=== PATIENT | female | born 2000 | race Caucasian/White ===

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

== ENCOUNTER 2018-04-01 02:09 | Emergency (ER) | payer MEDICAID, SELFPAY ==
[2018-04-01 02:10] VITALS: BP 149/79; PULSE 87; RESP 16; TEMP 36.8; O2SAT 96; BMI 82.9
--- NOTE | 2018-04-01 02:36 | ED.VISSUMM ---
- ER Visit Summary Date of Service: 04/01/18 Chief Complaint: Depressed History of Present Illness: The patient is a 17 F history of depression and anxiety. Reportedly per the police she takes and the friend denied that she was depressed and suicidal and that she was not long for this world. She was brought in for an ED mental health evaluation. Patient herself states she is not suicidal. She did send that text but she was just depressed at the time. She was treated for depression in the past but is since off medication. She states she had a miscarriage 2 weeks ago which were unsure of the accuracy of that statement. Physical Examination: Young female no acute distress. Vital signs are stable. She is afebrile. She does not look septic or toxic. No signs of toxidrome nor a smell of alcohol. HEENT exam unremarkable. Atraumatic. Neck nontender. No signs of trauma. Lungs clear to auscultation bilaterally. Heart regular rhythm rate about 85 no murmur. Chest nontender. Abdomen soft nontender. Extremities moves all 4. She has very superficial self-inflicted cutting wounds on her left proximal forearm. They are not bleeding nor do they need repaired. Both hands are neurovascular intact. Back unremarkable. Neurologically she is awake alert with no focal motor deficits. Normal motor strength sensation all 4 extremities. Test Results: CBC normal except for white count 1.7. BMP unremarkable. Potassium 3.4. Serum test negative. Tox screen negative. Alcohol negative. Emergency Department Course and Treatment: ED mental health evaluation. Prior to disposition crisis evaluation. Treatment Plan: Repeat exam patient is doing well at 03 47. Awaiting crisis evaluation. Disposition: [] Impression: Acute on chronic depression Suicidal ideation Self-inflicted left forearm lacerations that are superficial. (History of cutting) This note was generated with [employer] dictation software. It may contain incorrect words, spelling, and punctuation that were not noted in review of the chart prior to signing ED Disposition - Plan for ED Patient: Referrals: Arabella Mak MD [Primary Care Provider] -
--- NOTE | 2018-04-01 02:41 | ED.DCSUM_ITS ---
- ER Visit Summary Date of Service: 04/01/18 Chief Complaint: Depressed History of Present Illness: The patient is a 17 F history of depression and anxiety. Reportedly per the police she takes and the friend denied that she was depressed and suicidal and that she was not long for this world. She was broug ht in for an ED mental health evaluation. Patient herself states she is not suicidal. She did send that text but she was just depressed at the time. She was treated for depression in the past but is since off medication. She states she had a miscarriage 2 weeks ago which were unsure of the accuracy of that statement. Physical Examination: Young female no acute distress. Vital signs are stable. She is afebrile. She does not look septic or toxic. No signs of toxidrome nor a smell of alcohol. HEENT exam unremarkable. Atraumatic. Neck nontender. No signs of trauma. Lungs clear to auscultation bilaterally. Heart regular rhythm rate about 85 no murmur. Chest nontender. Abdomen soft nontender. Extremities moves all 4. She has very superficial self-inflicted cutting wounds on her left proximal forearm. They are not bleeding nor do they need repaired. Both hands are neurovascular intact. Back unremarkable. Neurologically she is awake alert with no focal motor deficits. Normal motor strength sensation all 4 extremities. Test Results: CBC normal except for white count 1.7. BMP unremarkable. Potassium 3.4. Serum test negative. Tox screen negative. Alcohol negative. Emergency Department Course and Treatment: ED mental health evaluation. Prior to disposition crisis evaluation. Treatment Plan: Repeat exam patient is doing well at 03 47. Awaiting crisis evaluation. Disposition: [] Impression: Acute on chronic depression Suicidal ideation Self-inflicted left forearm lacerations that are superficial. (History of cutting) This note was generated with [employer] dictation software. It may contain incorrect words, spelling, and punctuation that were not noted in review of the chart prior to signing ED Disposition - Plan for ED Patient: Referrals: Arabella Mak MD [Primary Care Provider] -
[2018-04-01 02:52] LABS: Absolute Lymphocyte Count 3.17 X10^3/ul (0.83-4.51); Absolute Neutrophil Count 7.3 X10^3/uL (2.0-7.7); Basophil# 0.03 X10^3/uL; Basophil% 0.3 % (0-1); Eosinophil# 0.57 X10^3/uL; Eosinophils% 4.9 % (0-5); Hematocrit 43.8 % (37-47); Hemoglobin 14.8 g/dl (12.0-15.0); Lymphocyte # 3.17 X10^3/ul (4.0); Lymphocyte % 27.1 % (19-41); Mean Corp Hgb Conc 33.8 g/gl (32-36); Mean Corpuscular Hgb 28.8 pg (27.0-32.0); Mean Corpuscular Volume 85.4 fL (81-99); Mean Platelet Vol. 9.9 fl (6.2-12.0); Monocyte# 0.64 X10^3/uL; Monocyte% 5.5 % (0-10); Neutrophil # 7.28 X10^3/uL (2.7-7.7); Platelet Count 336 K/mm3 (150-450); RBC Distribution Width CV 12.5 % (11.6-14.6); RBC Distribution Width SD 38.6 fl (35.1-43.9); Red Blood Count 5.13 M/mm3 (4.2-5.4); White Blood Count 11.7 K/mm3 (4.4-11.0)
[2018-04-01 03:01] LABS: POSITIVE COUNT NO; POSITIVE DIFFERENTIAL NO; POSITIVE MORPHOLOGY NO
[2018-04-01 03:05] LABS: Amphetamine Urine VISTA NEGATIVE (<1000 ng/mL); Barbiturate Urine VISTA NEGATIVE (< 200 ng/mL); Benzodiazepine Urine VISTA NEGATIVE (< 200 ng/mL); Cocaine Urine VISTA NEGATIVE (< 300 ng/mL); Ecstacy Urine VISTA NEGATIVE (< 500 ng/mL); Methadone Urine VISTA NEGATIVE (< 300 ng/mL); PCP Urine VISTA NEGATIVE (< 25 ng/mL); THC Urine VISTA NEGATIVE (< 50 ng/mL); Vista UDS pH Range 6
[2018-04-01 03:08] LABS: Alcohol, Blood (Medical)-Serum < 3.0 mg/dL
[2018-04-01 03:15] LABS: Anion Gap 9 (5-15); BUN 10 mg/dL (7-18); BUN/Creat Ratio 14.6 RATIO (10-20); Calcium,Total 8.8 mg/dL (8.5-10.1); Chloride 107 mmol/L (98-107); Creatinine, Serum 0.69 mg/dL (0.55-1.02); EST Glomerular Filtration Rate 117 mL/min (>60); Est Glom Filt Rate - Afr Amer 141 mL/min (>60); Glucose 87 mg/dL (74-106); Potassium 3.4 mmol/L (3.5-5.1); Sodium Level 139 mmol/L (136-145)
[2018-04-01 03:17] LABS: Pregnancy, Serum, hCG Quali. NEGATIVE Negative (0-9 Nonpreg)
--- NOTE | 2018-04-01 03:27 | NURSING ---
CALLED CRISIS AT 0327
--- NOTE | 2018-04-01 05:32 | ED.DEP ---
ED Disposition - Plan for ED Patient: Disposition: Home or Assisted Living Instructions: ED Depression Referrals: Arabella Mak MD [Primary Care Provider] - As Needed Counseling,Center [GROUP OF PHYSICIANS] - As soon as possible Additional Instructions: Call follow-up with counseling center as you and them discussed. Return to the ER if feeling worse or suicidal.
[2018-04-01 08:14] VITALS: RESP 16
== END 2018-04-01 08:15 | disposition home or self-care (01) ==
PROVIDERS: Emergency Provider Emergency Medicine; Family Provider Pediatrics; PCP Pediatrics
DX: R45.851 Suicidal ideations (principal); F32.9 Major depressive disorder, single episode, unspecified; S51.812A Laceration without foreign body of left forearm, initial encounter; X78.9XXA Intentional self-harm by unspecified sharp object, initial encounter; Y93.89 Activity, other specified; Y92.009 Unspecified place in unspecified non-institutional (private) residence as the place of occurrence of the external cause; Y99.8 Other external cause status
CPT/HCPCS: 80048; 80307; 80320; 84703; 85025; 99283; G0480

== ENCOUNTER 2018-05-13 22:02 | Emergency (ER) | payer MEDICAID, SELFPAY ==
[2018-05-13 22:03] VITALS: BP 143/102; PULSE 86; RESP 18; TEMP 36.2; O2SAT 100; BMI 35.5
--- NOTE | 2018-05-13 22:57 | ED.VISSUMM ---
- ER Visit Summary Date of Service: 05/13/18 Chief Complaint: Vomiting blood History of Present Illness: The patient is a 17 F who presents complaining of 2 episodes of vomiting blood. Patient states she had no abdominal pain or nausea but suddenly vomited up red and chunky vomit. This happened twice. She is complaining of mild chest pain. She is denying any abdominal pain or nausea at this time. She states this happened once when she was in the past. She states she has not eaten in 48 hours. She was sitting in [place] at the time trying to get a ride to [facility] but no one would give her a ride. She denies any fever, shortness of breath, cough, congestion, abdominal pain, nausea, diarrhea, constipation, urinary symptoms or any other complaints at this time. Patient is not on any blood thinners and has no history of bleeding disorders. Physical Examination: Vital signs: afebrile, hemodynamically stable, no hypoxia on room air General: well nourished, well developed, in no distress, unkempt appearing Skin: warm, dry, no rash, no pallor HEENT: normocephalic and atraumatic; PERRL, EOMI, moist mucous membranes oropharynx is clear without lesions and no posterior oropharyngeal blood noted Cardiovascular: regular rate and rhythm without murmurs, no peripheral edema, 2+ pulses all distal extremities, no subcutaneous emphysema, no [place] crunch Respiratory: No increased work of breathing, lungs are clear to auscultation bilaterally, no rales, rhonchi or wheezing, no stridor Abdominal: Abdomen is soft, nontender to deep palpation, including in the epigastrium, with normoactive bowel sounds, no guarding or rebound, no masses MSK: Moves all extremities, no deformities, normal strength Neuro: Awake and alert, oriented ?4. No facial droop, sensation and motor function intact and symmetric Test Results: Clinical Impression(s) from Imaging Studies Acute Abdomen Series 05/14/18 00:00 IMPRESSION: Negative chest and abdominal series. at 0041 Reported and signed by: Matias Moreno MD Electronically Signed: Matias Moreno, at 0:40 EDT Tel , Service support , Medications Given Discontinued Medications Al Hydroxide/Mg Hydroxide (Mylanta Ii) 30 ml PO X1 ONE Stop: 05/13/18 22:57 Last Admin: 05/13/18 23:09 Dose: 30 ml Lidocaine HCl (Xylocaine Viscous) 15 ml PO X1 ONE Stop: 05/13/18 22:57 Last Admin: 05/13/18 23:09 Dose: 15 ml Multi-Ingredient GI Drug () 1 each PO X1 ONE Stop: 05/13/18 22:57 Last Admin: 05/14/18 00:09 Dose: Not Given Emergency Department Course and Treatment: Patient presents complaining of 2 episodes of vomiting red and junky vomitus. She denies eating anything in 2 days. She denies consuming any red liquids or any other red substances. At this time she appears very comfortable, has had no abdominal pain or even nausea, and her physical exam is benign. Patient states she is hungry and accepted a snack. She was given a GI cocktail. Patient was not given antiemetics because she was not complaining of any nausea. Chest and abdominal x-rays were obtained to evaluate for any mediastinal or subdiaphragmatic air. She had no evidence of free air or other acute pathology. On reevaluation she was sleeping. Patient states she is no longer having the chest pain. Patient's description of 2 episodes of spontaneously vomiting blood without any prodromal symptoms and with an unremarkable examination and no further symptoms in the emergency department gives me low suspicion for any life-threatening active upper GI bleed. She was discharged home and is to follow-up with her primary care doctor. Treatment Plan: [] Disposition: [] Impression: Acute gastritis This note was generated with [employer] dictation software. It may contain incorrect words, spelling, and punctuation that were not noted in review of the chart prior to signing ED Disposition - Plan for ED Patient: Disposition: Home or Assisted Living Instructions: ED Gastritis Referrals: Arabella Mak MD [Primary Care Provider] - 3-5 Days Additional Instructions: Return to the emergency department if you have any further episodes of vomiting blood. Please follow-up with your primary care doctor as soon as possible for another evaluation due to your concerns today. If you have any worsening of your condition or any new concerning symptoms, please return immediately to the emergency department for another evaluation.
--- NOTE | 2018-05-13 23:00 | ED.DCSUM_ITS ---
- ER Visit Summary Date of Service: 05/13/18 Chief Complaint: Vomiting blood History of Present Illness: The patient is a 17 F who presents complaining of 2 episodes of vomiting blood. Patient states she had no abdominal pain or nausea but suddenly vomited up red and chunky vomit. This happened twice. She is complaining of mild chest pain. She is denying any abdominal pain or nausea at this time. She states this happened once when she was in the past. She states she has not eaten in 48 hours. She was sitting in [place] at the time trying to get a ride to [facility] but no one would give her a ride. She denies any fever, shortness of breath, cough, congestion, abdominal pain, naus ea, diarrhea, constipation, urinary symptoms or any other complaints at this time. Patient is not on any blood thinners and has no history of bleeding disorders. Physical Examination: Vital signs: afebrile, hemodynamically stable, no hypoxia on room air General: well nourished, well developed, in no distress, unkempt appearing Skin: warm, dry, no rash, no pallor HEENT: normocephalic and atraumatic; PERRL, EOMI, moist mucous membranes oropharynx is clear without lesions and no posterior oropharyngeal blood noted Cardiovascular: regular rate and rhythm without murmurs, no peripheral edema, 2+ pulses all distal extremities, no subcutaneous emphysema, no [place] crunch Respiratory: No increased work of breathing, lungs are clear to auscultation bilaterally, no rales, rhonchi or wheezing, no stridor Abdominal: Abdomen is soft, nontender to deep palpation, including in the epigastrium, with normoactive bowel sounds, no guarding or rebound, no masses MSK: Moves all extremities, no deformities, normal strength Neuro: Awake and alert, oriented ?4. No facial droop, sensation and motor function intact and symmetric Test Results: Clinical Impression(s) from Imaging Studies Acute Abdomen Series 05/14/18 00:00 IMPRESSION: Negative chest and abdominal series. at 0041 Reported and signed by: Matias Moreno MD Electronically Signed: Matias Moreno, at 0:40 EDT Tel , Service support , Medications Given Discontinued Medications Al Hydroxide/Mg Hydroxide (Mylanta Ii) 30 ml PO X1 ONE Stop: 05/13/18 22:57 Last Admin: 05/13/18 23:09 Dose: 30 ml Lidocaine HCl (Xylocaine Viscous) 15 ml PO X1 ONE Stop: 05/13/18 22:57 Last Admin: 05/13/18 23:09 Dose: 15 ml Multi-Ingredient GI Drug () 1 each PO X1 ONE Stop: 05/13/18 22:57 Last Admin: 05/14/18 00:09 Dose: Not Given Emergency Department Course and Treatment: Patient presents complaining of 2 episodes of vomiting red and junky vomitus. She denies eating anything in 2 days. She denies consuming any red liquids or any other red substances. At this time she appears very comfortable, has had no abdominal pain or even nausea, and her physical exam is benign. Patient states she is hungry and accepted a snack. She was given a GI cocktail. Patient was not given antiemetics because she was not complaining of any nausea. Chest and abdominal x-rays were obtained to evaluate for any mediastinal or subdiaphragmatic air. She had no evidence of free air or other acute pathology. On reevaluation she was sleeping. Patient states she is no longer having the chest pain. Patient's description of 2 episodes of spontaneously vomiting blood without any prodromal symptoms and with an unremarkable examination and no further symptoms in the emergency department gives me low suspicion for any life-threatening active upper GI bleed. She was discharged home and is to follow-up with her primary care doctor. Treatment Plan: [] Disposition: [] Impression: Acute gastritis This note was generated with [employer] dictation software. It may contain incorrect words, spelling, and punctuation that were not noted in review of the chart prior to signing ED Disposition - Plan for ED Patient: Disposition: Home or Assisted Living Instructions: ED Gastritis Referrals: Arabella Mak MD [Primary Care Provider] - 3-5 Days Additional Instructions: Return to the emergency department if you have any further episodes of vomiting blood. Please follow-up with your primary care doctor as soon as possible for another evaluation due to your concerns today. If you have any worsening of your condition or any new concerning symptoms, please return immediately to the emergency department for another evaluation.
[2018-05-13] MEDS: Mag Hydrox/Al Hydrox/Simeth 30 ML UDC PO (23:09)
--- NOTE | 2018-05-14 | RAD_ITS ---
HISTORY: Vomiting. EXAM: Abdomen acute series with chest. COMPARISON: None FINDINGS: --Chest: LINES/DEVICES: None. LUNGS: Radiographically clear. No consolidation, edema or effusion. No pneumothorax. MEDIASTINUM AND CARDIOVASCULAR STRUCTURES: Cardiac silhouette not enlarged. Central airways and mediastinal contour are unremarkable. BONES AND SOFT TISSUES: No acute findings. --Abdomen: BOWEL GAS PATTERN: Non-obstructive. No bowel or stomach distention. FREE AIR: None apparent. ORGANOMEGALY: Not seen. CALCIFICATIONS: No pathologic calcifications observed. BONES AND SOFT TISSUES: Mild right scoliosis centered at T12. No acute findings. RAD/Acute Abdomen Inc Chest IMPRESSION: Negative chest and abdominal series. at 0041 Reported and signed by: Matias Moreno MD Electronically Signed: Matias Moreno, at 0:40 EDT Tel , Service support ,
[2018-05-14 00:03] VITALS: RESP 14
[2018-05-14 01:19] VITALS: BP 115/73; PULSE 79; RESP 12; O2SAT 99
== END 2018-05-14 01:20 | disposition home or self-care (01) ==
PROVIDERS: Emergency Provider Emergency Medicine; Family Provider Pediatrics; PCP Pediatrics
DX: K29.00 Acute gastritis without bleeding (principal)
CPT/HCPCS: 74022; 99283

== ENCOUNTER → 2019-10-20 13:48 | Outpatient (CLI) | payer MEDICAID, SELFPAY ==
[2019-10-20 14:38] LABS: Hemoglobin 12.7 g/dL (12.0-15.0); Mean Corp Hgb Conc 33.4 g/dL (32-36); Mean Corpuscular Hgb 28.6 pg (27.0-32.0); Mean Corpuscular Volume 85.6 fL (81-99); Mean Platelet Vol. 9.3 fl (6.2-12.0); Platelet Count 328 K/mm3 (150-450); RBC Distribution Width CV 13.1 % (11.6-14.6); RBC Distribution Width SD 40.2 fl (35.1-43.9); Red Blood Count 4.44 M/mm3 (4.2-5.4); White Blood Count 6.5 K/mm3 (4.4-11.0)
[2019-10-20 15:37] LABS: Estradiol 56.5 pg/mL; Luteinizing Hormone 9.5 mIU/mL; Prolactin 9.4 ng/mL; T4 Free Direct 1.11 ng/dL (0.76-1.46); Thyroid Stim Hormone (TSH) 0.81 uIU/mL (0.358-3.74)
[2019-10-27 00:21] LABS: Anti-Mullerian Hormone,Serum 6.41 ng/mL (.)
== END ==
PROVIDERS: PCP Pediatrics; Visit Provider Obstetrics & Gynecology
DX: N92.6 Irregular menstruation, unspecified (principal)
CPT/HCPCS: 36415; 82670; 83001; 83002; 83516; 84146; 84403; 84439; 84443; 85027

== ENCOUNTER → 2019-11-17 14:19 | Outpatient (CLI) | payer MEDICAID, SELFPAY ==
[2019-11-17 18:33] LABS: Cholesterol 195 mg/dL (200); Hemoglobin A1c 5.4 % (3.8-5.6); High Density Lipoprotein 33 mg/dL; Triglycerides 192 mg/dL; Very Low Density Lipoprotein 38 mg/dL (5-40)
== END ==
PROVIDERS: PCP Pediatrics; Visit Provider Obstetrics & Gynecology
DX: E28.2 Polycystic ovarian syndrome (principal)
CPT/HCPCS: 36415; 80061; 83036; 84403

== ENCOUNTER 2020-03-22 15:10 | Emergency (ER) | payer MEDICAID, SELFPAY ==
[2020-03-22 15:11] VITALS: BP 150/89; PULSE 88; RESP 16; TEMP 36.4; O2SAT 98; BMI 39.6
--- NOTE | 2020-03-22 16:01 | ED.VIS.GEN ---
History of Present Illness Chief Complaint: Nausea/Vomiting Informant: Patient Onset: Today, Yesterday Context: Sudden Onset Timing: Intermittent Quality: Vomited x2 Location: Blood in emesis Current Severity: Mild Maximum Severity: Mild Worsened by: Unknown Relieved by: Nothing Associated Symptoms: No associated symptoms Narrative: Is a 19-year-old female who presents with nausea vomiting x2. States there was blood in her emesis. She states the first time she vomited blood was noted. She denies history peptic ulcers, gastritis, esophagitis or reflux. Patient denies black or maroon-colored stool. She denies orthostatic symptoms. She denies abdominal pain. She has no other complaints Prior similar symptoms: No Recent Illness/Hospitalization: No - Past Medical History (1) No significant past medical history Status: Acute Past Medical History - Allergies and Home Meds Allergies/Adverse Reactions: Allergies latex Adverse Reaction (Verified 03/22/20 15:11) Rash Primary Care Physician: Arabella Mak MD [Primary Care Provider] - Prior records reviewed: Yes - Control pills for irregular menses Surgical History: no surgical history Lives: Alone Smoking Status: Former smoker Alcohol: None Drugs: None Review of Systems General: Denies: Chills, Fever, Sweats Eyes: Denies: Visual changes - bilaterally ENT: Denies: Bilateral ear pain, Rhinorrhea, Sore throat Cardiovascular: Denies: Chest pain, Palpitations Respiratory: Denies: Dyspnea, Cough, Dyspnea on exertion Gastrointestinal: Reports: Nausea, Vomiting, - - Hematemesis. Denies: Melena, Hematochezia Genitourinary: Denies: Dysuria, Hematuria, Frequency Musculoskeletal: Denies: Myalgias, Arthralgias, Neck pain, Back pain, Swelling, Extremity Pain Skin: Denies: Rash, Wounds Neurological: Denies: Headache, Weakness, Numbness Endocrine: Denies: Polyuria, Polydipsia Hematologic: Denies: Easy bruising, Easy bleeding Physical Exam Vital Signs/Narrative: Vital Signs Temp Pulse Resp BP Pulse Ox 03/22/20 15:11 97.6 F L 88 16 150/89 H 98 Inital Vital Signs reviewed: Yes General: Well nourished, Well developed, No Acute Distress Head: Normocephalic, Atraumatic Eyes: Perrl, EOMI ENT: Moist mucous membranes, No rhinorrhea Neck: Supple, Nontender Cardiovascular: Regular rate, Regular rhythm, No murmurs, Normal S1, Normal S2 Respiratory: No distress, CTA bilaterally, Chest nontender Abdomen: Soft, Nontender, Nondistended, Normal bowel sounds Back: Nontender, Normal Inspection Extremities: Nontender, No edema. Negative for: Tenderness, Edema Skin: Normal color, No rash, No Trauma. Negative for: Cyanosis, Diaphoresis, Jaundice Neurological: Alert, Oriented x3, Cranial nerves II-XII grossly intact, Normal Strength, Normal Sensation Psychological: Normal affect, Normal Mood Diagnostic/Tx/Re-eval Chest X-Ray - ED: 1 View, Read by ED Physician, - - NG noted and in proper position 03/22/20 16:07 Abdomen Single View (Portable) [RAD] Stat - Medical Decision Making He was ordered to determine if patient truly had a GI bleed or not. Based on description suspect this may not be blood. Since she is hemodynamically stable with no orthostatic symptoms and denies black stool even though she vomited yesterday blood work was not initially ordered. Nurse informed me that the gastric fluid slightly pink. This may be due to trauma. There is no coffee grounds noted. There is no obvious active bleeding. Suspect patient has Luli-Woodard tear. Will discharge to home. ED Disposition - Plan for ED Patient: Disposition: Home or Assisted Living Diagnosis: Luli-Woodard tear Instructions: Luli-Woodard Tear Prescriptions: Famotidine [Pepcid] 20 mg PO BID #28 tab Prescription Printed Referrals: Arabella Mak MD [Primary Care Provider] - As Needed
--- NOTE | 2020-03-22 16:07 | RAD_ITS ---
STUDY: X-RAY - ABDOMEN/PELVIS REASON FOR EXAM: Female, 19 years old. vomiting blood since last night. NG placement TECHNIQUE: Single AP view of the abdomen / pelvis. COMPARISON: 05/14/2018 FINDINGS: Nasogastric tube with the tip in the left upper quadrant likely in the body the stomach. There is an unremarkable bowel gas pattern. There is no demonstrated free abdominal air. The visualized liver, spleen and kidneys are grossly normal in size and morphology. Normal soft tissue structures. Normal visualized osseous structures. RAD/Abdomen Single View (Portable) IMPRESSION: 1. Nasogastric tube with the tip in the left upper quadrant likely in the body the stomach. 2. No bowel obstruction or pneumoperitoneum. Electronically Signed: Lei José MD at 16:22 EST Tel , Service support ,
--- NOTE | 2020-03-22 16:31 | ED.VISSUMM ---
- ER Visit Summary Date of Service: 03/22/20 Chief Complaint: [] History of Present Illness: The patient is a 19 F [] Physical Examination: [] Test Results: [] Emergency Department Course and Treatment: [] Treatment Plan: [] Disposition: [] Impression: [] This note was generated with [employer] dictation software. It may contain incorrect words, spelling, and punctuation that were not noted in review of the chart prior to signing ED Disposition - Plan for ED Patient: Disposition: Home or Assisted Living Diagnosis: Luli-Woodard tear Instructions: Luli-Woodard Tear Prescriptions: Famotidine [Pepcid] 20 mg PO BID #28 tab Prescription Printed Ondansetron [Zofran Odt] 4 mg PO Q8H PRN PRN #10 tab PRN Reason: Nausea Prescription Printed Referrals: Arabella Mak MD [Primary Care Provider] - As Needed
[2020-03-22 16:42] VITALS: BP 134/77; PULSE 62; RESP 15; O2SAT 97
== END 2020-03-22 16:44 | disposition home or self-care (01) ==
PROVIDERS: Emergency Provider Emergency Medicine; PCP Pediatrics
DX: K22.6 Gastro-esophageal laceration-hemorrhage syndrome (principal); Z87.891 Personal history of nicotine dependence
CPT/HCPCS: 74018; 99282

== ENCOUNTER 2020-05-18 10:52 | Emergency (ER) | payer MEDICAID, SELFPAY ==
[2020-05-18 10:52] VITALS: BP 153/91; PULSE 86; RESP 16; TEMP 36.7; O2SAT 98; BMI 39.9
--- NOTE | 2020-05-18 11:12 | ED.DCSUM_ITS ---
- ER Visit Summary Date of Service: 05/18/20 Chief Complaint: [] History of Present Illness: The patient is a 19 F [rash presents to the emergency department complaint of a rash to the left breast that she noticed this morning. The area slightly tender to palpation. She denies any new soaps or detergents or other allergens. She is never had this type of discomfort before. Patient denies fever or recent illness.] Physical Examination: [HEENT-PERRLA, EOMI. Cranial nerves II through XII grossly intact. TMs clear. Mucous membranes moist. No adenopathy. Cardiovascular-regular rate and rhythm without murmur or ectopy Lungs-clear to auscultation, chest wall stable without crepitus or subcu emphysema. Left breast-patient does have some faint erythema underneath the left breast in the fold of the skin. No vesicles noted. No abscess noted. Abdomen-normoactive bowel sounds, soft, nontender, no rebound or rigidity, no peritoneal signs. Extremities-intact ?4, normal range of motion, normal pulses, atraumatic] Test Results: [None indicated] Emergency Department Course and Treatment: [] Treatment Plan: [Etiology of her rash is unclear although I suspect candidal as the most likely etiology. We also discussed possibility this could be early shingles although there are no vesicular lesions noted at this time. We will treat her with nystatin cream initially and referred to primary care physician for follow-up in 3 to 5 days.] Disposition: [Discharged home in stable condition] Impression: [Dermatitis left breast-suspect Anjali] This note was generated with [employer] dictation software. It may contain incorrect words, spelling, and punctuation that were not noted in review of the chart prior to signing ED Disposition - Plan for ED Patient: Referrals: Arabella Mak MD [Primary Care Provider] -
--- NOTE | 2020-05-18 11:14 | ED.DEP ---
ED Disposition - Plan for ED Patient: Instructions: ED Anjali Skin Infection (Adult) Prescriptions: Nystatin/Triamcin [Nystatin-Triamcinolone Ointm] 30 gm TP BID #1 oint...g. Prescription Printed Referrals: Arabella Mak MD [Primary Care Provider] - Xin Crowley MD [STAFF PHYSICIAN] - 3-5 Days
[2020-05-18 11:25] VITALS: PULSE 15
== END 2020-05-18 11:25 | disposition home or self-care (01) ==
LOC: ED 11:20
PROVIDERS: Emergency Provider Emergency Medicine
DX: L30.9 Dermatitis, unspecified (principal)
CPT/HCPCS: 99282

== ENCOUNTER 2020-06-20 17:21 | Emergency (ER) | payer MEDICAID, SELFPAY ==
[2020-06-20 17:22] VITALS: BP 158/100; PULSE 94; RESP 18; TEMP 35.9; O2SAT 100; BMI 43.2
--- NOTE | 2020-06-20 17:32 | ED.VIS.GEN ---
History of Present Illness Chief Complaint: Female C/O Detail of Chief Complaint: Concern for Informant: Patient Onset: Weeks Narrative: Patient presents concerned that she may be . She reports having history of irregular periods since she was on Depo as a teenager. She recently was on oral contraceptive pills but they ran out in January. She states her last menstrual cycle was January. She has noted fatigue with some nausea and occasional vomiting over the past 2 weeks. She is concerned she may be . She states she spoke to a friend who told her she had to have a blood test for test, not a pee-stick so she came to the emergency room. She has having slight brown discharge. No dysuria. Past Medical History - Allergies and Home Meds Allergies/Adverse Reactions: Allergies latex Adverse Reaction (Verified 06/20/20 17:24) Rash Primary Care Physician: Care Physician,No Primary [Primary Care Provider] - Surgical History: no surgical history Smoking Status: Never smoker Review of Systems General: Denies: Chills, Fever Eyes: Denies: Visual changes - bilaterally ENT: Denies: Bilateral ear pain Cardiovascular: Denies: Chest pain Respiratory: Denies: Dyspnea, Cough Gastrointestinal: Reports: Nausea, Vomiting. Denies: Abdominal pain Genitourinary: Denies: Dysuria Musculoskeletal: Denies: Swelling, Extremity Pain Skin: Denies: Rash Hematologic: Denies: Easy bruising, Easy bleeding Allergy: Denies: Uticaria Physical Exam Vital Signs/Narrative: Vital Signs Temp Pulse Resp BP Pulse Ox 06/20/20 17:22 96.6 F L 94 18 158/100 H 100 Inital Vital Signs reviewed: Yes General: Well nourished, Well developed Head: Normocephalic Neck: Supple Cardiovascular: Regular rate, Regular rhythm Respiratory: No distress, CTA bilaterally Abdomen: Soft, Nontender, Normal bowel sounds Extremities: Nontender Skin: Normal color Neurological: Alert, Oriented x3 Psychological: Normal affect Diagnostic/Tx/Re-eval Laboratory Results 06/20/20 17:48 Urine Color Yellow Urine Clarity Sl. Cloudy Urine pH 7.0 Ur Specific [place] 1.010 Urine Protein Negative Urine Glucose (UA) Normal Urine Ketones Negative Urine Occult Blood 10 H Urine Nitrite Negative Urine Bilirubin Negative Urine Urobilinogen Normal Ur Leukocyte Esterase 100 H Urine RBC 0-5 SEEN Urine WBC 5-10 SEEN Ur Squamous Epith Cells 0-5 SEEN Urine Bacteria RARE Urine Mucus 0 SEEN Urine Test Negative - Medical Decision Making Pelvic examination revealed mild mucus discharge, appears physiologic. No blood noted. No lesions. Urinalysis shows signs of mild infection. She will be treated with 3 days of Bactrim. test is negative. At this time I do not think a blood test for is indicated. I did advise her of this. 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 ED Disposition - Plan for ED Patient: Disposition: Home or Assisted Living Diagnosis: UTI (urinary tract infection) Instructions: ED Bladder Infection, Female (Adult) Prescriptions: Smz/Tmp Ds [Bactrim Ds] 1 tablet PO BID #6 tab Transmission Status: Pending to [id number] Referrals: Arik Mak MD [STAFF PHYSICIAN] - 1 Week if not improving
[2020-06-20 17:52] LABS: Mucous, Urine 0 SEEN /hpf (<or=2+)
[2020-06-20 17:53] LABS: Color, Urine Yellow (Yellow); Glucose, Dipstick Normal (Normal); Ketone-Dipstick Negative (Negative); Leukocyte Esterase-Dipstick 100 /ul (Negative); Nitrite-Dipstick Negative (Negative); Occult Blood-Urine 10 /ul (Negative); Protein-Dipstick Negative (Negative); Urine Bilirubin Dipstick Negative (Negative); Urine Clarity Sl. Cloudy (Clear); Urine Urobilinogen Normal (Normal)
[2020-06-20 17:59] LABS: Internal QC Validated? YES +Cl - CLEAR BKGD; Pregnancy, Urine Negative Negative
[2020-06-20 18:06] LABS: Bacteria RARE /hpf (None Seen); Red Blood Cells-Urine 0-5 SEEN /hpf (0-5); Squamous Epithelial Cells - UA 0-5 SEEN /hpf (5-10); White Blood Cells 5-10 SEEN /hpf (0-5)
[2020-06-20] MEDS: Smz/Tmp Ds Tablet 1 TABLET PO (18:30)
== END 2020-06-20 18:32 | disposition home or self-care (01) ==
PROVIDERS: Emergency Provider Emergency Medicine
DX: N39.0 Urinary tract infection, site not specified (principal)
CPT/HCPCS: 81001; 81025; 99283

== ENCOUNTER 2020-06-23 17:39 | Emergency (ER) | payer MEDICAID, SELFPAY ==
[2020-06-23 17:40] VITALS: BP 152/93; PULSE 65; RESP 15; TEMP 36.1; O2SAT 98; BMI 43.0
[2020-06-23 17:41] VITALS: BP 152/93; PULSE 65; RESP 15; TEMP 36.1; O2SAT 98
--- NOTE | 2020-06-23 18:13 | ED.VIS.GI ---
HPI HPI - GI History of Present Illness Chief Complaint: Nausea/Vomiting Informant: patient Narrative Narrative: Patient presents with abdominal pain, nausea and vomiting. She has had this for about 10 days. She states that she feels nauseous every day and vomited today which was concerning to her. She has pain in the lower part of her abdomen which is concentrated in the right lower quadrant. She denies any urinary symptoms but does have a history of chronic UTIs. She states that she does not believe that she is at this time. She has no history of abdominal surgeries. She has not taken anything for the pain or nausea at home. She denies any fevers. She has not eaten well because of this pain. [facility] Medical History Chronic UTI Home Medications promethazine 25 mg PO Q6H PRN PRN #10 tablet 06/23/20 [Rx Last Taken Unknown] Allergy/AdvReac Type Severity Reaction Status Date / Time latex AdvReac Rash Verified 06/23/20 17:42 Surgical History (Updated 06/23/20 @ 18:[address] Luis Hoffman MD) History of tonsillectomy Social History Smoking Status: Never smoker ROS ROS ED Constitutional Constitutional ED: Denies chills or fever(s) Eyes Eyes: Denies blurry vision or change in vision ENT ENT ED: Denies ear pain, rhinorrhea or sore throat Cardiovascular Cardiovascular: Denies chest pain or palpitations Respiratory/Chest Respiratory/Chest: Denies cough, dyspnea or sputum Gastrointestinal Gastrointestinal: Reports abdominal pain and nausea Genitourinary Genitourinary ED: Denies dysuria, hematuria or urinary frequency Musculoskeletal Musculoskeletal: Denies back pain or neck pain Integumentary Denies change in pigmentation or rash Neurologic Neurologic: Denies headache(s), numbness or weakness Psychiatric Psychiatric: Denies anxiety or depression Endocrine Endocrinology: Denies polydipsia or polyuria EXAM Physical Exam Const Vital Signs: 06/23/20 17:40 06/23/20 17:41 Temperature 97 F L 97 F L Temperature Source Temporal Temporal Pulse Rate 65 65 Respiratory Rate 15 15 Blood Pressure 152/93 H 152/93 H Blood Pressure Mean 112 112 Pulse Ox 98 98 Oxygen Delivery Method Room Air Room Air Positive well nourished and well developed General Appearance ED: well developed and NAD HEENT Reports moist mucous membranes normocephalic and atraumatic; Negative for tenderness Eyes PERRL and EOMs intact bilaterally Neck supple and no JVD Chest Wall Chest: Negative for tenderness Resp normal respiratory effort and clear to auscultation bilaterally Effort and Inspection: Negative for respiratory distress Cardio regular rate and regular rhythm; Negative for no murmurs GI soft to palpation and non-distended Palpation: soft and tender RLQ Back/Spine no CVA tenderness and no thoracic nor lumbar tenderness Cervical Spine: Negative for cervical spine tenderness Extremity normal to inspection General Extremety ED: Negative for tenderness Neuro oriented x3, CN's II-XII intact bilaterally and no sensory deficits noted Sensorium / Orientation: awake and alert Motor Exam: strength 5/5 throughout Psych mental status grossly normal Skin no rashes or lesions noted MDM MDM MDM Narrative Medical decision making narrative: Patient is given morphine and Zofran. Laboratory studies show white blood cell count 14.2. Urinalysis is negative for infection. Liver enzymes and lipase are normal. CAT scan reveals no acute findings. Patient felt lightheaded so I gave her some IV fluids. At this point he feels she can be discharged home. I will give her Phenergan for her nausea. She will need to follow-up with her PCP. Lab Data Labs: Laboratory Results - last 24 hr 06/23/20 06/23/20 06/23/20 18:10 18:10 18:20 WBC 14.2 H RBC 4.85 Hgb 13.1 Hct 40.5 MCV 83.5 MCH 27.0 MCHC 32.3 RDW Std Deviation 43.8 RDW Coeff of Pamela 14.5 Plt Count 392 MPV 9.6 Immature Gran % (Auto) 0.500 Neut % (Auto) 85.2 H Lymph % (Auto) 9.7 L [place] % (Auto) 4.4 Eos % (Auto) 0.0 Baso % (Auto) 0.2 Absolute Neuts (auto) 12.1 H Absolute Lymphs (auto) 1.38 Nucleated RBC % 0 Sodium Potassium Chloride Carbon Dioxide Anion Gap BUN Creatinine Estim Creat Clear Calc Est GFR (MDRD) Af Amer Est GFR (MDRD) Non-Af BUN/Creatinine Ratio Glucose Calcium Total Bilirubin Direct Bilirubin AST ALT Alkaline Phosphatase Total Protein Albumin Globulin Lipase Urine Color Yellow Urine Clarity Clear Urine pH 6.0 Ur Specific [place] 1.015 Urine Protein 15 H Urine Glucose (UA) Normal Urine Ketones Negative Urine Occult Blood 10 H Urine Nitrite Negative Urine Bilirubin Negative Urine Urobilinogen Normal Ur Leukocyte Esterase 100 H Urine RBC 0 SEEN Urine WBC 0-5 SEEN Ur Squamous Epith Cells 0-5 SEEN Urine Bacteria 1+ Urine Mucus 0 SEEN Urine Test Negative 06/23/20 18:20 WBC RBC Hgb Hct MCV MCH MCHC RDW Std Deviation RDW Coeff of Pamela Plt Count MPV Immature Gran % (Auto) Neut % (Auto) Lymph % (Auto) [place] % (Auto) Eos % (Auto) Baso % (Auto) Absolute Neuts (auto) Absolute Lymphs (auto) Nucleated RBC % Sodium 137 Potassium 3.8 Chloride 104 Carbon Dioxide 29.0 Anion Gap 4 L BUN 11 Creatinine 0.86 Estim Creat Clear Calc 152.64 Est GFR (MDRD) Af Amer 107 Est GFR (MDRD) Non-Af 88 BUN/Creatinine Ratio 12.8 Glucose 87 Calcium 8.8 Total Bilirubin 0.60 Direct Bilirubin 0.15 AST 28 ALT 45 Alkaline Phosphatase 81 Total Protein 8.3 H Albumin 3.9 Globulin 4.4 H Lipase 59 L Urine Color Urine Clarity Urine pH Ur Specific [place] Urine Protein Urine Glucose (UA) Urine Ketones Urine Occult Blood Urine Nitrite Urine Bilirubin Urine Urobilinogen Ur Leukocyte Esterase Urine RBC Urine WBC Ur Squamous Epith Cells Urine Bacteria Urine Mucus Urine Test Radiography Diagnostic Testing: Radiology Impression Abdomen/Pelvis CT 06/23/20 19:00 IMPRESSION: Hepatomegaly. No biliary dilatation. No mass or obstruction. Normal appendix. Electronically Signed: Mynor Kunz MD at 19:31 EDT , Service support , Discharge Plan Triage Chief Complaint: Nausea/Vomiting ED Provider: Luis Hoffman Dx/Rx/DC Orders Clinical Impression: Nausea Instructions: ED Vomiting (Adult) Prescriptions: New promethazine [promethazine] 25 MG tablet 25 mg PO Q6H PRN PRN (Reason: Nausea) Qty: 10 RF: 0 Primary Care Provider: Care Physician,No Primary Referrals: Care Physician,No Primary [Primary Care Provider] - Disposition Disposition: Home, self care
[2020-06-23] MEDS: Morphine 4 MG/ML Syringe IV (18:25)
[2020-06-23] MEDS: Ondansetron 4 MG/2 ML Vial IV (18:25)
[2020-06-23 18:31] LABS: Mucous, Urine 0 SEEN /hpf (<or=2+); Red Blood Cells-Urine 0 SEEN /hpf (0-5)
[2020-06-23 18:35] LABS: Color, Urine Yellow (Yellow); Glucose, Dipstick Normal (Normal); Ketone-Dipstick Negative (Negative); Leukocyte Esterase-Dipstick 100 /ul (Negative); Nitrite-Dipstick Negative (Negative); Occult Blood-Urine 10 /ul (Negative); Protein-Dipstick 15 mg/dl (Negative); Specific Gravity, Urine 1.015 (1.002-1.030); Urine Bilirubin Dipstick Negative (Negative); Urine Clarity Clear (Clear); Urine Urobilinogen Normal (Normal)
[2020-06-23 18:38] LABS: Internal QC Validated? YES +Cl - CLEAR BKGD; Pregnancy, Urine Negative Negative
[2020-06-23 18:41] LABS: Bacteria 1+ /hpf (None Seen); Squamous Epithelial Cells - UA 0-5 SEEN /hpf (5-10); White Blood Cells 0-5 SEEN /hpf (0-5)
[2020-06-23 18:42] LABS: Absolute Lymphocyte Count 1.38 X10^3/uL (0.83-4.51); Absolute Neutrophil Count 12.1 X10^3/uL (2.0-7.7); Basophil# 0.03 X10^3/uL; Basophil% 0.2 % (0-1); Hematocrit 40.5 % (37-47); Hemoglobin 13.1 g/dL (12.0-15.0); Lymphocyte # 1.38 X10^3/ul (0.83-4.51); Lymphocyte % 9.7 % (19-41); Mean Corp Hgb Conc 32.3 g/dL (32-36); Mean Corpuscular Volume 83.5 fL (81-99); Mean Platelet Vol. 9.6 fl (6.2-12.0); Monocyte# 0.62 X10^3/uL; Monocyte% 4.4 % (0-10); NRBC Flagged by Analyzer 0 % (0-5); Neutrophil # 12.12 X10^3/uL (2.7-7.7); Neutrophil % 85.2 % (47-70); Platelet Count 392 K/mm3 (150-450); RBC Distribution Width CV 14.5 % (11.6-14.6); RBC Distribution Width SD 43.8 fl (35.1-43.9); Red Blood Count 4.85 M/mm3 (4.2-5.4); White Blood Count 14.2 K/mm3 (4.4-11.0)
[2020-06-23 18:53] LABS: AST(SGOT) 28 U/L (15-37); Alanine Aminotransfer ALT/SGPT 45 U/L (13-56); Albumin, Serum 3.9 g/dL (3.2-5.0); Alkaline Phosphatase 81 U/L (45-117); Anion Gap 4 (5-15); BUN 11 mg/dL (7-18); BUN/Creat Ratio 12.8 RATIO (10-20); Bilirubin, Direct 0.15 mg/dL (0.00-0.30); Calcium,Total 8.8 mg/dL (8.5-10.1); Chloride 104 mmol/L (98-107); Creatinine, Serum 0.86 mg/dL (0.55-1.02); EST Glomerular Filtration Rate 88 mL/min (>60); Est Glom Filt Rate - Afr Amer 107 mL/min (>60); Estimated Creatinine Clearance 152.64 ml/min; Globulin 4.4 g/dL (2.2-4.2); Glucose 87 mg/dL (74-106); Lipase 59 U/L (73-393); Potassium 3.8 mmol/L (3.5-5.1); Protein, Total 8.3 g/dL (6.4-8.2); Sodium Level 137 mmol/L (136-145)
--- NOTE | 2020-06-23 19:00 | CT_ITS ---
STUDY: CT ABDOMEN AND PELVIS WITH CONTRAST REASON FOR EXAM: Female, 19 years old. RLQ abd pain RADIATION DOSAGE (If Supplied By Facility): CTDIvol = ( 13.90 ) mGy, DLP = ( 1055.30 ) mGycm TECHNIQUE: Transaxial images were obtained from the dome of the diaphragm to the symphysis pubis without oral contrast. IV 100mL Isovue-370 was administered. Sagittal and coronal images were reconstructed. Individualized dose optimization techniques were used for this CT. COMPARISON: X-ray March 22, 2020. FINDINGS: The visualized lung bases are unremarkable. The visualized portions of the heart are within normal limits. There is hepatomegaly with diffuse hepatic enlargement. Normal gallbladder and extrahepatic biliary system. Normal spleen. Normal pancreas. Normal bilateral adrenal glands. Normal right kidney. Normal left kidney. Normal visualized stomach. Normal small intestine. Normal colon. The appendix is visualized and appears normal. Normal abdominal aorta. Normal inferior vena cava. Normal retroperitoneum. Normal urinary bladder. Normal visualized uterus. There are adnexal follicles. There is no free fluid in the abdomen or pelvis. Normal abdominal wall. Normal osseous structures. CT/Abdomen/Pelvis W IV Cont ONLY IMPRESSION: Hepatomegaly. No biliary dilatation. No mass or obstruction. Normal appendix. Electronically Signed: Mynor Kunz MD at 19:31 EDT , Service support ,
[2020-06-23 21:11] VITALS: BP 125/74; PULSE 86; PULSE 96; RESP 16; RESP 17; O2SAT 100
== END 2020-06-23 21:23 | disposition home or self-care (01) ==
PROVIDERS: Emergency Provider Emergency Medicine
DX: R11.2 Nausea with vomiting, unspecified (principal)
CPT/HCPCS: 74177; 80048; 80076; 81001; 81025; 83690; 85025; 96374; 96375; 99283; J7030; Q9967; A4216; J2405

== ENCOUNTER 2021-04-29 10:31 | Outpatient (CLI) | payer MEDICAID, SELFPAY ==
[2021-04-29 11:20] LABS: Mucous, Urine 0 SEEN /hpf (<or=2+)
[2021-04-29 11:32] LABS: Color, Urine Yellow (Yellow); Glucose, Dipstick Normal (Normal); Ketone-Dipstick Negative (Negative); Leukocyte Esterase-Dipstick 500 /ul (Negative); Nitrite-Dipstick Negative (Negative); Occult Blood-Urine 10 /ul (Negative); Protein-Dipstick Negative (Negative); Urine Bilirubin Dipstick Negative (Negative); Urine Clarity Clear (Clear); Urine Urobilinogen Normal (Normal)
[2021-04-29 11:40] LABS: Bacteria 1+ /hpf (None Seen); Red Blood Cells-Urine 0-5 SEEN /hpf (0-5); Squamous Epithelial Cells - UA 0-5 SEEN /hpf (5-10); White Blood Cells 25-50 SEEN /hpf (0-5)
== END 2021-04-29 23:59 | disposition home or self-care (01) ==
PROVIDERS: Visit Provider Physician Assistant
DX: R10.9 Unspecified abdominal pain (principal)
CPT/HCPCS: 81001; 87077; 87086; 87088

== ENCOUNTER 2021-05-03 13:07 | Outpatient (CLI) | payer MEDICAID, SELFPAY ==
[2021-05-03 13:14] LABS: Bacteria 0 SEEN /hpf (None Seen); Mucous, Urine 0 SEEN /hpf (<or=2+); Red Blood Cells-Urine 0 SEEN /hpf (0-5)
[2021-05-03 15:41] LABS: Color, Urine Yellow (Yellow); Glucose, Dipstick Normal (Normal); Ketone-Dipstick Negative (Negative); Leukocyte Esterase-Dipstick 500 /ul (Negative); Nitrite-Dipstick Negative (Negative); Occult Blood-Urine 10 /ul (Negative); Protein-Dipstick Negative (Negative); Urine Bilirubin Dipstick Negative (Negative); Urine Clarity Clear (Clear); Urine Urobilinogen Normal (Normal)
[2021-05-03 15:43] LABS: Internal QC Validated? YES +Cl - CLEAR BKGD; Pregnancy, Serum, hCG Quali. NEGATIVE Negative
[2021-05-03 15:58] LABS: ALB/GLOB Ratio 0.8 RATIO (0.9-2.4); AST(SGOT) 15 U/L (15-37); Alanine Aminotransfer ALT/SGPT 25 U/L (13-56); Albumin, Serum 3.7 g/dL (3.2-5.0); Alkaline Phosphatase 104 U/L (45-117); Anion Gap 7 (5-15); BUN 14 mg/dL (7-18); BUN/Creat Ratio 20.4 RATIO (10-20); Chloride 102 mmol/L (98-107); Creatinine, Serum 0.69 mg/dL (0.55-1.02); EST Glomerular Filtration Rate 113 mL/min (>60); Est Glom Filt Rate - Afr Amer 137 mL/min (>60); Globulin 4.9 g/dL (2.2-4.2); Glucose 88 mg/dL (74-106); Protein, Total 8.6 g/dL (6.4-8.2); Sodium Level 136 mmol/L (136-145)
[2021-05-03 16:07] LABS: Squamous Epithelial Cells - UA 0-5 SEEN /hpf (5-10); White Blood Cells 5-10 SEEN /hpf (0-5)
[2021-05-04 08:24] LABS: HIV - WCH Non-Reactive (Nonreactive); Hepatitis C Antibody Non-Reactive (Nonreactive)
== END 2021-05-03 23:59 | disposition home or self-care (01) ==
PROVIDERS: PCP Family Medicine; Referring Provider Family Medicine; Visit Provider Family Medicine
DX: R10.84 Generalized abdominal pain (principal); E03.9 Hypothyroidism, unspecified; Z72.51 High risk heterosexual behavior; Z11.59 Encounter for screening for other viral diseases
CPT/HCPCS: 36415; 80053; 81001; 84439; 84443; 84703; 86703; 86803

== ENCOUNTER 2021-05-24 14:33 | Outpatient (CLI) | payer MEDICAID, SELFPAY ==
[2021-05-24 16:22] LABS: hCG Titer Quant., Serum < 1 mIU/mL (1-3)
== END 2021-05-24 23:59 | disposition home or self-care (01) ==
LOC: WOBLAB 14:35
PROVIDERS: PCP Family Medicine; Visit Provider Obstetrics & Gynecology
DX: N93.9 Abnormal uterine and vaginal bleeding, unspecified (principal)
CPT/HCPCS: 36415; 84702; 86900; 86901

== ENCOUNTER 2021-06-07 13:54 | Outpatient (CLI) | payer MEDICAID, SELFPAY ==
[2021-06-07 15:04] LABS: Hematocrit 40.6 % (37-47); Hemoglobin 13.1 g/dL (12.0-15.0); Mean Corp Hgb Conc 32.3 g/dL (32-36); Mean Corpuscular Hgb 27.4 pg (27.0-32.0); Mean Corpuscular Volume 84.9 fL (81-99); Mean Platelet Vol. 10.1 fl (6.2-12.0); Platelet Count 388 K/mm3 (150-450); RBC Distribution Width CV 13.6 % (11.6-14.6); RBC Distribution Width SD 42.7 fl (35.1-43.9); Red Blood Count 4.78 M/mm3 (4.2-5.4); White Blood Count 11.3 K/mm3 (4.4-11.0)
[2021-06-07 15:20] LABS: Estradiol 48.9 pg/mL; Follicle Stimulating Hormone 5.3 mIU/mL; Luteinizing Hormone 9.8 mIU/mL; T4 Free Direct 1.02 ng/dL (0.76-1.46); Thyroid Stim Hormone (TSH) 1.41 uIU/mL (0.358-3.74)
[2021-06-11 08:46] LABS: Testosterone Free 6.4 pg/mL (0.0-4.2)
== END 2021-06-07 23:59 | disposition home or self-care (01) ==
LOC: WOBLAB 13:55
PROVIDERS: PCP Family Medicine; Visit Provider Obstetrics & Gynecology
DX: N93.9 Abnormal uterine and vaginal bleeding, unspecified (principal)
CPT/HCPCS: 36415; 82670; 83001; 83002; 84402; 84439; 84443; 85027

== ENCOUNTER → 2022-08-25 | Outpatient (CLI) | payer MEDICAID, SELFPAY ==
[2022-08-25 09:59] LABS: Hematocrit 39.8 % (37-47); Hemoglobin 13.2 g/dL (12.0-15.0); Mean Corp Hgb Conc 33.2 g/dL (32-36); Mean Corpuscular Hgb 27.7 pg (27.0-32.0); Mean Corpuscular Volume 83.6 fL (81-99); Mean Platelet Vol. 9.5 fl (6.2-12.0); Platelet Count 378 K/mm3 (150-450); RBC Distribution Width CV 13.6 % (11.6-14.6); RBC Distribution Width SD 41.2 fl (35.1-43.9); Red Blood Count 4.76 M/mm3 (4.2-5.4); White Blood Count 10.3 K/mm3 (4.4-11.0)
[2022-08-25 10:26] LABS: hCG Titer Quant., Serum < 1 mIU/mL (1-3)
[2022-08-25 11:02] LABS: HIV - WCH Non-Reactive (Nonreactive); Hepatitis B Surface Antibody Non-Reactive; Syphilis Antibodies Non-reactive
[2022-08-25 11:06] LABS: Estradiol 63.7 pg/mL; Follicle Stimulating Hormone 5.5 mIU/mL; Luteinizing Hormone 6.3 mIU/mL; Prolactin 12.2 ng/mL; T4 Free Direct 0.93 ng/dL (0.76-1.46); Thyroid Stim Hormone (TSH) 2.76 uIU/mL (0.358-3.74)
[2022-08-25 12:47] LABS: Hemoglobin A1c 5.6 % (3.8-5.6)
[2022-08-30 14:08] LABS: HEPATITIS B SURFACE AG Negative (Negative); Hep C Antibodies Non Reactive (Non Reactive); Hepatitis A AB, Total Positive (Negative); Hepatitis A IgM Antibody Negative (Negative); Hepatitis B Core AB IgM Negative (Negative); Testosterone, % Free 3.06 % (0.50-2.80); Testosterone, Free 1.41 ng/dL (0.10-0.85); Testosterone, Total 46 ng/dL (13-71)
== END | disposition home or self-care (01) ==
PROVIDERS: PCP Family Medicine; Visit Provider Obstetrics & Gynecology
DX: N93.9 Abnormal uterine and vaginal bleeding, unspecified (principal)
CPT/HCPCS: 36415; 80074; 82670; 83001; 83002; 83036; 84146; 84402; 84403; 84439; 84443; 84702; 85027; 86703; 86706; 86708; 86780

== ENCOUNTER 2023-04-24 18:13 | Emergency (ER) | payer MEDICAID, SELFPAY ==
[2023-04-24 18:14] VITALS: BP 167/97; PULSE 102; RESP 16; TEMP 36.3; O2SAT 97; BMI 46.1
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
[2023-04-24 19:45] LABS: Mucous, Urine 0 SEEN /hpf (<or=2+)
[2023-04-24 19:51] LABS: Color, Urine Yellow (Yellow); Glucose, Dipstick Normal (Normal); Ketone-Dipstick Negative (Negative); Leukocyte Esterase-Dipstick 500 /ul (Negative); Nitrite-Dipstick Negative (Negative); Occult Blood-Urine 25 /ul (Negative); Protein-Dipstick 15 mg/dl (Negative); Urine Bilirubin Dipstick Negative (Negative); Urine Clarity Sl. Cloudy (Clear); Urine Urobilinogen 1 mg/dl (Normal)
[2023-04-24 20:00] LABS: Bacteria 1+ /hpf (None Seen); White Blood Cells 5-10 SEEN /hpf (0-5)
[2023-04-24 20:01] LABS: Red Blood Cells-Urine 0-5 SEEN /hpf (0-5); Squamous Epithelial Cells - UA 5-10 SEEN /hpf (5-10)
[2023-04-24 20:05] LABS: Internal QC Validated? YES +Cl - CLEAR BKGD; Pregnancy, Urine Negative Negative
--- NOTE | 2023-04-24 20:24 | CM.ED ---
Social Work SW introduced self and role to patient. Pt requested information on housing/financial assistance for deposit. Pt reports she must move by Sunday and has new house but not the deposit. Pt reports needing deposit funds by Sunday and [facility] who is reporting funds will not be approved by Sunday. Pt given local resources for shelters and financial assistance. Pt reports being unable to go to any shelters due to pending charges. SW encouraged patient to call people to people tomorrow regarding their financial assistance. PD returned to continue working with patient. Shannan Grullon COMPOSITE BOND WORKER, RIDING SILKS CUSTODIAN
== END 2023-04-24 22:26 | disposition home or self-care (01) ==
PROVIDERS: Emergency Provider Emergency Medicine; PCP Family Medicine; Visit Provider Emergency Medicine
DX: N89.8 Other specified noninflammatory disorders of vagina (principal); E03.9 Hypothyroidism, unspecified; Z79.899 Other long term (current) drug therapy
CPT/HCPCS: 81001; 81025; 87491; 87591; 99282

== ENCOUNTER → 2023-07-05 | Outpatient (CLI) | payer MEDICAID, SELFPAY ==
[2023-07-10 04:18] LABS: Chlamydia By Nucleic Acid AMP Positive (Negative); Gonococcus By Nucleic Acid AMP Negative (Negative)
[2023-07-11 16:39] LABS: HPV Reflexed? NOT INDICATED
== END | disposition home or self-care (01) ==
LOC: LABSPEC 16:56
PROVIDERS: PCP Family Medicine; Referring Provider Nurse Practitioner Family; Visit Provider Nurse Practitioner Family
DX: Z12.4 Encounter for screening for malignant neoplasm of cervix (principal); Z11.3 Encounter for screening for infections with a predominantly sexual mode of transmission; R10.2 Pelvic and perineal pain
CPT/HCPCS: 87070; 87086; 87205; 87491; 87591; 88175; G0145

== ENCOUNTER → 2023-08-15 | Outpatient (CLI) | payer MEDICAID, SELFPAY ==
[2023-08-16 20:09] LABS: Chlamydia By Nucleic Acid AMP Negative (Negative); Gonococcus By Nucleic Acid AMP Negative (Negative)
== END | disposition home or self-care (01) ==
LOC: LABSPEC 12:08
PROVIDERS: PCP Family Medicine; Referring Provider Advanced Practice Midwife; Visit Provider Advanced Practice Midwife
DX: A74.9 Chlamydial infection, unspecified (principal)
CPT/HCPCS: 87491; 87591

== ENCOUNTER 2024-02-02 15:58 | Emergency (ER) | payer MEDICAID, SELFPAY ==
[2024-02-02 15:59] VITALS: BP 144/100; PULSE 79; RESP 18; TEMP 36; O2SAT 99; BMI 43.0
--- NOTE | 2024-02-02 16:13 | EDS_ITS ---
HPI History of Present Illness Chief Complaint: Cough [facility] Medical History (Updated 02/02/24 @ 20:[address] Shorty Zhu, DO) Hypothyroid Chronic UTI Home Medications ?Medication ?Instructions ?Recorded ?Last Taken ?Type levothyroxine 25 mcg tablet 25 mcg PO DAILY 04/24/23 Unknown History amoxicillin 875 mg-potassium 1 tab PO BID #14 tabs 02/02/24 Unknown Rx clavulanate 125 mg tablet Allergy/AdvReac Type Severity Reaction Status Date / Time latex AdvReac Rash Verified 02/02/24 15:58 Family History (Updated 07/05/23 @ 14:31 by Danita Jones) Grandmother Colon cancer Grandmother Brain cancer Grandfather Diabetes Father Hypertension Surgical History History of tonsillectomy Social History (Updated 07/05/23 @ 14:33 by Danita Jones) Smoking Status: Never smoker Electronic Cigarette Use: with nicotine alcohol intake: current details: occasionally substance use type: does not use caffeine: Yes what type of physical activity do you participate in: walking frequency: daily do you feel safe at home: Yes additional social history: Boyfriend-Jose C EXAM Physical Exam Const Vital Signs: 02/02/24 15:59 02/02/24 16:50 Temperature 96.8 F L Temperature Source Temporal Pulse Rate 79 Respiratory Rate 18 Respiratory Effort Normal Blood Pressure 144/100 H Blood Pressure Mean 114 Pulse Ox 99 Oxygen Delivery Method Room Air MDM MDM MDM Narrative Medical decision making narrative: HISTORY OF PRESENT ILLNESS: 23-year-old female presents with cough. Patient states she has had shortness of breath, chest pain for 3 days. She notes coworkers had COVID. She states 3 she came in today was because she had severe pain behind her head that radiates down to her kidney. States pain started gradually. Without associated syncope or seizure. Denies history of ICH or family history of connective tissue disease. Denies associated loss of vision, slurred speech, facial drooping, loss of movement, loss sensation. Denies falls or other head trauma. She states she has had a mild cough. She notes associated shortness of breath. She notes chest pain for 3 days as well. She states she sweats her chest pain now. Sharp it is midsternal pressure is not pleuritic. The patient denies recent surgery in the last 4 weeks or immobilization in the last 3 days, denies previous diagnosis of DVT or PE, hemoptysis, unilateral leg swelling or malignancy with treatment the last 6 months or palliative. No estrogen use noted. Patient denies sudden onset or thunderclap headache, denies maximal intensity within 1 minute, vomiting, neck pain, stiffness, changes in vision, fever, history malignancy, syncope, or seizures associated with headache. Patient denies sudden onset of pain, no tearing sensation, no migratory symptoms, no new numbness, weakness or loss of sensation. Patient denies family history or personal history of Connective tissue disorders (Marfan's Syndrome, Dakota Danlos etc). REVIEW OF SYSTEMS: Pertinent positives: Headache, chest pain, shortness of breath, cough Pertinent negatives: Focal weakness, numbness, low sensation, neck stiffness, fever PHYSICAL EXAM: Nursing triage notes reviewed, Vital signs reviewed Constitutional: please see mdm HENT: MMM Eyes: Pupils equal round and reactive to light, Extraocular muscles intact Neck: No stridor, no JVD, full neck ROM Lungs: Clear to auscultation, No wheezing or rales. No increased work of breathing, no conversational dyspnea, no accessory muscle use, no nasal flaring. No respiratory distress noted Heart: Regular rate and rhythm, No murmurs, No rubs and No gallops, 2+ distal pulses (radial, femoral, posterior tibial) in all extremities Abdomen: Soft, there is no tenderness, rigidity, rebound or guarding, no obvious peritoneal signs, no palpable pulsatile abdominal masses, no auscultated abdominal bruit : No CVAT Extremities: No edema Neuro: Alert and oriented x3, neuro exam at baseline, cranial nerves II through XII are intact. No pain with extraocular muscle movement. There is negative test of skew. 5 of 5 strength in upper and lower extremities in flexion extension. Intact sensation to light touch in upper and lower extremity dermatomes. No truncal or extremity ataxia. No dysdiadochokinesia. Normal gait. 2+ reflexes in upper and lower extremities. No meningeal signs. Negative Babinski. NIH of 0. Skin: No rash or lesions noted MEDICAL DECISION MAKING: Chief Complaint: Chest pain, shortness of breath and cough External records reviewed: Reviewed prior allergies, problem list, vital signs and medications Factors affecting care: Hypothyroidism Social determinants of health: Patient denies illicit drug use History obtained from others: none Consults: none [facility] Narrative: Patient was initially hemodynamically stable, afebrile and nontoxic-appearing. Exam without focal neurologic deficits. No meningeal signs. Lungs were clear. No full cardiopulmonary abnormalities I considered the following differential diagnosis: ICH, meningitis, subarachnoid hemorrhage, viral illness, pneumonia, ACS, arrhythmia, anemia, , pyelonephritis, UTI, AAA, dissection I considered dissection the patient had no pulse deficits, no focal neurologic deficits. No historical factors such as connective tissue disease to suggest this diagnosis. In addition to this her x-ray showed no evidence of widened mediastinum. ALL IMAGES (IF OBTAINED) HAVE BEEN PERSONALLY REVIEWED AND INTERPRETED BY MYSELF. EKG with normal sinus rhythm rate of 77, normal axis, no intervals QTc 432, no STEMI, no WW Brugada or ARVD. CBC without leukocytosis, severe anemia, no thrombocytopenia. CMP without evidence of acute kidney injury, significant electrolyte abnormality, anion gap to suggest end organ hypo-perfusion, no evidence of metabolic acidosis with a normal bicarbonate, no evidence of hepatobiliary obstructive pathology. High-sensitivity troponin is negative, no evidence of myocardial ischemia x 2 Urine is negative Urinalysis no evidence of UTI I have personally reviewed the patient's chest x-ray. Chest x-ray is unrem arkable for pulmonary edema, pneumothorax, pneumonia or focal cardiopulmonary abnormality. There is slight mediastinal widening on x-ray which concerning for dissection. COVID RSV flu negative CT of the head shows no evidence of bleed, infarct. Shows evidence of significant sinusitis D-dimer elevated concerning for VTE or dissection I added a CT scan of the chest abdomen pelvis. After discussion with the patient she stated she like to go home before receiving the CT scan of the chest abdomen pelvis because she has not eaten all day. I offered the patient food. She reiterated she like to go home. The patient is alert and oriented x 3 and had capacity to make her medical decisions. She signed out AMA. AMA note: I have recommended additional testing but the patient refuses. The risks (including but not limited to suffering and ) as well as the benefits were explained to the patient. Questions were sought and answered, the patient voiced understanding and accepts these risks. I have encouraged the patient to return to have their evaluation completed as we are glad to do so. Patient had capacity to make his or her own medical decisions. Patient was alert and orient x3 and of sound mind at time of discussion. She is not intoxicated and of sound mind. I have also instructed the patient on the importance of follow-up and to return for any worsening or worrisome concerns. The patient appears competent to make medical decisions at this time. The patient and/or family, caregivers express understanding. The patient and/or family, caregivers agrees with the plan. Shared decision making: I will have a discussion with the patient and or visitors regarding risk/benefits of further testing or admission. They will be made aware of of the risk/benefits inherent in this decision they will be given the opportunity to voice understanding. Total critical care time today provided was at least 0 minutes. This excludes separately billable procedures. Critical care time (if documented) is secondary to the patient having high probability of clinically significant/life threatening deterioration in the patient's condition which required my urgent intervention. Impression: 1. Acute headache 2. Acute sinusitis 3. Cough 4. Elevated D-dimer Dispo: Discharge home This note was generated with [employer] dictation software. It may contain incorrect words, spelling, and punctuation that were not noted in review of the chart prior to signing. Lab Data Labs: Laboratory Results - last 24 hr 02/02/24 02/02/24 16:41 18:55 WBC 9.9 RBC 4.72 Hgb 12.7 Hct 38.8 MCV 82.2 MCH 26.9 L MCHC 32.7 RDW Std Deviation 41.4 RDW Coeff of Pamela 13.8 Plt Count 356 MPV 9.3 Immature Gran % (Auto) 0.400 Neut % (Auto) 60.4 Lymph % (Auto) 26.7 [place] % (Auto) 8.8 Eos % (Auto) 3.5 Baso % (Auto) 0.2 Absolute Neuts (auto) 6.0 Absolute Lymphs (auto) 2.65 Nucleated RBC % 0 D-Dimer Quant (PE/DVT) 0.56 H* Sodium 138 Potassium 3.7 Chloride 105 Carbon Dioxide 29.0 Anion Gap 4 L BUN 11 Creatinine 0.76 Estim Creat Clear Calc 115.54 Est GFR (MDRD) Af Amer 119 Est GFR (MDRD) Non-Af 98 BUN/Creatinine Ratio 14.5 Glucose 106 Calcium 9.1 Total Bilirubin 0.30 AST 18 ALT 30 Alkaline Phosphatase 85 Troponin I High Sens < 3 L < 3 L Total Protein 7.7 Albumin 3.5 Globulin 4.2 Albumin/Globulin Ratio 0.8 L Serum , Qual NEGATIVE Urine Color Yellow Urine Clarity Sl. Cloudy Urine pH 6.0 Ur Specific [place] 1.015 Urine Protein 30 H Urine Glucose (UA) Normal Urine Ketones Negative Urine Occult Blood 25 H Urine Nitrite Negative Urine Bilirubin Negative Urine Urobilinogen Normal Ur Leukocyte Esterase 100 H Urine RBC 0-5 SEEN Urine WBC 10-25 SEEN Ur Squamous Epith Cells 5-10 SEEN Urine Bacteria 1+ Urine Mucus 0 SEEN Urine Test Negative Radiography Diagnostic Testing: Clinical Impression(s) from Imaging Studies Brain CT 02/02/24 16:27 IMPRESSION: 1. Normal CT examination of the brain. 2. No intracranial mass, hemorrhage or acute territorial infarct. 3. Significant sinus disease with opacification of multiple ethmoid air cells greater on the RIGHT than LEFT, mucosal thickening in the RIGHT maxillary antrum, and soft tissue opacification of the RIGHT nasal passages which appears to be secondary to extensive right-sided turbinate hypertrophy Electronically Signed: Lei Garcia MD at 18:11 EST , Chest X-Ray 02/02/24 17:11 IMPRESSION: 1. Shallow inspiration, crowding of bronchovascular markings, and a central vascular congestion. 2. No dwight congestive failure, infiltrate or effusion. Electronically Signed: Lei Garcia MD at 17:57 EST , Discharge Plan Triage Chief Complaint: Cough ED Provider: Shorty Zhu Dx/Rx/DC Orders Clinical Impression: Sinusitis, Chest pain Prescriptions: New amoxicillin-pot clavulanate 875-125 mg tablet 1 tab PO BID Qty: 14 0RF No Action levothyroxine 25 mcg tablet 25 mcg PO DAILY Primary Care Provider: gR Winchester Referrals: Rg Winchester MD [Primary Care Provider] - Activity Restrictions/Additional Instructions: Thank you for trusting us with your care today! Please take antibiotics as prescribed Please take Tylenol (2 pills, 650 mg), ibuprofen (2 pills, 400 mg) every 6 hours as needed for pain and fever control. Please return to the emergency department if your symptoms change or worsen. Please follow with your primary care physician for further outpatient evaluation and management. Print Language: Polish Disposition Disposition: Against Medical Advice Discharge Date/Time: 02/02/24 20:09
--- NOTE | 2024-02-02 16:27 | CT_ITS ---
INDICATION: headache EXAMINATION: CT BRAIN - CT Head or Brain W/O Contrast Injection TECHNIQUE: Multiple axial images were obtained of the head without intravenous contrast. A radiation dose optimization technique was used for this scan. IV Contrast dosage and agent: None. RADIATION DOSAGE (If Supplied By Facility): CTDIvol = ( 44.99 ) mGy, DLP = ( 728.62 ) mGycm COMPARISON: No relevant prior examinations for comparison FINDINGS: HEMISPHERES: 1. The cerebral parenchyma, ventricular system, subarachnoid spaces have normal configuration and density. There is a normal gyral pattern. There is normal haddad/white differentiation. No midline shift.. 2. The hemispheric white matter has normal appearance. 3. No intraparenchymal mass, hemorrhage, or acute territorial infarct. CEREBELLUM - BRAINSTEM: The cerebellum, brainstem, basilar and suprasellar cisterns have normal appearance. No Chiari malformation. PITUITARY: Infundibulum and pituitary have normal configuration. Midline structures appear normal. CSF SPACES: Appropriate for age. No hydrocephalus. Basal cisterns are patent. VESSELS: 1. No significant vascular calcifications in the cavernous carotid vessels. 2. No hyperdense vascular signs noted.. ORBITS AND PARANASAL SINUSES: 1. Normal appearance of the bony orbits. Normal appearance of the globes and retrobulbar soft tissues.. 2. Significant ethmoid sinus disease with multiple opacified ethmoid sinuses, moderate mucosal thickening in the RIGHT maxillary antrum. There is soft tissue opacification of the RIGHT nasal passages with significant hypertrophy of the turbinates. BONY ELEMENTS: Bony elements of the cranial vault, facial skeleton and skull base have normal appearance. SCALP AND SOFT TISSUES: Normal appearance of the soft tissues of the scalp and the visualized face OTHER: None ASPECTS Score for Acute Strokes: 10 CT/Brain/Head without Contrast IMPRESSION: 1. Normal CT examination of the brain. 2. No intracranial mass, hemorrhage or acute territorial infarct. 3. Significant sinus disease with opacification of multiple ethmoid air cells greater on the RIGHT than LEFT, mucosal thickening in the RIGHT maxillary antrum, and soft tissue opacification of the RIGHT nasal passages which appears to be secondary to extensive right-sided turbinate hypertrophy Electronically Signed: Lei Garcia MD at 18:11 EST ,
--- NOTE | 2024-02-02 16:28 | EKG12_ITS ---
Test Reason : GENERAL Blood Pressure : */* mmHG Vent. Rate : 77 BPM Atrial Rate : 77 BPM P-R Int : 154 ms QRS Dur : 86 ms QT Int : 382 ms P-R-T Axes : 42 12 1 degrees QTcB Int : 432 ms Normal sinus rhythm Normal ECG Confirmed by Juan Manuel Palma ([id number]), field map editor FLORIN HOLLEY ([id number]) on 02/04/2024 6:58:15 AM Referred By: Confirmed By: Juan Manuel Palma
[2024-02-02 16:48] LABS: Mucous, Urine 0 SEEN /hpf (<or=2+)
[2024-02-02 16:52] LABS: Absolute Lymphocyte Count 2.65 X10^3/uL (0.83-4.51); Basophil# 0.02 X10^3/uL; Basophil% 0.2 % (0-1); Eosinophil# 0.35 X10^3/uL; Eosinophils% 3.5 % (0-5); Hematocrit 38.8 % (37-47); Hemoglobin 12.7 g/dL (12.0-15.0); Lymphocyte # 2.65 X10^3/ul (0.83-4.51); Lymphocyte % 26.7 % (19-41); Mean Corp Hgb Conc 32.7 g/dL (32-36); Mean Corpuscular Hgb 26.9 pg (27.0-32.0); Mean Corpuscular Volume 82.2 fL (81-99); Mean Platelet Vol. 9.3 fl (6.2-12.0); Monocyte# 0.87 X10^3/uL; Monocyte% 8.8 % (0-10); NRBC Flagged by Analyzer 0 % (0-5); Neutrophil % 60.4 % (47-70); Platelet Count 356 K/mm3 (150-450); RBC Distribution Width CV 13.8 % (11.6-14.6); RBC Distribution Width SD 41.4 fl (35.1-43.9); Red Blood Count 4.72 M/mm3 (4.2-5.4); White Blood Count 9.9 K/mm3 (4.4-11.0)
[2024-02-02 16:53] LABS: Color, Urine Yellow (Yellow); Glucose, Dipstick Normal (Normal); Ketone-Dipstick Negative (Negative); Leukocyte Esterase-Dipstick 100 /ul (Negative); Nitrite-Dipstick Negative (Negative); Occult Blood-Urine 25 /ul (Negative); Protein-Dipstick 30 mg/dl (Negative); Specific Gravity, Urine 1.015 (1.002-1.030); Urine Bilirubin Dipstick Negative (Negative); Urine Clarity Sl. Cloudy (Clear); Urine Urobilinogen Normal (Normal)
[2024-02-02 16:56] LABS: POSITIVE COUNT NO; POSITIVE DIFFERENTIAL NO; POSITIVE MORPHOLOGY NO
[2024-02-02] MEDS: Metoclopramide 10 MG/2 ML Vial 5 MG IV (16:59)
[2024-02-02 17:06] LABS: Internal QC Validated? YES +Cl - CLEAR BKGD; Pregnancy, Serum, hCG Quali. NEGATIVE Negative
[2024-02-02 17:10] LABS: ALB/GLOB Ratio 0.8 RATIO (0.9-2.4); AST(SGOT) 18 U/L (15-37); Alanine Aminotransfer ALT/SGPT 30 U/L (13-56); Albumin, Serum 3.5 g/dL (3.2-5.0); Alkaline Phosphatase 85 U/L (45-117); Anion Gap 4 (5-15); BUN 11 mg/dL (7-18); BUN/Creat Ratio 14.5 RATIO (10-20); Calcium,Total 9.1 mg/dL (8.5-10.1); Chloride 105 mmol/L (98-107); Creatinine, Serum 0.76 mg/dL (0.55-1.02); EST Glomerular Filtration Rate 98 mL/min (>60); Est Glom Filt Rate - Afr Amer 119 mL/min (>60); Estimated Creatinine Clearance 115.54 ml/min; Globulin 4.2 g/dL (2.2-4.2); Glucose 106 mg/dL (74-106); Potassium 3.7 mmol/L (3.5-5.1); Protein, Total 7.7 g/dL (6.4-8.2); Sodium Level 138 mmol/L (136-145); Troponin-I HS (w/2H Reflex) < 3 pg/mL (3.0-54.0)
--- NOTE | 2024-02-02 17:11 | RAD_ITS ---
INDICATION: cough, cp EXAMINATION/TECHNIQUE: X-RAY - XR Chest 1 View COMPARISON: No previous relevant examinations available for comparison.. FINDINGS: LIFE-SUPPORT AND LINES: 1. None HEART AND VESSELS: Cardiac silhouette is upper limit of normal, there is vascular congestion without dwight interstitial edema LUNGS AND PLEURAL SPACES: Lungs are clear. No focal infiltrate, consolidation or effusions. No evidence of pneumothorax. There is shallow inspiration crowding of bronchovascular markings MEDIASTINUM AND HILAR REGIONS: No masses adenopathy noted. No areas of calcification. Visualized upper airway is normal in position. BONY ELEMENTS: No acute bony changes noted. RAD/Chest 1 View (Portable) IMPRESSION: 1. Shallow inspiration, crowding of bronchovascular markings, and a central vascular congestion. 2. No dwight congestive failure, infiltrate or effusion. Electronically Signed: Lei Garcia MD at 17:57 EST ,
[2024-02-02 17:14] LABS: Bacteria 1+ /hpf (None Seen)
[2024-02-02 17:15] LABS: White Blood Cells 10-25 SEEN /hpf (0-5)
[2024-02-02 17:16] LABS: Internal QC Validated? YES +Cl - CLEAR BKGD; Pregnancy, Urine Negative Negative; Red Blood Cells-Urine 0-5 SEEN /hpf (0-5); Squamous Epithelial Cells - UA 5-10 SEEN /hpf (5-10)
[2024-02-02 18:46] LABS: Reflex Troponin-HS? (from REC) Y
[2024-02-02 19:22] LABS: D-Dimer Quantitative (DVT/PE) 0.56 FEU/ug/m (0.27-0.49)
[2024-02-02 19:24] LABS: Troponin-I HS < 3 pg/mL (3.0-54.0)
--- NOTE | 2024-02-02 20:00 | ED.RN ---
physician with patient discussing POC/AMA paperwork given and explained.
== END 2024-02-02 20:09 | disposition left against medical advice (07) ==
PROVIDERS: Emergency Provider Emergency Medicine; PCP Family Medicine; Visit Provider Emergency Medicine
DX: J01.20 Acute ethmoidal sinusitis, unspecified (principal); R07.9 Chest pain, unspecified; R05.9 Cough, unspecified; R06.02 Shortness of breath; R79.1 Abnormal coagulation profile; E03.9 Hypothyroidism, unspecified; F17.290 Nicotine dependence, other tobacco product, uncomplicated; Z53.29 Procedure and treatment not carried out because of patient's decision for other reasons; Z20.822 Contact with and (suspected) exposure to COVID-19; Z79.890 Hormone replacement therapy; Z87.440 Personal history of urinary (tract) infections
CPT/HCPCS: 70450; 71045; 80053; 81001; 81025; 84484; 84703; 85025; 85379; 87631; 93005; 96374; 99283; A4216

== ENCOUNTER → 2024-02-07 | Outpatient (CLI) | payer MEDICAID, SELFPAY ==
--- NOTE | 2024-02-07 16:08 | CT_ITS ---
STUDY: CTA CHEST REASON FOR EXAM: Female, 23 years old. CHEST CONGESTION, ELEVATED D DIMER RADIATION DOSAGE (If Supplied By Facility): CTDIvol = ( 13.84 ) mGy, DLP = ( 416.88 ) mGycm TECHNIQUE: The examination was performed with the intravenous administration of IV 100mL Isovue-370. Post-processing of the angiographic images was performed, with multiplanar reformation and 3D reconstruction. Individualized dose optimization techniques were used for this CT. COMPARISON: None. FINDINGS: Normal enhancement of the main pulmonary artery and right and left pulmonary arteries. Normal enhancement of the bilateral peripheral pulmonary arteries. There is no demonstrated pulmonary embolism. Normal thoracic aorta and visualized great vessels. There is no demonstrated aortic dissection. Normal heart and pericardium. Normal mediastinum. Normal hilar regions. Normal visualized trachea and bronchi. The lungs are well expanded. Normal pulmonary parenchyma. Normal pleura. Normal chest wall structures. Normal osseous structures. Normal visualized upper abdomen. CT/CTA Chest W/WO Contrast IMPRESSION: Normal CTA chest examination, without a demonstrated pulmonary embolism or arterial dissection. Electronically Signed: Rico Muñiz MD at 17:58 EST ,
== END | disposition home or self-care (01) ==
LOC: CT 16:03
PROVIDERS: PCP Family Medicine; Referring Provider Family Medicine; Visit Provider Family Medicine
DX: R79.89 Other specified abnormal findings of blood chemistry (principal)
CPT/HCPCS: 71275; Q9967

== ENCOUNTER → 2024-02-11 | Outpatient (CLI) | payer MEDICAID, SELFPAY ==
[2024-02-11 18:57] LABS: T4 Free Direct 1.83 ng/dL (0.76-1.46); Thyroid Stim Hormone (TSH) 0.031 uIU/mL (0.358-3.740)
== END | disposition home or self-care (01) ==
PROVIDERS: PCP Family Medicine; Referring Provider Family Medicine; Visit Provider Family Medicine
DX: E03.9 Hypothyroidism, unspecified (principal)
CPT/HCPCS: 36415; 84439; 84443

== ENCOUNTER → 2024-04-04 | Outpatient (CLI) | payer MEDICAID, SELFPAY ==
[2024-04-07 21:06] LABS: Chlamydia By Nucleic Acid AMP Negative (Negative); Gonococcus By Nucleic Acid AMP Negative (Negative)
== END | disposition home or self-care (01) ==
LOC: LABSPEC 16:05
PROVIDERS: PCP Family Medicine; Referring Provider Advanced Practice Midwife; Visit Provider Advanced Practice Midwife
DX: A74.9 Chlamydial infection, unspecified (principal)
CPT/HCPCS: 87491; 87591

== ENCOUNTER → 2024-04-11 | Outpatient (CLI) | payer MEDICAID, SELFPAY ==
--- NOTE | 2024-04-11 13:51 | US_ITS ---
PROCEDURE: TRANSVAGINAL NON- REASON FOR EXAM: Amenorrhea. TECHNIQUE: Transvaginal pelvic sonogram. COMPARISON: None. FINDINGS: Measurements: Uterus: 7.1 cm x 4 cm x 3.2 cm with a volume of 46.8 mL. Nabothian cyst. Endometrial Thickness: 7.7 mm. Heterogeneous echotexture. Right Ovary: 3.7 cm x 2.3 cm x 2.4 cm with a volume of 10.3 mL. Left Ovary: 3 cm x 2.1 cm x 2.3 cm with a volume of 7.5 mL. TRANSVAGINAL: Uterus: Anteverted. Normal contour and myometrial echotexture. Endometrium: Normal echotexture. Right ovary: Normal size and echotexture. Small peripheral follicles. Left ovary: Normal size and echotexture. Small peripheral follicles. Other adnexal findings: None. Cul-de-sac: No free intraperitoneal fluid identified. No tenderness. US/Transvaginal Non- IMPRESSION: NORMAL TRANSABDOMINAL AND TRANSVAGINAL PELVIC ULTRASOUND.. Small peripheral fo llicles seen in both ovaries. Polycystic ovary should be ruled out. Reading Location: [id number]
== END | disposition home or self-care (01) ==
LOC: US 13:51
PROVIDERS: PCP Family Medicine; Referring Provider Advanced Practice Midwife; Visit Provider Advanced Practice Midwife
DX: N91.2 Amenorrhea, unspecified (principal)
CPT/HCPCS: 76830

== ENCOUNTER → 2024-05-15 | Outpatient (CLI) | payer MEDICAID, SELFPAY ==
[2024-05-15 12:12] LABS: Absolute Lymphocyte Count 3.15 X10^3/uL (0.83-4.51); Absolute Neutrophil Count 8.1 X10^3/uL (2.0-7.7); Basophil# 0.06 X10^3/uL; Basophil% 0.5 % (0-1); Eosinophil# 0.01 X10^3/uL; Eosinophils% 0.1 % (0-5); Hematocrit 40.1 % (37-47); Lymphocyte # 3.15 X10^3/ul (0.83-4.51); Lymphocyte % 26.2 % (19-41); Mean Corp Hgb Conc 32.4 g/dL (32-36); Mean Corpuscular Hgb 26.7 pg (27.0-32.0); Mean Corpuscular Volume 82.5 fL (81-99); Mean Platelet Vol. 9.9 fl (6.2-12.0); NRBC Flagged by Analyzer 0 % (0-5); Neutrophil % 67.3 % (47-70); Platelet Count 398 K/mm3 (150-450); RBC Distribution Width CV 15.6 % (11.6-14.6); RBC Distribution Width SD 46.9 fl (35.1-43.9); Red Blood Count 4.86 M/mm3 (4.2-5.4)
[2024-05-15 12:45] LABS: ALB/GLOB Ratio 1.1 RATIO (0.9-2.4); AST(SGOT) 23 U/L (<=31); Alanine Aminotransfer ALT/SGPT 24 U/L (<=34); Albumin, Serum 4.2 g/dL (3.5-5.0); Alkaline Phosphatase 103 U/L (35-104); Anion Gap 12 (5-15); BUN 9 mg/dL (4-19); BUN/Creat Ratio 11.3 RATIO (10-20); Carbon Dioxide 23.3 mmol/L (21.0-32.0); Chloride 101 mmol/L (98-108); Creatinine, Serum 0.81 mg/dL (0.70-1.20); EST Glomerular Filtration Rate 103 (>60); Free T3 2.5 pg/mL (2.18-3.98); Globulin 3.6 g/dL (2.2-4.2); Glucose 105 mg/dL (70-99); Potassium 3.8 mmol/L (3.3-5.1); Protein, Total 7.8 g/dL (5.9-8.4); Sodium Level 136 mmol/L (133-145); Total Bilirubin 0.27 mg/dL (0.00-1.30)
[2024-05-15 12:47] LABS: Rheumatoid Factor < 10.0 IU/mL (<15)
== END | disposition home or self-care (01) ==
LOC: MFPLAB 10:51
PROVIDERS: PCP Family Medicine; Referring Provider Family Medicine; Visit Provider Family Medicine
DX: E03.9 Hypothyroidism, unspecified (principal); E28.2 Polycystic ovarian syndrome
CPT/HCPCS: 36415; 80053; 84432; 84439; 84443; 84481; 85025; 86140; 86376; 86431; 86800

== ENCOUNTER → 2024-05-20 | Outpatient (CLI) | payer MEDICAID, SELFPAY | END | disposition home or self-care (01) | LOC: LABSPEC 11:40 | PROVIDERS: PCP Family Medicine; Visit Provider Family Medicine | DX: N39.0 Urinary tract infection, site not specified (principal) | CPT/HCPCS: 87086; 87088 ==

== ENCOUNTER 2024-07-24 07:39 | Emergency (ER) | payer MEDICAID, SELFPAY ==
[2024-07-24 07:40] VITALS: BP 159/103; PULSE 97; RESP 14; TEMP 36.1; O2SAT 98; BMI 42.2
[2024-07-24 07:50] VITALS: BP 139/76; BP 144/81; BP 158/103; PULSE 100; PULSE 120; PULSE 93
--- NOTE | 2024-07-24 07:50 | EKG12_ITS ---
Test Reason : ABD PAIN Blood Pressure : */* mmHG Vent. Rate : 88 BPM Atrial Rate : 88 BPM P-R Int : 162 ms QRS Dur : 82 ms QT Int : 376 ms P-R-T Axes : 43 6 -7 degrees QTcB Int : 454 ms Normal sinus rhythm Normal ECG Confirmed by Juan Manuel Palma ([id number]), advertising editor FLORIN HOLLEY ([id number]) on 07/28/2024 11:35:11 AM Referred By: Confirmed By: Juan Manuel Palma
--- NOTE | 2024-07-24 07:50 | CT_ITS ---
PROCEDURE: ABDOMEN/PELVIS WITH CONTRAST 07/24/2024 REASON FOR EXAM: ABDOMINAL PAIN TECHNIQUE: Abdomen and pelvis CT with intravenous contrast. Coronal and Sagittal reconstruction series were provided. PATIENT PREPARATION: Per protocol ORAL CONTRAST TYPE: None. CONTRAST: Isovue-300 VOLUME: 100 mL One or more dose reduction techniques were used (e.g., Automated exposure control, adjustment of the mA and/or kV according to patient size, use of iterative reconstruction technique. RADIATION DOSE SUMMARY: CTDlvol: 15 mGy DLP: 1252.8 mGycm COMPARISON: Prior study dated June 23, 2020. FINDINGS: Lung bases: Unremarkable Liver: Diffuse fatty infiltration. Gallbladder: Unremarkable Spleen: Normal size. Pancreas: Normal size without evidence of mass surrounding inflammation or ductal dilation. Adrenals: Unremarkable Kidneys: Normal renal sizes. No hydronephrosis. Bladder: Unremarkable. Reproductive Organs: There is a 2.9 cm cyst in the left ovary. Small follicles are seen in the right ovary. Bowel: Colonic diverticulosis without diverticulitis. Appendix: Unremarkable Lymph nodes: Unremarkable. Vasculature: The abdominal aorta and IVC are normal. Peritoneum / Retroperitoneum: Unremarkable Bones: Unremarkable CT/Abdomen/Pelvis WITH Contrast IMPRESSION: Fatty infiltration of the liver. Left ovarian cyst. Small follicles in the right ovary. Reading Location: [id number]
--- NOTE | 2024-07-24 07:52 | ED.VIS.GI ---
HPI HPI - GI History of Present Illness Chief Complaint: Abd Pain Detail of Chief Complaint: Abdominal pain Informant: patient Narrative Narrative: Patient presents with complaint of abdominal pain that started yesterday. She describes nausea and vomiting and states she is thrown up 4 times. The vomit had some red tinge to it that she does not believe was blood. She is wondering if it is related to some red candy she ate a couple of days ago. Patient denies black tarry stool. She denies dysuria urgency or frequency. She denies fever. Patient also states that last evening she passed out 3 times. She remembers feeling lightheaded and dizzy and then passing out for short time as she was with a friend. No real history of syncope. She does not think she is . She has history of PCOS. She has had no prior abdominal surgeries. Patient states pain is lower abdomen diffusely. [facility] Medical History (Updated 07/24/24 @ 10:[address] Geno Manjarrez DO) Chlamydia Hypothyroid Chronic UTI Home Medications ?Medication ?Instructions ?Recorded ?Last Taken ?Type levothyroxine 25 mcg tablet 25 mcg PO DAILY 04/24/23 Unknown History medroxyprogesterone 10 mg tablet 10 mg PO .COMPLEX 10 days #10 tabs 06/24/24 Unknown Rx metformin 500 mg tablet 500 mg PO QDAY 06/24/24 Unknown History ondansetron 4 mg disintegrating 4 mg PO Q8H PRN PRN Nausea #10 tabs 07/24/24 Unknown Rx tablet Allergy/AdvReac Type Severity Reaction Status Date / Time latex AdvReac Rash Verified 07/24/24 07:40 Family History Grandmother Colon cancer Grandmother Brain cancer Grandfather Diabetes Father Hypertension Surgical History History of tonsillectomy Social History Smoking Status: Current every day smoker tobacco type: e-cigarettes Electronic Cigarette Use: with nicotine alcohol intake: current details: occasionally substance use type: does not use caffeine: Yes what type of physical activity do you participate in: walking frequency: daily do you feel safe at home: Yes additional social history: Boyfriend-Jose C ROS ROS ED Review of Systems ROS Unobtainable: other Constitutional Constitutional ED: Reports lethargy; Denies chills, fever(s), sweats or weight loss Eyes Eyes: Denies blurry vision, change in vision or diplopia ENT ENT ED: Denies rhinorrhea or sore throat Cardiovascular Cardiovascular: Denies chest pain, orthopnea or racing heartbeat Respiratory/Chest Respiratory/Chest: Denies cough, dyspnea, dyspnea on exertion, orthopnea or sputum Gastrointestinal Gastrointestinal: Reports abdominal pain, nausea and vomiting; Denies diarrhea Genitourinary Genitourinary ED: Denies dysuria, hematuria or urinary frequency Musculoskeletal Musculoskeletal: Denies arthralgias, back pain, myalgias or neck pain Integumentary Denies abscess, Abrasions or rash Neurologic Neurologic: Denies headache(s) or weakness Psychiatric Psychiatric: Denies anxiety, depression or suicidal thoughts Endocrine Endocrinology: Denies polydipsia, polyphagia or polyuria Hematologic/Lymphatic Hematologic/Lymphatic: Denies easy bleeding, easy bruising or lymphadenopathy Allergic/Immunologic Allergic/Immunologic ED: Denies mouth swelling, tongue swelling or urticaria EXAM Physical Exam Const Vital Signs: 07/24/24 07:40 07/24/24 10:30 Temperature 97 F L Temperature Source Temporal Pulse Rate 97 81 Respiratory Rate 14 18 Blood Pressure 159/103 H 140/100 H Blood Pressure Mean 121 113 Pulse Ox 98 96 Oxygen Delivery Method Room Air Positive well nourished and well developed General Appearance ED: well developed and NAD HEENT Reports TM's clear and moist mucous membranes normocephalic and atraumatic; Negative for trauma or tenderness Tympanic Membrane ED: Yes TM's clear Eyes PERRL and EOMs intact bilaterally General Eye ED: Negative for pale conjunctiva or scleral icterus Neck no lymphadenopathy, supple and no JVD General: Negative for tenderness Chest Wall inspection of chest normal and palpation of chest normal Chest: Negative for tenderness Resp normal respiratory effort and clear to auscultation bilaterally Effort and Inspection: Negative for respiratory distress or pain with movement Auscultation: Negative for rhonchi, wheezes or diminished lung sounds Cardio regular rate, regular rhythm, S1 normal heart sound, S2 normal heart sound and no murmurs Peripheral Pulses: pulses 2+ throughout GI normal to inspection, nondistended, normoactive bowel sounds, soft to palpation, non-distended and no masses GI Narrative: Mild diffuse tenderness over the lower abdomen to the right lower quadrant suprapubic region and left lower quadrant. There is no rebound, rigidity, or peritoneal signs. Back/Spine no CVA tenderness and no thoracic nor lumbar tenderness Extremity normal to inspection General Extremety ED: Negative for edema General Extremity: Negative for edema Neuro oriented x3, CN's II-XII intact bilaterally, no sensory deficits noted and gait normal Sensorium / Orientation: awake, alert, oriented to person, oriented to place and oriented to time Motor Exam: strength 5/5 throughout and strength abnormal Psych mental status grossly normal Skin no rashes or lesions noted and no wounds MDM MDM MDM Narrative Medical decision making narrative: Patient presents with abdominal pain as well as vomiting and diarrhea that started yesterday. She is homeless. Was with a friend last night and had a couple episodes of syncope at that time they noticed low heart rate. Clinically patient looks well. She does have some diffuse lower abdomen pain. In the differential would be UTI versus viral gastroenteritis versus other acute abnormalities such as kidney stone or ovarian cyst. Syncope I suspect may be vagal mediated based on her description and the low heart rate. EKG obtained on arrival shows sinus rhythm with ventricular rate of 88 bpm with no acute ST segment changes. CBC with differential showed a white count of 14.6 with hemoglobin 12.5 and platelet count 391. Chemistries unremarkable. LFTs were normal. hCG was negative. Urinalysis negative for infection. CT scan of the abdomen pelvis without contrast showed fatty infiltration of the liver as well as a left ovarian cyst and small follicles in the right ovary. Patient received morphine and Zofran and had good pain relief and her nausea improved. We had social and human services assistant talk to her about available resources for homeless. Patient will be given a prescription for Zofran. She is advised to take Imodium as needed for diarrhea. I suspect likely syncopal episodes were vagal reactions. Suspect she likely has a viral gastroenteritis. Lab Data Attestation: I reviewed the patient's lab results. Labs: Laboratory Results - last 24 hr 07/24/24 07/24/24 08:10 09:14 WBC 14.6 H RBC 4.54 Hgb 12.5 Hct 38.0 MCV 83.7 MCH 27.5 MCHC 32.9 RDW Std Deviation 44.2 H RDW Coeff of Pamela 14.6 Plt Count 391 MPV 9.9 Immature Gran % (Auto) 0.400 Neut % (Auto) 66.9 Lymph % (Auto) 26.2 [place] % (Auto) 5.9 Eos % (Auto) 0.1 Baso % (Auto) 0.5 Absolute Neuts (auto) 9.8 H Absolute Lymphs (auto) 3.83 Nucleated RBC % 0 Sodium 140 Potassium 3.9 Chloride 102 Carbon Dioxide 26.6 Anion Gap 11 BUN 12 Creatinine 0.79 Estim Creat Clear Calc 112.08 Est GFR (MDRD) Non-Af 106 BUN/Creatinine Ratio 14.5 Glucose 105 H Calcium 9.2 Total Bilirubin 0.24 AST 24 ALT 32 Alkaline Phosphatase 102 Total Protein 7.7 Albumin 4.3 Globulin 3.5 Albumin/Globulin Ratio 1.2 Serum , Qual NEGATIVE Urine Color Yellow Urine Clarity Clear Urine pH 6.5 Ur Specific [place] 1.010 Urine Protein 15 H Urine Glucose (UA) Normal Urine Ketones Negative Urine Occult Blood 10 H Urine Nitrite Negative Urine Bilirubin Negative Urine Urobilinogen Normal Ur Leukocyte Esterase 100 H Urine RBC 5-10 SEEN Urine WBC 0-5 SEEN Ur Squamous Epith Cells 0-5 SEEN Urine Bacteria RARE Urine Mucus 0 SEEN Radiography Diagnostic Testing: Clinical Impression(s) from Imaging Studies Abdomen/Pelvis CT 07/24/24 07:50 IMPRESSION: Fatty infiltration of the liver. Left ovarian cyst. Small follicles in the right ovary. Reading Location: [facility] EKG Initial EKG: Attestation: I personally reviewed and interpreted this EKG as follows: Comments: Sinus rhythm with rate of 88 bpm with no acute ST segment changes Discharge Plan Triage Chief Complaint: Abd Pain ED Provider: Geno Manjarrez Dx/Rx/DC Orders Clinical Impression: Viral gastroenteritis, Syncope, vasovagal Instructions: ED Fainting, Vagal Reaction, ED Gastroenteritis, Viral (Adult) Prescriptions: New ondansetron 4 mg tablet,disintegrating 4 mg PO Q8H PRN PRN (Reason: Nausea) Qty: 10 0RF No Action metformin 500 mg tablet 500 mg PO QDAY medroxyprogesterone 10 mg tablet 10 mg PO .COMPLEX 10 Days Qty: 10 6RF Rx Instructions: 10 mg orally take 1 tablet daily first 10 days each month; levothyroxine 25 mcg tablet 25 mcg PO DAILY Primary Care Provider: Rg Winchester Referrals: Rg Winchester MD [Primary Care Provider] - 3-5 Days Print Language: Kinyarwanda Disposition Disposition: Home, Self Care
[2024-07-24] MEDS: 0.9% Normal Saline (1000mL) 1,000 ML 1000 ML IV (08:06)
[2024-07-24] MEDS: Ondansetron 4 MG/2 ML Vial IV (08:07)
[2024-07-24] MEDS: Morphine 4 MG/ML Syringe IV (08:07)
[2024-07-24 08:33] LABS: Absolute Lymphocyte Count 3.83 X10^3/uL (0.83-4.51); Absolute Neutrophil Count 9.8 X10^3/uL (2.0-7.7); Basophil# 0.08 X10^3/uL; Basophil% 0.5 % (0-1); Eosinophil# 0.01 X10^3/uL; Eosinophils% 0.1 % (0-5); Hemoglobin 12.5 g/dL (12.0-15.0); Lymphocyte # 3.83 X10^3/ul (0.83-4.51); Lymphocyte % 26.2 % (19-41); Mean Corp Hgb Conc 32.9 g/dL (32-36); Mean Corpuscular Hgb 27.5 pg (27.0-32.0); Mean Corpuscular Volume 83.7 fL (81-99); Mean Platelet Vol. 9.9 fl (6.2-12.0); Monocyte# 0.86 X10^3/uL; Monocyte% 5.9 % (0-10); NRBC Flagged by Analyzer 0 % (0-5); Neutrophil # 9.79 X10^3/uL (2.7-7.7); Neutrophil % 66.9 % (47-70); Platelet Count 391 K/mm3 (150-450); RBC Distribution Width CV 14.6 % (11.6-14.6); RBC Distribution Width SD 44.2 fl (35.1-43.9); Red Blood Count 4.54 M/mm3 (4.2-5.4); White Blood Count 14.6 K/mm3 (4.4-11.0)
[2024-07-24 08:47] LABS: Internal QC Validated? YES +Cl - CLEAR BKGD; Pregnancy, Serum, hCG Quali. NEGATIVE Negative
[2024-07-24 09:07] LABS: ALB/GLOB Ratio 1.2 RATIO (0.9-2.4); AST(SGOT) 24 U/L (<=31); Alanine Aminotransfer ALT/SGPT 32 U/L (<=34); Albumin, Serum 4.3 g/dL (3.5-5.0); Alkaline Phosphatase 102 U/L (35-104); Anion Gap 11 (5-15); BUN 12 mg/dL (4-19); BUN/Creat Ratio 14.5 RATIO (10-20); Calcium,Total 9.2 mg/dL (7.6-11.0); Carbon Dioxide 26.6 mmol/L (21.0-32.0); Chloride 102 mmol/L (98-108); Creatinine, Serum 0.79 mg/dL (0.70-1.20); EST Glomerular Filtration Rate 106 (>60); Estimated Creatinine Clearance 112.08 ml/min (50-250); Globulin 3.5 g/dL (2.2-4.2); Glucose 105 mg/dL (70-99); Potassium 3.9 mmol/L (3.3-5.1); Protein, Total 7.7 g/dL (5.9-8.4); Sodium Level 140 mmol/L (133-145); Total Bilirubin 0.24 mg/dL (0.00-1.30)
[2024-07-24 09:22] LABS: Mucous, Urine 0 SEEN /hpf (<or=2+)
[2024-07-24 09:24] LABS: Color, Urine Yellow (Yellow); Glucose, Dipstick Normal (Normal); Ketone-Dipstick Negative (Negative); Leukocyte Esterase-Dipstick 100 /ul (Negative); Nitrite-Dipstick Negative (Negative); Occult Blood-Urine 10 /ul (Negative); Protein-Dipstick 15 mg/dl (Negative); Urine Bilirubin Dipstick Negative (Negative); Urine Clarity Clear (Clear); Urine Urobilinogen Normal (Normal); Urine pH 6.5 (5.0 - 8.0)
[2024-07-24 09:40] LABS: White Blood Cells 0-5 SEEN /hpf (0-5)
[2024-07-24 09:41] LABS: Bacteria RARE /hpf (None Seen); Red Blood Cells-Urine 5-10 SEEN /hpf (0-5); Squamous Epithelial Cells - UA 0-5 SEEN /hpf (5-10)
[2024-07-24 10:30] VITALS: BP 140/100; PULSE 81; RESP 18; O2SAT 96
[2024-07-24 11:32] VITALS: BP 144/81; PULSE 100; RESP 16; O2SAT 100
[2024-07-24 11:52] VITALS: BP 137/67; PULSE 78; RESP 18; TEMP 36.4; O2SAT 96
--- NOTE | 2024-07-24 12:32 | CM.ED ---
Social work Reason for referral: homeless Referral source: Dr. Manjarrez/Kalee RN This SW received consult for providing resources to patient due to patient being homeless. This SW entered patient's room, introducing self and role at [facility]. Patient welcomed SW visit and confirmed being homeless. Patient stated sleeping last night on a friend's front porch and not having consistent housing. Patient stated not being able to stay at homeless shelters due to a legal charge patient received when patient was 17 years old. Patient received resources of [employer] card, list of homeless shelters, and [facility] brochure. SW attempted to call the [facility] Homeless Navigator (ph: [phone]) while still in patient's room and left a voicemail. SW encouraged patient to stop at [facility] and explain the situation. SW verified patient's cell phone number to call with updates if [facility] had options after patient had been discharged. Patient had no further questions or concerns. SW to follow up as necessary. Jennifer Garcia, PARALEGAL SECRETARY, ELECTROLOGIST
--- NOTE | 2024-07-24 16:54 | CM.ED ---
Social work 1025: called [facility] Homeless Navigator (ph: [phone]) while present in patient's room and left a voicemail. 1150: received return call from [facility] with [employer] (ph: [phone]), but did receive voicemail until 1400 due to other patient situations. 1400: returned call to [facility] and had to leave another voicemail. Stated on the call that patient had left the ED, but SW had encouraged patient to reach out to the Homeless Navigator on patient's own, as well as go to [facility] to explain patient's unique situation. Requested return call if this did not occur. By end of , no return call had been received. Jennifer Garcia, COTTON PROGRAM TECHNICIAN, FEDERAL DISTRICT CLERK
== END 2024-07-24 11:53 | disposition home or self-care (01) ==
PROVIDERS: Emergency Provider Emergency Medicine; PCP Family Medicine; Visit Provider Emergency Medicine
DX: A08.4 Viral intestinal infection, unspecified (principal); R55 Syncope and collapse; E28.2 Polycystic ovarian syndrome; E03.9 Hypothyroidism, unspecified; F17.290 Nicotine dependence, other tobacco product, uncomplicated; Z59.00 Homelessness unspecified; Z79.84 Long term (current) use of oral hypoglycemic drugs; Z79.890 Hormone replacement therapy
CPT/HCPCS: 74177; 80053; 81001; 84703; 85025; 93005; 96361; 96374; 96375; 99285; Q9967; A4216; J2405

== ENCOUNTER 2024-08-24 12:53 | Emergency (ER) | payer MEDICAID, SELFPAY ==
[2024-08-24 12:54] VITALS: BP 165/96; PULSE 97; RESP 18; TEMP 37; O2SAT 98; BMI 40.1
--- NOTE | 2024-08-24 13:06 | EX.ED.DYSGE1 ---
HPI <MAG Cohn - Last Filed: 08/24/24 13:34> History of Present Illness Chief Complaint: Cough Narrative Narrative: 23-year-old female with past medical history of hypothyroidism, PCOS, anemia presents with 6 days of productive cough. She is starting to lose her voice and it is worse. She gets in coughing fits that cause her to feel like she is choking. Last night after a long coughing spell she had blood streaks in the sputum. She denies chest pain or shortness of breath. No fever or chills. She states she is homeless and has been out in the heat. She does not smoke. She denies history of asthma or COPD. [facility] <MAG Cohn - Last Filed: 08/24/24 13:34> [facility] Medical History (Updated 08/24/24 @ 13:26 by MAG Cohn) Chlamydia Hypothyroid Chronic UTI Home Medications ?Medication ?Instructions ?Recorded ?Last Taken ?Type levothyroxine 25 mcg tablet 25 mcg PO DAILY 04/24/23 Unknown History medroxyprogesterone 10 mg tablet 10 mg PO .COMPLEX 10 days #10 tabs 06/24/24 Unknown Rx metformin 500 mg tablet 500 mg PO QDAY 06/24/24 Unknown History ondansetron 4 mg disintegrating 4 mg PO Q8H PRN PRN Nausea #10 tabs 07/24/24 Unknown Rx tablet acetaminophen 500 mg tablet 1,000 mg (2 x 500 mg) PO Q6H PRN 08/24/24 Unknown Rx (Tylenol Extra Strength) pain 5 days #40 tabs dextromethorphan polistirex 30 10 ml PO Q12H PRN cough #89 mL 08/24/24 Unknown Rx mg/5 mL oral susp ext.release 12hr (Delsym 12 hour) Allergy/AdvReac Type Severity Reaction Status Date / Time latex AdvReac Rash Verified 08/24/24 12:55 Family History Grandmother Colon cancer Grandmother Brain cancer Grandfather Diabetes Father Hypertension Surgical History History of tonsillectomy Social History Smoking Status: Current every day smoker tobacco type: e-cigarettes Electronic Cigarette Use: with nicotine alcohol intake: current details: occasionally substance use type: does not use caffeine: Yes what type of physical activity do you participate in: walking frequency: daily do you feel safe at home: Yes additional social history: Boyfriend-Jose C DWYER <MAG Cohn - Last Filed: 08/24/24 13:34> ROS ED ROS Narrative Constitutional: Negative for fever, chills, malaise. CVS: Negative for chest pain. Respiratory: Positive for cough. EXAM <MAG Cohn - Last Filed: 08/24/24 13:34> Physical Exam Narrative Exam Narrative: CONST: Patient sitting in no acute distress. EYES: Normal inspection. NECK: Normal inspection. RESP: Slightly hoarse voice/laryngitis with no conversational dyspnea. No respiratory distress, CTAB. CVS: Regular rate and rhythm, no murmur, no gallop. SKIN: Color normal, no rash, warm, dry, intact. EXTREMITIES: Normal appearance, no pedal edema. NEURO: Alert and answering questions appropriately. PSYCH: Normal affect. Const Vital Signs: 08/24/24 12:54 08/24/24 13:19 Temperature 98.6 F Temperature Source Oral Pulse Rate 97 Respiratory Rate 18 Respiratory Effort Short of Breath Respiratory Depth Normal Respiratory Pattern Normal Blood Pressure 165/96 H Blood Pressure Mean 119 Pulse Ox 98 Oxygen Delivery Method Room Air <Dr. Hemant Toribio MD - Last Filed: 08/24/24 13:23> Physical Exam Const Vital Signs: 08/24/24 12:54 08/24/24 13:19 Temperature 98.6 F Temperature Source Oral Pulse Rate 97 Respiratory Rate 18 Respiratory Effort Short of Breath Respiratory Depth Normal Respiratory Pattern Normal Blood Pressure 165/96 H Blood Pressure Mean 119 Pulse Ox 98 Oxygen Delivery Method Room Air MDM <MAG Cohn - Last Filed: 08/24/24 13:34> MDM MDM Narrative Medical decision making narrative: Differential includes viral URI, pneumonia 23-year-old female has had 6 days of productive cough. She is losing her voice and complains of bilateral chest discomfort from coughing so frequently. She has no exertional chest pain or shortness of breath. No fever or chills. She had 1 episode of bright red blood streaked throughout her sputum last night after a large coughing fit. She is not on blood thinners. She is awake alert no distress. Vital stable. Speaking full sentences without any distress. Lungs clear. I suspect her small-volume hemoptysis was from a Luli-Woodard tear. CXR shows no acute process. I discussed that this is likely a viral upper respiratory infection which does not require antibiotics. I prescribed Delsym and Tylenol. She was counseled on return precautions and discharged in stable condition. I have personally performed a face to face assessment of the patient and have reviewed the SEBASTIAN Note. I performed a substantive portion of the visit including all aspects of the following. My norman findings include: History is 23-year-old female several day history of productive cough green sputum. No weight loss. No fever. No shortness of breath. Currently homeless. Exam is [well-appearing 23-year-old female. Vital signs stable. Afebrile. Pulse ox 98% on room air. No distress. H EENT exam pupils round react light. Moist MM's. Neck nontender. No JVD. No lymphadenopathy. Lungs clear to auscultation bilaterally. Equal symmetrical. No respiratory distress. Heart regular rhythm rate about 90 no murmur. Chest wall ribs nontender. Abdomen soft nontender. Moving all 4 extremities. Nontender no edema. No cords. Back nontender. Neurologically she is awake alert. Answer question following commands.] Medical Decision Making [23-year-old homeless female with a cough. Chest x-ray obtained 2 views interpreted by myself no pneumonia. Patient be discharged home treat as a viral syndrome. No antibiotics.] Other additions or changes: [None] Radiography Diagnostic Testing: Clinical Impression(s) from Imaging Studies Chest X-Ray 08/24/24 13:10 IMPRESSION: NEGATIVE CHEST Reading Location: [id number] <Dr. Hemant Toribio MD - Last Filed: 08/24/24 13:23> [facility] Narrative Medical decision making narrative: I have personally performed a face to face assessment of the patient and have reviewed the SEBASTIAN Note. I performed a substantive portion of the visit including all aspects of the following. My norman findings include: History is 23-year-old female several day history of productive cough green sputum. No weight loss. No fever. No shortness of breath. Currently homeless. Exam is [well-appearing 23-year-old female. Vital signs stable. Afebrile. Pulse ox 98% on room air. No distress. H EENT exam pupils round react light. Moist MM's. Neck nontender. No JVD. No lymphadenopathy. Lungs clear to auscultation bilaterally. Equal symmetrical. No respiratory distress. Heart regular rhythm rate about 90 no murmur. Chest wall ribs nontender. Abdomen soft nontender. Moving all 4 extremities. Nontender no edema. No cords. Back nontender. Neurologically she is awake alert. Answer question following commands.] Medical Decision Making [23-year-old homeless female with a cough. Chest x-ray obtained 2 views interpreted by myself no pneumonia. Patient be discharged home treat as a viral syndrome. No antibiotics.] Other additions or changes: [None] History & Record Review Discussion w/independent historian: Patient Radiography Chest X-Ray - ED: 2 View, Read by ED Physician, Normal, Heart, Lungs, Mediastinum, Bony Structures and No Acute Disease Diagnostic Testing: Clinical Impression(s) from Imaging Studies Chest X-Ray 08/24/24 13:10 IMPRESSION: NEGATIVE CHEST Reading Location: [facility] chest x-ray, 2 views, AP and lateral, interpreted by myself shows no acute abnormality. Normal cardiac silhouette. Normal lung more. Normal mediastinum. No pneumonia. No effusions. Discharge Plan Triage Chief Complaint: Cough ED Midlevel Provider: Ambika Tidwell ED Provider: Hemant Toribio Dx/Rx/DC Orders Clinical Impression: Acute URI, Cough with hemoptysis Instructions: ED URI, Viral, No Abx (Adult) Prescriptions: New dextromethorphan polistirex [Delsym 12 hour] 30 mg/5 mL suspension,extended rel 12 hr 10 ml PO Q12H PRN (Reason: cough) Qty: 89 0RF acetaminophen [Tylenol Extra Strength] 500 mg tablet 1,000 mg PO Q6H PRN (Reason: pain) 5 Days Qty: 40 0RF No Action metformin 500 mg tablet 500 mg PO QDAY medroxyprogesterone 10 mg tablet 10 mg PO .COMPLEX 10 Days Qty: 10 6RF Rx Instructions: 10 mg orally take 1 tablet daily first 10 days each month; levothyroxine 25 mcg tablet 25 mcg PO DAILY ondansetron 4 mg tablet,disintegrating 4 mg PO Q8H PRN PRN (Reason: Nausea) Qty: 10 0RF Primary Care Provider: Rg Winchester Referrals: Rg Winchester MD [Primary Care Provider] - Activity Restrictions/Additional Instructions: Take Tylenol Motrin as needed for pain. I prescribed cough medication to use. Most viral upper respiratory infections resolve on their own within 2 weeks. If symptoms worsen please follow-up with your doctor or return to the ER. Print Language: Canadian Disposition Disposition: Home, Self Care
--- NOTE | 2024-08-24 13:10 | RAD_ITS ---
PROCEDURE: CHEST PA AND LATERAL 08/24/2024 REASON FOR EXAM: COUGH TECHNIQUE: CHEST PA AND LATERAL COMPARISON: Chest radiograph 02/02/2024. FINDINGS: Hardware: None. Heart: The heart size is normal. Mediastinum: The mediastinal contour is unremarkable. Lungs: No focal consolidation, pleural effusion or pneumothorax. Bones: The bones are unremarkable. RAD/Chest PA and Lateral IMPRESSION: NEGATIVE CHEST Reading Location: [id number]
--- OUTSIDE RECORDS SUMMARY | 2024-08-24 13:24 | XMS RPT_ITS | CCD ---
Author Organization [facility] Care Team Providers Care Engineering Project Designer Name Role Phone GOLDEN, ARABELLA A Unavailable Unavailable REFERRED, SELF Unavailable Unavailable GOLDEN, ARABELLA A Unavailable Unavailable GOLDEN, ARABELLA A Unavailable Unavailable REFERRED, SELF Unavailable Unavailable GOLDEN, ARABELLA A Unavailable Unavailable GOLDEN, ARABELLA A Unavailable Unavailable GOLDEN, ARABELLA A Unavailable Unavailable REFERRED, SELF Unavailable Unavailable GOLDEN, ARABELLA A Unavailable Unavailable GOLDEN, ARABELLA A Unavailable Unavailable REFERRED, SELF Unavailable Unavailable HERNANDO BORDEN Admitting Unavailable HERNANDO BORDEN Attending Unavailable GOLDEN, ARABELLA A Primary Care Unavailable NO, PHYSICIAN Primary Care Unavailable Golden, Arabella A Primary Care Provider EMILY REYNOLDS DO Admitting Unavailable EMILY REYNOLDS DO Attending Unavailable EMILY REYNOLDS DO Primary Care Unavailable Golden, Arabella A Primary Care Provider [phone] Unavailable Primary Care Provider Unavailabl e Care Physician, No Primary Primary Care Provider Unavailable Care Physician, No Primary Referring Provider Un available Tim HATHAWAY, MAG Berumen Attending Provider Unavailable Primary Care Provider UnavailTHOMAS Grubbs Referring Unavailable FRANSICO OTOOLE Attending Unavailable HERNANDO SCHAEFER Attending Unavailable JANNIE REYES Attending Unava ilable HALEY ANDERSEN Attending Unavailable ANIKET WALLACE Attending Unavailable Unavailable Primary Care Provider UnavailHARPREET Alexis Attending Unavailable AARON REED Primary Care Unavailable Aaron Reed MD Primary Care Provider [phone] Dr. Rg Winchester MD Primary Care Provider Dr. Shorty Zhu DO Attending Provider Dr. Shorty Zhu DO Emergency Provider Dr. Rg Winchester MD Attending Provider Dr. Rg Winchester MD Referring Provider Kelvin WERNER, Debbie Attending Provider Kelvin CNM, Debbie Referring Provider [phone] Prince Rivera Attending Provider [phone] Prince Rivera Referring Provider Jelani ANTHONY, Dr. Hernando Castro Attending Provider Ranulfo ANTHONY, Dr. Diez Primary Care Provider Dr. Rg Winchester MD Referring Provider Ranulfo ANTHONY, Dr. Diez Attending Provider Julius COLLAR POINTER-C, Mary Attending Provider Dr. Geno Manjarrez DO Emergency Provider Winchester, Rg Primary Care Unavailable Winchester, Rg Referring Unavailable Debbie Warren Attending Unavailable Winchester, Rg Primary Care Unavailable Winchester, Rg Referring Unavailable Debbie Warren Attending Unavailable Winchester, Rg Attending Unavailable Winchester, Rg Primary Care Unavailable Winchester, Rg Referring Unavailable Julius COLLAR POINTER, Mary Attending Unavailable Winchester, Rg Primary Care Unavailable Winchester, Rg Referring Unavailable Winchester, Rg Primary Care Unavailable Winchester, Rg Referring Unavailable Prince Rivera Attending Unavailable Winchester, Rg Primary Care Unavailable Prince Rivera Attending Unavailable Winchester, Rg Referring Unavailable Winchester, Gr Primary Care Unavailable Winchester, Rg Referring Unavailable Debbie Warren Attending Unavailable Winchester, Rg Primary Care Unavailable Debbie Warren Referring Unavailable Debbie Warren Attending Unavailable Hernando Palomares Attending Unavailable Winchester, Rg Primary Care Unavailable Winchester, Rg Attending Unavailable Winchester, Rg Primary Care Unavailable Winchester, Rg Referring Unavailable Winchester, Rg Primary Care Unavailable Debbie Warren Referring Unavailable Debbie Warren Attending Unavailable Geno Manjarrez Attending Unavailable Winchester, Rg Primary Care Unavailable Winchester, Rg Attending Unavailable Winchester, Rg Primary Care Unavailable Winchester, Rg Referring Unavailable Winchester, Rg Primary Care Unavailable Debbie Warren Referring Unavailable Debbie Warren Attending Unavailable Prince Rivera Referring Unavailable Prince Rivera Attending Unavailable Winchester, Rg Primary Care Unavailable Winchester, Rg Primary Care Unavailable Shorty Zhu Attending Unavailable Winchester, Rg Primary Care Unavailable Debbie Warren Referring Unavailable Debbie Warren Attending Unavailable Winchester, Rg Primary Care Unavailable Winchester, Rg Referring Unavailable Debbie Warren Attending Unavailable Allergies Allergy Classification Reported Allergen(s) Allergy Type Date of Onset Reaction(s) Facility (18 sources) Latex; Translations: [LATEX] Propensity to adverse reactions to drug (disorder) 8 Swelling, Unknown, Hives, Rash [facility] Repository (1 source) Fish - dietary Propensity to adverse reactions to drug 1 [facility] (2 sources) natural latex rubber; Translations: [LATEX, NATURAL RUBBER] Propensity to adverse reactions to drug (disorder) 1 Hives, Rash [facility] Other [place] Repository Medications Current Medications Medication Drug Class(es) Dates Sig (Normalized) Sig (Original) 24 hr desvenlafaxine succinate 50 mg extended release oral tablet (1 source) Serotonin and Norepinephrine Reuptake Inhibitor Start: 04-21-2022 take 1 tablet by mouth once daily desvenlafaxine (Pristiq) 50 MG 24 hr tablet Take 50 mg by mouth daily. 0 04/21/2022 Active hydrOXYzine pamoate 25 mg oral capsule (1 source) Antihistamine Start: 04-21-2022 take 1 capsule by mouth twice daily as needed for anxiety hydrOXYzine pamoate (Vistaril) 25 MG capsule TAKE ONE CAPSULE BY MOUTH TWICE DAILY NEEDED FOR ANXIETY 0 04/21/2022 Active letrozole 2.5 mg oral tablet (1 source) Aromatase Inhibitor Start: 05-04-2022 End: 05-04-2023 take 1 tablet by mouth once daily letrozole (Femara) 2.5 MG tablet Indications: Infertility associated with anovulation Take 1 tablet (2.5 mg total) by mouth daily. Start taking this medication on the third day after you initially start bleeding from a medication induced or natural menstrual cycle. Need to have a negative test prior to starting medication. 5 tablet 0 05/04/2022 05/04/2023 Active levothyroxine sodium 0.025 mg oral tablet (6 sources) l-Thyroxine Start: 04-24-2023 take 1 tablet by mouth once daily Levothyroxine 25 mcg tablet Active 25 ug PO DAILY April 24, 2023 1:00am Start: 04-21-2022 take 1 tablet by tigist th once daily levothyroxine (Synthroid, Levoxyl) 25 MCG tablet Take 25 mcg by mouth daily. 0 04/21/2022 Active take 1 capsule by mo uth once daily before breakfast levothyroxine 25 mcg cap Take 25 mcg by mouth daily before breakfast. 0 Active Comment on above: Take 25 mcg by mouth daily before breakfast. medroxyPROGESTERone acetate 10 mg oral tablet (2 sources) Progestin Start: 2024 take 1 tablet by mouth once daily Medroxyprogesterone 10 mg tablet Active 10 mg PO .COMPLEX 10 10 June 24, 2024 12:00am 10 mg orally take 1 tablet daily first 10 days each month; Start: 05-04-2022 End: 05-14-2022 medroxyPROGESTERone (Provera ) 10 MG tablet Indications: PCOS (polycystic ovarian syndrome) Take 1 tablet (10 mg) by mouth daily for 10 days. Take 1 tablet by mouth daily for 10 days. If you do not have a menstrual cycle after 35 days and have a negative test. 30 tablet 6 05/04/2022 05/14/2022 Active metFORMIN hydrochloride 500 mg oral tablet (1 source) Biguanide Start: 06-24-2024 take 1 tablet by mouth once daily Metformin 500 mg tablet Active 500 mg PO daily June 24, 2024 12:00am nitrofurantoin, macrocrystals 25 mg / nitrofurantoin, monohydrate 75 mg oral capsule (8 sources) Nitrofuran Antibacterial Start: 08-24-2021 End: 09-03-2021 take 1 capsule by mouth twice daily nitrofurantoin, macrocrystal-mo nohydrate, (MACROBID) 100 MG capsule Take 1 capsule by mouth 2 times daily for 10 days 20 capsule 0 08/24/2021 09/03/2021 Active Start: 04-28-2021 End: 05-03-2021 take 1 capsule by mouth every twelve hours at mealtime Nitrofurantoin Monohyd/M-Cryst (Macrobid) 100 mg capsule Discontinued 100 mg PO Q12H 10 5 April 28, 2021 1:00am May 02, 2021 1:00am May 03, 2021 1:03am must administer with a meal/food Start: 08-14-2019 End: 08-21-2019 take 1 capsule by mouth twice daily nitrofurantoin, macrocrystal-monohydrate, 100 MG capsule Take 1 capsule by mouth 2 times daily for 7 days. Take w/ food/milk 14 capsule 0 08/14/2019 08/21/2019 Active ondansetron 4 mg disintegrating oral tablet (2 sources) Serotonin-3 Receptor Antagonist Start: 07-24-2024 take 1 tablet by mouth every eight hours as needed for nausea Ondansetron 4 mg tablet,disintegrating Active 4 mg PO EVERY 8 HOURS NEEDED as needed for Nausea July 24, 2024 12:00am Start: 07-08-2018 take 1 tablet by tigist th every six hours ondansetron orally disintegrating (ZOFRAN ODT) 4 mg disintegrating tablet Take 1 tablet by mouth every 6 hours. 12 tablet 0 07/08/2018 Active Comment on above: Take 1 tablet by tigist th every 6 hours. phenazopyridine hydrochloride 200 mg delayed release oral tablet (1 source) Start: 0 End: 0 take 1 tablet by mouth three times daily phenazopyridine 200 MG tablet Take 1 tablet by mouth 3 times daily for 2 days. 6 tablet 0 08/14/2019 08/16/2019 Active Completed/Discontinued Medications Medication Drug Class(es) Dates Sig (Normalized) Sig (Original) acetaminophen 325 mg oral tablet (2 sources) Start: 08-24-2021 End: 08-24-2021 acetaminophen (TYLENOL) tablet 650 mg Start: 07-25-2021 End: 08-01-2021 take 2 tablets by mouth three times daily as needed for pain acetaminophen (TYLENOL) 500 MG tablet Take 2 tablets by mouth 3 times daily as needed for Pain 42 tablet 0 07/25/2021 08/01/2021 Active amoxicillin 875 mg / clavulanate 125 mg oral tablet (3 sources) Penicillin-class Antibacterial Start: 02-02-2024 End: 04-04-2024 Amoxicillin-Pot Clavulanate 875-125 mg tablet Discontinued 1 {tbl} PO TWICE A DAY February 02, 2024 1:00am April 04, 2024 3:17pm azithromycin 250 mg oral tablet (1 source) Macrolide Antimicrobial Start: 03-03-2019 End: 03-03-2019 azithromycin (ZITHROMAX) tablet 1,000 mg cefTRIAXone (ROCEPHIN) 250 mg in lidocaine 1% (PF) (XYLOCAINE MPF) IM injection (1 source) Start: 03-03-2019 End: 03-03-2019 cefTRIAXone (ROCEPHIN) 250 mg in lidocaine 1% (PF) (XYLOCAINE MPF) IM injection cephalexin 500 mg oral capsule (4 sources) Cephalosporin Antibacterial Start: 07-25-2021 End: 08-01-2021 cephALEXin (KEFLEX) capsule 500 mg Start: 11-19-2018 End: 11-26-2018 take 1 capsule by mouth four times daily cephALEXin (KEFLEX) 500 MG capsule Take 1 (one) capsule (500 mg total) by mouth 4 (four) times a day for 7 days . 28 capsule 0 11/19/2018 11/26/2018 Active Start: 11-19-2018 End: 11-19-2018 cephALEXin (KEFLEX) capsule 500 mg 1 ml dexamethasone phosphate 4 mg/ml injection (1 source) Corticosteroid Start: 08-24-2021 End: 08-24-2021 dexamethasone (DECADRON) injection 8 mg doxycycline hyclate 100 mg oral capsule (3 sources) Tetracycline-class Drug Start: 07-11-2023 End: 07-18-2023 take 1 capsule by mouth twice daily Doxycycline Hyclate 100 mg capsule Discontinued 100 mg PO TWICE A DAY 14 July 11, 2023 12:00am July 17, 2023 12:00am July 18, 2023 12:07am fluconazole 150 mg oral tablet (3 sources) Azole Antifungal Start: 07-09-2023 End: 08-15-2023 take 1 tablet by mouth once Fluconazole 150 mg tablet Discontinued 150 mg PO ONCE July 09, 2023 12:00am August 15, 2023 10:18am as a single dose omeprazole 20 mg delayed release oral capsule (1 source) Proton Pump Inhibitor Start: 12-14-2017 take 1 capsule by mouth once daily omeprazole (PRILOSEC) 20 mg capsule Take 1 capsule by mouth once daily for 14 days. 14 capsule 0 12/14/2017 Active Comment on above: Take 1 capsule by [facility] once daily for 14 days. promethazine hydrochloride 25 mg oral tablet (6 sources) Phenothiazine Start: 06-23-2020 End: 04-24-2023 take 1 tablet by mouth every six hours as needed for nausea Promethazine 25 MG tablet Discontinued 25 mg PO EVERY 6 HOURS NEEDED as needed for Nausea June 23, 2020 12:00am April 24, 2023 7:45pm Sodium Chloride (1 source) Start: 11-18-2018 End: 11-19-2018 sodium chloride (PF) (NS) flush 5 mL Problems Active Problems Problem Classification Problem Date Documented Date Episodic/Chronic Abdominal pain (3 sources) Upper abdominal pain; Translations: [Unspecified abdominal pain] Onset: 01-27-2022 Episodic Diseases of white blood cells (1 source) Leukocytosis; Translations: [Elevated white blood cell count, unspecified] Onset: 09-01-2021 12-09-2021 Chronic Disorders of lipid metabolism (2 sources) Hyperlipidemia; Translations: [Hyperlipidemia, unspecified] Onset: 09-21-2021 02-11-2022 Chronic E Codes: Fall (1 source) Unspecified fall, initial encounter; Translations: [Fall, initial encounter] Onset: 02-01-2022 Episodic Esophageal disorders (6 sources) Luli-Woodard tear; Translations: [Gastro-esophageal laceration-hemorrhage syndrome] 03-23-2020 Episodic Female infertility (1 source) Female infertility associated with anovulation; Translations: [Female infertility associated with anovulation] Chronic Genitourinary symptoms and ill-defined conditions (1 source) Dysuria; Translations: [Dysuria] Episodic Intestinal infection (1 source) Viral gastroenteritis; Translations: [Viral intestinal infection, unspecified] 07-24-2024 Episodic Menstrual disorders (12 sources) Menstrual spotting; Translations: [Excessive and frequent menstruation with regular cycle] Onset: 09-01-2021 12-09-2021 Chronic Comment on above: TVUS Mood disorders (2 sources) Depressive disorder; Translations: [Depression] Onset: 09-01-2021 02-11-2022 Chronic Nausea and vomiting (6 sources) Nausea; Translations: [Nausea] 06-24-2020 Episodic Nonspecific chest pain (4 sources) Chest pain; Translations: [Chest pain, unspecified] 02-10-2024 Episodic Other endocrine disorders (7 sources) Polycystic ovary syndrome; Translations: [Polycystic ovarian syndrome] Onset: 09-21-2021 02-11-2022 Chronic Other female genital disorders (3 sources) Abnormal uterine bleeding; Translations: [Other specified abnormal uterine and vaginal bleeding] Chronic Other female genital disorders (4 sources) Vaginal discharge; Translations: [Other specified noninflammatory disorders of vagina] 04-24-2023 Episodic Other nutritional; endocrine; and metabolic disorders (1 source) Body mass index 30+ - obesity; Translations: [Obesity, unspecified] Onset: 09-01-2021 12-09-2021 Chronic Other nutritional; endocrine; and metabolic disorders (2 sources) Obesity; Translations: [Obesity, unspecified] 06-24-2024 Chronic Other upper respiratory infections (3 sources) Sinusitis; Translations: [Chronic sinusitis, unspecified] 02-10-2024 Chronic Other upper respiratory infections (1 source) Acute pharyngitis; Translations: [Acute pharyngitis, unspecified] Episodic Personality disorders (1 source) Borderline personality disorder; Translations: [Borderline personality disorder] Onset: 05-26-2019 02-11-2022 Chronic Superficial injury; contusion (2 sources) Contusion of right knee, initial encounter; Translations: [Contusion of right lower leg, initial encounter] Onset: 02-01-2022 Episodic Syncope (1 source) Vasovagal syncope; Translations: [Syncope and collapse] 07-24-2024 Episodic Thyroid disorders (1 source) Hypothyroidism, unspecified; Translations: [Hypothyroidism, unspecified] Onset: 05-22-2024 Chronic Unclassified (3 sources) No history of clinical finding in subject; Translations: [No significant past medical history] 06-20-2020 Unclassified (1 source) other Onset: 02-11-2022 Unclassified (2 sources) New Patient; Translations: [New Patient] Onset: 05-03-2022 Unclassified (1 source) Cough, unspecified; Translations: [Cough, unspecified] Onset: 03-08-2024 Urinary tract infections (20 sources) Urinary tract infectious disease; Translations: [Acute urinary tract infection] Onset: 01-05-2022 Episodic Past or Other Problems Problem Classification Problem Date Documented Da te Episodic/Chronic Administrative/social admission (9 sources) Imprisonment; Translations: [Imprisonment and other incarceration] Onset: 09-01-2021 02-11-2022 Episodic Bacterial infection; unspecified site (4 sources) Chlamydial infection; Translations: [Chlamydial infection, unspecified] Onset: 04-22-2024 08-15-2023 Episodic Comment on above: SHELDON 08/14 Chronic obstructive pulmonary disease and bronchiectasis (1 source) Bronchitis; Translations: [Bronchitis] Episodic Diabetes mellitus without complication (2 sources) Hyperglycemia; Translations: [Hyperglycemia, unspecified] Onset: 09-01-2021 02-11-2022 Episodic Immunizations and screening for infectious disease (1 source) Requires diphtheria, tetanus and pertussis vaccination; Translations: [Encounter for immunization] Onset: 09-01-2021 12-09-2021 Episodic Inflammatory diseases of female pelvic organs (1 source) Acute cervicitis; Translations: [Acute cervicitis] Episodic Malaise and fatigue (1 source) Fatigue; Translations: [Other fatigue] Onset: 09-01-2021 12-09-2021 Episodic Other screening for suspected conditions (not mental disorders or infectious disease) (1 source) Other specified abnormal findings of blood chemistry; Translations: [Other specified abnormal findings of blood chemistry] Onset: 03-11-2024 Episodic Residual codes; unclassified (1 source) Cushingoid facies; Translations: [Other general symptoms and signs] Onset: 09-01-2021 12-09-2021 Episodic Suicide and intentional self-inflicted injury (1 source) Suicidal ideations; Translations: [Suicidal ideation] Onset: 09-24-2021 Episodic Results Test Name Value Interpretation Reference Range Facility 12 Lead EKGon 07-24-2024 12 Lead EKG [facility] Cardiovascular Services [address] [place] [address] 12 Lead EKG 07/24/24 0804 MR#: [id number] Acct: [id number] Name: BRYANNA MEEHAN Rep #: [id number] : 2000 From: Juan Manuel Palma MD Attending Dr: Status: DEP ER Ordering Dr: Geno Manjarrez DO Date: 07/24/24 Location: ED Sex: F C Admitted: Test Reason : ABD PAIN Blood Pressure : */* mmHG Vent. Rate : 88 BPM Atrial Rate : 88 BPM P-R Int : 162 ms QRS Dur : 82 ms QT Int : 376 ms P-R-T Axes : 43 6 -7 degrees QTcB Int : 454 ms Normal sinus rhythm Normal ECG Confirmed by Juan Manuel Palma ([id number]), publications editor FLORIN HOLLEY ([id number]) on 07/28/2024 11:35:11 AM Referred By: Confirmed By: Juan Manuel Palma 07/28/24 1135 Date Juan Manuel Palma MD CC: Dr. Rg Wnichester MD; Dr. Geno Manjarrez DO Signed Normal [facility] Abdomen/Pelvis WITH Contrast on 07-24-2024 Abdomen/Pelvis WITH Contrast [facility] Imaging Services [address] [place] [address] Abdomen/Pelvis WITH Contrast MR#: [id number] Acct: [id number] Name: BRYANNA MEEHAN Rep #: [id number] : 2000 F 23 From: Cole casanova MD PCP: Dr. Rg Winchester MD Status: [facility] Study: Abdomen/Pelvis WITH Contrast Date of Exam: Exam# [id number] Ordering Dr: Geno Manjarrez DO PROCEDURE: ABDOMEN/PELVIS WITH CONTRAST 07/24/2024 REASON FOR EXAM: ABDOMINAL PAIN TECHNIQUE: Abdomen and pelvis CT with intravenous contrast. Coronal and Sagittal reconstruction series were provided. PATIENT PREPARATION: Per protocol ORAL CONTRAST TYPE: None. CONTRAST: Isovue-300 VOLUME: 100 mL One or more dose reduction techniques were used (e.g., Automated exposure control, adjustment of the mA and/or kV according to patient size, use of iterative reconstruction technique. RADIATION DOSE SUMMARY: CTDlvol: 15 mGy DLP: 1252.8 mGycm COMPARISON: Prior study dated June 23, 2020. FINDINGS: Lung bases: Unremarkable Liver: Diffuse fatty infiltration. Gallbladder: Unremarkable Spleen: Normal size. Pancreas: Normal size without evidence of mass surrounding inflammation or ductal dilation. Adrenals: Unremarkable Kidneys: Normal renal sizes. No hydronephrosis. Bladder: Unremarkable. Reproductive Organs: There is a 2.9 cm cyst in the left ovary. Small follicles are seen in the right ovary. Bowel: Colonic diverticulosis without diverticulitis. Appendix: Unremarkable Lymph nodes: Unremarkable. Vasculature: The abdominal aorta and IVC are normal. Peritoneum / Retroperitoneum: Unremarkable Bones: Unremarkable CT/Abdomen/Pelvis WITH Contrast IMPRESSION: Fatty infiltration of the liver. Left ovarian cyst. Small follicles in the right ovary. Reading Location: [id number] CC: Dr. Rg Winchester MD; Dr. Geno Manjarrez DO Production Technologist: Signed Normal [facility] Absolute lymphocyte countOrd ered By: Geno Manjarrez on 07-24-2024 Lymphocytes Auto (Unsp spec) [#/Vol] 3.83 10*3/uL 0.83-4.[address] [facility] Absolute neutrophil countOrd ered By: Geno Manjarrez on 07-24-2024 Neutrophils (Bld) [#/Vol] 9.8 10*3/uL High 2.0-7.[address] [facility] Anion gap in Serum or Plasma Ordered By: Geno Manjarrez on 07-24-2024 Anion gap [Moles/Vol] 11 mmol/L 5-15 [facility] Automated lymphocyte count a s percentage of total leukocytesOrdered By: Geno Manjarrez on 07-24-2024 Lymphocytes/100 WBC Auto (Unsp spec) 26.2 % 19-[address] [facility] BUN/creatinine ratioOrdered By: Geno Manjarrez on 07-24-2024 Urea nitrogen/Creatinine [Mass ratio] 14.5 mg/mg 10-[address] [facility] Basophil percentageOrdered B y: Geno Manjarrez on 07-24-2024 Basophils/100 WBC (Bld) 0.5 % 0-[address] [facility] Bilirubin Test strip Ql (U)O rdered By: Geno Manjarrez on 07-24-2024 Bilirubin Ql (U) Negative Negative [facility] Bilirubin, totalOrdered By: Geno Manjarrez on 07-24-2024 Bilirubin [Mass/Vol] 0.24 mg/dL 0.00-1.30 [facility] CBC W/Diff, Automatedon 06-27 Absolute Lymph 3.83 X10 3/uL Normal 0.83-4.[address] [facility] Comment on above: Performed By: #### L [id number] #### [facility] [address] [place], [address] Absolute Neut 9.8 X10 3/uL High 2.0-7.[address] [facility] Comment on above: Performed By: #### L [id number] #### [facility] [address] [place], [address] Basophils/100 WBC (Bld) 0.5 % Normal 0-[address] [facility] Comment on above: Performed By: #### L [id number] #### [facility] [address] [place], [address] Eosinophils/100 WBC (Bld) 0.1 % Normal 0-[address] [facility] Comment on above: Performed By: #### L [id number] #### [facility] [address] [place], [address] Erythrocyte distribution width (RBC) [Ratio] 14.6 % Normal 11.6-14.[address] [facility] Comment on above: Performed By: #### L [id number] #### [facility] [address] [place], [address] Hematocrit (Bld) [Volume fraction] 38.0 % Normal 37-[address] [facility] Comment on above: Performed By: #### L [id number] #### [facility] [address] [place], [address] Hemoglobin (Bld) [Mass/Vol] 12.5 g/dL Normal 12.0-15.[address] [facility] Comment on above: Performed By: #### L [id number] #### [facility] [address] [place], [address] IG% 0.400 Normal 0.0-0.[address] [facility] Comment on above: Result Comment: IG% - Immature Granulocytes (promyelocytes, myelocytes and metamyelocytes) > 1% indicates that a LEFT SHIFT is Present. Performed By: #### L 0.1800 #### [facility] [address] [place], [address] Lymphocytes/100 WBC (Bld) 26.2 % Normal 19-[address] [facility] Comment on above: Performed By: #### L [id number] #### [facility] [address] [place], [address] MCH (RBC) [Entitic mass] 27.5 pg Normal 27.0-32.[address] [facility] Comment on above: Performed By: #### L 7000.1800 #### [facility] [address] [place], [address] MCHC (RBC) [Mass/Vol] 32.9 g/dL Normal 32-36 [facility] Comment on above: Performed By: #### L 7000.1800 #### [facility] [address] [place], [address] MCV (RBC) [Entitic vol] 83.7 fL Normal 81-[address] [facility] Comment on above: Performed By: #### L 7000.1800 #### [facility] [address] [place], [address] Monocytes/100 WBC (Bld) 5.9 % Normal 0-[address] [facility] Comment on above: Performed By: #### L 7000.1800 #### [facility] [address] [place], [address] Neutrophils/100 WBC (Bld) 66.9 % Normal 47-[address] [facility] Comment on above: Performed By: #### L 7000.1800 #### [facility] [address] [place], [address] Nucleated RBC (Bld) [#/Vol] 0 10*3/uL Normal 0-[address] [facility] Comment on above: Performed By: #### L 7000.1800 #### [facility] [address] [place], [address] Platelet mean volume (Bld) [Entitic vol] 9.9 fL Normal 6.2-12.[address] [facility] Comment on above: Performed By: #### L 7000.1800 #### [facility] [address] [place], [address] Platelets (Bld) [#/Vol] 391 10*3/uL Normal 150-[address] [facility] Comment on above: Performed By: #### L 7000.1800 #### [facility] [address] [place], [address] RBC (Bld) [#/Vol] 4.54 10*6/uL Normal 4.2-5.4 [facility] Comment on above: Performed By: #### L 7000.1800 #### [facility] [address] [place], [address] RDW SD 44.2 fl High 35.1-43.[address] [facility] Comment on above: Performed By: #### L 7000.1800 #### [facility] [address] [place], [address] WBC (Bld) [#/Vol] 14.6 10*3/uL High 4.4-11.0 [facility] Comment on above: Performed By: #### L 7000.1800 #### [facility] [address] [place], [address] Carbon dioxide, total [Moles /volume] in Central venous bloodOrdered By: Geno Manjarrez on 07-24-2024 CO2 [Moles/Vol] 26.6 mmol/L 21.0-32.[address] [facility] Chloride assayOrdered By: Felecia Manjarrez on 07-24-2024 Chloride [Moles/Vol] 102 mmol/L 98-108 [facility] Comprehensive Metabolic Prof ilon 07-24-2024 Albumin [Mass/Vol] 4.3 g/dL Normal 3.5-5.0 [facility] Comment on above: Performed By: #### L 0.1800 #### [facility] [address] [place], [address] Albumin/Globulin [Mass ratio] 1.2 {ratio} Normal 0.9-2.[address] [facility] Comment on above: Performed By: #### L 7000.1800 #### [facility] [address] [place], [address] ALK PHOS 102 U/L Normal 35-[address] [facility] Comment on above: Performed By: #### L 7000.1800 #### [facility] [address] [place], [address] ALT [Catalytic activity/Vol] 32 U/L Normal <=[address] [facility] Comment on above: Performed By: #### L 0.1800 #### [facility] [address] [place], [address] AST [Catalytic activity/Vol] 24 U/L Normal <=[address] [facility] Comment on above: Performed By: #### L 7000.1800 #### [facility] [address] [place], [address] Bilirubin [Mass/Vol] 0.24 mg/dL Normal 0.00-1.30 [facility] Comment on above: Performed By: #### L 7000.1800 #### [facility] [address] [place], [address] BUN/CRE 14.5 RATIO Normal 10-[address] [facility] Comment on above: Performed By: #### L 7000.1800 #### [facility] [address] [place], [address] Calcium [Mass/Vol] 9.2 mg/dL Normal 7.6-11.0 [facility] Comment on above: Performed By: #### L 7000.1800 #### [facility] [address] [place], [address] Chloride [Moles/Vol] 102 mmol/L Normal 98-108 [facility] Comment on above: Performed By: #### L 7000.1800 #### [facility] [address] [place], [address] CO2 [Moles/Vol] 26.6 mmol/L Normal 21.0-32.[address] [facility] Comment on above: Performed By: #### L 7000.1800 #### [facility] [address] [place], [address] Creatinine [Mass/Vol] 0.79 mg/dL Normal 0.70-1.20 [facility] Comment on above: Performed By: #### L 7000.1800 #### [facility] [address] [place], [address] ECRCL 112.08 ml/min Normal 50-[address] [facility] Comment on above: Performed By: #### L 7000.1800 #### [facility] [address] [place], [address] GAP 11 Normal 5-[address] [facility] Comment on above: Performed By: #### L 7000.1800 #### [facility] [address] [place], [address] GFR/1.73 sq M.predicted among non-blacks MDRD (S/P/Bld) [Vol rate/Area] 106 mL/min/{1.73_m2} Normal >[address] [facility] Comment on above: Result Comment: mL/m in/1.73m2 CKD-EPI Creatinine Equation (2020) Performed By: #### L 7000.1800 #### [facility] [address] [place], [address] Globulin (S) [Mass/Vol] 3.5 g/dL Normal 2.2-4.[address] [facility] Comment on above: Performed By: #### L 0.1800 #### [facility] [address] [place], [address] Glucose [Mass/Vol] 105 mg/dL High 70-99 [facility] Comment on above: Performed By: #### L 7000.1800 #### [facility] [address] [place], [address] Potassium [Moles/Vol] 3.9 mmol/L Normal 3.3-5.1 [facility] Comment on above: Performed By: #### L 7000.1800 #### [facility] [address] [place], [address] Sodium [Moles/Vol] 140 mmol/L Normal 133-145 [facility] Comment on above: Performed By: #### L 7000.1800 #### [facility] [address] [place], [address] T PROT 7.7 g/dL Normal 5.9-8.[address] [facility] Comment on above: Performed By: #### L 7000.1800 #### [facility] [address] [place], [address] Urea nitrogen [Mass/Vol] 12 mg/dL Normal 4-[address] [facility] Comment on above: Performed By: #### L 7000.1800 #### [facility] [address] [place], [address] Emergency Department Summary on 07-24-2024 Emergency Department Summary [facility] Medical Records Department [address] [place] [address] Emergency Department Summary 07/24/24 MR#: [id number] Acct: [id number] Name: BRYANNA MEEHAN Rep #: [id number] : 2000 23 From: Geno Manjarrez DO PCP: Dr. Rg Winchester MD Status:DEP ER Location: ED HPI HPI - GI History of Present Illness Chief Complaint: Abd Pain Detail of Chief Complaint: Abdominal pain Informant: patient Narrative Narrative: Patient presents with complaint of abdominal pain that started yesterday. She describes nausea and vomiting and states she is thrown up 4 times. The vomit had some red tinge to it that she does not believe was blood. She is wondering if it is related to some red candy she ate a couple of days ago. Patient denies black tarry stool. She denies dysuria urgency or frequency. She denies fever. Patient also states that last evening she passed out 3 times. She remembers feeling lightheaded and dizzy and then passing out for short time as she was with a friend. No real history of syncope. She does not think she is . She has history of PCOS. She has had no prior abdominal surgeries. Patient states pain is lower abdomen diffusely. [facility] Medical History (Updated 07/24/24 @ 10:[address] Geno Manjarrez DO) Chlamydia Hypothyroid Chronic UTI Home Medications ???Medication ???Instructions ???Recorded ???Last Taken ???Type levothyroxine 25 mcg tablet 25 mcg PO DAILY 04/24/23 Unknown H istory medroxyprogesterone 10 mg tablet 10 mg PO .COMPLEX 10 days #10 tabs 06/24/24 Unknown Rx metformin 500 mg tablet 500 mg PO QDAY 06/24/24 Unknown Hi story ondansetron 4 mg disintegrating 4 mg PO Q8H PRN PRN Nausea #10 tab s 07/24/24 Unknown Rx tablet Allergy/AdvReac Type Severity Reaction Status Date / Time latex AdvReac Rash Verified 07/24/24 07:40 Family History Grandmother Colon cancer Grandmother Brain cancer Grandfather Diabetes Father Hypertension Surgical History History of tonsillectomy Social History Smoking Status: Current every day smoker tobacco type: e-cigarettes Electronic Cigarette Use: with nicotine alcohol intake: current details: occasionally substance use type: does not use caffeine: Yes what type of physical activity do you participate in: walking frequency: daily do you feel safe at home: Yes additional social history: Boyfriend-Jose C DWYER ED Review of Systems ROS Unobtainable: other Constitutional Constitutional ED: Reports lethargy; Denies chills, fever(s), sweats or weight loss Eyes Eyes: Denies blurry vision, change in vision or diplopia ENT ENT ED: Denies rhinorrhea or sore throat Cardiovascular Cardiovascular: Denies chest pain, orthopnea or racing heartbeat Respiratory/Chest Respiratory/Chest: Denies cough, dyspnea, dyspnea on exertion, orthopnea or sputum Gastrointestinal Gastrointestinal: Reports abdominal pain, nausea and vomiting; Denies diarrhea Genitourinary Genitourinary ED: Denies dysuria, hematuria or urinary frequency Musculoskeletal Musculoskeletal: Denies arthralgias, back pain, myalgias or neck pain Integumentary Denies abscess, Abrasions or rash Neurologic Neurologic: Denies headache(s) or weakness Psychiatric Psychiatric: Denies anxiety, depression or suicidal thoughts Endocrine Endocrinology: Denies polydipsia, polyphagia or polyuria Hematologic/Lymphatic Hematologic/Lymphatic: Denies easy bleeding, easy bruising or lymphadenopathy Allergic/Immunologic Allergic/Immunologic ED: Denies mouth swelling, tongue swelling or urticaria EXAM Physical Exam Const Vital Signs: 07/24/24 07:40 07/24/24 10:30 Temperature 97 F L Temperature Source Temporal Pulse Rate 97 81 Respiratory Rate 14 18 Blood Pressure 159/103 H 140/100 H Blood Pressure Mean 121 113 Pulse Ox 98 96 Oxygen Delivery Method Room Air Positive well nourished and well developed General Appearance ED: well developed and NAD HEENT Reports TM's clear and moist mucous membranes normocephalic and atraumatic; Negative for trauma or tenderness Tympanic Membrane ED: Yes TM's clear Eyes PERRL and EOMs intact bilaterally General Eye ED: Negative for pale conjunctiva or scleral icterus Neck no lymphadenopathy, supple and no JVD General: Negative for tenderness Chest Wall inspection of chest normal and palpation of chest normal Chest: Negative for tenderness Resp normal respiratory effort and clear to auscultation bilaterally Effort and Inspection: Negative for respiratory distress or pain with movement Auscultation: Negative for rhonchi, wheezes or diminished lung sounds Cardio regu (more content not included)... Normal [facility] Eosinophil percentageOrdered By: Geno Manjarrez on 07-24-2024 Eosinophils/100 WBC (Bld) 0.1 % 0-[address] [facility] Erythrocyte distribution wid th ratioOrdered By: Geno Manjarrez on 07-24-2024 Erythrocyte distribution width (RBC) [Ratio] 14.6 % 11.6-14.[address] [facility] Erythrocyte distribution wid th standard deviationOrdered By: Geno Manjarrez on 07-24-2024 Erythrocyte distribution width (RBC) [Ratio] 44.2 fl High 35.1-43.[address] [facility] Glomerular filtration rate ( GFR) estimation/1.73 sq m using serum, plasma, or whole bOrdered By: Geno Manjarrez on 07-24-2024 GFR/1.73 sq M.predicted among non-blacks MDRD (S/P/Bld) [Vol rate/Area] 106 mL/min/{1.73_m2} >[address] [facility] Comment on above: mL/min/1.73m2 CKD-EP I Creatinine Equation (2020) Hematocrit Auto (Bld) [Volum e fraction]Ordered By: Geno Manjarrez on 07-24-2024 Hematocrit (Bld) [Volume fraction] 38.0 % 37-[address] [facility] Hemoglobin measurementOrdere d By: Geno Manjarrez on 07-24-2024 Hemoglobin (Bld) [Mass/Vol] 12.5 g/dL 12.0-15.[address] [facility] Immature granulocytes/100 WB C Auto (Bld)Ordered By: Geno Manjarrez on 07-24-2024 Immature granulocytes/100 WBC (Bld) 0.400 % 0.0-0.[address] [facility] Comment on above: IG% - Immature Granu locytes (promyelocytes, myelocytes and metamyelocytes) > 1% indicates that a LEFT SHIFT is Present. Ketones Test strip Ql (U)Ord ered By: Geno Manjarrez on 07-24-2024 Ketones Ql (U) Negative Negative [facility] - Chemistry and C hemistry - challengeOrdered By: Geno Manjarrez on 07-24-2024 AST [Catalytic activity/Vol] 24 U/L <[address] [facility] MCV (mean corpuscular volume ) determinationOrdered By: Geno Manjarrez on 07-24-2024 MCV (RBC) [Entitic vol] 83.7 fL 81-[address] [facility] Mean corpuscular hemoglobin (MCH) determinationOrdered By: Geno Manjarrez on 07-24-2024 MCH (RBC) [Entitic mass] 27.5 pg 27.0-32.[address] [facility] Mean corpuscular hemoglobin concentration (MCHC) determinationOrdered By: Geno Manjarrez on 07-24-2024 MCHC (RBC) [Mass/Vol] 32.9 g/dL 32-36 [facility] Mean platelet volume determi nationOrdered By: Geno Manjarrez on 07-24-2024 Platelet mean volume (Bld) [Entitic vol] 9.9 fL 6.2-12.[address] [facility] Microscopic analysis of urin e for red blood cells (RBC)Ordered By: Geno Manjarrez on 07-24-2024 Microscopic analysis of urine for red blood cells (RBC) 5-10 SEEN /hpf 0-[address] [facility] Monocyte percentageOrdered B y: Geno Manjarrez on 07-24-2024 Monocytes/100 WBC (Bld) 5.9 % 0-[address] [facility] Mucus LM Ql (Urine sed)Order ed By: Geno Manjarrez on 07-24-2024 Mucus Ql (Urine sed) 0 SEEN /hpf [facility] Neutrophil percentageOrdered By: Geno Manjarrez on 07-24-2024 Neutrophils/100 WBC (Bld) 66.9 % 47-[address] [facility] Nitrite Test strip Ql (U)Ord ered By: Geno Manjarrez on 07-24-2024 Nitrite Ql (U) Negative Negative [facility] Nucleated red blood cell per centageOrdered By: Geno Manjarrez on 07-24-2024 Nucleated RBC/100 WBC (Bld) [Ratio] 0 % 0-[address] [facility] Platelet countOrdered By: Felecia Manjarrez on 07-24-2024 Platelets (Bld) [#/Vol] 391 10*3/uL 150-[address] [facility] Potassium measurement (mass/ volume)Ordered By: Geno Manjarrez on 07-24-2024 Potassium (Unsp spec) [Mass/Vol] 3.9 mmol/L 3.3-5.[address] [facility] ,Serum,hCG Quali.on 07-24-2024 HCG, SERUM QUAL Negative Normal [facility] Comment on above: Performed By: #### L 7000.1800 #### [facility] [address] [place], [address] Protein Test strip Ql (U)Ord ered By: Geno Manjarrez on 07-24-2024 Protein Ql (U) 15 mg/dl High Negative [facility] RBC Auto (Bld) [#/Vol]Ordere d By: Geno Manjarrez on 07-24-2024 RBC (Bld) [#/Vol] 4.54 10*6/uL 4.2-5.4 [facility] Serum beta-hCG test, qualita tiveOrdered By: Geno Manjarrez on 07-24-2024 Beta HCG ( test) Ql Negative [facility] Serum creatinine measurement (mass/volume)Ordered By: Geno Manjarrez on 07-24-2024 Creatinine [Mass/Vol] 0.79 mg/dL 0.70-1.20 [facility] Serum globulin measurementOr dered By: Geno Manjarrez on 07-24-2024 Globulin (S) [Mass/Vol] 3.5 g/dL 2.2-4.[address] [facility] Serum glucose measurement (m ass/volume)Ordered By: Geno Manjarrez on 07-24-2024 Glucose [Mass/Vol] 105 mg/dL High 70-99 [facility] Serum or plasma alanine regalado otransferase (ALT) measurementOrdered By: Geno Manjarrez on 07-24-2024 ALT [Catalytic activity/Vol] 32 U/L <[address] [facility] Serum or plasma albumin jarrell urement (mass/volume)Ordered By: Geno Manjarrez on 07-24-2024 Albumin [Mass/Vol] 4.3 g/dL 3.5-5.0 [facility] Serum or plasma albumin/glob ulin mass ratioOrdered By: Geno Manjarrez 07-24-2024 Albumin/Globulin [Mass ratio] 1.2 {ratio} 0.9-2.[address] [facility] Serum or plasma alkaline blanco sphatase measurementOrdered By: Geno Manjarrez on 07-24-2024 ALP [Catalytic activity/Vol] 102 U/L 35-[address] [facility] Serum or plasma calcium jarrell urement (mass/volume)Ordered By: Geno Manjarrez on 07-24-2024 Calcium [Mass/Vol] 9.2 mg/dL 7.6-11.0 [facility] Serum or plasma urea nitroge n measurement (mass/volume)Ordered By: Geno Drewcallum on 07-24-2024 Urea nitrogen [Mass/Vol] 12 mg/dL 4-[address] [facility] Sodium levelOrdered By: Ana Maria s Rajendracallum on 07-24-2024 Sodium [Moles/Vol] 140 mmol/L 133-145 [facility] Squamous epithelial cells de tection in urine sediment by light microscopyOrdered By: Geno Drewcallum on 07-24-2024 Epithelial cells.squamous LM Ql (Urine sed) 0-5 SEEN /hpf 5-[address] [facility] Total proteinOrdered By: Trina Drewcallum on 07-24-2024 Protein [Mass/Vol] 7.7 g/dL 5.9-8.4 [facility] Urinalysis, Completeon 07-24 BACTERIA RARE Normal None Seen [facility] Comment on above: Order Comment: CLEAN CATCH Performed By: #### L 400.0001 #### [facility] [address] [place], [address] EPI,SQUAMOUS 0-5 SEEN Normal 5-[address] [facility] Comment on above: Order Comment: CLEAN CATCH Performed By: #### L 400.0001 #### [facility] [address] [place], [address] RBC 5-10 SEEN Normal 0-[address] [facility] Comment on above: Order Comment: CLEAN CATCH Performed By: #### L 400.0001 #### [facility] [address] [place], [address] WBC 0-5 SEEN Normal 0-[address] [facility] Comment on above: Order Comment: CLEAN CATCH Performed By: #### L 400.0001 #### [facility] [address] [place], [address] Mucus Ql (Urine sed) 0 SEEN Normal [facility] Comment on above: Order Comment: CLEAN CATCH Performed By: #### L 400.0001 #### [facility] [place], [address] Urine clarityOrdered By: Trina Manjarrez on 07-24-2024 Clarity (U) Clear Clear [facility] Urine color determinationOrd ered By: Geno Manjarrez on 07-24-2024 Color (U) Yellow Yellow [facility] Urine glucose detectionOrder ed By: Geno Manjarrez on 07-24-2024 Glucose Ql (U) Normal mg/dl Normal [facility] Urine leukocyte esterase det ection by dipstickOrdered By: Geno Manjarrez on 07-24-2024 Leukocyte esterase Test strip Ql (U) 100 /ul High Negative [facility] Urine pHOrdered By: Geno Un gur on 07-24-2024 pH (U) 6.5 [pH] 5.0 - 8.[address] [facility] Urine sediment bacteria coun t by microscopy (number/high power field)Ordered By: Geno Manjarrez on 07-24-2024 Bacteria LM.HPF (Urine sed) [#/Area] RARE /hpf None Seen [facility] Urine specific gravity measu rementOrdered By: Geno Manjarrez on 07-24-2024 Specific gravity (U) [Rel density] 1.010 1.002-1.[address] [facility] Urine urobilinogen measureme ntOrdered By: Geno Manjarrez on 07-24-2024 Urobilinogen Ql (U) Normal mg/dl Normal [facility] White blood cell (WBC) count Ordered By: Geno Manjarrez on 07-24-2024 WBC (Bld) [#/Vol] 14.6 10*3/uL High 4.4-11.0 [facility] White blood cell countOrdere d By: Geno Manjarrez on 07-24-2024 White blood cell count 0-5 SEEN /hpf 0-[address] [facility] Boiler [employer]ube [employer]lower Office Visit Reporton 06-24-2024 Bo[employer] Tube Blower Office Visit Report [facility], [address] [place] [address] OFFICE VISIT Date of Service: 06/24/24 MR#: [id number] Acct: [id number] Name: BRYANNA MEEHAN Rep #: [id number] : 2000 Provider: CRESCENCIO anderson Age/Sex: 23/F [place] [facility] [place]: Signed Intake Vital Signs 04/25/24 13:06 06/24/24 13:19 Height 4 ft 10 in 4 ft 10 in Weight: 210 lb 4 oz 212 lb BMI 43.9 44.3 BP 138/84 H 151/86 H Intake Visit Reasons: heavy menses Winder Tender Required: No Is patient in pain?: No Allergies latex Adverse Reaction (Verified 06/24/24 13:55) Rash Medications ???Medication ???Instructions ???Recorded ???Confirmed ???Type levothyroxine 25 mcg tablet 25 mcg PO DAILY 04/24/23 06/24/24 History medroxyprogesterone 10 mg tablet 10 mg PO .COMPLEX 10 days #10 tabs 06/24/24 06/24/24 Rx metformin 500 mg tablet 500 mg PO QDAY 06/24/24 06/24/24 H istory Is last menstrual period known: Yes Last Menstrual Period: 06/12/24 Post menopausal: No Patient : No : No PFSH Medical History (Updated 06/24/24 @ 14:17 by Mary Madrid NP, CRESCENCIO) Chlamydia Hypothyroid Chronic UTI Surgical History History of tonsillectomy Family History Grandmother Colon cancer Grandmother Brain cancer Grandfather Diabetes Father Hypertension Social History Smoking Status: Never smoker Electronic Cigarette Use: with nicotine alcohol intake: current details: occasionally substance use type: does not use caffeine: Yes what type of physical activity do you participate in: walking frequency: daily do you feel safe at home: Yes additional social history: Boyfriend-Jose C [place] heavy menses Details: BRYANNA MEEHAN is a 23 year old who presents for heavy menses. States had a menses in February then none until May 29- then again . Changes pad every 1-2 hours. More clotting. She is wanting . Same partner as last exam when she had negative STD testing. She states was on depo provera as teenager. She states had break through bleeding with that and a couple of types of oral contraceptives. Note elevated BP today. She started metformin 3 weeks ago per PCP and feels that is reason for elevated blood pressure. When seen in this office in March it was due to lack of menses. She had pelvic US that confirmed her PCOS. Female Reproductive History Last Menstrual Period: 06/12/24 History 0 Elective abortions Hx Para Spontaneous abortions Hx # Term Pregnancies Ectopic pregnancies Hx # Pregnancies Multiple births # of living children ROS Const Constitutional: Reports system reviewed and no additional complaints, except as documented Eyes Eyes: Reports system reviewed and no additional complaints, except as documented GI GI: Denies abdominal pain or change in bowel habits : Reports as per HPI Exam Const General: cooperative and no acute distress Nutritional Appearance: obese Orientation: oriented x3 HENMT Head: normal to inspection and normocephalic Eyes General: appearance normal, both eyes and all related structures Neck Neck: normal visual inspection Resp Effort Inspection: normal respiratory effort Neuro Cognition: normal cognition Speech: speech normal Psych Appearance: grossly normal Mood: congruent mood Affect: normal affect Speech and Movement: speech and movement normal Attitude: cooperative Judgment: judgment good Coding Level of Care Code Off vis,est,level 3 Diagnoses Abnormal uterine bleeding (AUB) N93.9 PCOS (polycystic ovarian syndrome) E28.2 Class 3 severe obesity due to excess calories with serious comorbidity and body mass index (BMI) of 40.0 to 44.9 in adult E66.813; E66.01; Z68.41 Obesity type: due to excess calories Obesity classification: adult class 3 (BMI >= 40) Serious obesity comorbidity presence: with serious comorbidity Body mass index: BMI 40.0-44.9 Assessment and Plan Assessment and Plan (1) Abnormal uterine bleeding (AUB): Status: Acute (2) PCOS (polycystic ovarian syndrome): Status: Acute (3) Obesity: Status: Acute Qualifiers: Obesity type: due to excess calories Obesity classification: adult class 3 (BMI >= 40) Serious obesity comorbidity presence: with serious comorbidity Body mass index: BMI 40.0-44.9 Qualified Code(s): E66.813 - Obesity, class 3; E66.01 - Morbid (severe) obesity due to excess calories; Z68.41 - Body mass index [BMI] 40.0-44.9, adult Medications: New medroxyprogesterone 10 mg orally take 1 tablet daily first 10 days each month; 10 days 10 tabs 6RF Plan (more content not included)... Normal [facility] Thyroglobulin w/Anti-TG ABon 06-04-2024 Anti-TG AB 1.8 IU/mL High 0.0-0.[address] [facility] Comment on above: Result Comment: Thyr oglobulin Antibody measured by [employer] Methodology It should be noted that the presence of thyroglobulin antibodies may not be pathogenic nor diagnostic, especially at very low levels. The assay online merchandising coordinator has found that four percent of individuals without evidence of thyroid disease or autoimmunity will have positive TgAb levels up to 4 IU/mL. Performed By: #### L 3300.6820, L3300.6900 #### [facility] [address] [place], [address] TG-THEA 118 ng/mL High . [facility] Comment on above: Result Comment: Conf irmed by dilution. This test was developed and its performance characteristics determined by [employer]. It has not been cleared or approved by the Food and Drug Administration. Reference Range: Pubertal Children and Adults: <40 According to the National Academy of Clinical Biochemistry, the reference interval for Thyroglobulin (TG) should be related to euthyroid patients and not for patients who underwent thyroidectomy. TG reference intervals for these patients depend on the residual mass of the thyroid tissue left after surgery. Establishing a post-operative baseline is recommended. The assay quantitation limit is 2.0 ng/mL. Performed By: #### L 3300.6820, L3300.6907 #### [facility] [address] [place], [address] Thyroid Peroxidase ABon - THYR PEROX AB 139 IU/mL High 0-[address] [facility] Comment on above: Result Comment: Perf ormed at: - [facility] [id number] Flaker Tender: Robby Orellana PhD, Phone: [phone] Performed at: [facility] [employer] [address] [place] [id number] Flaker Tender: Franky Curry MD, Phone: [phone] Performed By: #### L 9677.9180, M9674.1264 #### [facility] [address] [place], [address] Urine Cultureon 05-22-2024 [facility] Mixed Gram Pos Gram Neg Org [place] Count 80,000-100,000 MIXC Mixed contaminants. Submit a new specimen if indicated. Normal [facility] Comment on above: Performed By: #### L 8131.6004, L3036.4913 #### [facility] [address] [place], [address] Urine cultureOrdered By: Kg Palomares on 05-20-2024 Bacteria identified Cx Nom (U) Mixed Gram Pos & Gram Neg Org Abnormal [facility] Absolute lymphocyte countOrd ered By: Rg Winchester on 05-15-2024 Lymphocytes Auto (Unsp spec) [#/Vol] 3.15 10*3/uL 0.83-4.[address] [facility] Absolute neutrophil countOrd ered By: Rg Winchester on 05-15-2024 Neutrophils (Bld) [#/Vol] 8.1 10*3/uL High 2.0-7.[address] [facility] Anion gap in Serum or Plasma Ordered By: Rg Winchester on 05-15-2024 Anion gap [Moles/Vol] 12 mmol/L - [facility] Automated lymphocyte count a s percentage of total leukocytesOrdered By: Rg Winchester on 05-15-2024 Lymphocytes/100 WBC Auto (Unsp spec) 26.2 % - [facility] BUN/creatinine ratioOrdered By: Rg Winchester on 05-15-2024 Urea nitrogen/Creatinine [Mass ratio] 11.3 mg/mg 12-[address] [facility] Basophil percentageOrdered B y: Rg Winchester on 05-15-2024 Basophils/100 WBC (Bld) 0.5 % 0-[address] [facility] Bilirubin, totalOrdered By: Rg Winchester on 05-15-2024 Bilirubin [Mass/Vol] 0.27 mg/dL 0.00-1.30 [facility] CBC W/Diff, Automatedon 03-2 0-2024 Absolute Lymph 3.15 X10 3/uL Normal 0.83-4.[address] [facility] Comment on above: Order Comment: Order Date: 05/15/24 Order Info: 0184- - CBCD Performed By: #### L 100.0100, L501.9520, L506.0400, L501.6710, L501.21344, L500.4050, L505.7010 #### [facility] [address] [place], [address] Absolute Neut 8.1 X10 3/uL High 2.0-7.[address] [facility] Comment on above: Order Comment: Order Date: 05/15/24 Order Info: [id number] - CBCD Performed By: #### L 100.0100, L501.9520, L506.0400, L501.6710, L501.88307, L500.4050, L505.7010 #### [facility] [address] [place], [address] Basophils/100 WBC (Bld) 0.5 % Normal 0-[address] [facility] Comment on above: Order Comment: Order Date: 05/15/24 Order Info: 0184- - CBCD Performed By: #### L 100.0100, L501.9520, L506.0400, L501.6710, L501.81437, L500.4050, L505.7010 #### [facility] [address] [place], [address] Eosinophils/100 WBC (Bld) 0.1 % Normal 0-[address] [facility] Comment on above: Order Comment: Order Date: 05/15/24 Order Info: 0184- - CBCD Performed By: #### L 100.0100, L501.9520, L506.0400, L501.6710, L501.56431, L500.4050, L505.7010 #### [facility] [address] [place], [address] Erythrocyte distribution width (RBC) [Ratio] 15.6 % High 11.6-14.[address] [facility] Comment on above: Order Comment: Order Date: 05/15/24 Order Info: 018- - CBCD Performed By: #### L 100.0100, L501.9520, L506.0400, L501.6710, L501.17776, L500.4050, L505.7010 #### [facility] [address] [place], [address] Hematocrit (Bld) [Volume fraction] 40.1 % Normal 37-[address] [facility] Comment on above: Order Comment: Order Date: 05/15/24 Order Info: 01805-27 - CBCD Performed By: #### L 100.0100, L501.9520, L506.0400, L501.6710, L501.48114, L500.4050, L505.7010 #### [facility] [address] [place], [address] Hemoglobin (Bld) [Mass/Vol] 13.0 g/dL Normal 12.0-15.[address] [facility] Comment on above: Order Comment: Order Date: 05/15/24 Order Info: 01805-27 - CBCD Performed By: #### L 100.0100, L501.9520, L506.0400, L501.6710, L501.83941, L500.4050, L505.7010 #### [facility] [address] [place], [address] IG% 0.900 Normal 0.0-0.[address] [facility] Comment on above: Order Comment: Order Date: 05/15/24 Order Info: 018- - CBCD Result Comment: IG% - Immature Granulocytes (promyelocytes, myelocytes and metamyelocytes) > 1% indicates that a LEFT SHIFT is Present. Performed By: #### L 100.0100, L501.9520, L506.0400, L501.6710, L501.61476, L500.4050, L505.7010 #### [facility] [address] [place], [address] Lymphocytes/100 WBC (Bld) 26.2 % Normal 19-[address] [facility] Comment on above: Order Comment: Order Date: 05/15/24 Order Info: 0184-1 - CBCD Performed By: #### L 100.0100, L501.9520, L506.0400, L501.6710, L501.37470, L500.4050, L505.7010 #### [facility] [address] [place], [address] MCH (RBC) [Entitic mass] 26.7 pg Low 27.0-32.[address] [facility] Comment on above: Order Comment: Order Date: 05/15/24 Order Info: 0184- - CBCD Performed By: #### L 100.0100, L501.9520, L506.0400, L501.6710, L501.36333, L500.4050, L505.7010 #### [facility] [address] [place], [address] MCHC (RBC) [Mass/Vol] 32.4 g/dL Normal 32-36 [facility] Comment on above: Order Comment: Order Date: 05/15/24 Order Info: 0184-1 - CBCD Performed By: #### L 100.0100, L501.9520, L506.0400, L501.6710, L501.63016, L500.4050, L505.7010 #### [facility] [address] [facility] [place], [address] MCV (RBC) [Entitic vol] 82.5 fL Normal 81-[address] [facility] Comment on above: Order Comment: Order Date: 05/15/24 Order Info: 0184-1 - CBCD Performed By: #### L 100.0100, L501.9520, L506.0400, L501.6710, L501.47872, L500.4050, L505.7010 #### [facility] [address] [place], [address] Monocytes/100 WBC (Bld) 5.0 % Normal 0-[address] [facility] Comment on above: Order Comment: Order Date: 05/15/24 Order Info: 0184-1 - CBCD Performed By: #### L 100.0100, L501.9520, L506.0400, L501.6710, L501.60865, L500.4050, L505.7010 #### [facility] [address] [facility] [place], [address] Neutrophils/100 WBC (Bld) 67.3 % Normal 47-[address] [facility] Comment on above: Order Comment: Order Date: 05/15/24 Order Info: 0184-1 - CBCD Performed By: #### L 100.0100, L501.9520, L506.0400, L501.6710, L501.59452, L500.4050, L505.7010 #### [facility] [address] [facility] [place], [address] Nucleated RBC (Bld) [#/Vol] 0 10*3/uL Normal 0-[address] [facility] Comment on above: Order Comment: Order Date: 05/15/24 Order Info: 0184-1 - CBCD Performed By: #### L 100.0100, L501.9520, L506.0400, L501.6710, L501.58512, L500.4050, L505.7010 #### [facility] [address] [place], [address] Platelet mean volume (Bld) [Entitic vol] 9.9 fL Normal 6.2-12.[address] [facility] Comment on above: Order Comment: Order Date: 05/15/24 Order Info: 0184-1 - CBCD Performed By: #### L 100.0100, L501.9520, L506.0400, L501.6710, L501.33658, L500.4050, L505.7010 #### [facility] [address] [place], [address] Platelets (Bld) [#/Vol] 398 10*3/uL Normal 150-[address] [facility] Comment on above: Order Comment: Order Date: 05/15/24 Order Info: 0184- - CBCD Performed By: #### L 100.0100, L501.9520, L506.0400, L501.6710, L501.66211, L500.4050, L505.7010 #### [facility] [address] [place], [address] RBC (Bld) [#/Vol] 4.86 10*6/uL Normal 4.2-5.4 [facility] Comment on above: Order Comment: Order Date: 05/15/24 Order Info: 0184- - CBCD Performed By: #### L 100.0100, L501.9520, L506.0400, L501.6710, L501.47353, L500.4050, L505.7010 #### [facility] [address] [place], [address] RDW SD 46.9 fl High 35.1-43.[address] [facility] Comment on above: Order Comment: Order Date: 05/15/24 Order Info: 0184-1 - CBCD Performed By: #### L 100.0100, L501.9520, L506.0400, L501.6710, L501.87362, L500.4050, L505.7010 #### [facility] [address] [place], [address] WBC (Bld) [#/Vol] 12.0 10*3/uL High 4.4-11.0 [facility] Comment on above: Order Comment: Order Date: 05/15/24 Order Info: 0184-1 - CBCD Performed By: #### L 100.0100, L501.9520, L506.0400, L501.6710, L501.20251, L500.4050, L505.7010 #### [facility] [address] [place], [address] CRPon 05-15-2024 C-REACTIVE PROT 10.20 mg/L High 0.0-3.[address] [facility] Comment on above: Order Comment: Order Date: 05/15/24 Order Info: 0786-1 - CMP Order Info: [id number] - CRP Order Info: 3051-0 - T3F Order Info: 3016-3 - TSH Order Info: 34411-2 - RA Order Info: 3024-7 - T4F Performed By: #### L 100.0100, L501.9520, L506.0400, L501.6710, L501.27623, L500.4050, L505.7010 #### [facility] [address] [place], [place], [id number] CRP [Mass/Vol]Ordered By: Moustapha Winchester on 05-15-2024 C-Reactive Protein Extended Range 10.20 mg/L High 0.0-3.[address] [facility] Carbon dioxide, total [Moles /volume] in Central venous bloodOrdered By: Rg Winchester on 05-15-2024 CO2 [Moles/Vol] 23.3 mmol/L 21.0-32.[address] [facility] Chloride assayOrdered By: Moustapha Winchester on 05-15-2024 Chloride [Moles/Vol] 101 mmol/L 98-108 [facility] Comprehensive Metabolic Prof ilon 05-15-2024 Albumin [Mass/Vol] 4.2 g/dL Normal 3.5-5.0 [facility] Comment on above: Order Comment: Order Date: 05/15/24 Order Info: 0786-1 - CMP Order Info: [id number] - CRP Order Info: 3051-0 - T3F Order Info: 3016-3 - TSH Order Info: 63723-1 - RA Order Info: 3024-7 - T4F Performed By: #### L 100.0100, L501.9520, L506.0400, L501.6710, L501.25327, L500.4050, L505.7010 #### [facility] [address] [place], [address] Albumin/Globulin [Mass ratio] 1.1 {ratio} Normal 0.9-2.[address] [facility] Comment on above: Order Comment: Order Date: 05/15/24 Order Info: 0786-1 - CMP Order Info: [id number] - CRP Order Info: 3051-0 - T3F Order Info: 3 - TSH Order Info: 12435-8 - RA Order Info: 302-7 - T4F Performed By: #### L 100.0100, L501.9520, L506.0400, L501.6710, L501.58091, L500.4050, L505.7010 #### [facility] [address] [place], [place], [id number] [phone] [phone] PHOS 103 U/L Normal 35-[address] [facility] Comment on above: Order Comment: Order Date: 05/15/24 Order Info: 0786-1 - CMP Order Info: 38947-2 - CRP Order Info: 3051-0 - T3F Order Info: 3 - TSH Order Info: 67544-6 - RA Order Info: 3024-7 - T4F Performed By: #### L 100.0100, L501.9520, L506.0400, L501.6710, L501.03056, L500.4050, L505.7010 #### [facility] [address] [place], [address] ALT [Catalytic activity/Vol] 24 U/L Normal <=[address] [facility] Comment on above: Order Comment: Order Date: 05/15/24 Order Info: 86-1 - CMP Order Info: 78042-1 - CRP Order Info: 3051-0 - T3F Order Info: 3016-3 - TSH Order Info: 13506-3 - RA Order Info: 3024-7 - T4F Performed By: #### L 100.0100, L501.9520, L506.0400, L501.6710, L501.75772, L500.4050, L505.7010 #### [facility] [address] [place], [address] AST [Catalytic activity/Vol] 23 U/L Normal <=[address] [facility] Comment on above: Order Comment: Order Date: 05/15/24 Order Info: 785-1 - CMP Order Info: 03274-8 - CRP Order Info: 3051-0 - T3F Order Info: 3 - TSH Order Info: 20038-9 - RA Order Info: 302-7 - T4F Performed By: #### L 100.0100, L501.9520, L506.0400, L501.6710, L501.48175, L500.4050, L505.7010 #### [facility] [address] [place], [place], [address] Bilirubin [Mass/Vol] 0.27 mg/dL Normal 0.00-1.30 [facility] Comment on above: Order Comment: Order Date: 05/15/24 Order Info: 785-1 - CMP Order Info: 56729-9 - CRP Order Info: 3051-0 - T3F Order Info: 3 - TSH Order Info: 35703-4 - RA Order Info: 3024-7 - T4F Performed By: #### L 100.0100, L501.9520, L506.0400, L501.6710, L501.35983, L500.4050, L505.7010 #### [facility] [address] [place], [place], [id number] BUN/CRE 11.3 RATIO Normal 10-[address] [facility] Comment on above: Order Comment: Order Date: 05/15/24 Order Info: 0786-1 - CMP Order Info: 55641-0 - CRP Order Info: 3051-0 - T3F Order Info: 3016-3 - TSH Order Info: 38343-9 - RA Order Info: 3024-7 - T4F Performed By: #### L 100.0100, L501.9520, L506.0400, L501.6710, L501.37491, L500.4050, L505.7010 #### [facility] [address] [place], [address] Calcium [Mass/Vol] 9.0 mg/dL Normal 7.6-11.0 [facility] Comment on above: Order Comment: Order Date: 05/15/24 Order Info: 86-1 - CMP Order Info: 98016-8 - CRP Order Info: 3051-0 - T3F Order Info: 3015-3 - TSH Order Info: 66040-1 - RA Order Info: 3024-7 - T4F Performed By: #### L 100.0100, L501.9520, L506.0400, L501.6710, L501.35122, L500.4050, L505.7010 #### [facility] [address] [place], [address] Chloride [Moles/Vol] 101 mmol/L Normal 98-108 [facility] Comment on above: Order Comment: Order Date: 05/15/24 Order Info: 0786-1 - CMP Order Info: 03062-4 - CRP Order Info: 3051-0 - T3F Order Info: 301-3 - TSH Order Info: 04087-3 - RA Order Info: 3024-7 - T4F Performed By: #### L 100.0100, L501.9520, L506.0400, L501.6710, L501.05836, L500.4050, L505.7010 #### [facility] [address] [place], [address] CO2 [Moles/Vol] 23.3 mmol/L Normal 21.0-32.[address] [facility] Comment on above: Order Comment: Order Date: 05/15/24 Order Info: 0786-1 - CMP Order Info: 78212-4 - CRP Order Info: 3051-0 - T3F Order Info: 3016-3 - TSH Order Info: 79014-8 - RA Order Info: 3024-7 - T4F Performed By: #### L 100.0100, L501.9520, L506.0400, L501.6710, L501.86809, L500.4050, L505.7010 #### [facility] [address] [place], [address] Creatinine [Mass/Vol] 0.81 mg/dL Normal 0.70-1.20 [facility] Comment on above: Order Comment: Order Date: 05/15/24 Order Info: 0786-1 - CMP Order Info: 32812-0 - CRP Order Info: 3051-0 - T3F Order Info: 3016-3 - TSH Order Info: 80938-9 - RA Order Info: 3024-7 - T4F Performed By: #### L 100.0100, L501.9520, L506.0400, L501.6710, L501.34808, L500.4050, L505.7010 #### [facility] [address] [place], [address] GAP 12 Normal 5-[address] [facility] Comment on above: Order Comment: Order Date: 05/15/24 Order Info: 0786-1 - CMP Order Info: 13090-8 - CRP Order Info: 3051-0 - T3F Order Info: 3016-3 - TSH Order Info: 62968-7 - RA Order Info: 3024-7 - T4F Performed By: #### L 100.0100, L501.9520, L506.0400, L501.6710, L501.04536, L500.4050, L505.7010 #### [facility] [address] [place], [place], [address] GFR/1.73 sq M.predicted among non-blacks MDRD (S/P/Bld) [Vol rate/Area] 103 mL/min/{1.73_m2} Normal >[address] [facility] Comment on above: Order Comment: Order Date: 05/15/24 Order Info: 0786-1 - CMP Order Info: 92403-3 - CRP Order Info: 3051-0 - T3F Order Info: 301-3 - TSH Order Info: 26691-5 - RA Order Info: 3024-7 - T4F Result Comment: mL/m in/1.73m2 CKD-EPI Creatinine Equation (2020) Performed By: #### L 100.0100, L501.9520, L506.0400, L501.6710, L501.67636, L500.4050, L505.7010 #### [facility] [address] [place], [place], [id number] [phone] Globulin (S) [Mass/Vol] 3.6 g/dL Normal 2.2-4.[address] [facility] Comment on above: Order Comment: Order Date: 05/15/24 Order Info: 07-1 - CMP Order Info: [id number] - CRP Order Info: 3051-0 - T3F Order Info: 3 - TSH Order Info: 51838-2 - RA Order Info: 3024-7 - T4F Performed By: #### L 100.0100, L501.9520, L506.0400, L501.6710, L501.89261, L500.4050, L505.7010 #### [facility] [address] [place], [address] Glucose [Mass/Vol] 105 mg/dL High 70-99 [facility] Comment on above: Order Comment: Order Date: 05/15/24 Order Info: 0786-1 - CMP Order Info: 22697-7 - CRP Order Info: 3051-0 - T3F Order Info: 6-3 - TSH Order Info: 78917-0 - RA Order Info: 3024-7 - T4F Performed By: #### L 100.0100, L501.9520, L506.0400, L501.6710, L501.05268, L500.4050, L505.7010 #### [facility] [address] [place], [address] Potassium [Moles/Vol] 3.8 mmol/L Normal 3.3-5.1 [facility] Comment on above: Order Comment: Order Date: 05/15/24 Order Info: 0786-1 - CMP Order Info: 87237-1 - CRP Order Info: 3051-0 - T3F Order Info: 3016-3 - TSH Order Info: 99926-3 - RA Order Info: 302-7 - T4F Performed By: #### L 100.0100, L501.9520, L506.0400, L501.6710, L501.82899, L500.4050, L505.7010 #### [facility] [address] [place], [address] Sodium [Moles/Vol] 136 mmol/L Normal 133-145 [facility] Comment on above: Order Comment: Order Date: 05/15/24 Order Info: 0786-1 - CMP Order Info: [id number] - CRP Order Info: 3051-0 - T3F Order Info: 3016-3 - TSH Order Info: 99949-7 - RA Order Info: 3024-7 - T4F Performed By: #### L 100.0100, L501.9520, L506.0400, L501.6710, L501.86163, L500.4050, L505.7010 #### [facility] [address] [place], [address] T PROT 7.8 g/dL Normal 5.9-8.[address] [facility] Comment on above: Order Comment: Order Date: 05/15/24 Order Info: 0786-1 - CMP Order Info: 32235-1 - CRP Order Info: 3051-0 - T3F Order Info: 3016-3 - TSH Order Info: 71326-3 - RA Order Info: 3024 - T4F Performed By: #### L 100.0100, L501.9520, L506.0400, L501.6710, L501.51699, L500.4050, L505.7010 #### [facility] [address] [place], [address] Urea nitrogen [Mass/Vol] 9 mg/dL Normal 4-[address] [facility] Comment on above: Order Comment: Order Date: 05/15/24 Order Info: 0786- - CMP Order Info: 66962-8 - CRP Order Info: 0 - T3F Order Info: 3015-04 - TSH Order Info: 06741-0 - RA Order Info: 30206-02 - T4F Performed By: #### L 100.0100, L501.9520, L506.0400, L501.6710, L501.56159, L500.4050, L505.7010 #### [facility] [address] [place], [address] Eosinophil percentageOrdered By: Rg Winchester on 05-15-2024 Eosinophils/100 WBC (Bld) 0.1 % 0-[address] [facility] Erythrocyte distribution wid th ratioOrdered By: Rg Winchester on 05-15-2024 Erythrocyte distribution width (RBC) [Ratio] 15.6 % High 11.6-14.[address] [facility] Erythrocyte distribution wid th standard deviationOrdered By: Rg Winchester on 05-15-2024 Erythrocyte distribution width (RBC) [Entitic vol] 46.9 fL High 35.1-43.[address] [facility] Erythrocyte distribution width (RBC) [Ratio] 46.9 fl High 35.1-43.[address] [facility] Free T3on 05-15-2024 Free T3 [Mass/Vol] 2.5 pg/mL Normal 2.18-3.98 [facility] Comment on above: Order Comment: Order Date: 05/15/24 Order Info: 0786-1 - CMP Order Info: [id number] - CRP Order Info: 0 - T3F Order Info: 3015-04 - TSH Order Info: 98885-4 - RA Order Info: 3024-7 - T4F Performed By: #### L 100.0100, L501.9520, L506.0400, L501.6710, L501.59333, L500.4050, L505.7010 #### [facility] [place], [address] Free T2Ipwoqds By: Rg nguyen on 05-15-2024 Free T3 [Mass/Vol] 2.5 pg/mL 2.18-3.98 [facility] Free Triiodothyronine (T3) pg/dL 2.5 pg/mL 2.18-3.[address] [facility] GFR/1.73 sq M.predicted chanel g non-blacks MDRD (S/P/Bld) [Vol rate/Area]Ordered By: Rg Winchester on 05-15-2024 Estimated GFR (MDRD) Non-Af Amer 103 >[address] [facility] Comment on above: mL/min/1.73m2 CKD-EP I Creatinine Equation (2020) Glomerular filtration rate ( GFR) estimation/1.73 sq m using serum, plasma, or whole bOrdered By: Rg Winchester on 05-15-2024 GFR/1.73 sq M.predicted among non-blacks MDRD (S/P/Bld) [Vol rate/Area] 103 mL/min/{1.73_m2} >[address] [facility] Comment on above: mL/min/1.73m2 CKD-EP I Creatinine Equation (2020) Hematocrit Auto (Bld) [Volum e fraction]Ordered By: Rg Winchester on 05-15-2024 Hematocrit (Bld) [Volume fraction] 40.1 % 37-[address] [facility] Hemoglobin measurementOrdere d By: Rg Winchester on 05-15-2024 Hemoglobin (Bld) [Mass/Vol] 13.0 g/dL 12.0-15.[address] [facility] Immature granulocytes/100 WB C Auto (Bld)Ordered By: Rg Winchester on 05-15-2024 Immature granulocytes/100 WBC (Bld) 0.900 % 0.0-0.[address] [facility] Comment on above: IG% - Immature Granu locytes (promyelocytes, myelocytes and metamyelocytes) > 1% indicates that a LEFT SHIFT is Present. Laboratory - Chemistry and C hemistry - challengeOrdered By: Rg Winchester on 05-15-2024 AST [Catalytic activity/Vol] 23 U/L <[address] [facility] Lymphocytes Auto (Unsp spec) [#/Vol]Ordered By: Rg Winchester on 05-15-2024 Lymphocytes (Bld) [#/Vol] 3.15 10*3/uL 0.83-4.[address] [facility] Lymphocytes/100 WBC Auto (Un sp spec)Ordered By: Rg Winchester on 05-15-2024 Lymphocytes/100 WBC (Bld) 26.2 % 19-[address] [facility] MCV (mean corpuscular volume ) determinationOrdered By: Rg Winchester on 05-15-2024 MCV (RBC) [Entitic vol] 82.5 fL 81-[address] [facility] Mean corpuscular hemoglobin (MCH) determinationOrdered By: Rg Winchester on 05-15-2024 MCH (RBC) [Entitic mass] 26.7 pg Low 27.0-32.[address] [facility] Mean corpuscular hemoglobin concentration (MCHC) determinationOrdered By: Rg Winchester on 05-15-2024 MCHC (RBC) [Mass/Vol] 32.4 g/dL 32-36 [facility] Mean platelet volume determi nationOrdered By: Rg Winchester on 05-15-2024 Platelet mean volume (Bld) [Entitic vol] 9.9 fL 6.2-12.[address] [facility] Monocyte percentageOrdered B y: Rg Winchester on 05-15-2024 Monocytes/100 WBC (Bld) 5.0 % 0-[address] [facility] Neutrophil percentageOrdered By: Rg Winchester on 05-15-2024 Neutrophils/100 WBC (Bld) 67.3 % 47-[address] [facility] Nucleated red blood cell per centageOrdered By: Rg Winchester on 05-15-2024 Nucleated RBC/100 WBC (Bld) [Ratio] 0 % 0-[address] [facility] Platelet countOrdered By: Moustapha Winchester on 05-15-2024 Platelets (Bld) [#/Vol] 398 10*3/uL 150-[address] [facility] Potassium (Unsp spec) [Mass/ Vol]Ordered By: Rg Winchester on 05-15-2024 Potassium [Moles/Vol] 3.8 mmol/L 3.3-5.1 [facility] Potassium measurement (mass/ volume)Ordered By: Rg Winchester on 05-15-2024 Potassium (Unsp spec) [Mass/Vol] 3.8 mmol/L 3.3-5.[address] [facility] RBC Auto (Bld) [#/Vol]Ordere d By: Rg Winchester on 05-15-2024 RBC (Bld) [#/Vol] 4.86 10*6/uL 4.2-5.4 [facility] Rheumatoid Factoron 05-16-19 RHEUMATOID FAC < 10.0 Normal <[address] [facility] Comment on above: Order Comment: Order Date: 05/15/24Order Info: [id number] - CMPOrder Info: [id number] - CRPOrder Info: 3051-0 - H6OHirjy Info: 3016-3 - TSHOrder Info: [id number] - RAOrder Info: 3024-7 - T4F Performed By: #### L 7000.1800 #### [facility] Laboratory [address] [place], [address] Rheumatoid factor Ql (S)Orde red By: Rg Winchester on 05-15-2024 Rheumatoid Factor < 10.0 IU/mL <15 [facility] Serum creatinine measurement (mass/volume)Ordered By: Rg Winchester on 05-15-2024 Creatinine [Mass/Vol] 0.81 mg/dL 0.70-1.20 [facility] Serum globulin measurementOr dered By: Rg Winchester on 05-15-2024 Globulin (S) [Mass/Vol] 3.6 g/dL 2.2-4.[address] [facility] Serum glucose measurement (m ass/volume)Ordered By: Rg Winchester on 05-15-2024 Glucose [Mass/Vol] 105 mg/dL High 70-99 [facility] Serum or plasma C reactive p rotein measurement (mass/volume)Ordered By: Rg Winchester on 05-15-2024 CRP [Mass/Vol] 10.20 mg/L High 0.0-3.[address] [facility] Serum or plasma alanine regalado otransferase (ALT) measurementOrdered By: Rg Winchester on 05-15-2024 ALT [Catalytic activity/Vol] 24 U/L <[address] [facility] Serum or plasma albumin jarrell urement (mass/volume)Ordered By: Rg Winchester on 05-15-2024 Albumin [Mass/Vol] 4.2 g/dL 3.5-5.0 [facility] Serum or plasma albumin/glob ulin mass ratioOrdered By: Rg Winchester on 05-15-2024 Albumin/Globulin [Mass ratio] 1.1 {ratio} 0.9-2.[address] [facility] Serum or plasma alkaline blanco sphatase measurementOrdered By: Rg Winchester on 05-15-2024 ALP [Catalytic activity/Vol] 103 U/L 35-[address] [facility] Serum or plasma calcium jarrell urement (mass/volume)Ordered By: Rg Winchester on 05-15-2024 Calcium [Mass/Vol] 9.0 mg/dL 7.6-11.0 [facility] Serum or plasma thyroperoxid ase antibody assay (units/volume)Ordered By: Rg Winchester on 05-15-2024 TPO Ab Qn 139 [IU]/mL High 0-[address] [facility] Comment on above: Performed at: [facility] jean [address] [id number] Director: Robby Orellana PhD, Phone: [phone] at: [facility] [employer] [address] [place], [place] [id number] Director: Franky Curry MD, Phone: [phone] Serum or plasma urea nitroge n measurement (mass/volume)Ordered By: Rg Winchester on 05-15-2024 Urea nitrogen [Mass/Vol] 9 mg/dL 4-[address] [facility] Serum rheumatoid factor dete ctionOrdered By: Rg Winchester on 05-15-2024 Rheumatoid factor Ql (S) < 10.0 IU/mL <[address] [facility] Sodium levelOrdered By: Rg Winchester on 05-15-2024 Sodium [Moles/Vol] 136 mmol/L 133-145 [facility] T4 Free Directon 05-15-2024 T4 FREE DIRECT 0.40 ng/dL Low 0.76-1.[address] [facility] Comment on above: Order Comment: Order Date: 05/15/24 Order Info: [id number] - CMP Order Info: [id number] - CRP Order Info: 3051-0 - T3F Order Info: [id number] - TSH Order Info: [id number] - RA Order Info: 3024-7 - T4F Performed By: #### L 100.0100, L501.9520, L506.0400, L501.6710, L501.32466, L500.4050, L505.7010 #### [facility] [address] [place], [address] T4 freeOrdered By: Rg nguyen on 05-15-2024 Free T4 [Mass/Vol] 0.40 ng/dL Low 0.76-1.46 [facility] TSH DL <= 0.005 mIU/L QnOrde red By: Rg Winchester on 05-15-2024 Thyroid Stimulating Hormone (TSH) 49.000 uIU/mL High 0.300-4.[address] [facility] TSH Qn 49.000 uIU/mL High 0.300-4.[address] [facility] Thyroglobulin measurement by radioimmunoassay (THEA)Ordered By: Rg Winchester on 05-15-2024 Thyroglobulin Ab THEA Qn (S) 118 ng/mL High . [facility] Comment on above: Confirmed by suki n. This test was developed and itsperformance characteristics determined by [facility]. It hasnot been cleared or approved by the Food and DrugAdministration.Reference Range:Pubertal Childrenand Adults: <40According to the National Academy of Clinical Biochemistry,the reference interval for Thyroglobulin (TG) should berelated to euthyroid patients and not for patients whounderwent thyroidectomy. TG reference intervals for thesepatients depend on the residual mass of the thyroid tissueleft after surgery. Establishing a post-operative baselineis recommended. The assay quantitation limit is 2.0 ng/mL. Thyroid Stim Hormone (TSH)on 05-15-2024 TSH 49.000 uIU/mL High 0.300-4.[address] [facility] Comment on above: Order Comment: Order Date: 05/15/24 Order Info: [id number] - CMP Order Info: [id number] - CRP Order Info: 3051-0 - T3F Order Info: 3016-3 - TSH Order Info: [id number] - RA Order Info: 3024-7 - T4F Performed By: #### L 100.0100, L501.9520, L506.0400, L501.6710, L501.71886, L500.4050, L505.7010 #### [facility] [address] [place], [address] Total proteinOrdered By: Cindy Winchester on 05-15-2024 Protein [Mass/Vol] 7.8 g/dL 5.9-8.4 [facility] White blood cell (WBC) count Ordered By: Rg Winchester on 05-15-2024 WBC (Bld) [#/Vol] 12.0 10*3/uL High 4.4-11.0 [facility] Boiler Tube Blower Office Visit Reporton 04-25-2024 Boiler Tube Blower Office Visit Report [facility] [address], [address] [place] [address] OFFICE VISIT Date of Service: 04/25/24 MR#: [id number] Acct: [id number] Name: BRYANNA MEEHAN Rep #: [id number] : 2000 Provider: DEBBI Mitchell ams Age/Sex: 23/F [place] [facility] [place]: Signed Intake Vital Signs 04/04/24 14:12 04/25/24 13:06 Height 4 ft 10 in 4 ft 10 in Weight: 210 lb 4 oz BMI 43.9 BP 138/84 H Intake Visit Reasons: US FU Allergies latex Adverse Reaction (Verified 04/25/24 13:08) Rash Medications ???Medication ???Instructions ???Recorded ???Confirmed ???Type levothyroxine 25 mcg tablet 25 mcg PO DAILY 04/24/23 04/25/24 History Is last menstrual period known: Yes Last Menstrual Period: 03/25/24 Post menopausal: No Patient : No : No PFSH Medical History Hypothyroid Chronic UTI Surgical History History of tonsillectomy Family History Grandmother Colon cancer Grandmother Brain cancer Grandfather Diabetes Father Hypertension Social History Smoking Status: Never smoker Electronic Cigarette Use: with nicotine alcohol intake: current details: occasionally substance use type: does not use caffeine: Yes what type of physical activity do you participate in: walking frequency: daily do you feel safe at home: Yes additional social history: Boyfriend-Jose C HPI US FU Details: BRYANNA MEEHAN is a 23 year old who presents for US follow up. Results and reviewed. TSH is being followed by PCP and will have repeat labs done by the end of April. Discussed tracking menses and needing 4 menses/year. If no menses by the end of april will call in for progesterone challenge. Female Reproductive History Last Menstrual Period: 03/25/24 History 0 Elective abortions Hx Para Spontaneous abortions Hx # Term Pregnancies Ectopic pregnancies Hx # Pregnancies Multiple births # of living children ROS Const Constitutional: Reports system reviewed and no additional complaints, except as documented Cardio Card: Reports system reviewed and no additional complaints, except as documented Resp Resp: Reports system reviewed and no additional complaints, except as documented GI GI: Reports system reviewed and no additional complaints, except as documented : Reports system reviewed and no additional complaints, except as documented Skin Skin/Breast: Reports system reviewed and no additional complaints, except as documented Neuro Neuro: Reports system reviewed and no additional complaints, except as documented Psych Psych: Reports system reviewed and no additional complaints, except as documented Exam Const General: cooperative, healthy appearing, comfortable and no acute distress Orientation: alert, awake and oriented x3 Neck Neck: normal visual inspection and full ROM Resp Effort Inspection: normal respiratory effort, able to speak in complete sentences and symmetric chest movement Skin General: no rashes or lesions noted Neuro General: patient alert, patient awake and patient oriented x3 Cognition: normal cognition Speech: speech normal Gait: normal gait Extrem General: normal to inspection and full ROM Psych Appearance: grossly normal and well kempt Mental Status: mental status grossly normal Affect: normal affect Speech and Movement: speech and movement normal Attitude: cooperative Thought Process: normal Thought Content: normal Judgment: judgment good Coding Level of Care Code Off vis,est,level 3 Diagnoses Amenorrhea N91.2 Assessment and Plan Assessment and Plan (1) Amenorrhea: Status: Acute Comment: TVUS Plan: If no menses by end april consider progesterone challenge. RTO for annual/PRN 04/25/24 1330 Date Debbie Hagan Signature: Date (if applicable) CC: Normal [facility] Office Visit Reporton 2024 Office Visit Report [facility] [address] [place] [address] OFFICE VISIT Date of Service: 04/17/24 MR#: [id number] Acct: [id number] Patient: BRYANNA MEEHAN Rep #: [id number] : 2000 Provider: MAG Paz Age/Sex: 23/F Location: [facility] Status: Signed Intake Vital Signs 04/04/24 14:12 Height 4 ft 10 in Intake Visit Reasons: QUANTERIFERON, FIT TEST/ [place] Chief Complaint: Bleeding with [place] Allergies latex Adverse Reaction (Verified 04/17/24 14:39) Rash Office Procedures [facility] Billing Sheet Testing Pre-Employment PE: Yes Respirator Clearance (form only): Yes Occquant-Quantiferon: Yes 04/24/24 1798 Date Prince Hagan Signature: Date (if applicable) CC: Normal [facility] Quantiferon TB-Gold+on 04-19 QFT MITOGEN PARKER > 10.00 Normal . [facility] Comment on above: Performed By: #### L 3300.6820, L3300.6900 #### [facility] [address] [place], [address] QFT NIL VALUE 0.05 IU/mL Normal . [facility] Comment on above: Performed By: #### L 3300.6820, L3300.6900 #### [facility] [address] [place], [address] QFT TB GOLD+ Comment Normal . [facility] Comment on above: Result Comment: Scottie tiFERON-TB Gold Plus is a qualitative indirect test for M tuberculosis infection (including disease) and is intended for use in conjunction with risk assessment, radiography, and other medical and diagnostic evaluations. The QuantiFERON-TB Gold Plus result is determined by subtracting the Nil value from either TB antigen (Ag) value. The Mitogen tube serves as a control for the test. Performed By: #### L 3300.6820, L3300.6900 #### [facility] [address] [place], [address] QFT TB POS CRIT Negative Normal Negative [facility] Comment on above: Result Comment: No r esponse to M tuberculosis antigens detected. Infection with M tuberculosis is unlikely, but high risk individuals should be considered for additional testing (ATS/IDSA/CDC Clinical Practice Guidelines, 2017). The reference range is an Antigen minus Nil result of <0.35 IU/mL. The specimen received for QuantiFERON testing was incubated by the ordering institution. Specific procedures outlined in our Directory of Services and in the package insert for the QuantiFERON Gold (In Tube) test must be followed to enable for proper stimulation of cells for the production of interferon gamma. Chemiluminescence immunoassay methodology Performed at: [address] [id number] Flaker Tender: Robby Orellana PhD, Phone: [phone] Performed By: #### L 3300.1920, L3300.6900 #### [facility] [address] [place], [address] QFT TB1+ AG PARKER 0.08 IU/mL Normal . [facility] Comment on above: Performed By: #### L 3300.6820, L3300.6900 #### [facility] [address] [place], [address] QFT TB2+ AG PARKER 0.09 IU/mL Normal . [facility] Comment on above: Performed By: #### L 3300.6820, L3300.6900 #### [facility] [address] [place], [address] M. tuberculosis tuberculin s torin IFN-g Ql (Bld)Ordered By: Prince Parra on 04-17-2024 TB Test (QFT) Antigen 1 0.08 IU/mL . [facility] Qualitative QuantiFERON-TB g old in tube testOrdered By: Prince Parra on 04-17-2024 M. tuberculosis tuberculin stim IFN-g Ql (Bld) 0.08 IU/mL . [facility] Quantiferon-TB Gold Plus harjinder tOrdered By: Prince Parra on 04-17-2024 TB Test (QFT) Comment . [facility] Comment on above: QuantiFERON-TB Gold Plus is a qualitative indirect test forM tuberculosis infection (including disease) and isintended for use in conjunction with risk assessment,radiography, and other medical and diagnostic evaluations.The QuantiFERON-TB Gold Plus result is determined bysubtracting the Nil value from either TB antigen (Ag)value. The Mitogen tube serves as a control for the test. TB Test (QFT) Antigen 2 0.09 IU/mL . [facility] TB Test (QFT) Mitogen > 10.00 IU/mL . [facility] TB Test (QFT) Nil 0.05 IU/mL . [facility] TB Test (QFT) Positive Criteria Negative Negative [facility] Comment on above: No response to M tub erculosis antigens detected.Infection with M tuberculosis is unlikely, but high riskindividuals should be considered for additional testing(ATS/IDSA/CDC Clinical Practice Guidelines, 2017). Thereference range is an Antigen minus Nil result of <0.35IU/mL.The specimen received for QuantiFERON testing was incubatedby the ordering institution. Specific procedures outlinedin our Directory of Services and in the package insert forthe QuantiFERON Gold (In Tube) test must be followed toenable for proper stimulation of cells for the productionof interferon gamma. Chemiluminescence immunoassaymethodologyPerformed at: [facility] [employer] [address] [id number] Director: Robby Orellana PhD, Phone: [phone] Urgent Care Visit Reporton 0 04-17-2024 Urgent Care Visit Report [facility] [address], [address] [place] [address] OFFICE VISIT Date of Service: 04/17/24 MR#: [id number] Acct: [id number] Name: ZORANBRYANNA BEGUM Rep #: [id number] : 2000 Provider: MAG Paz Age/Sex: 23/F Location: [facility] Status: Signed Intake Vital Signs 04/04/24 14:12 Height 4 ft 10 in Intake Visit Reasons: PE NON DOT PHYSICAL/ [place] Accompanied by: Self Allergies latex Adverse Reaction (Verified 04/17/24 14:39) Rash Medications ???Medication ???Instructions ???Recorded ???Confirmed ???Type levothyroxine 25 mcg tablet 25 mcg PO DAILY 04/24/23 04/17/24 History Nurse's Note: Patient here for a pre-employment physical for [employer]. [employer] Medical History Hypothyroid Chronic UTI Surgical History History of tonsillectomy Family History Grandmother Colon cancer Grandmother Brain cancer Grandfather Diabetes Father Hypertension Social History Smoking Status: Never smoker Electronic Cigarette Use: with nicotine alcohol intake: current details: occasionally substance use type: does not use caffeine: Yes what type of physical activity do you participate in: walking frequency: daily do you feel safe at home: Yes additional social history: Boyfriend-Jose C Female Reproductive History Menstrual Age of Menarche: 10 HPI HPI Details: BRYANNA MEEHAN, is a 23 F who presents to the office today for preemployment physical. Please see corresponding scanned documents with today's date. Office Procedures Physical Exam Coding PE Coding Pre-employment PE: Yes Coding Level of Care Code No Charge Diagnoses Encounter for pre-employment health screening examination Z02.1 Assessment and Plan Assessment and Plan (1) Encounter for pre-employment health screening examination: Status: Acute Orders: Orders Quantiferon TB-Gold+ 04/17/24 Z02.1 - Encounter for pre-employment examination 04/18/24 0618 Date Prince Hagan Signature: Date (if applicable) CC: Normal [facility] Transvaginal Non-on 04-11-2024 Transvaginal Non- [facility] Imaging Services [address] [place] [id number] Transvaginal Non- MR#: [id number] Acct: [id number] Name: BRYANNA MEEHAN Rep #: [id number] : 2000 F 23 From: Cole casanova MD PCP: Dr. Rg Winchester MD Status: REG CLI Study: Transvaginal Non- Date of Exam: Exam# [id number] Ordering Dr: Debbie Warren CNM PROCEDURE: TRANSVAGINAL NON- REASON FOR EXAM: Amenorrhea. TECHNIQUE: Transvaginal pelvic sonogram. COMPARISON: None. FINDINGS: Measurements: Uterus: 7.1 cm x 4 cm x 3.2 cm with a volume of 46.8 mL. Nabothian cyst. Endometrial Thickness: 7.7 mm. Heterogeneous echotexture. Right Ovary: 3.7 cm x 2.3 cm x 2.4 cm with a volume of 10.3 mL. Left Ovary: 3 cm x 2.1 cm x 2.3 cm with a volume of 7.5 mL. TRANSVAGINAL: Uterus: Anteverted. Normal contour and myometrial echotexture. Endometrium: Normal echotexture. Right ovary: Normal size and echotexture. Small peripheral follicles. Left ovary: Normal size and echotexture. Small peripheral follicles. Other adnexal findings: None. Cul-de-sac: No free intraperitoneal fluid identified. No tenderness. US/Transvaginal Non- IMPRESSION: NORMAL TRANSABDOMINAL AND TRANSVAGINAL PELVIC ULTRASOUND.. Small peripheral follicles seen in both ovaries. Polycystic ovary should be ruled out. Reading Location: [id number] CC: DEBBI Warren; Dr. Rg Winchester MD Production Technologist: Signed Normal [facility] Chlamydia/GC OSCAR aptimaon CHLAMY,NUC ACID Negative Normal Negative [facility] Comment on above: Performed By: #### L 7000.1800 #### [facility] [address] [place], [address] GC BY NUC ACID Negative Normal Negative [facility] Comment on above: Result Comment: Perf ormed at: =G - [facility] [address] [id number] Flaker Tender: Stephania Mclaughlin MD, Phone: [phone] Performed By: #### L 7000.1800 #### [facility] [address] [place], [address] C. trachomatis rRNA OSCAR+prob e Ql (Unsp spec)Ordered By: Debbie Warren on 04-04-2024 Chlamydia DNA (OSCAR) Negative Negative [facility] Chlamydia trachomatis rRNA d etection by probe and target amplification methodOrdered By: Debbie Warren on 04-04-2024 C. trachomatis rRNA OSCAR+probe Ql (Unsp spec) Negative Negative [facility] Neisseria gonorrhoeae nuclei c acid detection by amplified probe techniqueOrdered By: Debbie Warren on 04-04-2024 N. gonorrhoeae DNA OSCAR+probe Ql (Unsp spec) Negative Negative [facility] Comment on above: Performed at: =[address] [place], [place] [id number] Director: Stephania Mclaughlin MD, Phone: [phone] Boiler Tube Blower Office Visit Reporton 04-04-2024 Boiler Tube Blower Office Visit Report [facility] [address], [address] [place] [address] OFFICE VISIT Date of Service: 04/04/24 MR#: [id number] Acct: [id number] Name: RBYANNA MEEHAN Rep #: [id number] : 2000 Provider: DEBBI Mitchell ams Age/Sex: 23/F [place] [facility] [place]: Signed Intake Vital Signs 02/02/24 15:59 03/27/24 13:22 04/04/24 14:12 Height 4 ft 10 in 4 ft 10 in 4 ft 10 in Weight: 204 lb 6 oz BMI 42.7 BP 150/89 H Intake Visit Reasons: PCOS/bleeding during intercourse Chief Complaint: Bleeding with [place] Allergies latex Adverse Reaction (Verified 04/04/24 14:17) Rash Medications ???Medication ???Instructions ???Recorded ???Confirmed ???Type levothyroxine 25 mcg tablet 25 mcg PO DAILY 04/24/23 04/04/24 History PFSH Medical History Hypothyroid Chronic UTI Surgical History History of tonsillectomy Family History Grandmother Colon cancer Grandmother Brain cancer Grandfather Diabetes Father Hypertension Social History Smoking Status: Never smoker Electronic Cigarette Use: with nicotine alcohol intake: current details: occasionally substance use type: does not use caffeine: Yes what type of physical activity do you participate in: walking frequency: daily do you feel safe at home: Yes additional social history: Boyfriend-Jose C HPI PCOS/bleeding during intercourse Details: BRYANNA MEEHAN is a 23 year old who presents for bleeding with intercourse. Does not happen every time with intercourse but 1-2 time a month for 3-4 months. reports she did have an episode of bleeding for 6 days in Feb but other peterson has not had period in 6 years. Discussed that this was likely a menses. Would like to TTC in the next few months. Female Reproductive History Last Menstrual Period: 03/25/24 Cycle Length: >35 Questions: metorrhagia: No, sexually active: Yes, dyspareunia: No and PCB: Yes History 0 Elective abortions Hx Para Spontaneous abortions Hx # Term Pregnancies Ectopic pregnancies Hx # Pregnancies Multiple births # of living children ROS Const Constitutional: Reports system reviewed and no additional complaints, except as documented Cardio Card: Reports system reviewed and no additional complaints, except as documented Resp Resp: Reports system reviewed and no additional complaints, except as documented GI GI: Reports system reviewed and no additional complaints, except as documented : Reports system reviewed and no additional complaints, except as documented; Denies difficulty voiding, dysuria or urinary frequency Skin Skin/Breast: Reports system reviewed and no additional complaints, except as documented Neuro Neuro: Reports system reviewed and no additional complaints, except as documented Psych Psych: Reports system reviewed and no additional complaints, except as documented Exam Const General: cooperative, healthy appearing, comfortable and no acute distress Resp Effort Inspection: normal respiratory effort, able to speak in complete sentences and symmetric chest movement GI Inspection: normal to inspection Palpation: soft External Female Exam: normal external appearance and normal appearance of the urethra Urethra: normal appearance of the urethra Speculum Exam - Vagina: normal appearance of the vagina and normal vaginal discharge Speculum Exam - Cervix: normal appearance of the cervix and nontender Bimanual Exam- Vagina Uterus: normal bimanual exam, normal palpation, uterine size normal, No tender and non-tender Bimanual Exam- Adnexa, other: normal Pelvic Support: normal Neuro General: patient alert, patient awake and patient oriented x3 Cognition: normal cognition Speech: speech normal Gait: normal gait Psych Appearance: grossly normal and well kempt Mental Status: mental status grossly normal Affect: normal affect Speech and Movement: speech and movement normal Attitude: cooperative Thought Process: normal Thought Content: normal Judgment: judgment good Coding Level of Care Code Off vis,est,level 3 Diagnoses Amenorrhea N91.2 Assessment and Plan Assessment and Plan (1) Amenorrhea: Status: Acute Comment: TVUS Plan: gcc today TVUS RTO after TVUS or PRN/annual Orders: Orders Transvaginal Non- Today N91.2 - Amenorrhea, unspecified 04/04/24 1444 Date Debbie Warren CNM Cosigner Signature: Date (if applicable) CC: Normal [facility] Direct serum free thyroxine (FT4) measurementOrdered By: Rg Winchester on 02-11-2024 Free T4 [Mass/Vol] 1.83 ng/dL High 0.76-1.46 [facility] T4 Free Directon 02-11-2024 T4 FREE DIRECT 1.83 ng/dL High 0.76-1.[address] [facility] Comment on above: Order Comment: Order Date: 02/11/24Order Info: 3016-3 - TSHOrder Info: 3024-7 - T4F Performed By: #### L 7000.1800 #### [facility] Laboratory [address] [place], [place], [address] TSH QnOrdered By: Rg Winchester on 02-11-2024 Thyroid Stimulating Hormone (TSH) 0.031 uIU/mL Low 0.358-3.[address] [facility] Thyroid Stim Hormone (TSH)on 02-11-2024 TSH 0.031 uIU/mL Low 0.358-3.[address] [facility] Comment on above: Order Comment: Order Date: 02/11/24Order Info: 3016-3 - TSHOrder Info: 3024-7 - T4F Performed By: #### L 7000.1800 #### [facility] Laboratory [address] [place], [address] CTA Chest W/WO Contraston CTA Chest W/WO Contrast [facility] Imaging Services [address] [place], [place] [address] CTA Chest W/WO Contrast MR#: [id number] Acct: [id number] Name: BRYANNA MEEHAN Rep #: [id number] : 2000 F 23 From: Rico cardona MD PCP: Dr. gR Winchester MD Status: [facility] Study: CTA Chest W/WO Contrast Date of Exam: 02/07/24 Exam# [id number] Ordering Dr: Rg Winchester MD [id number] STUDY: CTA CHEST REASON FOR EXAM: Female, 23 years old. CHEST CONGESTION, ELEVATED D DIMER RADIATION DOSAGE (If Supplied By Facility): CTDIvol = ( 13.84 ) mGy, DLP = ( 416.88 ) mGycm TECHNIQUE: The examination was performed with the intravenous administration of IV 100mL Isovue-370. Post-processing of the angiographic images was performed, with multiplanar reformation and 3D reconstruction. Individualized dose optimization techniques were used for this CT. COMPARISON: None. FINDINGS: Normal enhancement of the main pulmonary artery and right and left pulmonary arteries. Normal enhancement of the bilateral peripheral pulmonary arteries. There is no demonstrated pulmonary embolism. Normal thoracic aorta and visualized great vessels. There is no demonstrated aortic dissection. Normal heart and pericardium. Normal mediastinum. Normal hilar regions. Normal visualized trachea and bronchi. The lungs are well expanded. Normal pulmonary parenchyma. Normal pleura. Normal chest wall structures. Normal osseous structures. Normal visualized upper abdomen. CT/CTA Chest W/WO Contrast IMPRESSION: Normal CTA chest examination, without a demonstrated pulmonary embolism or arterial dissection. Electronically Signed: Rico Muñiz MD at 17:58 EST , CC: Dr. Rg Winchester MD Production Technologist: Signed Normal [facility] 12 Lead EKGon 02-02-2024 12 Lead EKG [facility] Cardiovascular Services [address] [place] [address] 12 Lead EKG 02/02/24 1640 MR#: [id number] Acct: [id number] Name: BRYANNA MEEHAN Rep #: [id number] : 2000 23 From: Juan Manuel Palma MD Attending Dr: Status: DEP ER Ordering Dr: Shorty Zhu DO Date: 02/02/24 Location: ED Sex: F C Admitted: Test Reason : GENERAL Blood Pressure : */* mmHG Vent. Rate : 77 BPM Atrial Rate : 77 BPM P-R Int : 154 ms QRS Dur : 86 ms QT Int : 382 ms P-R-T Axes : 42 12 1 degrees QTcB Int : 432 ms Normal sinus rhythm Normal ECG Confirmed by Juan Manuel Palma ([id number]), publications editor FLORIN HOLLEY ([id number]) on 02/04/2024 6:58:15 AM Referred By: Confirmed By: Juan Manuel Palma 02/04/24 0658 Date Juan Manuel Palma MD CC: Dr. Rg Winchester MD; Dr. Shorty Zhu DO Signed [facility] Absolute neutrophil countOrd ered By: Shorty Zhu on 02-02-2024 Neutrophils (Bld) [#/Vol] 6.0 10*3/uL 2.0-7.[address] [facility] Albumin to globulin ratioOrd ered By: Shorty Zhu on 02-02-2024 Albumin/Globulin [Mass ratio] 0.8 {ratio} Low 0.9-2.[address] [facility] Basophil percentageOrdered B y: Shorty Zhu on 02-02-2024 Basophils/100 WBC (Bld) 0.2 % 0-[address] [facility] Beta HCG ( test) Ql Ordered By: Shorty Zhu on 02-02-2024 Serum Test, Qualitative Negative [facility] Bilirubin Test strip Ql (U)O rdered By: Shorty Zhu on 02-02-2024 Bilirubin Ql (U) Negative Negative [facility] Bilirubin, totalOrdered By: Shorty Zhu on 02-02-2024 Bilirubin [Mass/Vol] 0.30 mg/dL 0.20-1.00 [facility] Comment on above: For patients on eltr ombopag therapy, use of Dimension [place] TBIL is not recommended. Blood urea nitrogen (BUN)/cr eatinine ratioOrdered By: Shorty Zhu on 02-02-2024 Urea nitrogen/Creatinine [Mass ratio] 14.5 mg/mg 10-[address] [facility] Brain/Head without Contrasto n 02-02-2024 Brain/Head without Contrast [facility] Imaging Services [address] [place], [place] [address] Brain/Head without Contrast MR#: [id number] Acct: [id number] Name: BRYANNA MEEHAN Rep #: [id number] : 2000 F 23 From: Lei Sadler PCP: Dr. Rg Winchester MD Status: [facility] Study: Brain/Head without Contrast Date of Exam: 09/18 Exam# [id number] Ordering Dr: Shorty Zhu DO [id number] INDICATION: headache EXAMINATION: CT BRAIN - CT Head or Brain W/O Contrast Injection TECHNIQUE: Multiple axial images were obtained of the head without intravenous contrast. A radiation dose optimization technique was used for this scan. IV Contrast dosage and agent: None. RADIATION DOSAGE (If Supplied By Facility): CTDIvol = ( 44.99 ) mGy, DLP = ( 728.62 ) mGycm COMPARISON: No relevant prior examinations for comparison FINDINGS: HEMISPHERES: 1. The cerebral parenchyma, ventricular system, subarachnoid spaces have normal configuration and density. There is a normal gyral pattern. There is normal haddad/white differentiation. No midline shift.. 2. The hemispheric white matter has normal appearance. 3. No intraparenchymal mass, hemorrhage, or acute territorial infarct. CEREBELLUM - BRAINSTEM: The cerebellum, brainstem, basilar and suprasellar cisterns have normal appearance. No Chiari malformation. PITUITARY: Infundibulum and pituitary have normal configuration. Midline structures appear normal. CSF SPACES: Appropriate for age. No hydrocephalus. Basal cisterns are patent. VESSELS: 1. No significant vascular calcifications in the cavernous carotid vessels. 2. No hyperdense vascular signs noted.. ORBITS AND PARANASAL SINUSES: 1. Normal appearance of the bony orbits. Normal appearance of the globes and retrobulbar soft tissues.. 2. Significant ethmoid sinus disease with multiple opacified ethmoid sinuses, moderate mucosal thickening in the RIGHT maxillary antrum. There is soft tissue opacification of the RIGHT nasal passages with significant hypertrophy of the turbinates. BONY ELEMENTS: Bony elements of the cranial vault, facial skeleton and skull base have normal appearance. SCALP AND SOFT TISSUES: Normal appearance of the soft tissues of the scalp and the visualized face OTHER: None ASPECTS Score for Acute Strokes: 10 CT/Brain/Head without Contrast IMPRESSION: 1. Normal CT examination of the brain. 2. No intracranial mass, hemorrhage or acute territorial infarct. 3. Significant sinus disease with opacification of multiple ethmoid air cells greater on the RIGHT than LEFT, mucosal thickening in the RIGHT maxillary antrum, and soft tissue opacification of the RIGHT nasal passages which appears to be secondary to extensive right-sided turbinate hypertrophy Electronically Signed: Lei Garcia MD at 18:11 EST , CC: Dr. Rg Winchester MD; Dr. Shorty Zhu DO Production Technologist: Signed Normal [facility] CBC W/Diff, Automatedon 12-0 Absolute Lymph 2.65 X10 3/uL Normal 0.83-4.[address] [facility] Comment on above: Performed By: #### L 3300.6820, L3300.6900 #### [facility] Laboratory [address] [place], [address] Absolute Neut 6.0 X10 3/uL Normal 2.0-7.[address] [facility] Comment on above: Performed By: #### L 3300.6820, L3300.6900 #### [facility] Laboratory [address] [place], [address] Basophils/100 WBC (Bld) 0.2 % Normal 0-[address] [facility] Comment on above: Performed By: #### L 3300.6820, L3300.6900 #### [facility] Laboratory [address] [place], [address] Eosinophils/100 WBC (Bld) 3.5 % Normal 0-[address] [facility] Comment on above: Performed By: #### L 3300.6820, L3300.6900 #### [facility] Laboratory [address] [place], [address] Erythrocyte distribution width (RBC) [Ratio] 13.8 % Normal 11.6-14.[address] [facility] Comment on above: Performed By: #### L 3300.6820, L3300.6900 #### [facility] Laboratory [address] [place], [address] Hematocrit (Bld) [Volume fraction] 38.8 % Normal 37-[address] [facility] Comment on above: Performed By: #### L 3300.6820, L3300.6900 #### [facility] Laboratory [address] [place], [address] Hemoglobin (Bld) [Mass/Vol] 12.7 g/dL Normal 12.0-15.[address] [facility] Comment on above: Performed By: #### L 3300.6820, L3300.6900 #### [facility] Laboratory [address] [place], [address] IG% 0.400 Normal 0.0-0.[address] [facility] Comment on above: Result Comment: IG% - Immature Granulocytes (promyelocytes, myelocytes and metamyelocytes) > 1% indicates that a LEFT SHIFT is Present. Performed By: #### L 3300.6820, L3300.6900 #### [facility] Laboratory [address] [place], [address] Lymphocytes/100 WBC (Bld) 26.7 % Normal 19-[address] [facility] Comment on above: Performed By: #### L 3300.6820, L3300.6900 #### [facility] Laboratory [address] [place], [address] MCH (RBC) [Entitic mass] 26.9 pg Low 27.0-32.[address] [facility] Comment on above: Performed By: #### L 3300.6820, L3300.6900 #### [facility] Laboratory [address] [place], [address] MCHC (RBC) [Mass/Vol] 32.7 g/dL Normal 32-36 [facility] Comment on above: Performed By: #### L 3300.6820, L3300.6900 #### [facility] Laboratory [address] [place], [address] MCV (RBC) [Entitic vol] 82.2 fL Normal 81-[address] [facility] Comment on above: Performed By: #### L 3300.6820, L3300.6900 #### [facility] Laboratory [address] [place], [address] Monocytes/100 WBC (Bld) 8.8 % Normal 0-[address] [facility] Comment on above: Performed By: #### L 3300.6820, L3300.6900 #### [facility] Laboratory [address] [place], [address] Neutrophils/100 WBC (Bld) 60.4 % Normal 47-[address] [facility] Comment on above: Performed By: #### L 3300.6820, L3300.6900 #### [facility] Laboratory [address] [place], [address] Nucleated RBC (Bld) [#/Vol] 0 10*3/uL Normal 0-[address] [facility] Comment on above: Performed By: #### L 3300.6820, L3300.6900 #### [facility] Laboratory [address] [place], [address] Platelet mean volume (Bld) [Entitic vol] 9.3 fL Normal 6.2-12.[address] [facility] Comment on above: Performed By: #### L 3300.6820, L3300.6900 #### [facility] Laboratory [address] [place], [address] Platelets (Bld) [#/Vol] 356 10*3/uL Normal 150-[address] [facility] Comment on above: Performed By: #### L 3300.6820, L3300.6900 #### [facility] Laboratory [address] [place], [address] RBC (Bld) [#/Vol] 4.72 10*6/uL Normal 4.2-5.4 [facility] Comment on above: Performed By: #### L 3300.6820, L3300.6900 #### [facility] Laboratory [address] [place], [address] RDW SD 41.4 fl Normal 35.1-43.[address] [facility] Comment on above: Performed By: #### L 3300.6820, L3300.6900 #### [facility] Laboratory [address] [place], [address] WBC (Bld) [#/Vol] 9.9 10*3/uL Normal 4.4-11.0 [facility] Comment on above: Performed By: #### L 3300.6820, L3300.6900 #### [facility] Laboratory [address] [place], [place], [address] Carbon dioxide measurementOr dered By: Shorty Zhu on 02-02-2024 CO2 [Moles/Vol] 29.0 mmol/L 21.0-32.[address] [facility] Chest 1 View (Portable)on Chest 1 View (Portable) [facility] Imaging Services [address] [place] [address] Chest 1 View (Portable) MR#: [id number] Acct: [id number] Name: BRYANNA MEEHAN Rep #: [id number] : 2000 F 23 From: Lei Sadler PCP: Dr. Rg Winchester MD Status: [facility] ER Study: Chest 1 View (Portable) Date of Exam: 02/02/24 Exam# [id number] Ordering Dr: Shorty Zhu DO [id number] INDICATION: cough, cp EXAMINATION/TECHNIQUE: X-RAY - XR Chest 1 View COMPARISON: No previous relevant examinations available for comparison.. FINDINGS: LIFE-SUPPORT AND LINES: 1. None HEART AND VESSELS: Cardiac silhouette is upper limit of normal, there is vascular congestion without dwight interstitial edema LUNGS AND PLEURAL SPACES: Lungs are clear. No focal infiltrate, consolidation or effusions. No evidence of pneumothorax. There is shallow inspiration crowding of bronchovascular markings MEDIASTINUM AND HILAR REGIONS: No masses adenopathy noted. No areas of calcification. Visualized upper airway is normal in position. BONY ELEMENTS: No acute bony changes noted. RAD/Chest 1 View (Portable) IMPRESSION: 1. Shallow inspiration, crowding of bronchovascular markings, and a central vascular congestion. 2. No dwight congestive failure, infiltrate or effusion. Electronically Signed: Lei Garcia MD at 17:57 EST , CC: Dr. Rg Winchester MD; Dr. Shorty Zhu DO Production Technologist: Signed Normal [facility] Chloride measurementOrdered By: Shorty Zhu on 02-02-2024 Chloride [Moles/Vol] 105 mmol/L 98-107 [facility] Comprehensive Metabolic Prof ilon 02-02-2024 Albumin [Mass/Vol] 3.5 g/dL Normal 3.2-5.0 [facility] Comment on above: Order Comment: Order Date: 05/15/24 Order Info: 0184-1 - CBCD Performed By: #### L 100.0100, L501.9520, L506.0400, L501.6710, L501.47049, L500.4050, L505.7010 #### [facility] Laboratory [address] [place], [address] Albumin/Globulin [Mass ratio] 0.8 {ratio} Low 0.9-2.[address] [facility] Comment on above: Order Comment: Order Date: 05/15/24 Order Info: 0184-1 - CBCD Performed By: #### L 100.0100, L501.9520, L506.0400, L501.6710, L501.73416, L500.4050, L505.7010 #### [facility] Laboratory [address] [place], [address] ALK P 85 U/L Normal 45-[address] [facility] Comment on above: Order Comment: Order Date: 05/15/24 Order Info: 0184-1 - CBCD Performed By: #### L 100.0100, L501.9520, L506.0400, L501.6710, L501.97116, L500.4050, L505.7010 #### [facility] Laboratory [address] [place], [address] ALT [Catalytic activity/Vol] 30 U/L Normal 13-[address] [facility] Comment on above: Order Comment: Order Date: 05/15/24 Order Info: 0184- - CBCD Performed By: #### L 100.0100, L501.9520, L506.0400, L501.6710, L501.57604, L500.4050, L505.7010 #### [facility] Laboratory [address] [place], [address] AST [Catalytic activity/Vol] 18 U/L Normal 15-[address] [facility] Comment on above: Order Comment: Order Date: 05/15/24 Order Info: 0184 - CBCD Performed By: #### L 100.0100, L501.9520, L506.0400, L501.6710, L501.09559, L500.4050, L505.7010 #### [facility] Laboratory [address] [place], [address] Bilirubin [Mass/Vol] 0.30 mg/dL Normal 0.20-1.00 [facility] Comment on above: Order Comment: Order Date: 05/15/24 Order Info: 0184- - CBCD Result Comment: For patients on eltrombopag therapy, use of Dimension [place] TBIL is not recommended. Performed By: #### L 100.0100, L501.9520, L506.0400, L501.6710, L501.05399, L500.4050, L505.7010 #### [facility] [address] [place], [address] BUN/CRE 14.5 RATIO Normal 10-[address] [facility] Comment on above: Order Comment: Order Date: 05/15/24 Order Info: 0184-1 - CBCD Performed By: #### L 100.0100, L501.9520, L506.0400, L501.6710, L501.24062, L500.4050, L505.7010 #### [facility] Laboratory [address] [place], [address] CA,Total 9.1 mg/dL Normal 8.5-10.[address] [facility] Comment on above: Order Comment: Order Date: 05/15/24 Order Info: 0184 - CBCD Performed By: #### L 100.0100, L501.9520, L506.0400, L501.6710, L501.80439, L500.4050, L505.7010 #### [facility] [address] [place], [address] Chloride [Moles/Vol] 105 mmol/L Normal 98-107 [facility] Comment on above: Order Comment: Order Date: 05/15/24 Order Info: 0184 - CBCD Performed By: #### L 100.0100, L501.9520, L506.0400, L501.6710, L501.49739, L500.4050, L505.7010 #### [facility] [address] [place], [address] CO2 [Moles/Vol] 29.0 mmol/L Normal 21.0-32.[address] [facility] Comment on above: Order Comment: Order Date: 05/15/24 Order Info: 0184- - CBCD Performed By: #### L 100.0100, L501.9520, L506.0400, L501.6710, L501.96133, L500.4050, L505.7010 #### [facility] [address] [place], [address] Creatinine [Mass/Vol] 0.76 mg/dL Normal 0.55-1.02 [facility] Comment on above: Order Comment: Order Date: 05/15/24 Order Info: 0184-1 - CBCD Result Comment: The validity of the calculated GFR GFRAA in patients over 70 years has not been determined. Clinical correlation is essential. Performed By: #### L 100.0100, L501.9520, L506.0400, L501.6710, L501.03616, L500.4050, L505.7010 #### [facility] [address] [place], [address] ECRCL 115.54 ml/min Normal [facility] Comment on above: Order Comment: Order Date: 05/15/24 Order Info: 0184-1 - CBCD Performed By: #### L 100.0100, L501.9520, L506.0400, L501.6710, L501.52766, L500.4050, L505.7010 #### [facility] [address] [place], [address] EST GFR - AA 119 mL/min Normal >[address] [facility] Comment on above: Order Comment: Order Date: 05/15/24 Order Info: 0184-1 - CBCD Result Comment: Afri can Argentine GFR Calc Performed By: #### L 100.0100, L501.9520, L506.0400, L501.6710, L501.26304, L500.4050, L505.7010 #### [facility] [address] [place], [address] GAP 4 Low 5-[address] [facility] Comment on above: Order Comment: Order Date: 05/15/24 Order Info: 0184-1 - CBCD Performed By: #### L 100.0100, L501.9520, L506.0400, L501.6710, L501.28127, L500.4050, L505.7010 #### [facility] [address] [place], [address] (618) GFR/1.73 sq M.predicted among non-blacks MDRD (S/P/Bld) [Vol rate/Area] 98 mL/min/{1.73_m2} Normal >[address] [facility] Comment on above: Order Comment: Order Date: 05/15/24 Order Info: 0184-1 - CBCD Result Comment: Non- GFR Calc Performed By: #### L 100.0100, L501.9520, L506.0400, L501.6710, L501.67583, L500.4050, L505.7010 #### [facility] [address] [place], [address] Globulin (S) [Mass/Vol] 4.2 g/dL Normal 2.2-4.[address] [facility] Comment on above: Order Comment: Order Date: 05/15/24 Order Info: 0184- - CBCD Performed By: #### L 100.0100, L501.9520, L506.0400, L501.6710, L501.60475, L500.4050, L505.7010 #### [facility] [address] [place], [address] Glucose [Mass/Vol] 106 mg/dL Normal 74-106 [facility] Comment on above: Order Comment: Order Date: 05/15/24 Order Info: 0184- - CBCD Result Comment: Fast ing Glucose result from 100 to 125 mg/dL suggests IMPAIRED HOMEOSTASIS per A.D.A. criteria. Performed By: #### L 100.0100, L501.9520, L506.0400, L501.6710, L501.52603, L500.4050, L505.7010 #### [facility] [address] [place], [address] Potassium [Moles/Vol] 3.7 mmol/L Normal 3.5-5.1 [facility] Comment on above: Order Comment: Order Date: 05/15/24 Order Info: 0184-1 - CBCD Performed By: #### L 100.0100, L501.9520, L506.0400, L501.6710, L501.05349, L500.4050, L505.7010 #### [facility] [address] [place], [address] Sodium [Moles/Vol] 138 mmol/L Normal 136-145 [facility] Comment on above: Order Comment: Order Date: 05/15/24 Order Info: 0184-1 - CBCD Performed By: #### L 100.0100, L501.9520, L506.0400, L501.6710, L501.81315, L500.4050, L505.7010 #### [facility] [address] [place], [place], [address] T PROT 7.7 g/dL Normal 6.4-8.[address] [facility] Comment on above: Order Comment: Order Date: 05/15/24 Order Info: 0184-1 - CBCD Performed By: #### L 100.0100, L501.9520, L506.0400, L501.6710, L501.66825, L500.4050, L505.7010 #### [facility] [address] [place], [address] Urea nitrogen [Mass/Vol] 11 mg/dL Normal 7-[address] [facility] Comment on above: Order Comment: Order Date: 05/15/24 Order Info: 0184-1 - CBCD Performed By: #### L 100.0100, L501.9520, L506.0400, L501.6710, L501.51925, L500.4050, L505.7010 #### [facility] [address] [place], [address] D-Dimer Quantitative (DVT/PE )on 02-02-2024 D-DIMER QUANT 0.56 FEU/ug/m Invalid Interpretation Code 0.27-0.[address] [facility] Comment on above: Result Comment: CRIT ICAL VALUE CALLED TO KARLO GUAJARDO RN ER 02/02/241921 Juan Manuel Butler. RESULTS READ BACK BY SAME. D-Dimer ELEVATED (>0.49): Additional studies and clinical assessments are indicated to conclude diagnosis of: Deep Vein Thrombosis (DVT) or Pulmonary Embolism (PE) Performed By: #### L 7000.1800 #### [facility] [address] [place], [address] D-dimer measurement for deep venous thrombosisOrdered By: Shorty Zhu on 02-02-2024 D-Dimer Quantitative (PE/DVT) 0.56 FEU/ug/m High 0.27-0.[address] [facility] Comment on above: CRITICAL VALUE LEON D TO KALRO GUAJARDO RN ER02/02/241921 Juan Manuel Butler.RESULTS READ BACK BY SAME. D-Dimer ELEVATED (>0.49): Additional studies and clinicalassessments are indicated to conclude diagnosis of:Deep Vein Thrombosis (DVT) or Pulmonary Embolism (PE) Emergency Department Summary on 02-02-2024 Emergency Department Summary [facility] Medical Records Department [address] [place] [address] Emergency Department Summary 02/02/24 MR#: [id number] Acct: [id number] Name: BRYANNA MEEHAN Rep #: [id number] : 2000 23 From: Shorty Zhu DO PCP: Dr. Rg Winchester MD Status:DEP ER Location: ED HPI History of Present Illness Chief Complaint: [facility] Medical History (Updated 02/02/24 @ 20:[address] Shorty Zhu, DO) Hypothyroid Chronic UTI Home Medications ???Medication ???Instructions ???Recorded ???Last Taken ???Type levothyroxine 25 mcg tablet 25 mcg PO DAILY 04/24/23 Unknown History amoxicillin 875 mg-potassium 1 tab PO BID #14 tabs 02/02/24 Unknown Rx clavulanate 125 mg tablet Allergy/AdvReac Type Severity Reaction Status Date / Time latex AdvReac Rash Verified 02/02/24 15:58 Family History (Updated 07/05/23 @ 14:31 by Danita Jones) Grandmother Colon cancer Grandmother Brain cancer Grandfather Diabetes Father Hypertension Surgical History History of tonsillectomy Social History (Updated 07/05/23 @ 14:33 by Danita Jones) Smoking Status: Never smoker Electronic Cigarette Use: with nicotine alcohol intake: current details: occasionally substance use type: does not use caffeine: Yes what type of physical activity do you participate in: walking frequency: daily do you feel safe at home: Yes additional social history: Boyfriend-Jose C EXAM Physical Exam Const Vital Signs: 02/02/24 15:59 02/02/24 16:50 Temperature 96.8 F L Temperature Source Temporal Pulse Rate 79 Respiratory Rate 18 Respiratory Effort Normal Blood Pressure 144/100 H Blood Pressure Mean 114 Pulse Ox 99 Oxygen Delivery Method Room Air MDM MDM MDM Narrative Medical decision making narrative: HISTORY OF PRESENT ILLNESS: 23-year-old female presents with cough. Patient states she has had shortness of breath, chest pain for 3 days. She notes coworkers had COVID. She states 3 she came in today was because she had severe pain behind her head that radiates down to her kidney. States pain started gradually. Without associated syncope or seizure. Denies history of ICH or family history of connective tissue disease. Denies associated loss of vision, slurred speech, facial drooping, loss of movement, loss sensation. Denies falls or other head trauma. She states she has had a mild cough. She notes associated shortness of breath. She notes chest pain for 3 days as well. She states she sweats her chest pain now. Sharp it is midsternal pressure is not pleuritic. The patient denies recent surgery in the last 4 weeks or immobilization in the last 3 days, denies previous diagnosis of DVT or PE, hemoptysis, unilateral leg swelling or malignancy with treatment the last 6 months or palliative. No estrogen use noted. Patient denies sudden onset or thunderclap headache, denies maximal intensity within 1 minute, vomiting, neck pain, stiffness, changes in vision, fever, history malignancy, syncope, or seizures associated with headache. Patient denies sudden onset of pain, no tearing sensation, no migratory symptoms, no new numbness, weakness or loss of sensation. Patient denies family history or personal history of Connective tissue disorders (Marfan's Syndrome, Dakota Danlos etc). REVIEW OF SYSTEMS: Pertinent positives: Headache, chest pain, shortness of breath, cough Pertinent negatives: Focal weakness, numbness, low sensation, neck stiffness, fever PHYSICAL EXAM: Nursing triage notes reviewed, Vital signs reviewed Constitutional: please see mdm HENT: MMM Eyes: Pupils equal round and reactive to light, Extraocular muscles intact Neck: No stridor, no JVD, full neck ROM Lungs: Clear to auscultation, No wheezing or rales. No increased work of breathing, no conversational dyspnea, no accessory muscle use, no nasal flaring. No respiratory distress noted Heart: Regular rate and rhythm, No murmurs, No rubs and No gallops, 2+ distal pulses (radial, femoral, posterior tibial) in all extremities Abdomen: Soft, there is no tenderness, rigidity, rebound or guarding, no obvious peritoneal signs, no palpable pulsatile abdominal masses, no auscultated abdominal bruit : No CVAT Extremities: No edema Neuro: Alert and oriented x3, neuro exam at baseline, cranial nerves II through XII are intact. No pain with extraocular muscle movement. There is negative test of skew. 5 of 5 strength in upper and lower extremities in flexion extension. Intact sensation to light touch in upper and lower extremity dermatomes. No truncal or extremity ataxia. No dysdiadochokinesia. Normal gait. 2+ reflexes in upper and lower extremities. No meningeal signs. Negative Babinski. NIH of 0. Skin: N (more content not included)... Normal [facility] Eosinophil percentageOrdered By: Shorty Zhu on 02-02-2024 Eosinophils/100 WBC (Bld) 3.5 % 0-[address] [facility] Epithelial cells.squamous LM Ql (Urine sed)Ordered By: Shorty Zhu on 02-02-2024 Epithelial cells.squamous LM.HPF (Urine sed) [#/Area] 5 /[HPF] 5-[address] [facility] Erythrocyte distribution wid th ratioOrdered By: Shorty Zhu on 02-02-2024 Erythrocyte distribution width (RBC) [Ratio] 13.8 % 11.6-14.[address] [facility] Erythrocyte distribution wid th standard deviationOrdered By: Shorty Zhu on 02-02-2024 Erythrocyte distribution width (RBC) [Entitic vol] 41.4 fL 35.1-43.[address] [facility] Estimated glomerular filtrat ion rate (GFR) AmericanOrdered By: Shorty Zhu on 02-02-2024 Estimated GFR (MDRD) Amer 119 mL/min >[address] [facility] Comment on above: GFR Calc Estimation of creatinine alee aranceOrdered By: Shorty Zhu on 02-02-2024 Estimated Creatinine Clearance Calc 115.54 ml/min [facility] Glomerular filtration rate ( GFR) estimationOrdered By: Shorty Zhu on 02-02-2024 Estimated GFR (MDRD) Non-Af Amer 98 mL/min >[address] [facility] Comment on above: Non- GFR Calc Glucose Ql (U)Ordered By: Altaf Zhu on 02-02-2024 Urine Glucose (UA) Normal mg/dl Normal [facility] Glucose measurementOrdered B y: Shorty Zhu on 02-02-2024 Glucose [Mass/Vol] 106 mg/dL 74-106 [facility] Comment on above: Fasting Glucose resu lt from 100 to 125 mg/dL suggests IMPAIRED HOMEOSTASIS per A.D.A. criteria. Hematocrit Auto (Bld) [Volum e fraction]Ordered By: Shorty Zhu on 02-02-2024 Hematocrit (Bld) [Volume fraction] 38.8 % 37-[address] [facility] Hemoglobin measurementOrdere d By: Shorty Zhu on 02-02-2024 Hemoglobin (Bld) [Mass/Vol] 12.7 g/dL 12.0-15.[address] [facility] Immature granulocytes/100 WB C Auto (Bld)Ordered By: Shorty Zhu on 02-02-2024 Immature granulocytes/100 WBC (Bld) 0.400 % 0.0-0.[address] [facility] Comment on above: IG% - Immature Granu locytes (promyelocytes, myelocytes and metamyelocytes) > 1% indicates that a LEFT SHIFT is Present. Influenza virus A and B and SARS-CoV-2 (COVID-19) and Respiratory syncytial virus RNAOrdered By: Shorty Zhu on 02-02-2024 SARS-CoV-2 (COVID-19) RNA OSCAR+probe Ql (Unsp spec) [facility] Ketones Test strip Ql (U)Ord ered By: Shorty Zhu on 02-02-2024 Ketones Ql (U) Negative Negative [facility] L501.4020on 02-02-2024 TROPONIN-I HS < 3 Low 3.0-54.[address] [facility] Comment on above: Result Comment: Plea se Note: New Test Units and Gender Specific Reference Ranges. For more information see Policy Stat Procedure [facility] High Sensitivity Troponin (TNIH) and attachments. Performed By: #### L 7000.1800 #### [facility] [address] [place], [address] L501.5425on 02-02-2024 TROPONIN-I HS < 3 Low 3.0-54.[address] [facility] Comment on above: Order Comment: Order Date: 05/15/24 Order Info: [id number] - CBCD Result Comment: Plea se Note: New Test Units and Gender Specific Reference Ranges. For more information see Policy Stat Procedure [facility] High Sensitivity Troponin (TNIH) and attachments. Performed By: #### L 100.0100, L501.9520, L506.0400, L501.6710, L501.64553, L500.4050, L505.7010 #### [facility] [address] [place], [address] Laboratory - Chemistry and C hemistry - challengeOrdered By: Shorty Zhu on 02-02-2024 AST [Catalytic activity/Vol] 18 U/L 15-[address] [facility] Lymphocytes Auto (Unsp spec) [#/Vol]Ordered By: Shorty Zhu on 02-02-2024 Lymphocytes (Bld) [#/Vol] 2.65 10*3/uL 0.83-4.[address] [facility] Lymphocytes/100 WBC Auto (Un sp spec)Ordered By: Shorty Zhu on 02-02-2024 Lymphocytes/100 WBC (Bld) 26.7 % 19-[address] [facility] M100.678on 02-02-2024 M100.678 Pending SARS-CoV-2 (COVID 19) Negative INFLUENZA A Negative INFLUENZA B Negative RSV PCR Negative Normal [facility] Comment on above: Performed By: #### L 3300.6820, L3300.6900 #### [facility] [address] [place], [address] MCV (mean corpuscular volume ) determinationOrdered By: Shorty Zhu on 02-02-2024 MCV (RBC) [Entitic vol] 82.2 fL 81-[address] [facility] Mean corpuscular hemoglobin (MCH) determinationOrdered By: Shorty Zhu on 02-02-2024 MCH (RBC) [Entitic mass] 26.9 pg Low 27.0-32.[address] [facility] Mean corpuscular hemoglobin concentration (MCHC) determinationOrdered By: Shorty Zhu on 02-02-2024 MCHC (RBC) [Mass/Vol] 32.7 g/dL 32-36 [facility] Mean platelet volume determi nationOrdered By: Shorty Zhu on 02-02-2024 Platelet mean volume (Bld) [Entitic vol] 9.3 fL 6.2-12.[address] [facility] Microscopic analysis of urin e for red blood cells (RBC)Ordered By: Shorty Zhu on 02-02-2024 Urine RBC 0-5 SEEN /hpf 0-[address] [facility] Monocyte percentageOrdered B y: Shorty Zhu on 02-02-2024 Monocytes/100 WBC (Bld) 8.8 % 0-[address] [facility] Mucus LM Ql (Urine sed)Order ed By: Shorty Zhu on 02-02-2024 Mucus Ql (Urine sed) 0 SEEN /hpf [facility] Neutrophil percentageOrdered By: Shorty Zhu on 02-02-2024 Neutrophils/100 WBC (Bld) 60.4 % 47-[address] [facility] Nitrite Test strip Ql (U)Ord ered By: Shorty Zhu on 02-02-2024 Nitrite Ql (U) Negative Negative [facility] Nucleated red blood cell per centageOrdered By: Shorty Zhu on 02-02-2024 Nucleated RBC/100 WBC (Bld) [Ratio] 0 % 0-[address] [facility] Platelet countOrdered By: Altaf Zhu on 02-02-2024 Platelets (Bld) [#/Vol] 356 10*3/uL 150-[address] [facility] Potassium measurementOrdered By: Shorty Zhu on 02-02-2024 Potassium [Moles/Vol] 3.7 mmol/L 3.5-5.1 [facility] ,Serum,hCG Quali.on 02-02-2024 HCG, SERUM QUAL Negative Normal [facility] Comment on above: Performed By: #### L 100.0100, L501.9520, L506.0400, L501.6710, L501.20552, L500.4050, L505.7010 #### [facility] [address] [place], [address] ,Urineon 02-02-2024 Beta HCG ( test) Ql (U) Negative Normal [facility] Comment on above: Order Comment: COLLE CTOR TO SPECIFY Result Comment: Very dilute urine specimens, as indicated by a low specific gravity, may not contain employee representative levels of hCG. If is still suspected, a first morning urine specimen should be collected 48 hours later and tested. Performed By: #### L 3300.6820, L3300.6900 #### [facility] [address] [place], [place], [id number] Protein Test strip Ql (U)Ord ered By: Shorty Zhu on 02-02-2024 Protein Ql (U) 30 mg/dl High Negative [facility] RBC Auto (Bld) [#/Vol]Ordere d By: Shorty Zhu on 02-02-2024 RBC (Bld) [#/Vol] 4.72 10*6/uL 4.2-5.4 [facility] Serum anion gap measurementO rdered By: Shorty Zhu on 02-02-2024 Anion gap [Moles/Vol] 4 mmol/L Low 5-15 [facility] Serum globulin measurementOr dered By: Shorty Zhu on 02-02-2024 Globulin (S) [Mass/Vol] 4.2 g/dL 2.2-4.[address] [facility] Serum or plasma alanine regalado otransferase (ALT) measurementOrdered By: Shorty Zhu on 02-02-2024 ALT [Catalytic activity/Vol] 30 U/L 13-[address] [facility] Serum or plasma albumin jarrell urement (mass/volume)Ordered By: Shorty Zhu on 02-02-2024 Albumin [Mass/Vol] 3.5 g/dL 3.2-5.0 [facility] Serum or plasma alkaline blanco sphatase measurementOrdered By: Shorty Zhu on 02-02-2024 ALP [Catalytic activity/Vol] 85 U/L 45-[address] [facility] Serum or plasma calcium jarrell urement (mass/volume)Ordered By: Shorty Zhu on 02-02-2024 Calcium [Mass/Vol] 9.1 mg/dL 8.5-10.1 [facility] Serum or plasma creatinine m easurement (mass/volume)Ordered By: Shorty Zhu on 02-02-2024 Creatinine [Mass/Vol] 0.76 mg/dL 0.55-1.02 [facility] Comment on above: The validity of the calculated GFR & GFRAA in patients over 70 years has not been determined. Clinical correlation is essential. Serum or plasma urea nitroge n measurement (mass/volume)Ordered By: Shorty Zhu on 02-02-2024 Urea nitrogen [Mass/Vol] 11 mg/dL 7-[address] [facility] Sodium levelOrdered By: Sulema Zhu on 02-02-2024 Sodium [Moles/Vol] 138 mmol/L 136-145 [facility] Total proteinOrdered By: Candy Zhu on 02-02-2024 Protein [Mass/Vol] 7.7 g/dL 6.4-8.2 [facility] Troponin IOrdered By: Shorty Zhu on 02-02-2024 Troponin I High Sensitivity < 3 pg/mL Low 3.0-54.[address] [facility] Comment on above: Please Note: New Harjinder t Units and Gender Specific Reference Ranges. For more information see Policy Stat Procedure [facility] High Sensitivity Troponin (TNIH) and attachments. Urinalysis, Completeon 02-01 EPI,SQUAMOUS 5-10 SEEN Normal 5-[address] [facility] Comment on above: Order Comment: COLLE CTOR TO SPECIFY Performed By: #### L 4170.9840, L3012.2444 #### [facility] [address] [place], [address] RBC 0-5 SEEN Normal 0-[address] [facility] Comment on above: Order Comment: YENY CTOR TO SPECIFY Performed By: #### L 3300.6820, L3300.6900 #### [facility] [address] [place], [address] WBC 10-25 SEEN Normal 0-[address] [facility] Comment on above: Order Comment: YENY CTOR TO SPECIFY Performed By: #### L 3300.6820, L3300.6900 #### [facility] [address] [place], [address] BACTERIA 1+ /hpf Normal None Seen [facility] Comment on above: Order Comment: YENY CTOR TO SPECIFY Performed By: #### L 3300.6820, L3300.6900 #### [facility] [address] [place], [address] Mucus Ql (Urine sed) 0 SEEN Normal [facility] Comment on above: Order Comment: YENY CTOR TO SPECIFY Performed By: #### L 3300.6820, L3300.6900 #### [facility] [address] [place], [address] Urine blood detectionOrdered By: Shorty Zhu on 02-02-2024 Urine Occult Blood 25 /ul High Negative [facility] Urine clarityOrdered By: Candy Zhu on 02-02-2024 Clarity (U) Sl. Cloudy Clear [facility] Urine color determinationOrd ered By: Shorty Zhu on 02-02-2024 Color (U) Yellow Yellow [facility] Urine leukocyte esterase det ection by dipstickOrdered By: Shorty Zhu on 02-02-2024 Leukocyte esterase Test strip Ql (U) 100 /ul High Negative [facility] Urine pHOrdered By: Shorty gómez on 02-02-2024 pH (U) 6.0 [pH] 5.0 - 8.[address] [facility] Urine testOrdered By: Shorty Zhu on 02-02-2024 HCG ( test) Ql (U) Negative [facility] Comment on above: Very dilute urine sp ecimens, as indicated by a low specificgravity, may not contain employee representative levels of hCG. If is still suspected, a first morning urinespecimen should be collected 48 hours later and tested. Urine sediment bacteria coun t by microscopy (number/high power field)Ordered By: Shorty Zhu on 02-02-2024 Bacteria LM.HPF (Urine sed) [#/Area] 1 /[HPF] None Seen [facility] Urine specific gravity measu rementOrdered By: Shorty Zhu on 02-02-2024 Specific gravity (U) [Rel density] 1.015 1.002-1.[address] [facility] Urobilinogen Ql (U)Ordered B y: Shorty Zhu on 02-02-2024 Urine Urobilinogen Normal mg/dl Normal [facility] White blood cell (WBC) count Ordered By: Shorty Zhu on 02-02-2024 WBC (Bld) [#/Vol] 9.9 10*3/uL 4.4-11.0 [facility] White blood cell countOrdere d By: Shorty Zhu on 02-02-2024 Urine WBC 10-25 SEEN /hpf 0-[address] [facility] Chlamydia/GC OSCAR aptimaon CHLAMY,NUC ACID Negative Normal Negative [facility] Comment on above: Performed By: #### L 7000.1800 #### [facility] [address] [place], [place], [id number] GC BY NUC ACID Negative Normal Negative [facility] Comment on above: Result Comment: Perf ormed at: =G - [facility] [address] [id number] Flaker Tender: Stephania Mclaughlin MD, Phone: [phone] Performed By: #### L 7000.1800 #### [facility] [address] [place], [place], [address] Boiler Tube Blower Office Visit Reporton 08-15-2023 Boiler Tube Blower Office Visit Report [facility] [place] [address] [place] [address] OFFICE VISIT Date of Service: 08/15/23 MR#: [id number] Acct: [id number] Name: BRYANNA MEEHAN Rep #: [id number] : 2000 Provider: DEBBI Mitchell ams Age/Sex: 22/F [place] [facility] [place]: S[place] Intake Vital Signs 07/05/23 14:18 08/15/23 10:16 08/15/23 10:38 Height 4 ft 10 in 4 ft 10 in 4 ft 10 in Weight: 207 lb 4 oz 201 lb BMI 43.3 42.0 BP 142/81 H 129/77 H Blood Pressure Location Lt brachial Position Sitting Intake Visit Reasons: INFERTILITY AND PCOS/SHELDON chlamydia Allergies latex Adverse Reaction (Verified 08/15/23 10:18) Rash Medications ???Medication ???Instructions ???Recorded ???Confirmed ???Type levothyroxine 25 mcg tablet 25 mcg PO DAILY 04/24/23 08/15/23 History PFSH Medical History (Updated 08/15/23 @ 10:43 by Debbie Warren CNM) Hypothyroid Chronic UTI Surgical History History of tonsillectomy Family History (Updated 07/05/23 @ 14:31 by Danita Jones) Grandmother Colon cancer Grandmother Brain cancer Grandfather Diabetes Father Hypertension Social History (Updated 07/05/23 @ 14:33 by Danita Jones) Electronic Cigarette Use: with nicotine alcohol intake: current details: occasionally substance use type: does not use caffeine: Yes what type of physical activity do you participate in: walking frequency: daily do you feel safe at home: Yes additional social history: Boyfriend-Jose C HPI INFERTILITY AND PCOS/SHELDON chlamydia Details: BRYANNA MEEHAN is a 22 year old who presents for SHELDON of chlamydia and infertility concerns. Has not had menses since April and it was 2 days of spotting. does not have many periods during the year but unsure of how many she has. Would like to become . Female Reproductive History Last Menstrual Period: 05/09/23 Cycle Length: >35 Bleeding Duration: 2 Frequency of changing protection: TTC Questions: sexually active: Yes, dyspareunia: No and PCB: No History 0 Elective abortions Hx Para Spontaneous abortions Hx # Term Pregnancies Ectopic pregnancies Hx # Pregnancies Multiple births # of living children ROS Const Constitutional: Reports system reviewed and no additional complaints, except as documented Cardio Card: Reports system reviewed and no additional complaints, except as documented Resp Resp: Reports system reviewed and no additional complaints, except as documented GI GI: Reports system reviewed and no additional complaints, except as documented : Reports system reviewed and no additional complaints, except as documented; Denies difficulty voiding, dysuria or urinary frequency Skin Skin/Breast: Reports system reviewed and no additional complaints, except as documented Neuro Neuro: Reports system reviewed and no additional complaints, except as documented Psych Psych: Reports system reviewed and no additional complaints, except as documented Exam Const General: cooperative, healthy appearing, comfortable and no acute distress Resp Effort Inspection: normal respiratory effort, able to speak in complete sentences and symmetric chest movement GI Inspection: normal to inspection Palpation: soft External Female Exam: normal external appearance and normal appearance of the urethra Urethra: normal appearance of the urethra Speculum Exam - Vagina: normal appearance of the vagina and normal vaginal discharge Bimanual Exam- Adnexa, other: normal Pelvic Support: normal Neuro General: patient alert, patient awake and patient oriented x3 Cognition: normal cognition Speech: speech normal Gait: normal gait Psych Appearance: grossly normal and well kempt Mental Status: mental status grossly normal Affect: normal affect Speech and Movement: speech and movement normal Attitude: cooperative Thought Process: normal Thought Content: normal Judgment: judgment good Coding Level of Care Code Off vis,est,level 3 Diagnoses Amenorrhea N91.2 PCOS (polycystic ovarian syndrome) E28.2 Chlamydia A74.9 Assessment and Plan Assessment and Plan (1) Amenorrhea: Status: Acute Comment: TVUS Plan: follow up after US to discuss options for infertility RTO PRN/annually (2) PCOS (polycystic ovarian syndrome): Status: Acute (3) Chlamydia: Status: Acute Comment: SHELDON 08/14 Orders: Orders Transvaginal Non- Today N91.2 - Amenorrhea, unspecified 08/15/23 1043 Date Debbie Warren CNM Cosigner Signature: Date (if applicable) CC: Normal [facility] Basophil percentageOrdered B y: Hemant Toribio on 04-24-2023 Basophil percentage 5-10 SEEN /hpf 0-5 [facility] Bilirubin Test strip Ql (U)O rdered By: Hemant Toribio on 04-24-2023 Bilirubin Ql (U) Negative Negative [facility] [facility] Ketones Test strip Ql (U)Ord ered By: Hemant Toribio on 04-24-2023 Ketones Ql (U) Negative Negative [facility] Laboratory - Chemistry and C hemistry - challengeOrdered By: Hemant Toribio on 04-24-2023 HCG ( test) Ql (U) Negative [facility] Comment on above: Very dilute urine sp ecimens, as indicated by a low specificgravity, may not contain employee representative levels of hCG. If is still suspected, a first morning urinespecimen should be collected 48 hours later and tested. Mucus LM Ql (Urine sed)Order ed By: Hemant Toribio on 04-24-2023 Mucus Ql (Urine sed) 0 SEEN /hpf [facility] Neisseria gonorrhoeae genita l PCROrdered By: Hemant Toribio on 04-24-2023 N. gonorrhoeae DNA OSCAR+probe Ql (Genital specimen) [facility] Nitrite Test strip Ql (U)Ord ered By: Hemant Toribio on 04-24-2023 Nitrite Ql (U) Negative Negative [facility] No Panel InformationOrdered By: Hemant Toribio on 04-24-2023 Chlamydia trachomatis (PCR) [facility] Urine RBC 0-5 SEEN /hpf 0-[address] [facility] Protein Test strip Ql (U)Ord ered By: Hemant Toribio on 04-24-2023 Protein Ql (U) 15 mg/dl Negative [facility] Squamous epithelial cells de tection in urine sediment by light microscopyOrdered By: Hemant Toribio on 04-24-2023 Epithelial cells.squamous LM Ql (Urine sed) 5-10 SEEN /hpf 5-[address] [facility] Urine blood detectionOrdered By: Hemant Toribio on 04-24-2023 RBC Ql (U) 25 /ul Negative [facility] Urine clarityOrdered By: Natalio Toribio on 04-24-2023 Clarity (U) Sl. Cloudy Clear [facility] Urine color determinationOrd ered By: Hemant Toribio on 04-24-2023 Color (U) Yellow Yellow [facility] Urine glucose detectionOrder ed By: Hemant Toribio on 04-24-2023 Glucose Ql (U) Normal mg/dl Normal [facility] Urine leukocyte esterase det ection by dipstickOrdered By: Hemant Toribio on 04-24-2023 Leukocyte esterase Test strip Ql (U) 500 /ul Negative [facility] Urine pHOrdered By: Hemant Mcnamara ght on 04-24-2023 pH (U) 7.0 [pH] 5.0 - 8.[address] [facility] Urine sediment bacteria coun t by microscopy (number/high power field)Ordered By: Hemant Toribio on 04-24-2023 Bacteria LM.HPF (Urine sed) [#/Area] 1 /[HPF] None Seen [facility] Urine specific gravity measu rementOrdered By: Hemant Toribio on 04-24-2023 Specific gravity (U) [Rel density] 1.010 1.002-1.[address] [facility] Urine urobilinogen measureme ntOrdered By: Hemant Toribio on 04-24-2023 Urobilinogen Ql (U) 1 mg/dl Normal [facility] Office Visiton 05-03-2022 Follow-up visit [id number] Leslie Meehan 2000 F Date Provider Department Center 05/03/2022 [id number]-IAKISDHARPREET ASENCIO [facility] WOM None Chart Close Cosign Required by: Jordana Corado MD[NONIAM] Family History Problem Relation Age of Onset Colon cancer Paternal Grandmother Brain cancer Maternal Grandmother Asthma Mother No Known Problems Sister No Known Problems Sister Breast cancer Neg Hx Uterine cancer Neg Hx Ovarian cancer Neg Hx Family Status - Relation Status Age at Paternal Grandmother Alive Maternal Grandmother Alive Father Alive Mother Alive Sister Other Sister Neg Hx Level of Service:54881 OK OFFICE/OUTPATIENT NEW SF MDM 15-29 MINUTES (GC) Reason for Visit and Comments: New Patient [542] - Would like to discuss getting . Pt states she was previously on depo stopped 6 years ago and has only had 2 menses since then. Pt states her last pap was 2020 WNL [facility] Progress Noteon 05-03-2022 Progress Note ----- ----- Attestation signed by Jordana Corado MD at 05/05/2022 8:[address] [facility]: This patient was seen in the [facility] by the resident. I reviewed and agree with the care provided by the resident during or immediately following the visit including the patient's medical history, the resident's finding in the physical exam, patient's diagnosis and treatment plan. ----- Bryanna Tolbertman 05/[birth year]22 21 y.o. Chief Complaint Patient presents with New Patient Would like to discuss getting . Pt states she was previously on depo stopped 6 years ago and has only had 2 menses since then. Pt states her last pap was 2020 WNL Patient's last menstrual period was 04/26/2022. Primary CarePhysician: Aaron Reed MD HPI: Bryanna Meehan is a 21 y.o. female presents for infertility and PCOS. Patient has been previously diagnosed with PCOS and states that she has only had 5-6 menstrual cycles in the last 3-4 years. Patient states that she has never attempted provera withdrawal bleeds and is not currently on control. Patient also wishes to become . Has been having unprotected intercourse with her partner for the last 1.5 years. Of note patient is currently on parole and living in a half way house but states she is in a stable situation at this time to attempt to become as she is leaving the half way house this month. Patient is interested in ovulation induction. Review of Systems: Review of Systems Constitutional: Negative for chills and fever. Eyes: Negative for visual disturbance. Respiratory: Negative for chest tightness and shortness of breath. Cardiovascular: Negative for chest pain. Gastrointestinal: Negative for abdominal pain, nausea and vomiting. Genitourinary: Positive for menstrual problem. Negative for pelvic pain, vaginal bleeding and vaginal discharge. Musculoskeletal: Negative for back pain. Neurological: Negative for dizziness, light-headedness and headaches. Physical Exam: BP 137/81 Pulse 83 Temp 36.2 ?C (97.1 ?F) (Temporal) Ht 4' 10 (1.473 m) Wt 179 lb (81.2 kg) LMP 04/26/2022 BMI 37.41 kg/m? Physical Exam Constitutional: General: She is not in acute distress. Appearance: Normal appearance. She is not ill-appearing. HENT: Head: Normocephalic and atraumatic. Eyes: Conjunctiva/sclera: Conjunctivae normal. Cardiovascular: Rate and Rhythm: Normal rate. Pulmonary: Effort: Pulmonary effort is normal. No respiratory distress. Abdominal: General: Abdomen is flat. There is no distension. Palpations: Abdomen is soft. There is no mass. Tenderness: There is no abdominal tenderness. There is no guarding. Musculoskeletal: General: Normal range of motion. Neurological: Mental Status: She is alert. Psychiatric: Mood and Affect: Mood normal. RESULTS AND PREVIOUS TREATMENTS: ASSESSMENT & PLAN 1. PCOS (polycystic ovarian syndrome) - long standing PCOS with anovulation - discussed at length the need for endometrial protection and patient is agreeable to provera withdrawal bleeds as she desires - medroxyPROGESTERone (Provera) 10 MG tablet; Take 1 tablet (10 mg) by mouth daily for 10 days. Take 1 tablet by mouth daily for 10 days. If you do not have a menstrual cycle after 35 days and have a negative test. Dispense: 30 tablet; Refill: 6 2. Infertility associated with anovulation - counseled extensively on the risk of twin and high order multiple pregnancies and the risks associated with these pregnancies. Patient is agreeable to proceed with ovulation induction with letrozole and was counseled on when to start medication - letrozole (Femara) 2.5 MG tablet; Take 1 tablet (2.5 mg total) by mouth daily. Start taking this medication on the third day after you initially start bleeding from a medication induced or natural menstrual cycle. Need to have a negative test prior to starting medication. Dispense: 5 tablet; Refill: 0 Follow up in about 4 weeks (around 05/31/2022) for follow up . [facility] ----- BRYANNA MEEHAN ([id number]) 2000 [facility] Date Time Provider Department 03/03/22 ADDIS HEATH During your visit today, we recorded the following information about you: Crispin Rudy 03/03/2022 12:03 PM Signed I received medical records from [facility]. I placed them in Dr. Heath mailbox. Allergies As of Date: 03/03/2022 Noted Allergy Reaction LATEX 12/15/2017 16 - Unknown LATEX, NATURAL RUBBER 06/23/2020 4 - Hives 2 - Rash Date Reviewed: 02/11/2022 Reviewed by: Florecita Navarro RN - Fully Assessed Reason for Visit: Received Outside Medical Records [[id number]] Prescriptions as of 03/03/2022 - levothyroxine 25 mcg cap Take 25 mcg by mouth daily before breakfast. - ondansetron orally disintegrating (ZOFRAN ODT) 4 mg disintegrating tablet Take 1 tablet by mouth every 6 hours. - omeprazole (PRILOSEC) 20 mg capsule Take 1 capsule by mouth once daily for 14 days. Problem List As Of Date 03/03/2022 Noted Resolved PCOS (polycystic ovarian syndrome) [E28.2] 09/21/2021 Imprisonment [Z65.1] 09/01/2021 Hyperlipidemia [E78.5] 09/21/2021 Hyperglycemia [R73.9] 09/01/2021 Borderline personality disorder (HCC) [F60.3] 05/26/2019 Depression [F32.A] 09/01/2021 Encounter Status:Closed by CRISPIN GRANT on 03/03/22 [facility] ALLIED HEALTHon 02-12-2022 ALLIED HEALTH HNO ID: [id number] Author: RT Sole(R) Service: ? Author Type: Technologist Type: Allied Health Filed: 02/11/2022 10:25 PM Note Text: Radiology Service Progress Note PATIENT NAME: Bryanna Meehan DATE OF SERVICE: February 11, 2022 TIME: 10:24 PM PATIENT IDENTITY VERIFICATION COMPLETED USING TWO (2) IDENTIFIERS: Name and Date of confirmed by patient verbally. FALL SCREENING: Has the patient had 2 falls in the last year or 1 fall with injury or currently using an Ambulatory Assistive Device (Walker, Cane, Wheelchair, Crutches, etc.)? Emergency Room Patient: Screened in ED PATIENT GENDER DATA: Female. status: : No status: N/A PATIENT RELEVANT IMPLANT DATA REVIEWED: Not Applicable RADIOLOGY DEPARTMENT: General X-ray: Exam(s) Completed: Upper Extremity X-Ray(s): Elbow, left PERIPHERAL IV DATA: Not applicable SIGNED BY: RT Sole(R) February 11, 2022 10:24 PM [facility] ED PROV NOTEon 02-12-2022 ED PROV NOTE HNO ID: [id number] Author: Aniket Wallace MD Service: ? Author Type: Physician Type: ED Provider Notes Filed: 02/12/2022 3:07 AM Note Text: Patient was endorsed to me by Dr. Rojas pending psychiatric evaluation. Repeat evaluation by myself and in discussion with the patient she is not homicidal and not suicidal. She states she just [facility]. Patient after evaluation by the psychiatric triage nurse, myself, and the resident physician I felt comfortable with the patient going back to your [facility] HCG ( test) Ql (U)o n 02-12-2022 Specific gravity (U) [Rel density] 1.019 Normal 1.005-1.030 [facility] Comment on above: Order Comment: Speci men Type: URINE SPECIMEN Ordering Facility: [facility] Address: [address] [place] [address] Result Comment: If s pecific gravity is <1.005 then results may be falsely negative. Serum HCG is recommended. Performed By: #### U TOX2 #### [facility] CLIA [id number] [address] [place] HCG Preg Ur Qlon 02-12-2022 HCG ( test) Ql (U) Negative Normal Negative [facility] Comment on above: Order Comment: Speci men Type: URINE SPECIMEN Ordering Facility: [facility] Address: [address] [place] [address] Result Comment: This test is intended to aid in the early detection of . Very dilute urine samples, as indicated by a low specific gravity, may not contain employee representative levels of hCG. This test detects intact hCG only. This test does not reliably detect hCG degradation products, including free-beta subunit and beta-core fragment. Therefore, this test may show reduced reactivity in urine after 8 weeks gestation. A number of conditions other than , including trophoblastic disease and certain non-trophoblastic neoplasms cause elevated levels of hCG. As with any assay employing mouse antibodies, the possibility exists for interference by human anti-mouse antibodies (HAMA) in the specimen. The test provides a presumptive diagnosis for . Performed By: #### U TOX2 #### [facility] CLIA [id number] [address] [place] TOX SCREEN ROUT URon 022 Amphetamines Confirm (U) [Mass/Vol] Negative Normal Negative [facility] Comment on above: Order Comment: Speci men Type: URINE SPECIMEN Ordering Facility: [facility] Address: [address] [place] [address] Result Comment: Cuto ff threshold at 1000 ng/mL. Performed By: #### U TOX2 #### [facility] CLIA [id number] [address] [place] BARBITURATES, URINE Negative Normal Negative [facility] Comment on above: Order Comment: Speci men Type: URINE SPECIMEN Ordering Facility: [facility] Address: [address] [place] [address] Result Comment: Cuto ff threshold at 200 ng/mL. Performed By: #### U TOX2 #### [facility] CLIA [id number] [address] [place] BENZODIAZEPINES, UR Negative Normal Negative [facility] Comment on above: Order Comment: Speci men Type: URINE SPECIMEN Ordering Facility: [facility] Address: [address] [place] [address] Result Comment: Cuto ff threshold at 200 ng/mL. Performed By: #### U TOX2 #### [facility] CLIA [id number] [address] [place] CANNABINOIDS,URINE Negative Normal Negative [facility] Comment on above: Order Comment: Speci men Type: URINE SPECIMEN Ordering Facility: [facility] Address: [address] [place] [address] Result Comment: Cuto ff threshold at 50 ng/mL. Performed By: #### U TOX2 #### [facility] CLIA [id number] [address] [place] Cocaine Ql (U) Negative Normal Negative [facility] Comment on above: Order Comment: Speci men Type: URINE SPECIMEN Ordering Facility: [facility] Address: [address] [place] [address] Result Comment: Cuto ff threshold at 300 ng/mL. Performed By: #### U TOX2 #### [facility] CLIA [id number] [address] [place] Ethanol (U) [Mass/Vol] <11 Normal <11 [facility] Comment on above: Order Comment: Speci men Type: URINE SPECIMEN Ordering Facility: [facility] Address: [address] [place] [address] Performed By: #### U TOX2 #### [facility] CLIA [id number] [address] [place] Opiates Screen Ql (U) Negative Normal Negative [facility] Comment on above: Order Comment: Speci men Type: URINE SPECIMEN Ordering Facility: [facility] Address: [address] [address] Result Comment: Cuto ff threshold at 300 ng/mL. Performed By: #### U TOX2 #### [facility] CLIA [id number] [address] oxyCODONE cutoff Screen (U) [Mass/Vol] Negative Normal Negative [facility] Comment on above: Order Comment: Speci men Type: URINE SPECIMEN Ordering Facility: [facility] Address: [address] [place] [address] Result Comment: Cuto ff threshold at 100 ng/mL. Performed By: #### U TOX2 #### [facility] CLIA [id number] [address] Phencyclidine Ql (U) Negative Normal Negative [facility] Comment on above: Order Comment: Speci men Type: URINE SPECIMEN Ordering Facility: [facility] Address: [address] [place] [address] Result Comment: Cuto ff threshold at 25 ng/mL. Performed By: #### U TOX2 #### [facility] CLIA [id number] [address] Urinalysis complete panel (U )on 02-12-2022 Bilirubin Ql (U) Negative Normal Negative [facility] Comment on above: Order Comment: Speci men Type: URINE SPECIMEN Ordering Facility: [facility] Address: [address] [address] Performed By: #### U TOX2 #### [facility] CLIA [id number] [address] Clarity (Unsp spec) Clear Normal Clear [facility] Comment on above: Order Comment: Speci men Type: URINE SPECIMEN Ordering Facility: [facility] Address: [address] [place] [address] Performed By: #### U TOX2 #### [facility] CLIA [id number] [address] Color (U) Light Yellow Normal yellow [facility] Comment on above: Order Comment: Speci men Type: URINE SPECIMEN Ordering Facility: [facility] Address: [address] [place] [address] Performed By: #### U TOX2 #### [facility] CLIA [id number] [address] Epithelial cells LM.HPF (Urine sed) [#/Area] Few Normal [facility] Comment on above: Order Comment: Speci men Type: URINE SPECIMEN Ordering Facility: [facility] Address: [address] [place] [address] Performed By: #### U TOX2 #### [facility] CLIA [id number] [address] Glucose Test strip (U) [Mass/Vol] Negative Normal Trace, Negative [facility] Comment on above: Order Comment: Speci men Type: URINE SPECIMEN Ordering Facility: [facility] Address: [address] [place] [address] Performed By: #### U TOX2 #### [facility] CLIA [id number] [address] Hemoglobin Ql (U) Negative Normal Negative, Trace [facility] Comment on above: Order Comment: Speci men Type: URINE SPECIMEN Ordering Facility: [facility] Address: [address] [place] [address] Performed By: #### U TOX2 #### [facility] CLIA [id number] [address] [place] Ketones Ql (U) Negative Normal Negative, Trace [facility] Comment on above: Order Comment: Speci men Type: URINE SPECIMEN Ordering Facility: [facility] Address: [address] [place] [address] Performed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 Gastrointestinal: Negative for abdominal pain, nausea and vomiting. Genitourinary: Negative for dysuria and hematuria. Musculoskeletal: Negative for arthralgias and myalgias. Skin: Negative for rash and wound. Neurological: Negative for syncope, weakness, light-headedness, numbness and headaches. Psychiatric/Behavioral: Positive for suicidal ideas. Negative for confusion and sleep disturbance. Physical Exam Vitals [02/11/222051] BP Pulse Temp Temp src Resp SpO2 Weight Height 123/61 83 37.3 ?C (99.1 ?F) Oral 18 97 % 81.2 kg (179 lb) -- Physical Exam Constitutional: General: She is not in acute distress. Appearance: Normal appearance. She is not ill-appearing. HENT: Head: Normocephalic and atraumatic. Nose: Nose normal. No congestion or rhinorrhea. Eyes: General: Right eye: No discharge. Left eye: No discharge. Extraocular Movements: Extraocular movements intact. Pupils: Pupils are equal, round, and reactive to light. Cardiovascular: Rate and Rhythm: Normal rate and regular rhythm. Pulses: Normal pulses. Heart sounds: Normal heart sounds. No murmur heard. No gallop. Pulmonary: Effort: Pulmonary effort is normal. No respiratory distress. Breath sounds: No stridor. No wheezing. Abdominal: General: Abdomen is flat. There is no distension. Palpations: Abdomen is soft. Tenderness: There is no abdominal tenderness. Musculoskeletal: General: Normal range of motion. Cervical back: No rigidity or tenderness. Right lower leg: No edema. Left lower leg: No edema. Skin: General: Skin is warm. Coloration: Skin is not jaundiced or pale. Comments: Bruising noted around the left medial and lateral aspect of elbow. Neurological: General: No focal deficit present. Mental Status: She is alert. Cranial Nerves: No cranial nerve deficit. Sensory: No sensory deficit. Psychiatric: Mood and Affect: Mood normal. Behavior: Behavior normal. Diagnostic Testing ED Labs Ordered and Reviewed - No data to display Procedures ED Course / Clinical Impression ED Course as of 02/12/22 030 Others' Documentation Sun Feb 12, 2022 [address] Murillo; Si with plan of cutting; access to razor; seen by psych; PINK slipped; placement per psych. N/A pending. [MM] ED Course User Index [MM] Bal Lynch MD Clinical Impressions as of 02/12/22 0300 Suicidal id (more content not included)... Normal [facility] EKGon 02-11-2022 Electrocardiogram Ventricular Rate : 8 2 BPM Atrial Rate : 82 BPM P-R Interval : 140 ms QRS Duration : 74 ms Q-T Interval : 374 ms QTC Calculation(Bazett) : 436 ms Calculated P [place] : 36 degrees Calculated R [place] : 0 degrees Calculated T [place] : -8 degrees NORMAL SINUS RHYTHM MODERATE VOLTAGE CRITERIA FOR LVH, MAY BE NORMAL VARIANT WHEN COMPARED WITH ECG OF 27-JAN-2022 13:35, QUESTIONABLE CHANGE IN QRS AXIS Confirmed by DO ROJAS ROHIT ([id number]) on 02/11/2022 11:10:01 PM NAME : BRYANNA MEEHAN PID : [id number] : 2000 Gender : Female Race : ORD : Procedure Date : Feb 11 2022 21:01:27 Edit Date : Feb 11 2022 23:10:05 Diagnosis: NORMAL SINUS RHYTHM MODERATE VOLTAGE CRITERIA FOR LVH, MAY BE NORMAL VARIANT WHEN COMPARED WITH ECG OF 27-JAN-2022 13:35, QUESTIONABLE CHANGE IN QRS AXIS Confirmed by DO ROJAS ROHIT ([id number]) on 02/11/2022 11:10:01 PM Test Reason : Location : 4 : [place] [address] Overread By : DO ROJAS ROHIT Edited By : DO ROJAS ROHIT Referred By : , Acquired by : TESHA NI Normal [facility] Ethanol SerPl-ncon 022 Ethanol [Mass/Vol] mg/dL Normal <11 [facility] Comment on above: Order Comment: Speci men Type: BLOOD SPECIMEN Ordering Facility: [facility] Address: [address] [place] [address] Performed By: #### 3 016-3, 42053-7 #### [facility] CLIA [id number] [address] [place] SARS-CoV-2 RNA Resp Ql OSCAR+p robeon 02-11-2022 SARS-CoV-2 (COVID-19) RNA OSCAR+probe Ql (Resp) COVID 19 RESULT: SARS-CoV-2 (Agent of COVID-19) Not Detected by RT-PCR or equivalent method. This test has been authorized by FDA under an Emergency Use Authorization (EUA). Normal [facility] Comment on above: Performed By: #### 9 4500-6 ####[facility] [id number] [place] [address] [place] Salicylates SerPl-mCncon Salicylates [Mass/Vol] mg/dL Low 3.0-30.0 [facility] Comment on above: Order Comment: Guillermo morris Type: BLOOD SPECIMEN Ordering Facility: [facility] Address: [address] [place], [place] [id number] Result Comment: The therapeutic range varies and has been reported to be 3.0 to 10.0 mg/dL for anti pyretic/analgesic conditions and 15.0 to 30.0 mg/dL for anti inflammatory/rheumatic fever conditions. Ranges published by the instrument online merchandising coordinator. Reference ranges and high/low indicator flags are provided as general guidelines only. The treating physician must determine appropriate target levels/dosing based on the specific clinical situation. Performed By: #### 3 016-3, 89668-1 #### [facility] CLIA [id number] [address] [place] [address] TSH SerPl-aCncon 02-11-2022 TSH Qn 0.993 m[IU]/L Normal 0.270-4.200 [facility] Comment on above: Order Comment: Guillermo morris Type: BLOOD SPECIMEN Ordering Facility: [facility] Address: [address] [place], [place] [address] Result Comment: If t he patient is , TSH reference range varies by gestational period: First Trimester (weeks 9-12): 0.180-2.990 mIU/L Second Trimester: 0.110-3.980 mIU/L Third Trimester: 0.480-4.710 mIU/L Abhay Skinner et al. A Practical Approach for the Verifications and Determination of Site- and Trimester-Specific Reference Intervals for Thyroid Function tests in . Thyroid, 2019:29:3:412-420. Aaron Castro, et al. 2017 Guidelines of the [place] Thyroid Association for the Diagnosis and Management of Thyroid Disease during and the . Thyroid, 2017:27:3:315-389. Performed By: #### 3 016-3, 08278-8 #### [facility] CLIA [id number] [address] ED NOTEon 02-01-2022 ED NOTE HNO ID: [id number] Author: Jordana Graham RN Service: Emergency Medicine Author Type: Registered Nurse Type: ED Notes Filed: 02/01/2022 8:24 PM Note Text: Reviewed dc orders with pt, work note provided. Pt verbalized understanding. Denies any further needs. Ambulatory with steady gait for dc home per self. Normal [facility] ED NOTE HNO ID: [id number] Author: Linda Cherry RN Service: Nursing Author Type: Registered Nurse Type: ED Notes Filed: 02/01/2022 5:16 PM Note Text: At approx 1610 patient was at work and when she went to grab something and as she turned she tripped on something and fell. She has right knee/lower leg pain with abrasions and bruising to bilateral forearms. Denies head trauma or LOC. Normal [facility] ED PROV NOTEon 02-01-2022 ED PROV NOTE HNO ID: [id number] Author: Jannie Reyes MD Service: Emergency Medicine Author Type: Physician Type: ED Provider Notes Filed: 02/02/2022 1:40 AM Note Text: ED Provider Note Patient Name: Bryanna Meehan : 2000 SERVICE DATE: 02/01/22 History Patient presents with: Leg Pain Patient presents the emergency room with complaints of right knee, leg pain, after tripping and falling at work. 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 Patient did not hit her head, neck, there is no loss of consciousness, and she does not take blood thinners. Fall Severity: Mild Onset quality: Sudden Duration: 2 hours Timing: Constant Chronicity: New Associated symptoms: no abdominal pain, no chest pain, no headaches and no loss of consciousness PAST MEDICAL HISTORY Diagnosis Date ADD (attention deficit disorder) Anxiety Depression Depression PTSD (post-traumatic stress disorder) Thyroid disease PAST SURGICAL HISTORY Procedure Laterality Date TONSILLECTOMY AND ADENOIDECTOMY HX 2009 FAMILY HISTORY Problem Relation Age of Onset Cancer Maternal Grandmother Heart Maternal Grandfather Social History Tobacco Use Smoking status: Former Types: Cigarettes Smokeless tobacco: Never Tobacco comments: quit 3 years ago Vaping Use Vaping Use: Never used Substance and Sexual Activity Alcohol use: Yes Comment: socially Drug use: No Sexual activity: Yes Partners: Male ALLERGIES Allergen Reactions Latex Unknown Review of Systems Cardiovascular: Negative for chest pain. Gastrointestinal: Negative for abdominal pain. Musculoskeletal: Positive for gait problem. Negative for back pain, neck pain and neck stiffness. Skin: Positive for color change. Neurological: Negative for loss of consciousness and headaches. All other systems reviewed and are negative. Physical Exam Vitals [02/01/22 1710] BP Pulse Temp Temp src Resp SpO2 Weight Height 140/84 79 36.4 ?C (97.6 ?F) Temporal Art 16 99 % 84.4 kg (186 lb) -- Physical Exam Vitals and nursing note reviewed. Constitutional: General: She is not in acute distress. Appearance: Normal appearance. She is not ill-appearing or toxic-appearing. HENT: Head: Normocephalic and atraumatic. Eyes: General: Right eye: No discharge. Left eye: No discharge. Pulmonary: Effort: No respiratory distress. Musculoskeletal: General: Tenderness and signs of injury present. No swelling. Comments: Right medial inferior aspect of knee w superfical abrasion, no active bleeding, there is mild tenderness in this region, there is no joint effusion, there is no medial lateral joint line tenderness, is negative anterior drawer, overall the knee is stable without bony crepitance on range of motion, there is tenderness over the proximal aspect anterior of the tibia patient has small area of ecchymosis here as well, there is no leg shortening, there is no pain on axial loading at the heel. Skin: General: Skin is warm and dry. Comments: Bilateral proximal forearms withh abrasions, n ecchymosis no active bleeding, no bony tenderness full rom of the elbows Neurological: General: No focal deficit present. Mental Status: She is alert and oriented to person, place, and time. Mental status is at baseline. Psychiatric: Mood and Affect: Mood normal. Behavior: Behavior normal. Diagnostic Testing ED Labs Ordered and Reviewed - No data to display Procedures ED Course / Clinical Impression Clinical Impressions as of 02/02/22 0136 Fall, initial encounter Contusion of right knee, initial encounter Contusion of multiple sites of right lower extremity, initial encounter MDM / Disposition / Plan Is a 21-year-old female patient, who had a slip and fall with a trip at work injuring her right knee neri, her bilateral forearms. X-rays obtained patient's right knee, tib-fib, and they are negative. Patient's tetanus status is up-to-date. Patient does have some rather large areas of ecchymosis, or both of her forearms, however this is on the soft tissue, patient's had good range of motion, no acute bony tenderness, she states she did not even know she injured her arms until she actually saw the bruises here. I do not think these areas require imaging. Patient was given a copy of her x-ray results, and at the time of DC we discussed RICE therapy, and PCP follow-up as necessary. Please note this report has been produced using speech recognition software and may contain errors related to that system including errors in grammar, punctuation, and spelling, as well as words and phrases that may be inappropriate. If there are any questions or concerns please feel free to contact the dictating physician for clarification. (more content not included)... Normal [facility] XR KNEE 4V AP/LAT/OBLS RTon 02-01-2022 XR KNEE 4V AP/LAT/OBLS RT * * *Final Report* * * DATE OF EXAM: Feb 01 2022 7:20PM LDX 5205 - XR KNEE 4V AP/LAT/OBLS RT / PROCEDURE REASON: Joint pain, knee * * * * Physician Interpretation * * * * RIGHT KNEE 4 VIEWS, 02/01/2022 RIGHT TIBIA/FIBULA, 2 VIEWS, 02/01/2022. HISTORY: Injury from a fall. Right knee and lower leg pain. COMPARISON: Right knee and right tibia/fibula 06/10/2018. TECHNIQUE: Right knee: AP, lateral, and both oblique views of the right knee. Right tibia/fibula: AP and lateral views from the knee to the ankle. RESULTS: RIGHT KNEE: The bones appear intact and normally aligned. There are no underlying bone lesions. The joint spaces appear normal. There are no periarticular calcifications. There is no appreciable joint effusion. RIGHT TIBIA/FIBULA: The bones are intact. No underlying bone lesions are seen. The included ankle appears normal. Specific ankle imaging was not performed. IMPRESSION: RIGHT KNEE AND RIGHT TIBIA/FIBULA: Normal studies. No fracture or other acute changes. Production Technologist: ARMIN Transcribe Date/Time: Feb 01 2022 7:23P Dictated by : MERVAT ESPINOZA MD This examination was interpreted and the report reviewed and electronically signed by: MERVAT ESPINOZA MD on Feb 01 2022 7:26PM EST [id number] Normal [facility] XR TIBIA FIBULA 2V AP/LAT RT on 02-01-2022 XR TIBIA FIBULA 2V AP/LAT RT * * *Final Report* * * DATE OF EXAM: Feb 01 2022 7:20PM LDX 5266 - XR TIBIA FIBULA 2V AP/LAT RT / PROCEDURE REASON: Fracture, tib/fib * * * * Physician Interpretation * * * * RIGHT KNEE 4 VIEWS, 02/01/2022 RIGHT TIBIA/FIBULA, 2 VIEWS, 02/01/2022. HISTORY: Injury from a fall. Right knee and lower leg pain. COMPARISON: Right knee and right tibia/fibula 06/10/2018. TECHNIQUE: Right knee: AP, lateral, and both oblique views of the right knee. Right tibia/fibula: AP and lateral views from the knee to the ankle. RESULTS: RIGHT KNEE: The bones appear intact and normally aligned. There are no underlying bone lesions. The joint spaces appear normal. There are no periarticular calcifications. There is no appreciable joint effusion. RIGHT TIBIA/FIBULA: The bones are intact. No underlying bone lesions are seen. The included ankle appears normal. Specific ankle imaging was not performed. IMPRESSION: RIGHT KNEE AND RIGHT TIBIA/FIBULA: Normal studies. No fracture or other acute changes. Production Technologist: ARMIN Transcribe Date/Time: Feb 01 2022 7:23P Dictated by : MERVAT ESPINOZA MD This examination was interpreted and the report reviewed and electronically signed by: MERVAT ESPINOZA MD on Feb 01 2022 7:26PM EST [id number] Normal [facility] CBC W Auto Differential pane l (Bld)on 01-27-2022 Basophils (Bld) [#/Vol] 10*3/uL Normal <0.11 [facility] Comment on above: Order Comment: Speci men Type: BLOOD SPECIMEN Ordering Facility: [facility] Address: [address] [place], [place] [phone] Performed By: #### 3 016-3, 22828-5 #### [facility] CLIA [id number] [address] Basophils/100 WBC (Bld) 0.2 % Normal [facility] Comment on above: Order Comment: Speci men Type: BLOOD SPECIMEN Ordering Facility: [facility] Address: [address] [address] Performed By: #### 3 016-3, 49601-5 #### [facility] CLIA [id number] [address] Differential cell count method Nom (Bld) Auto Normal [facility] Comment on above: Order Comment: Speci men Type: BLOOD SPECIMEN Ordering Facility: [facility] Address: [address] [place] [address] Performed By: #### 3 016-3, 79607-5 #### [facility] CLIA [id number] [address] Eosinophils (Bld) [#/Vol] 0.14 10*3/uL Normal <0.46 [facility] Comment on above: Order Comment: Speci men Type: BLOOD SPECIMEN Ordering Facility: [facility] Address: [address] [place] [address] Performed By: #### 3 016-3, 97940-1 #### [facility] CLIA [id number] [address] Eosinophils/100 WBC (Bld) 1.4 % Normal [facility] Comment on above: Order Comment: Speci men Type: BLOOD SPECIMEN Ordering Facility: [facility] Address: [address] [place] [address] Performed By: #### 3 016-3, 27098-3 #### [facility] CLIA [id number] [address] Erythrocyte distribution width (RBC) [Ratio] 14.2 % Normal 11.5-15.0 [facility] Comment on above: Order Comment: Speci men Type: BLOOD SPECIMEN Ordering Facility: [facility] Address: [address] [place] [address] Performed By: #### 3 016-3, 09289-6 #### [facility] CLIA [id number] [address] Hematocrit (Bld) [Volume fraction] 38.7 % Normal 36.0-46.0 [facility] Comment on above: Order Comment: Speci men Type: BLOOD SPECIMEN Ordering Facility: [facility] Address: [address] [place] [address] Performed By: #### 3 016-3, 69192-4 #### [facility] CLIA [id number] [address] [place] Hemoglobin (Bld) [Mass/Vol] 12.7 g/dL Normal 11.5-15.5 [facility] Comment on above: Order Comment: Speci men Type: BLOOD SPECIMEN Ordering Facility: [facility] Address: [address] [place] [address] Performed By: #### 3 , 62362-2 #### [facility] CLIA [id number] [address] [place] Lymphocytes (Bld) [#/Vol] 1.94 10*3/uL Normal 1.00-4.00 [facility] Comment on above: Order Comment: Speci men Type: BLOOD SPECIMEN Ordering Facility: [facility] Address: [address] [place] [address] Performed By: #### 3 , 35483-7 #### [facility] CLIA [id number] [address] [place] Lymphocytes/100 WBC (Bld) 20.0 % Normal [facility] Comment on above: Order Comment: Speci men Type: BLOOD SPECIMEN Ordering Facility: [facility] Address: [address] [place] [address] Performed By: #### 3 0163, 23055-8 #### [facility] CLIA [id number] [address] [place] MCH (RBC) [Entitic mass] 27.9 pg Normal 26.0-34.0 [facility] Comment on above: Order Comment: Speci men Type: BLOOD SPECIMEN Ordering Facility: [facility] Address: [address] [place] [address] Performed By: #### 3 016-3, #### [facility] CLIA [id number] [address] OF [facility] MCHC (RBC) [Mass/Vol] 32.8 g/dL Normal 30.5-36.0 [facility] Comment on above: Order Comment: Speci men Type: BLOOD SPECIMEN Ordering Facility: [facility] Address: [address] [place] [address] Performed By: #### 3 016-3, #### [facility] CLIA [id number] [address] MCV (RBC) [Entitic vol] 85.1 fL Normal 80.0-100.0 [facility] Comment on above: Order Comment: Speci men Type: BLOOD SPECIMEN Ordering Facility: [facility] Address: [address] [place] [address] Performed By: #### 3 016-3, #### [facility] CLIA [id number] [address] Monocytes (Bld) [#/Vol] 0.56 10*3/uL Normal <0.87 [facility] Comment on above: Order Comment: Speci men Type: BLOOD SPECIMEN Ordering Facility: [facility] Address: [address] [place] [address] Performed By: #### 3 016-3, 22384-3 #### [facility] CLIA [id number] [address] Monocytes/100 WBC (Bld) 5.8 % Normal [facility] Comment on above: Order Comment: Speci men Type: BLOOD SPECIMEN Ordering Facility: [facility] Address: [address] [place] [address] Performed By: #### 3 016-3, #### [facility] CLIA [id number] [address] [place] Neutrophils (Bld) [#/Vol] 7.03 10*3/uL Normal 1.45-7.50 [facility] Comment on above: Order Comment: Speci men Type: BLOOD SPECIMEN Ordering Facility: [facility] Address: [address] [place] [address] Performed By: #### 3 016-3, #### [facility] CLIA [id number] [address] Neutrophils/100 WBC (Bld) 72.6 % Normal [facility] Comment on above: Order Comment: Speci men Type: BLOOD SPECIMEN Ordering Facility: [facility] Address: [address] [place] [address] Performed By: #### 3 016-3, #### [facility] CLIA [id number] [address] [place] Platelet mean volume (Bld) [Entitic vol] 9.7 fL Normal 9.0-12.7 [facility] Comment on above: Order Comment: Speci men Type: BLOOD SPECIMEN Ordering Facility: [facility] Address: [address] [place] [address] Performed By: #### 3 016-3, #### [facility] CLIA [id number] [address] [place] Platelets (Bld) [#/Vol] 343 10*3/uL Normal 150-400 [facility] Comment on above: Order Comment: Speci men Type: BLOOD SPECIMEN Ordering Facility: [facility] Address: [address] [place] [address] Performed By: #### 3 016-3, 75968-1 #### [facility] CLIA [id number] [address] [place] [address] [place] RBC (Bld) [#/Vol] 4.55 10*6/uL Normal 3.90-5.20 [facility] Comment on above: Order Comment: Speci men Type: BLOOD SPECIMEN Ordering Facility: [facility] Address: [address] [place] [id number] Performed By: #### 3 016-3, 44706-4 #### [facility] CLIA [id number] [address] OF [facility] WBC (Bld) [#/Vol] 9.69 10*3/uL Normal 3.70-11.00 [facility] Comment on above: Order Comment: Speci men Type: BLOOD SPECIMEN Ordering Facility: [facility] Address: [address] [place] [address] Performed By: #### 3 016-3, 53152-1 #### [facility] CLIA [id number] [address] OF [facility] CT ABD/PEL WO IVCONon 2021 CT ABD/PEL WO IVCON * * *Final Report* * * DATE OF EXAM: Jan 27 2022 3:54PM [facility] 0531 - CT ABD/PEL WO IVCON / PROCEDURE REASON: Flank pain, kidney stone suspected * * * * Physician Interpretation * * * * EXAMINATION: CT ABDOMEN AND PELVIS WITHOUT IV CONTRAST CLINICAL HISTORY: Flank pain TECHNIQUE: Non-IV contrast imaging of the abdomen and pelvis was performed using standard technique, scanning from just above the dome of the diaphragm to the symphysis pubis. Unenhanced imaging is limited for the evaluation of some intra-abdominal and pelvic pathology. MQ: CTAPWO_3 Contrast: IV: None : ml of CT Radiation dose: Integrated Dose-length product (DLP) for this visit = 553.46 mGy*cm. CT Dose Reduction Employed: Automated exposure control (AEC) COMPARISON: None. RESULT: Abdomen / Pelvis: Liver: Unremarkable. Biliary: The gallbladder is unremarkable. No biliary ductal dilatation is identified. Spleen: No splenomegaly. Pancreas: Unremarkable. Adrenals: No mass. Kidneys: No calculus, hydronephrosis or finding to suggest a cyst or mass in the unenhanced kidney. GI Tract: No bowel dilation. The appendix is not identified. No periappendiceal stranding is identified. Lymph Nodes: No lymphadenopathy. Mesentery/peritoneum: No ascites. Retroperitoneum: No mass. Vasculature: No abdominal aortic or iliac artery aneurysm. Pelvis: No mass or ascites. Bones/Soft Tissues: No acute abnormality. Lower thorax: Unremarkable. Feeder Tender (topogram) images: IMPRESSION: No acute intra-abdominal/pelvic abnormalities are identified. Production Technologist: PSCB Transcribe Date/Time: Jan 27 2022 4:02P Dictated by : EMILY ROSARIO MD This examination was interpreted and the report reviewed and electronically signed by: EMILY ROSARIO MD on Jan 27 2022 4:10PM EST [id number] Normal [facility] Comprehensive metabolic 2000 panelon 01-27-2022 Albumin [Mass/Vol] 4.2 g/dL Normal 3.9-4.9 [facility] Comment on above: Order Comment: Speci men Type: BLOOD SPECIMEN Ordering Facility: [facility] Address: [address] [place] [address] Performed By: #### 3 016-3, 44330-6 #### [facility] CLIA [id number] [address] ALP [Catalytic activity/Vol] 84 U/L Normal 34-123 [facility] Comment on above: Order Comment: Speci men Type: BLOOD SPECIMEN Ordering Facility: [facility] Address: [address] [address] Performed By: #### 3 016-3, 41414-2 #### [facility] CLIA [id number] [address] ALT With P-5'-P [Catalytic activity/Vol] 14 U/L Normal 7-38 [facility] Comment on above: Order Comment: Speci men Type: BLOOD SPECIMEN Ordering Facility: [facility] Address: [address] [address] Performed By: #### 3 016-3, 53273-0 #### [facility] CLIA [id number] [address] [place] Anion gap [Moles/Vol] 9 mmol/L Normal 9-18 [facility] Comment on above: Order Comment: Speci men Type: BLOOD SPECIMEN Ordering Facility: [facility] Address: [address] [place] [address] Performed By: #### 3 016-3, #### [facility] CLIA [id number] [address] OF [facility] AST With P-5'-P [Catalytic activity/Vol] 18 U/L Normal 13-35 [facility] Comment on above: Order Comment: Speci men Type: BLOOD SPECIMEN Ordering Facility: [facility] Address: [address] [place] [address] Performed By: #### 3 016-3, 62206-6 #### [facility] CLIA [id number] [address] STATES OF [facility] Bilirubin [Mass/Vol] 0.5 mg/dL Normal 0.2-1.3 [facility] Comment on above: Order Comment: Speci men Type: BLOOD SPECIMEN Ordering Facility: [facility] Address: [address] [place] [address] Performed By: #### 3 016-3, 72746-7 #### [facility] CLIA [id number] [address] Calcium [Mass/Vol] 9.1 mg/dL Normal 8.5-10.2 [facility] Comment on above: Order Comment: Speci men Type: BLOOD SPECIMEN Ordering Facility: [facility] Address: [address] [place] [address] Performed By: #### 3 016-3, 32768-2 #### [facility] CLIA [id number] [address] STATES OF [facility] Chloride [Moles/Vol] 102 mmol/L Normal 97-105 [facility] Comment on above: Order Comment: Speci men Type: BLOOD SPECIMEN Ordering Facility: [facility] Address: [address] [place] [address] Performed By: #### 3 016-3, 52488-4 #### [facility] CLIA [id number] [address] [place] CO2 [Moles/Vol] 26 mmol/L Normal 22-30 [facility] Comment on above: Order Comment: Speci men Type: BLOOD SPECIMEN Ordering Facility: [facility] Address: [address] [place] [address] Performed By: #### 3 016-3, 11050-0 #### [facility] CLIA [id number] [address] OF [facility] Creatinine [Mass/Vol] 0.72 mg/dL Normal 0.58-0.96 [facility] Comment on above: Order Comment: Speci men Type: BLOOD SPECIMEN Ordering Facility: [facility] Address: [address] [place] [address] Performed By: #### 3 016-3, 61314-3 #### [facility] CLIA [id number] [address] ESTIMATED GLOMERULAR FILTRATION RATE 121 mL/min/1.73m??? Normal >=60 [facility] Comment on above: Order Comment: Speci men Type: BLOOD SPECIMEN Ordering Facility: [facility] Address: [address] [place] [address] Result Comment: Diane mated Glomerular Filtration Rate (eGFR) is calculated using the 2020 CKD-EPI creatinine equation. This equation utilizes serum creatinine, sex, and age as parameters. The creatinine assay has traceable calibration to isotope dilution-mass spectrometry. Refer to KDIGO guidelines for clinical interpretation. In patients with unstable renal function, e.g. those with acute kidney injury, the eGFR may not accurately reflect actual GFR. Performed By: #### 3 016-3, 15505-5 #### [facility] CLIA [id number] [address] STATES OF [facility] Glucose [Mass/Vol] 117 mg/dL High 74-99 [facility] Comment on above: Order Comment: Speci men Type: BLOOD SPECIMEN Ordering Facility: [facility] Address: [address] [address] Result Comment: The [place] Diabetes Association (ADA) provides guidance for cutoff values for fasting glucose and random glucose. The ADA defines fasting as no caloric intake for at least 8 hours. Fasting plasma glucose results between 100 to 125 mg/dL indicate increased risk for diabetes (prediabetes). Fasting plasma glucose results greater than or equal to 126 mg/dL meet the criteria for diagnosis of diabetes. In the absence of unequivocal hyperglycemia, results should be confirmed by repeat testing. In a patient with classic symptoms of hyperglycemia or hyperglycemic crisis, random plasma glucose results greater than or equal to 200 mg/dL meet the criteria for diagnosis of diabetes. Reference: Standards of Medical Care in Diabetes 2016, [place] Diabetes Association. Diabetes Care. 2016.39(Suppl 1). Performed By: #### 3 016-3, 23325-4 #### [employer] [facility] CLIA [id number] 1 [place] [address] [place] Potassium [Moles/Vol] 3.7 mmol/L Normal 3.7-5.1 [facility] Comment on above: Order Comment: Speci men Type: BLOOD SPECIMEN Ordering Facility: [facility] Address: [address] [address] Performed By: #### 3 -3, 93510-4 #### [facility] CLIA [id number] 1 [place] [address] [place] Protein [Mass/Vol] 7.4 g/dL Normal 6.3-8.0 [facility] Comment on above: Order Comment: Speci men Type: BLOOD SPECIMEN Ordering Facility: [facility] Address: [address] [address] Performed By: #### 3 016-3, 10020-1 #### [facility] CLIA [id number] 1 [place] [address] [place] Sodium [Moles/Vol] 137 mmol/L Normal 136-144 [facility] Comment on above: Order Comment: Speci men Type: BLOOD SPECIMEN Ordering Facility: [facility] Address: [address] [address] Performed By: #### 3 016-3, 73848-3 #### [facility] CLIA [id number] [address] Urea nitrogen [Mass/Vol] 10 mg/dL Normal 7-21 [facility] Comment on above: Order Comment: Speci men Type: BLOOD SPECIMEN Ordering Facility: [facility] Address: [address] [place], [place] [address] Performed By: #### 3 016-3, 08793-6 #### [facility] CLIA [id number] [address] [place] D dimer FEU PPP-mCncon 01-27 Fibrin D-dimer FEU (PPP) [Mass/Vol] <190 Normal <500 [facility] Comment on above: Order Comment: Speci men Type: BLOOD SPECIMEN Ordering Facility: [facility] Address: [address] [place] [address] Performed By: #### 3 016-3, 64518-4 #### [facility] CLIA [id number] [address] [place] ECG COMPLETEon 01-27-2022 ECG COMPLETE Ventricular Rate : 7 8 BPM Atrial Rate : 78 BPM P-R Interval : 146 ms QRS Duration : 80 ms Q-T Interval : 386 ms QTC Calculation(Bazett) : 440 ms Calculated P [place] : 28 degrees Calculated R [place] : 71 degrees Calculated T [place] : 5 degrees NORMAL SINUS RHYTHM NORMAL ECG WHEN COMPARED WITH ECG OF 24-SEP-2021 02:23, NO SIGNIFICANT CHANGE WAS FOUND Confirmed by MD GROSS VINAYAK ([id number]) on 01/30/2022 9:01:59 PM NAME : BRYANNA MEEHAN PID : [id number] : 2000 Gender : Female Race : ORD : [id number] Procedure Date : Jan 27 2022 13:35:14 Edit Date : Jan 30 2022 21:02:03 Diagnosis: NORMAL SINUS RHYTHM NORMAL ECG WHEN COMPARED WITH ECG OF 24-SEP-2021 02:23, NO SIGNIFICANT CHANGE WAS FOUND Confirmed by MD GROSS VINAYAK ([id number]) on 01/30/2022 9:01:59 PM Test Reason : Chest Pain Location : 150 : [place] 5 Overread By : MD GROSS VINAYAK Edited By : MD GROSS VINAYAK Referred By : , Acquired by : AKANKSHA LOPEZ [facility] ED NOTEon 01-27-2022 ED NOTE HNO ID: [id number] Author: Martha Ross RN Service: Nursing Author Type: Registered Nurse Type: ED Notes Filed: 01/27/2022 5:14 PM Note Text: Pt verbalizes understanding of discharge instructions. Pt able to ambulate out of ED. 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 Denies SOB at any other time except for when she is working. The right flank pain woke patient from sleep 3 days ago and has been intermittent since. Denies aggravating factors but reports Aleve will relieve some pain. She reports random mid sternal pain x 3 days that is not associated with movement or SOB. Denies urinary or bowel problems. No trauma or any any new activities reports. [facility] ED NOTE HNO ID: [id number] Author: Martha Ross RN Service: Nursing Author Type: Registered Nurse Type: ED Notes Filed: 01/27/2022 12:44 PM Note Text: Pt states she has been feeling SOB intermittently, has chest pain, and flank pain on R side x3 days. [facility] ED PROV NOTEon 01-27-2022 ED PROV NOTE HNO ID: [id number] Author: Hernando Schaefer MD Service: Emergency Medicine Author Type: Physician Type: ED Provider Notes Filed: 01/27/2022 4:51 PM Note Text: ED Provider Note Patient Name: Bryanna Meehan : 2000 SERVICE DATE: 01/27/22 History Patient presents with: Shortness of Breath Flank Pain Chest Pain: x3 days Bryanna Meehan is a 21 year old female with history of urinary tract infections who presents with right flank pain no known injury but does do heavy lifting at work. Patient has tried Aleve. Patient develops pain with movement. - Symptoms began 3 days prior to arrival. Onset was gradual. - Severity: mild - Timing: intermittent - Quality: cramping - Pain is exacerbated by movement and palpation. Pain radiates to nowhere. - Pain is not exacerbated by urination. - Symptoms are associated with right-sided chest pain. - Symptoms are not associated with dysuria, fever, nausea, and vomiting. - Improved by OTC medications. - Not improved by rest History of previous UTIs and does recall having had a kidney infection once before but it did not feel the same. Pain has awoken her from sleep and she has been having the pain intermittently he does worsen sometimes with specific movements she has had some discomfort in the right upper chest as well that also comes and goes but denies shortness of breath. PAST MEDICAL HISTORY Diagnosis Date - ADD (attention deficit disorder) - Anxiety - Depression - Depression - PTSD (post-traumatic stress disorder) - Thyroid disease PAST SURGICAL HISTORY Procedure Laterality Date - TONSILLECTOMY AND ADENOIDECTOMY HX 2008 FAMILY HISTORY Problem Relation Age of Onset - Cancer Maternal Grandmother - Heart Maternal Grandfather Social History Tobacco Use - Smoking status: Former Types: Cigarettes - Smokeless tobacco: Never - Tobacco comments: quit 3 years ago Vaping Use - Vaping Use: Never used Substance and Sexual Activity - Alcohol use: Yes Comment: socially - Drug use: No - Sexual activity: Yes Partners: Male ALLERGIES Allergen Reactions - Latex Unknown Review of Systems Constitutional: Negative for chills and fever. HENT: Negative for congestion and sore throat. Respiratory: Negative for cough and shortness of breath. Cardiovascular: Positive for chest pain. Negative for palpitations. Gastrointestinal: Negative for abdominal pain, nausea and vomiting. Genitourinary: Positive for flank pain. Negative for dysuria and frequency. Musculoskeletal: Negative for back pain and neck pain. Skin: Negative for color change, pallor, rash and wound. Allergic/Immunologic: Negative for environmental allergies, food allergies and immunocompromised state. Psychiatric/Behavioral: Negative for confusion. The patient is not nervous/anxious. Physical Exam Vitals [01/27/22 1240] BP Pulse Temp Temp src Resp SpO2 Weight Height 120/69 81 -- -- (!) 26 98 % 84.3 kg (185 lb 13.6 oz) -- Physical Exam Vitals and nursing note reviewed. Constitutional: Appearance: She is well-developed. HENT: Head: Normocephalic and atraumatic. Cardiovascular: Rate and Rhythm: Normal rate and regular rhythm. Pulmonary: Effort: Pulmonary effort is normal. No respiratory distress. Breath sounds: Normal breath sounds. Abdominal: Palpations: Abdomen is soft. Tenderness: There is no abdominal tenderness. There is no guarding. Musculoskeletal: General: Normal range of motion. Right lower leg: No edema. Left lower leg: No edema. Skin: General: Skin is warm and dry. Capillary Refill: Capillary refill takes less than 2 seconds. Findings: No rash. Neurological: General: No focal deficit present. Mental Status: She is alert and oriented to person, place, and time. Psychiatric: Mood and Affect: Mood normal. Mood is not anxious. Behavior: Behavior normal. Behavior is not agitated. Diagnostic Testing ED Labs Ordered and Reviewed - No data to display Procedures ED Course / Clinical Impression Clinical Impressions as of 01/27/22 1650 Urinary tract infection without hematuria, site unspecified Flank pain MDM / Disposition / Plan Nontoxic well-hydrated no respiratory distress. No EKG changes CT showed no acute intra-abdominal abnormalities and lung bases were unremarkable as well. She has urinary tract infection and she has had previous pyelonephritis so her flank pain may be secondary to that. No current chest pain complaints no palpitations. She does do a lot of lifting and pulling at work. No signs of any hypoxia so there may be some musculoskeletal elements here as well. Antibiotics and NSAID recommended off work for today and then I am going to give her a primary care follow-up. Additional Tests or Interventions: ECG EKG INTERPRETATION: Ordered and Reviewed Rhythm: Normal sinus rhythm Rate: 78 [place]: Normal axis Intervals: Normal OK interval QRS (more content not included)... Normal [facility] HCG Preg Ur Qlon 01-27-2022 HCG ( test) Ql (U) Negative Normal Negative [facility] Comment on above: Order Comment: Speci men Type: BLOOD SPECIMEN Ordering Facility: [facility] Address: [address] [place] [phone] Result Comment: This test is intended to aid in the early detection of . Very dilute urine samples, as indicated by a low specific gravity, may not contain employee representative levels of hCG. This test detects intact hCG only. This test does not reliably detect hCG degradation products, including free-beta subunit and beta-core fragment. Therefore, this test may show reduced reactivity in urine after 8 weeks gestation. A number of conditions other than , including trophoblastic disease and certain non-trophoblastic neoplasms cause elevated levels of hCG. As with any assay employing mouse antibodies, the possibility exists for interference by human anti-mouse antibodies (HAMA) in the specimen. The test provides a presumptive diagnosis for . Performed By: #### 3 016-3, 41962-4 #### [facility] CLIA [id number] [address] OF [facility] Lipase SerPl-cCncon 01-28-20 22 Lipase [Catalytic activity/Vol] 18 U/L Normal 16-61 [facility] Comment on above: Order Comment: Speci men Type: BLOOD SPECIMEN Ordering Facility: [facility] Address: [address] [address] Performed By: #### 3 016-3, 87866-1 #### [facility] CLIA [id number] [address] OF [facility] Urinalysis complete pnl Uron 01-27-2022 Urinalysis complete panel (U) COLOR: Yellow CLARITY: Slightly Cloudy GLUCOSE, URINE: Negative BILIRUBIN, URINE: Negative KETONES, URINE: Negative SPECIFIC GRAVITY, UR: 1.020 HEMOGLOBIN/BLOOD, UR: Trace PH, URINE: 7.0 PROTEIN, URINE: Negative UROBILINOGEN: 0.2 EU/dL NITRITES: Negative LEUKEST: 3+ WBC, URINE: 11-25 /HPF RBC, URINE: 0-3 /HPF BACTERIA: Moderate SQUAMOUS EPITHELIAL CELLS: Few CULTURE, URINE: 10,000-<50,000 CFU/ml Normal Urogenital Corine Abnormal [facility] Comment on above: Order Comment: Speci men Type: URINE SPECIMENOrdering Facility: [facility] Address: [address] [address] Performed By: #### 2 4356-8 ####[facility] [id number] [place] [address] [facility] [id number] [place] [address] [facility] ED NOTEon 01-05-2022 ED NOTE HNO ID: [id number] Author: Liborio Clarke RN Service: Emergency Medicine Author Type: Registered Nurse Type: ED Notes Filed: 01/05/2022 8:19 PM Note Text: Patient discharge instructions given to patient, patient educated on discharge instructions. Patient denied having questions at this time regarding discharge instructions. Patient discharged home at this time. Patient ambulated out of the emergency department with a steady gait at this time. Normal [facility] ED NOTE HNO ID: [id number] Author: Liborio Clarke RN Service: Emergency Medicine Author Type: Registered Nurse Type: ED Notes Filed: 01/05/2022 7:52 PM Note Text: Patient informed about the name of the medication(s), what the medication(s) is(are) for, and what to expect with/from med administration. Patient given opportunity to ask questions. Medication(s) include: Macrobid. Normal [facility] ED NOTE HNO ID: [id number] Author: Liborio Clarke RN Service: Emergency Medicine Author Type: Registered Nurse Type: ED Notes Filed: 01/05/2022 8:21 PM Note Text: Change of shift report received from Janelle García RN. This RN assumed patient care at this time. Normal [facility] ED NOTE HNO ID: [id number] Author: Janelle Qureshi RN Service: Emergency Medicine Author Type: Registered Nurse Type: ED Notes Filed: 01/05/2022 6:42 PM Note Text: Pt advised she will need additional urine for ua and culture. Pt given kathleen anya as requested Normal [facility] ED NOTE HNO ID: [id number] Author: Janelle Qureshi RN Service: Emergency Medicine Author Type: Registered Nurse Type: ED Notes Filed: 01/05/2022 6:17 PM Note Text: Dr otoole at bedside for exam Normal [facility] ED NOTE HNO ID: [id number] Author: Janelle Qureshi RN Service: Emergency Medicine Author Type: Registered Nurse Type: ED Notes Filed: 01/05/2022 6:09 PM Note Text: Pt c/o abd pain for 2 days, pt reports urinary frequency, urgency and difficulty urinating off and on for several days Normal [facility] ED PROV NOTEon 01-05-2022 ED PROV NOTE HNO ID: [id number] Author: Fransico Otoole MD Service: Emergency Medicine Author Type: Physician Type: ED Provider Notes Filed: 01/06/2022 3:49 AM Note Text: ED Provider Note Patient Name: Bryanna Meehan : 2000 SERVICE DATE: 01/05/22 History Patient presents with: Abdominal Pain Urinary Problem 21-year-old female patient presents to the emergency department. Patient states for the last week she has had dysuria urgency and frequency of urine. She denies a fever. She denies any vomiting. She states she is had abdominal pain over the last couple of days as well. States it comes and goes. Denies any diarrhea or constipation. Denies any history of abdominal surgeries. States she does not get menstrual periods initially because she was on contraception but states they still have not returned. Denies any vaginal discharge or bleeding states she is sexually active but she is not concerned about a sexually related infection. She has a history of UTIs and thinks this feels similar. PAST MEDICAL HISTORY Diagnosis Date - ADD (attention deficit disorder) - Anxiety - Depression - Depression - PTSD (post-traumatic stress disorder) - Thyroid disease PAST SURGICAL HISTORY Procedure Laterality Date - TONSILLECTOMY AND ADENOIDECTOMY HX 2009 FAMILY HISTORY Problem Relation Age of Onset - Cancer Maternal Grandmother - Heart Maternal Grandfather Social History Tobacco Use - Smoking status: Former Types: Cigarettes - Smokeless tobacco: Never - Tobacco comments: quit 3 years ago Vaping Use - Vaping Use: Never used Substance and Sexual Activity - Alcohol use: Yes Comment: socially - Drug use: No - Sexual activity: Yes Partners: Male ALLERGIES Allergen Reactions - Latex Unknown Review of Systems Gastrointestinal: Positive for abdominal pain. Genitourinary: Positive for dysuria, frequency and urgency. All other systems reviewed and are negative. Physical Exam Vitals [01/05/22 1805] BP Pulse Temp Temp src Resp SpO2 Weight Height 143/82 85 36.7 ?C (98 ?F) Temporal Art 18 100 % 84.8 kg (187 lb) 1.473 m (4' 10) Physical Exam Vitals and nursing note reviewed. Constitutional: Appearance: She is well-developed. HENT: Head: Normocephalic and atraumatic. Nose: Nose normal. Eyes: Extraocular Movements: Extraocular movements intact. Cardiovascular: Heart sounds: Normal heart sounds. Pulmonary: Effort: No respiratory distress. Breath sounds: Normal breath sounds. Abdominal: General: Bowel sounds are normal. Palpations: Abdomen is soft. Tenderness: There is abdominal tenderness in the suprapubic area. There is no guarding or rebound. Musculoskeletal: General: Normal range of motion. Cervical back: Neck supple. Skin: General: Skin is warm and dry. Neurological: Mental Status: She is alert and oriented to person, place, and time. Diagnostic Testing ED Labs Ordered and Reviewed - No data to display Procedures ED Course / Clinical Impression Clinical Impressions as of 01/05/222014 Acute cystitis with hematuria MDM / Disposition / Plan Patient's urinalysis consistent with urinary tract infection. She only has lower tract symptoms. She is started on Macrobid. She will return to the emerge department if symptoms worsen. Disposition The patient was discharged. Counseled patient regarding suspected diagnosis and lab results. As well as the need for follow-up. Discharged home with verbal and written instructions. They were instructed to return as needed for persistent or worsening symptoms or any new concerns. Condition at disposition is stable. SIGNATURE: MD Fransico Mclean MD 01/06/22 0349 Normal [facility] HCG Preg Ur Qlon 01-05-2022 HCG ( test) Ql (U) Negative Normal Negative [facility] Comment on above: Order Comment: Speci men Type: BLOOD SPECIMEN Ordering Facility: [facility] Address: [address] [place] [phone] Result Comment: This test is intended to aid in the early detection of . Very dilute urine samples, as indicated by a low specific gravity, may not contain employee representative levels of hCG. This test detects intact hCG only. This test does not reliably detect hCG degradation products, including free-beta subunit and beta-core fragment. Therefore, this test may show reduced reactivity in urine after 8 weeks gestation. A number of conditions other than , including trophoblastic disease and certain non-trophoblastic neoplasms cause elevated levels of hCG. As with any assay employing mouse antibodies, the possibility exists for interference by human anti-mouse antibodies (HAMA) in the specimen. The test provides a presumptive diagnosis for . Performed By: #### 3 016-3, 81066-3 #### [facility] CLIA [id number] [address] [place] [address] [place] Urinalysis complete pnl Uron 01-05-2022 Urinalysis complete panel (U) COLOR: Yellow CLARITY: Slightly Cloudy GLUCOSE, URINE: Negative BILIRUBIN, URINE: Negative KETONES, URINE: Negative SPECIFIC GRAVITY, UR: >=1.030 HEMOGLOBIN/BLOOD, UR: 2+ PH, URINE: 6.0 PROTEIN, URINE: Visible blood causes falsely elevated results for analyte Protein. Due to this limitation, Protein will not be reported for patients whose urine contains visible blood. UROBILINOGEN: 0.2 EU/dL NITRITES: Negative LEUKEST: Trace WBC, URINE: 11-25 /HPF RBC, URINE: 3-5 /HPF BACTERIA: Few SQUAMOUS EPITHELIAL CELLS: Few CULTURE, URINE: 10,000-<50,000 CFU/mL Three or more organisms, no one type predominant, suggesting contamination during collection. Recollect if clinically indicated. Abnormal [facility] Comment on above: Order Comment: [place]isha morris Type: URINE SPECIMEN Ordering Facility: [facility] Address: [address] [address] Performed By: #### 2 4356-8 #### [facility] CLIA [id number] [address] [place] [address] OF [facility] CLIA [id number] [address] [place] [address] [place] APAP SerPl-mCncon 09-24-2021 Acetaminophen [Mass/Vol] ug/mL Low 12-25 [facility] Comment on above: Order Comment: Speci men Type: BLOOD SPECIMEN Ordering Facility: [facility] Address: [address] [address] Result Comment: Toxi c > 150 ug/mL 4 hours post ingestion The Pretty Selby nomogram can be used to estimate the probability of hepatotoxicity via the relationship of plasma acetaminophen concentration to the post ingestion interval. (Yue. Pediatrics. 1975. 55:871 to 876 and Pretty et al. Arch Hoop Expander Med. 1981. 141:380 to 385). Reference ranges and high/low indicator flags are provided as general guidelines only. The treating physician must determine appropriate target levels/dosing based on the specific clinical situation. Performed By: #### 3 016-3, 00417-7 #### [facility] CLIA [id number] [address] CBC W Auto Differential pane l (Bld)on 09-24-2021 Basophils (Bld) [#/Vol] 0.06 10*3/uL Normal <0.11 [facility] Comment on above: Order Comment: Speci men Type: BLOOD SPECIMEN Ordering Facility: [facility] Address: [address] [place] [address] Performed By: #### 3 -, 42792-8 #### [facility] CLIA [id number] [address] Basophils/100 WBC (Bld) 0.5 % Normal [facility] Comment on above: Order Comment: Speci men Type: BLOOD SPECIMEN Ordering Facility: [facility] Address: [address] [place] [address] Performed By: #### 3 -3, 13698-1 #### [facility] CLIA [id number] [address] Differential cell count method Nom (Bld) Auto Normal [facility] Comment on above: Order Comment: Speci men Type: BLOOD SPECIMEN Ordering Facility: [facility] Address: [address] [place] [address] Performed By: #### 3 -3, 81541-8 #### [facility] CLIA [id number] [address] Eosinophils (Bld) [#/Vol] 10*3/uL Normal <0.46 [facility] Comment on above: Order Comment: Speci men Type: BLOOD SPECIMEN Ordering Facility: [facility] Address: [address] [address] Performed By: #### 3 016-3, 66073-1 #### [facility] CLIA [id number] [address] Eosinophils/100 WBC (Bld) 0.2 % Normal [facility] Comment on above: Order Comment: Speci men Type: BLOOD SPECIMEN Ordering Facility: [facility] Address: [address] [place] [address] Performed By: #### 3 -, 95952-0 #### [facility] CLIA [id number] [address] Erythrocyte distribution width (RBC) [Ratio] 14.1 % Normal 11.5-15.0 [facility] Comment on above: Order Comment: Speci men Type: BLOOD SPECIMEN Ordering Facility: [facility] Address: [address] [place] [address] Performed By: #### 3 , 27379-4 #### [facility] CLIA [id number] [address] Hematocrit (Bld) [Volume fraction] 38.7 % Normal 36.0-46.0 [facility] Comment on above: Order Comment: Speci men Type: BLOOD SPECIMEN Ordering Facility: [facility] Address: [address] [place] [address] Performed By: #### 3 , 91205-0 #### [facility] CLIA [id number] [address] [place] Hemoglobin (Bld) [Mass/Vol] 12.9 g/dL Normal 11.5-15.5 [facility] Comment on above: Order Comment: Speci men Type: BLOOD SPECIMEN Ordering Facility: [facility] Address: [address] [place] [address] Performed By: #### 3 016-3, 12865-8 #### [facility] CLIA [id number] [address] IMMATURE GRAN % 0.5 % Normal [facility] Comment on above: Order Comment: Speci men Type: BLOOD SPECIMEN Ordering Facility: [facility] Address: [address] [place] [address] Performed By: #### 3 -3, 72752-2 #### [facility] CLIA [id number] [address] IMMATURE GRAN ABS 0.06 k/uL Normal <0.10 [facility] Comment on above: Order Comment: Speci men Type: BLOOD SPECIMEN Ordering Facility: [facility] Address: [address] [place] [address] Performed By: #### 3 3, 47169-3 #### [facility] CLIA [id number] [address] Lymphocytes (Bld) [#/Vol] 3.47 10*3/uL Normal 1.00-4.00 [facility] Comment on above: Order Comment: Speci men Type: BLOOD SPECIMEN Ordering Facility: [facility] Address: [address] [place] [address] Performed By: #### 3 , #### [facility] CLIA [id number] [address] Lymphocytes/100 WBC (Bld) 30.8 % Normal [facility] Comment on above: Order Comment: Speci men Type: BLOOD SPECIMEN Ordering Facility: [facility] Address: [address] [place] [address] Performed By: #### 3 3, 99944-0 #### [facility] CLIA [id number] [address] MCH (RBC) [Entitic mass] 27.7 pg Normal 26.0-34.0 [facility] Comment on above: Order Comment: Speci men Type: BLOOD SPECIMEN Ordering Facility: [facility] Address: [address] [place] [address] Performed By: #### 3 , #### [facility] CLIA [id number] [address] STATES OF [facility] MCHC (RBC) [Mass/Vol] 33.3 g/dL Normal 30.5-36.0 [facility] Comment on above: Order Comment: Speci men Type: BLOOD SPECIMEN Ordering Facility: [facility] Address: [address] [place] [address] Performed By: #### 3 , #### [facility] CLIA [id number] [address] MCV (RBC) [Entitic vol] 83.0 fL Normal 80.0-100.0 [facility] Comment on above: Order Comment: Speci men Type: BLOOD SPECIMEN Ordering Facility: [facility] Address: [address] [place] [address] Performed By: #### 3 , #### [facility] CLIA [id number] [address] [place] Monocytes (Bld) [#/Vol] 0.71 10*3/uL Normal <0.87 [facility] Comment on above: Order Comment: Speci men Type: BLOOD SPECIMEN Ordering Facility: [facility] Address: [address] [place] [address] Performed By: #### 3 , #### [facility] CLIA [id number] [address] Monocytes/100 WBC (Bld) 6.3 % Normal [facility] Comment on above: Order Comment: Speci men Type: BLOOD SPECIMEN Ordering Facility: [facility] Address: [address] [place] [address] Performed By: #### 3 , 11181-6 #### [facility] CLIA [id number] [address] [place] Neutrophils (Bld) [#/Vol] 6.96 10*3/uL Normal 1.45-7.50 [facility] Comment on above: Order Comment: Speci men Type: BLOOD SPECIMEN Ordering Facility: [facility] Address: [facility] [address] Performed By: #### 3 016-3, 38686-6 #### [facility] CLIA [id number] [address] Neutrophils/100 WBC (Bld) 61.7 % Normal [facility] Comment on above: Order Comment: Speci men Type: BLOOD SPECIMEN Ordering Facility: [facility] Address: [address] [place] [address] Performed By: #### 3 016-3, #### [facility] CLIA [id number] [address] Nucleated RBC (Bld) [#/Vol] 10*3/uL Normal <0.01 [facility] Comment on above: Order Comment: Speci men Type: BLOOD SPECIMEN Ordering Facility: [facility] Address: [address] [place] [address] Performed By: #### 3 0163, 18346-5 #### [facility] CLIA [id number] [address] Nucleated RBC/100 WBC (Bld) [Ratio] 0.0 /100 WBC Normal [facility] Comment on above: Order Comment: Speci men Type: BLOOD SPECIMEN Ordering Facility: [facility] Address: [address] [address] Performed By: #### 3 016-3, 63850-9 #### [facility] CLIA [id number] [address] Platelet mean volume (Bld) [Entitic vol] 9.8 fL Normal 9.0-12.7 [facility] Comment on above: Order Comment: Speci men Type: BLOOD SPECIMEN Ordering Facility: [facility] Address: [address] [place] [address] Performed By: #### 3 016-3, 39307-6 #### [facility] CLIA [id number] [address] Platelets (Bld) [#/Vol] 379 10*3/uL Normal 150-400 [facility] Comment on above: Order Comment: Speci men Type: BLOOD SPECIMEN Ordering Facility: [facility] Address: [address] [place] [address] Performed By: #### 3 016-3, 12352-3 #### [facility] CLIA [id number] [address] RBC (Bld) [#/Vol] 4.66 10*6/uL Normal 3.90-5.20 [facility] Comment on above: Order Comment: Speci men Type: BLOOD SPECIMEN Ordering Facility: [facility] Address: [address] [place] [address] Performed By: #### 3 016-3, 87161-1 #### [facility] CLIA [id number] [address] WBC (Bld) [#/Vol] 11.28 10*3/uL High 3.70-11.00 [facility] Comment on above: Order Comment: Speci men Type: BLOOD SPECIMEN Ordering Facility: [facility] Address: [address] [place] [address] Performed By: #### 3 016-3, 53036-5 #### [facility] CLIA [id number] [address] Comprehensive metabolic 2000 panelon 09-24-2021 Albumin [Mass/Vol] 4.4 g/dL Normal 3.9-4.9 [facility] Comment on above: Order Comment: Speci men Type: BLOOD SPECIMEN Ordering Facility: [facility] Address: [address] [place] [address] Performed By: #### 3 016-3, 71433-5 #### [facility] CLIA [id number] [address] ALP [Catalytic activity/Vol] 85 U/L Normal 34-123 [facility] Comment on above: Order Comment: Speci men Type: BLOOD SPECIMEN Ordering Facility: [facility] Address: [address] [address] Performed By: #### 3 016-3, 91496-3 #### [facility] CLIA [id number] [address] ALT With P-5'-P [Catalytic activity/Vol] 19 U/L Normal 7-38 [facility] Comment on above: Order Comment: Speci men Type: BLOOD SPECIMEN Ordering Facility: [facility] Address: [address] [place] [address] Performed By: #### 3 016-3, 17811-3 #### [facility] CLIA [id number] [address] Anion gap [Moles/Vol] 10 mmol/L Normal 9-18 [facility] Comment on above: Order Comment: Speci men Type: BLOOD SPECIMEN Ordering Facility: [facility] Address: [address] [place] [address] Performed By: #### 3 016-3, 32209-5 #### [facility] CLIA [id number] [address] AST With P-5'-P [Catalytic activity/Vol] 17 U/L Normal 13-35 [facility] Comment on above: Order Comment: Speci men Type: BLOOD SPECIMEN Ordering Facility: [facility] Address: [address] [address] Performed By: #### 3 016-3, 73547-6 #### [facility] CLIA [id number] [address] OF [facility] Bilirubin [Mass/Vol] 0.2 mg/dL Normal 0.2-1.3 [facility] Comment on above: Order Comment: Speci men Type: BLOOD SPECIMEN Ordering Facility: [facility] Address: [address] [place] [address] Performed By: #### 3 016-3, 38540-5 #### [facility] CLIA [id number] [address] [place] Calcium [Mass/Vol] 9.4 mg/dL Normal 8.5-10.2 [facility] Comment on above: Order Comment: Speci men Type: BLOOD SPECIMEN Ordering Facility: [facility] Address: [address] [place] [address] Performed By: #### 3 016-3, 96659-9 #### [facility] CLIA [id number] [address] [place] Chloride [Moles/Vol] 99 mmol/L Normal 97-105 [facility] Comment on above: Order Comment: Speci men Type: BLOOD SPECIMEN Ordering Facility: [facility] Address: [address] [place] [address] Performed By: #### 3 016-3, 06789-9 #### [facility] CLIA [id number] [address] CO2 [Moles/Vol] 27 mmol/L Normal 22-30 [facility] Comment on above: Order Comment: Speci men Type: BLOOD SPECIMEN Ordering Facility: [facility] Address: [address] [place] [address] Performed By: #### 3 0163, 27956-6 #### [facility] CLIA [id number] [address] [place] Creatinine [Mass/Vol] 0.74 mg/dL Normal 0.58-0.96 [facility] Comment on above: Order Comment: Speci men Type: BLOOD SPECIMEN Ordering Facility: [facility] Address: [address] [place] [address] Performed By: #### 3 016-3, 89108-0 #### [facility] CLIA [id number] [address] [place] ESTIMATED GLOMERULAR FILTRATION RATE 117 mL/min/1.73m??? Normal >=60 [facility] Comment on above: Order Comment: Speci men Type: BLOOD SPECIMEN Ordering Facility: [facility] Address: [address] [id number] Result Comment: Diane mated Glomerular Filtration Rate (eGFR) is calculated using the 2020 CKD-EPI creatinine equation. This equation utilizes serum creatinine, sex, and age as parameters. The creatinine assay has traceable calibration to isotope dilution-mass spectrometry. Refer to KDIGO guidelines for clinical interpretation. In patients with unstable renal function, e.g. those with acute kidney injury, the eGFR may not accurately reflect actual GFR. Performed By: #### 3 016-3, 92870-4 #### [facility] CLIA [id number] 1 [place] [address] [place] Glucose [Mass/Vol] 83 mg/dL Normal 74-99 [facility] Comment on above: Order Comment: Guillermo morris Type: BLOOD SPECIMEN Ordering Facility: [facility] Address: [address] [place] [address] Result Comment: The [place] Diabetes Association (ADA) provides guidance for cutoff values for fasting glucose and random glucose. The ADA defines fasting as no caloric intake for at least 8 hours. Fasting plasma glucose results between 100 to 125 mg/dL indicate increased risk for diabetes (prediabetes). Fasting plasma glucose results greater than or equal to 126 mg/dL meet the criteria for diagnosis of diabetes. In the absence of unequivocal hyperglycemia, results should be confirmed by repeat testing. In a patient with classic symptoms of hyperglycemia or hyperglycemic crisis, random plasma glucose results greater than or equal to 200 mg/dL meet the criteria for diagnosis of diabetes. Reference: Standards of Medical Care in Diabetes 2016, [place] Diabetes Association. Diabetes Care. 2016.39(Suppl 1). Performed By: #### 3 016-3, 59665-5 #### [facility] CLIA [id number] 1 [place] [address] [place] Potassium [Moles/Vol] 3.7 mmol/L Normal 3.7-5.1 [facility] Comment on above: Order Comment: Guillermo morris Type: BLOOD SPECIMEN Ordering Facility: [facility] Address: [address] [phone] Performed By: #### 3 016-3, 94308-3 #### [facility] CLIA [id number] [address] [place] [facility] Protein [Mass/Vol] 7.3 g/dL Normal 6.3-8.0 [facility] Comment on above: Order Comment: Speci men Type: BLOOD SPECIMEN Ordering Facility: [facility] Address: [address] [place] [address] Performed By: #### 3 016-3, 40566-6 #### [facility] CLIA [id number] [address] OF [facility] Sodium [Moles/Vol] 136 mmol/L Normal 136-144 [facility] Comment on above: Order Comment: Speci men Type: BLOOD SPECIMEN Ordering Facility: [facility] Address: [address] [place] [address] Performed By: #### 3 016-3, 77319-7 #### [facility] CLIA [id number] [address] Urea nitrogen [Mass/Vol] 9 mg/dL Normal 7-21 [facility] Comment on above: Order Comment: Speci men Type: BLOOD SPECIMEN Ordering Facility: [facility] Address: [address] [place] [address] Performed By: #### 3 016-3, 37098-5 #### [facility] CLIA [id number] [address] ECG COMPLETEon 09-24-2021 ECG COMPLETE Ventricular Rate : 6 2 BPM Atrial Rate : 62 BPM P-R Interval : 166 ms QRS Duration : 84 ms Q-T Interval : 428 ms QTC Calculation(Bazett) : 434 ms Calculated P [place] : 16 degrees Calculated R [place] : 16 degrees Calculated T [place] : -5 degrees NORMAL SINUS RHYTHM CANNOT RULE OUT ANTERIOR INFARCT , AGE UNDETERMINED ABNORMAL ECG NO PREVIOUS ECGS AVAILABLE Confirmed by MD OKEEFE CAROLE ([id number]) on 09/28/2021 8:08:48 AM NAME : BRYANNA MEEHAN PID : [id number] : 2000 Gender : Female Race : ORD : [id number] Procedure Date : Sep 24 2021 02:23:09 Edit Date : Sep 28 2021 08:08:53 Diagnosis: NORMAL SINUS RHYTHM CANNOT RULE OUT ANTERIOR INFARCT , AGE UNDETERMINED ABNORMAL ECG NO PREVIOUS ECGS AVAILABLE Confirmed by MD OKEEFE CAROLE ([id number]) on 09/28/2021 8:08:48 AM Test Reason : Arrhythmia Location : 4 : [facility] EM Overread By : MD OKEEFE CAROLE Edited By : MD OKEEFE CAROLE Referred By : , Acquired by : KEVIN MERRITT [facility] ED NOTEon 09-24-2021 ED NOTE HNO ID: [id number] Author: Diego Brannon Service: Emergency Medicine Author Type: Assistant Scientist Type: ED Notes Filed: 09/24/2021 7:18 AM Note Text: [facility] is present and getting ready to take pt back to [facility] ED NOTE HNO ID: [id number] Author: Master Vinson RN Service: Emergency Medicine Author Type: Registered Nurse Type: ED Notes Filed: 09/24/2021 4:47 AM Note Text: Report called to [facility] RN and they have accepted the Pt back to facility. Just ask to make sure that the TSH was sent that they had also requested. [facility] ED NOTE HNO ID: [id number] Author: Haley Andersen DO Service: Emergency Medicine Author Type: Physician Type: ED Notes Filed: 09/24/2021 3:32 AM Note Text: Attending Note I evaluated the patient and personally participated in the norman components. I personally saw the patient and performed a substantive portion of the visit including all aspects of the medical decision making. I agree with the resident's findings and plan as documented and have discussed the case and management of the patient's care with the resident. 20-year-old female with history of anxiety and depression presenting with suicidal thoughts. She was staying at [facility] and was staying with other females that she was in intermediate with. She states that she began to feel unsafe and more depressed with thoughts of wanting to harm herself. No specific plan. She denies any physical complaints. She was sent here for medical clearance. She denies any alcohol use or illicit drug use. On exam, vital signs reviewed. Patient is afebrile and nontoxic appearing. Alert and oriented ?3 answering questions appropriately. Skin is warm and dry with no rash or diaphoresis. No jaundice or scleral icterus. Neck supple no JVD. Trachea midline. Head atraumatic and normocephalic. PERRLA, EOMI. Heart regular rate and rhythm with no murmurs rubs or gallops. Lungs clear bilaterally with no wheezing rales or rhonchi. Abdomen soft nontender no palpable masses or peritoneal signs. Bowel sounds present. Distal pulses intact and symmetric in all 4 extremities. No lower extremity edema. No unilateral leg swelling. Cranial nerves II through XII intact. Medical decision makin-year-old female presenting from [facility] with suicidal thoughts. No specific plan. She states that she felt unsafe as there were other females there that she was in intermediate with in the past. She has no physical complaints. Vital signs are stable. Plan for medical clearance lab work and then psychiatric consultation. Normal [facility] ED PROV NOTEon 09-24-2021 ED PROV NOTE HNO ID: [id number] Author: Idris Gomez MD Service: Emergency Medicine Author Type: Resident Type: ED Provider Notes Filed: 09/24/2021 5:15 AM Note Text: ----- Attestation signed by Haley Andersen DO at 09/25/2021 6:36 AM Signature: Haley Andersen DO Date: 09/25/2021 Time: 6:36 AM ----- ED Provider Note Patient Name: Bryanna Meehan : 2000 SERVICE DATE: 09/24/21 History Patient presents with: Medical Clearance: Pt is Medical clearance from [facility] for SI thought. Pt reports no specific plan. Pt negative for HI thoughts. Pt reportedly stays at [facility] and does not feel safe there. Psychiatric Problem Suicidal Ideation 20-year-old female history of depression, SI presenting to the emergency department from [facility] for SI. Patient states worsening depression and SI recently. No plan. Has attempt in the past by cutting. No recent cutting. No recent wounds. Recently got discharged from [facility] and states people that were bullying her in [facility] or at the place she is currently living. States there is pressure over the edge. Patient has worsening depression exam and her SI will become worse with plan. PAST MEDICAL HISTORY Diagnosis Date - ADD (attention deficit disorder) - Anxiety - Depression - Depression - PTSD (post-traumatic stress disorder) PAST SURGICAL HISTORY Procedure Laterality Date - TONSILLECTOMY AND ADENOIDECTOMY HX 2008 FAMILY HISTORY Problem Relation Age of Onset - Cancer Maternal Grandmother - Heart Maternal Grandfather Social History Tobacco Use - Smoking status: Former Smoker Types: Cigarettes - Smokeless tobacco: Never Used - Tobacco comment: quit 3 years ago Vaping Use - Vaping Use: Never used Substance and Sexual Activity - Alcohol use: No - Drug use: No - Sexual activity: Yes Partners: Male ALLERGIES Allergen Reactions - Latex Unknown Review of Systems Constitutional: Negative for chills, fatigue, fever and unexpected weight change. HENT: Negative for hearing loss, rhinorrhea and sore throat. Eyes: Negative for photophobia and pain. Respiratory: Negative for cough, chest tightness and shortness of breath. Cardiovascular: Negative for chest pain, palpitations and leg swelling. Gastrointestinal: Negative for abdominal pain, blood in stool, diarrhea, nausea and vomiting. Endocrine: Negative for polydipsia and polyuria. Genitourinary: Negative for dysuria, hematuria and urgency. Musculoskeletal: Negative for joint swelling and myalgias. Skin: Negative for rash and wound. Neurological: Negative for dizziness, syncope, weakness and light-headedness. Psychiatric/Behavioral: Positive for suicidal ideas. Negative for agitation. All other systems reviewed and are negative. Physical Exam Vitals BP Pulse Temp Temp src Resp SpO2 Weight Height -- -- -- -- -- -- -- -- Physical Exam Vitals and nursing note reviewed. Constitutional: General: She is not in acute distress. Appearance: Normal appearance. HENT: Head: Normocephalic and atraumatic. Right Ear: External ear normal. Left Ear: External ear normal. Nose: Nose normal. No congestion. Mouth/Throat: Mouth: Mucous membranes are moist. Pharynx: Oropharynx is clear. No oropharyngeal exudate. Eyes: General: No scleral icterus. Extraocular Movements: Extraocular movements intact. Conjunctiva/sclera: Conjunctivae normal. Pupils: Pupils are equal, round, and reactive to light. Cardiovascular: Rate and Rhythm: Normal rate and regular rhythm. Pulses: Normal pulses. Heart sounds: Normal heart sounds. No murmur heard. No friction rub. No gallop. Pulmonary: Effort: Pulmonary effort is normal. No respiratory distress. Breath sounds: Normal breath sounds. No stridor. No wheezing, rhonchi or rales. Abdominal: General: Abdomen is flat. Bowel sounds are normal. There is no distension. Palpations: Abdomen is soft. Tenderness: There is no abdominal tenderness. There is no right CVA tenderness, left CVA tenderness, guarding or rebound. Musculoskeletal: General: Normal range of motion. Cervical back: Normal range of motion. No muscular tenderness. Right lower leg: No edema. Left lower leg: No edema. Lymphadenopathy: Cervical: No cervical adenopathy. Skin: General: Skin is warm and dry. Capillary Refill: Capillary refill takes less than 2 seconds. Findings: No lesion or rash. Neurological: General: No focal deficit present. Mental Status: She is alert and oriented to person, place, and time. Mental status is at baseline. Cranial Nerves: No cranial nerve deficit. Motor: No weakness. Coordination: Coordination normal. Gait: Gait normal. Deep Tendon Reflexes: Reflexes normal. Psychiatric: Comments: Flat affect Diagnostic Testing ED Labs Orde (more content not included)... Normal [facility] Ethanol [Mass/Vol] mg/dL Normal <11 [facility] Comment on above: Order Comment: Speci men Type: BLOOD SPECIMEN Ordering Facility: [facility] Address: [address] [place] [address] Performed By: #### 3 016-3, 76078-9 #### [facility] CLIA [id number] [address] [place] SARS-CoV-2 RNA Resp Ql OSCAR+p robeon 09-24-2021 SARS-CoV-2 (COVID-19) RNA OSCAR+probe Ql (Resp) COVID 19 RESULT: SARS-CoV-2 (Agent of COVID-19) Not Detected by RT-PCR or equivalent method. This test has been authorized by FDA under an Emergency Use Authorization (EUA). Normal [facility] Comment on above: Performed By: #### 9 4500-6 ####[facility] [id number] [place] [address] [place] Salicylates SerPl-mCncon Salicylates [Mass/Vol] mg/dL Low 3.0-30.0 [facility] Comment on above: Order Comment: Speci men Type: BLOOD SPECIMEN Ordering Facility: [facility] Address: [address] [place] [address] Result Comment: The therapeutic range varies and has been reported to be 3.0 to 10.0 mg/dL for anti pyretic/analgesic conditions and 15.0 to 30.0 mg/dL for anti inflammatory/rheumatic fever conditions. Ranges published by the instrument online merchandising coordinator. Reference ranges and high/low indicator flags are provided as general guidelines only. The treating physician must determine appropriate target levels/dosing based on the specific clinical situation. Performed By: #### 3 016-3, 46757-9 #### [facility] CLIA [id number] [address] [place] TOX SCREEN ROUT URon 022 Amphetamines Confirm (U) [Mass/Vol] Negative Normal Negative [facility] Comment on above: Order Comment: Speci men Type: BLOOD SPECIMEN Ordering Facility: [facility] Address: [address] [address] Result Comment: Cuto ff threshold at 1000 ng/mL. Performed By: #### 3 016-3, 33344-2 #### [facility] CLIA [id number] [address] [place] BARBITURATES, URINE Negative Normal Negative [facility] Comment on above: Order Comment: Speci men Type: BLOOD SPECIMEN Ordering Facility: [facility] Address: [facility] [address] Result Comment: Cuto ff threshold at 200 ng/mL. Performed By: #### 3 016-3, 68500-2 #### [facility] CLIA [id number] [address] BENZODIAZEPINES, UR Negative Normal Negative [facility] Comment on above: Order Comment: Speci men Type: BLOOD SPECIMEN Ordering Facility: [facility] Address: [address] [place] [address] Result Comment: Cuto ff threshold at 200 ng/mL. Performed By: #### 3 -3, 21184-4 #### [facility] CLIA [id number] [address] CANNABINOIDS,URINE Negative Normal Negative [facility] Comment on above: Order Comment: Speci men Type: BLOOD SPECIMEN Ordering Facility: [facility] Address: [address] [place] [address] Result Comment: Cuto ff threshold at 50 ng/mL. Performed By: #### 3 -3, 36980-2 #### [facility] CLIA [id number] [address] Cocaine Ql (U) Negative Normal Negative [facility] Comment on above: Order Comment: Speci men Type: BLOOD SPECIMEN Ordering Facility: [facility] Address: [address] [place] [address] Result Comment: Cuto ff threshold at 300 ng/mL. Performed By: #### 3 016-3, 29884-7 #### [facility] CLIA [id number] [address] Ethanol (U) [Mass/Vol] <11 Normal <11 [facility] Comment on above: Order Comment: Speci men Type: BLOOD SPECIMEN Ordering Facility: [facility] Address: [address] [place] [address] Performed By: #### 3 016-3, 87299-3 #### [facility] CLIA [id number] [address] Opiates Screen Ql (U) Negative Normal Negative [facility] Comment on above: Order Comment: Speci men Type: BLOOD SPECIMEN Ordering Facility: [facility] Address: [address] [place] [address] Result Comment: Cuto ff threshold at 300 ng/mL. Performed By: #### 3 016-3, 04637-1 #### [facility] CLIA [id number] [address] oxyCODONE cutoff Screen (U) [Mass/Vol] Negative Normal Negative [facility] Comment on above: Order Comment: Speci men Type: BLOOD SPECIMEN Ordering Facility: [facility] Address: [address] [place] [address] Result Comment: Cuto ff threshold at 100 ng/mL. Performed By: #### 3 016-3, 93998-9 #### [facility] CLIA [id number] [address] Phencyclidine Ql (U) Negative Normal Negative [facility] Comment on above: Order Comment: Speci men Type: BLOOD SPECIMEN Ordering Facility: [facility] Address: [address] [place] [address] Result Comment: Cuto ff threshold at 25 ng/mL. Performed By: #### 3 016-3, 14549-0 #### [facility] CLIA [id number] [address] [place] TSH SerPl-aCncon 09-24-2021 TSH Qn 5.120 m[IU]/L High 0.270-4.200 [facility] Comment on above: Order Comment: Speci men Type: BLOOD SPECIMEN Ordering Facility: [facility] Address: [address] [place] [address] Result Comment: If t he patient is , TSH reference range varies by gestational period: First Trimester (weeks 9-12): 0.180-2.990 mIU/L Second Trimester: 0.110-3.980 mIU/L Third Trimester: 0.480-4.710 mIU/L Abhay Skinner et al. A Practical Approach for the Verifications and Determination of Site- and Trimester-Specific Reference Intervals for Thyroid Function tests in . Thyroid, 2019:29:3:412-420. Aaron Castro, et al. 2017 Guidelines of the [place] Thy[employer] for the Diagnosis and Management of Thyroid Disease during and the . Thyroid, 2017:27:3:315-389. Performed By: #### 3 016-3, 75233-3 #### [facility] CLIA [id number] [address] Urinalysis complete panel (U )on 09-24-2021 Bilirubin Ql (U) Negative Normal Negative [facility] Comment on above: Order Comment: Speci men Type: BLOOD SPECIMEN Ordering Facility: [facility] Address: [address] [place] [address] Performed By: #### 3 016-3, 66324-8 #### [facility] CLIA [id number] [address] Clarity (Unsp spec) Clear Normal Clear [facility] Comment on above: Order Comment: Speci men Type: BLOOD SPECIMEN Ordering Facility: [facility] Address: [address] [place] [address] Performed By: #### 3 016-3, 11678-9 #### [facility] CLIA [id number] [address] Color (U) Colorless Normal yellow [facility] Comment on above: Order Comment: Speci men Type: BLOOD SPECIMEN Ordering Facility: [facility] Address: [address] [place] [address] Performed By: #### 3 016-3, 00348-6 #### [facility] CLIA [id number] [address] Glucose Test strip (U) [Mass/Vol] Negative Normal Negative [facility] Comment on above: Order Comment: Speci men Type: BLOOD SPECIMEN Ordering Facility: [facility] Address: [address] [address] Performed By: #### 3 016-3, 44984-3 #### [facility] CLIA [id number] [address] Hemoglobin Ql (U) Negative Normal Negative [facility] Comment on above: Order Comment: Speci men Type: BLOOD SPECIMEN Ordering Facility: [facility] Address: [address] [address] Performed By: #### 3 016-3, 72509-6 #### [facility] CLIA [id number] [address] Ketones Ql (U) Negative Normal Negative [facility] Comment on above: Order Comment: Speci men Type: BLOOD SPECIMEN Ordering Facility: [facility] Address: [address] [place] [address] Performed By: #### 3 , 85418-3 #### [facility] CLIA [id number] [address] Leukocyte esterase Test strip Ql (U) 75 Jose/mL Abnormal Negative [facility] Comment on above: Order Comment: Speci men Type: BLOOD SPECIMEN Ordering Facility: [facility] Address: [address] [place] [address] Performed By: #### 3 0163, 02848-3 #### [facility] CLIA [id number] [address] Nitrite Ql (U) Negative Normal Negative [facility] Comment on above: Order Comment: Speci men Type: BLOOD SPECIMEN Ordering Facility: [facility] Address: [facility] [place] [address] Performed By: #### 3 016-3, 68543-6 #### [facility] CLIA [id number] [address] OF [facility] pH (U) 6.5 [pH] Normal 5.0-8.0 [facility] Comment on above: Order Comment: Speci men Type: BLOOD SPECIMEN Ordering Facility: [facility] Address: [address] [place] [address] Performed By: #### 3 -3, 26139-2 #### [facility] CLIA [id number] [address] Protein (U) [Mass/Vol] Negative Normal Negative [facility] Comment on above: Order Comment: Speci men Type: BLOOD SPECIMEN Ordering Facility: [facility] Address: [address] [place] [address] Performed By: #### 3 -, 10153-0 #### [facility] CLIA [id number] [address] RBC LM.HPF (Urine sed) [#/Area] 0-3 /HPF Normal 0-3 /HPF [facility] Comment on above: Order Comment: Speci men Type: BLOOD SPECIMEN Ordering Facility: [facility] Address: [address] [place] [address] Performed By: #### 3 , 56410-9 #### [facility] CLIA [id number] [address] Specific gravity (U) [Rel density] 1.006 Normal 1.005-1.030 [facility] Comment on above: Order Comment: Speci men Type: BLOOD SPECIMEN Ordering Facility: [facility] Address: [address] [place] [address] Performed By: #### 3 3, 58968-1 #### [facility] CLIA [id number] [address] Urobilinogen Ql (U) Normal Normal Negative [facility] Comment on above: Order Comment: Speci men Type: BLOOD SPECIMEN Ordering Facility: [facility] Address: [address] [place] [address] Performed By: #### 3 0163, 18758-6 #### [facility] CLIA [id number] [address] WBC LM.HPF (Urine sed) [#/Area] 11-25 /HPF Abnormal 0-5 /HPF [facility] Comment on above: Order Comment: Speci men Type: BLOOD SPECIMEN Ordering Facility: [facility] Address: [address] [place] [address] Performed By: #### 3 016-3, 23269-5 #### [facility] CLIA [id number] [address] [place] HIV Ag - Abon 09-02-2021 HIV 1,2 Combo Antigen/Antibody Non-Reactive Normal Non-Reactive [facility] Comment on above: Result Comment: The specimen was non-reactive for HIV-1 and HIV-2 antibodies and p24 antigen using an FDA-cleared 4th generation HIV test. Based on this non-reactive screen result, further reflexive testing was not indicated and was, therefore, not performed. Performed By: #### B MP3, HEMDF #### [facility] [address] [place] [address] Chlamydia and GC PCR Panelon 09-01-2021 Chlamydia and GC PCR Panel Chlamydia trachomatis PCR --> Status: F DETECTED Chlamydia trachomatis Nucleic Acid DETECTED by DNA Amplification using the [facility]. A positive test should be considered presumptive evidence of infection. Although the specificity of this assay is high, the Positive Predictive Value may be suboptimal in low prevalence populations (i.e. patients at low risk for infection.) Positive results should be interpreted in conjunction with patient's risk profile and clinical symptoms. Additional testing on a new specimen may be warranted for some cases. This test should not be used as a test of cure since results may remain positive long after clinical cure. Culture is the only recommended test in medical-legal cases such as suspected child abuse or molestation. Chlamydia trachomatis Nucleic Acid DETECTED by DNA Amplification using the [facility]. A positive test should be considered presumptive evidence of infection. Although the specificity of this assay is high, the Positive Predictive Value may be suboptimal in low prevalence populations (i.e. patients at low risk for infection.) Positive results should be interpreted in conjunction with patient's risk profile and clinical symptoms. Additional testing on a new specimen may be warranted for some cases. This test should not be used as a test of cure since results may remain positive long after clinical cure. Culture is the only recommended test in medical-legal cases such as suspected child abuse or molestation. Neisseria gonorrhoeae PCR --> Status: F NOT Detected Neisseria gonorrhoeae Nucleic Acid NOT Detected by DNA Amplification using the [facility]. Culture is the only recommended test in medical-legal cases such as suspected child abuse or molestation. Neisseria gonorrhoeae Nucleic Acid NOT Detected by DNA Amplification using the [facility]. Culture is the only recommended test in medical-legal cases such as suspected child abuse or molestation. Normal [facility] Comment on above: Performed By: #### C TNGP #### [address] [address] [place] [place], [place] Free T4on 09-01-2021 Free T4 [Mass/Vol] 1.11 ng/dL Normal 0.78-2.19 [facility] Comment on above: Performed By: #### B MP3, HEMDF #### [address] [address] [address] [place], [place] Hemoglobin A1Con 09-01-2021 Glucose [Mass/Vol] 114 mg/dL Normal [facility] Comment on above: Performed By: #### B MP3, HEMDF #### [address] [address] [address], [place] HbA1c (Bld) [Mass fraction] 5.6 % Normal [facility] Comment on above: Result Comment: Norm al less than 5.7% Prediabetes 5.7% to 6.4% Diabetes 6.5% or higher --HgbA1C levels may not be accurate in patients who have renal disease, received recent blood transfusions, are anemic, or who have dyshemoglobinemia. Performed By: #### B MP3, HEMDF #### [address] [address] [place], [place] Hemogram w/ Autodiffon 09-01 Abs Baso Cnt 0.0 10*3/uL Normal 0.0-0.2 [facility] Comment on above: Performed By: #### B MP3, HEMDF #### [address] [address] [place] [place], [place] Abs Neutrophile Cnt 6.5 10*3/uL Normal 1.8-7.0 [facility] Comment on above: Performed By: #### B MP3, HEMDF #### [address] [address] [place] Basophils/100 WBC (Bld) 0.4 % Normal 0.0-2.0 [facility] Comment on above: Performed By: #### B MP3, HEMDF #### [address] [address] [place] Eosinophils (Bld) [#/Vol] 0.1 10*3/uL Normal 0.0-0.5 [facility] Comment on above: Performed By: #### B MP3, HEMDF #### [address] [address] [place] Eosinophils/100 WBC (Bld) 0.8 % Low 1.0-6.0 [facility] Comment on above: Performed By: #### B MP3, HEMDF #### [address] [address] [place] Erythrocyte distribution width (RBC) [Ratio] 14.9 % High 11.5-14.5 [facility] Comment on above: Performed By: #### Rajan MP3, HEMDF #### [address] Granulocytes/100 WBC (Bld) 64.7 % Normal 40.0-80.0 [facility] Comment on above: Performed By: #### B MP3, HEMDF #### [address] [address] [place], [place] Hematocrit (Bld) [Volume fraction] 40.7 % Normal 35.0-47.0 [facility] Comment on above: Performed By: #### B MP3, HEMDF #### [address] [address] [place] Hemoglobin (Bld) [Mass/Vol] 13.1 g/dL Normal 11.7-16.0 [facility] Comment on above: Performed By: #### B MP3, HEMDF #### [address] [place] [address] Lymphocytes (Bld) [#/Vol] 2.8 10*3/uL Normal 1.0-4.3 [facility] Comment on above: Performed By: #### B MP3, HEMDF #### [facility] [address] [place] [address] Lymphocytes/100 WBC (Bld) 28.2 % Normal 20.0-40.0 [facility] Comment on above: Performed By: #### B MP3, HEMDF #### [facility] [address] [place] [address] MCH (RBC) [Entitic mass] 27.0 pg Normal 26.0-34.0 [facility] Comment on above: Performed By: #### B MP3, HEMDF #### [facility] [address] [place] [address] MCHC 32.2 % Normal 32.0-36.0 [facility] Comment on above: Performed By: #### B MP3, HEMDF #### [facility] [address] [place], [place] MCV (RBC) [Entitic vol] 83.9 fL Normal 79.0-98.0 [facility] Comment on above: Performed By: #### B MP3, HEMDF #### [facility] [address] [place], [place] Monocytes (Bld) [#/Vol] 0.6 10*3/uL Normal 0.0-0.8 [facility] Comment on above: Performed By: #### B MP3, HEMDF #### [facility] [address] [place] [address] Monocytes/100 WBC (Bld) 5.9 % Normal 2.0-10.0 [facility] Comment on above: Performed By: #### B MP3, HEMDF #### [facility] [address] [place] [address] Platelet mean volume (Bld) [Entitic vol] 7.8 fL Normal 7.4-12.4 [facility] Comment on above: Result Comment: MPV is a calculated measurement using platelet volume ratio. Performed By: #### B MP3, HEMDF #### [facility] [address] [place], [place] Platelets (Bld) [#/Vol] 338 10*3/uL Normal 140-440 [facility] Comment on above: Performed By: #### B MP3, HEMDF #### [facility] [address] [place], [place] RBC (Bld) [#/Vol] 4.86 10*6/uL Normal 3.80-5.20 [facility] Comment on above: Performed By: #### B MP3, HEMDF #### [facility] [address], [place] WBC (Bld) [#/Vol] 10.1 10*3/uL Normal 3.6-10.7 [facility] Comment on above: Performed By: #### B MP3, HEMDF #### [facility] [address], [place] Hep C Antibodyon 09-01-2021 Hep C Antibody Not detected Normal Not Detected [facility] Comment on above: Result Comment: Patients with DETECTED Hepatitis C Ab results should have a new specimen submitted for supplemental testing with a Hepatitis C Quantitative RNA assay (viral load), if clinically indicated. Performed By: #### B MP3, HEMDF #### [facility] [address], [place] Lipid Panelon 09-01-2021 Chol/HDL 6 Normal [facility] Comment on above: Result Comment: Ref Range: < 3 Low Risk for CHD 3-6 Mod Risk for CHD > 6 High Risk for CHD Performed By: #### B MP3, HEMDF #### [facility] [address] [place], [place] Cholesterol in HDL [Mass/Vol] 37 mg/dL Low 40-60 [facility] Comment on above: Performed By: #### B MP3, HEMDF #### [facility] [address], [place] Low Density Lipoprotein 154 mg/dL Abnormal <100 [facility] Comment on above: Performed By: #### Rajan FREEMAN HEMDF #### [address] [address] [address] [place], [place] Cholesterol [Mass/Vol] 233 mg/dL Abnormal < 200 [facility] Comment on above: Performed By: #### B LYDIA, HEMDF #### [address] [address] [address] [place], [place] Triglyceride [Mass/Vol] 212 mg/dL Abnormal <150 [facility] Comment on above: Performed By: #### B LYDIA HEMDF #### [address] [address] [address] [place], [place] Prolactinon 09-01-2021 Prolactin 14.4 ng/mL Normal 2.8-27.0 [facility] Comment on above: Result Comment: Valu es below 35 ng/mL may be of doubtful significance. Recommend send-out testing to rule out macroprolactin to confirm the result. Performed By: #### Rajan FREEMAN HEMDF #### [address] [address] [address] [place], [place] Thyroid Stim. Hormoneon 07- Thyroid Stim. Hormone 1.822 u[IU]/mL Normal 0.465-4.68 0 [facility] Comment on above: Performed By: #### Rajan FREEMAN HEMDF #### [address] [address] [address] [place], [place] Complete Urinalysison 2021 Bacteria LM.HPF (Urine sed) [#/Area] Negative Normal Negative [facility] Comment on above: Result Comment: . Performed By: #### C UA2 #### [address] [address] [place], [place] Bilirubin,Urine Negative Normal Negative [facility] Comment on above: Result Comment: . Performed By: #### C UA2 #### [address] [address] [address] [place], [place] Cast, Hyaline Negative Normal Negative [facility] Comment on above: Result Comment: . Performed By: #### C UA2 #### [address] [address] [place], [place] Glucose Ql (U) Normal Normal Normal (<70) [facility] Comment on above: Result Comment: . Performed By: #### C UA2 #### [address] [address] [address] [place], [place] Ketone,Urine Negative Normal Negative [facility] Comment on above: Result Comment: . Performed By: #### C UA2 #### [address] [address] [address] [place], [place] Leukocytes,Urine 25 Jose/uL Abnormal Negative [facility] Comment on above: Result Comment: . Performed By: #### C UA2 #### [address] [address] [address] [place], [place] Nitrites,Urine Negative Normal Negative [facility] Comment on above: Result Comment: . Performed By: #### C UA2 #### [address] [address] [place], [place] pH,Urine 6.5 Normal 5.0-8.0 [facility] Comment on above: Result Comment: . Performed By: #### C UA2 #### [address] [address] [address] [place], [place] RBC, Urine 3 - 5 Abnormal 0-2 [facility] Comment on above: Result Comment: . Performed By: #### C UA2 #### [address] [address] [place], [place] Specific [place],Urine 1.017 Normal 1.005 - 1.030 [facility] Comment on above: Result Comment: . Performed By: #### C UA2 #### [address] [address] [place] [place], [place] Squamous Epithelial 0 - 2 Normal 3-5 [facility] Comment on above: Result Comment: . Performed By: #### C UA2 #### [address] [address] [place], [place] WBC, Urine 0 - 2 Normal 0-5 [facility] Comment on above: Result Comment: . Performed By: #### C UA2 #### [address] [address] [place], [place] Appearance (U) Clear Normal Clear [facility] Comment on above: . Result Comment: . Performed By: #### C UA2 #### [address], [place] Color (U) Light-Yellow Normal Lt. Yellow [facility] Comment on above: . Result Comment: . Performed By: #### C UA2 #### [address] [address] [place], [place] Mucous Threads Few Normal Negative [facility] Comment on above: . Result Comment: . Performed By: #### C UA2 #### [address] [address] [place], [place] Occult Blood,Urine Negative Normal Negative [facility] Comment on above: . Result Comment: . Performed By: #### C UA2 #### [address] [address] [place], [place] Total Protein, Urine Negative Normal Negative [facility] Comment on above: . Result Comment: . Performed By: #### C UA2 #### [address] [address], [place] Urobilinogen, Urine Normal Normal Normal (0-1) [facility] Comment on above: . Result Comment: . Performed By: #### C UA2 #### [address] [place], [place] ED Provider Noteon ED Provider Note Emergency Department Encounter [facility] EMERGENCY DEPT Patient: Bryanna Meehan : 2000 Date of Evaluation: 08/24/2021 ED Supervising Physician: Emily Barnhart MD I independently examined and evaluated Bryanna Meehan. In brief, Bryanna Meehan is a 20 y.o. female that presents to the emergency department patient was recently released from intermediate did get her COVID-vaccine but no booster presents with 2-day history of sore throat progressive swelling pain difficulty swallowing no drooling. Positive subjective fever. Also having some urinary symptoms of dysuria and burning. No hematuria. No abdominal pain, nausea, vomiting or diarrhea Focused exam: Patient is alert and orient x4. Vital signs noted. Oropharynx notes somewhat dry mucosa but no erythema exudate or swelling. Neck is supple nontender. Lungs are clear to auscultation bilaterally. Cardiovascular symptoms regular rhythm and rate without murmur. Abdomen is soft nontender there is no flank tenderness Brief ED course/MDM: We will give her a shot of Decadron for throat pain most likely is a viral pharyngitis. We will do a rapid strep test and will also check a urinalysis for urinary symptoms All diagnostic, treatment, and disposition decisions were made by myself in conjunction with the SEBASTIAN. For all further details of the patient's emergency department visit, please see their documentation. (Please note that portions of this note may have been completed with a voice recognition program. Efforts were made to edit the dictations but occasionally words are mis-transcribed.) Emily Barnhart MD [employer] Emily Barnhart MD 08/24/211917 [facility] Patient: Bryanna Meehan : 2000 Date of Evaluation: 08/24/2021 ED [facility] Provider: Sangita Jenkins PA-C EDcare was supervised by Dr. Barnhart who independently examined and evaluated the patient. Please see their attestation note for further details. I was wearing an N95 mask, surgical mask, and goggles. Chief Complaint Chief Complaint Patient presents with ? Pharyngitis Concern for strep throat. Sore throat and fever for 2 days NAKNEK Bryanna Meehan is a 20 y.o. female who presents to the emergency department for evaluation of 2-day history of sore throat. Patient states that pain was worsened today prompting her to come in for further evaluation. Described as a sharp pain with swallowing. No further aggravating factors. No alleviating factors. She has tried no [id number] medications for symptoms prior to arrival. Endorses hot and cold chills, no recorded fevers. States that she had strep throat many years ago and it feels similar. She has no chest pain or shortness of breath. No radiation of pain. 6 out of 10. Constant in nature. Denies change in phonation. Patient also notes that she is having dysuria ongoing since today. No hematuria. No abdominal pain nausea vomiting diarrhea. Denies chance of . No abnormal vaginal discharge odor or itching. ROS: Review of Systems At least 10 systems reviewed and otherwise acutely negative except as in the NAKNEK. Past History History reviewed. No pertinent past medical history. Past Surgical History: Procedure Laterality Date ? TONSILLECTOMY Social History Socioeconomic History ? Marital status: Single Spouse name: None ? Number of children: None ? Years of education: None ? Highest education level: None Occupational History ? None Tobacco Use ? Smoking status: Never Smoker ? Smokeless tobacco: Never Used Substance and Sexual Activity ? Alcohol use: Not Currently ? Drug use: None ? Sexual activity: Yes Partners: Male Other Topics Concern ? None Social History Narrative ? None Social Determinants of Health Financial Resource Strain: ? Difficulty of Paying Living Expenses: Not on file Food Insecurity: ? Worried About Running Out of Food in the Last Year: Not on file ? Ran Out of Food in the Last Year: Not on file Transportation Needs: ? Lack of Transportation (Medical): Not on file ? Lack of Transportation (Non-Medical): Not on file Physical Activity: ? Days of Exercise per Week: Not on file ? Minutes of Exercise per Session: Not on file Stress: ? Feeling of Stress : Not on file Social Connections: ? Frequency of Communication with Friends and Family: Not on file ? Frequency of Social Gatherings with Friends and Family: Not on file ? Attends Yazidi Services: Not on file ? Active Member of Clubs or Organizations: Not on file ? Attends Club or Organization Meetings: Not on file ? Marital Status: Not on file Intimate Partner Violence: ? Fear of Current or Ex-Partner: Not on file ? Emotionally Abused: Not on file ? Physically Abused: Not on file ? Sexually Abused: Not on file Housing Stability: ? Unable to Pay for Housing in the Last Year: Not on file ? Number of Places Lived in the Last Year: Not on file ? Unstable Housing in the Last Year: Not on file Medications/Allergies Previous Medications No medications on file Allergies Allergen Reactions ? Latex Swelling ? Fish Allergy Vomiting/fever Physical Exam ED Triage Vitals BP Temp Temp Source Heart Rate Resp SpO2 Height Weight 08/24/21 1501 08/24/21 1501 08/24/21 1501 08/24/21 1501 08/24/21 1501 08/24/21 1501 08/24/21 1502 08/24/21 1502 124/72 98.3 ?F (36.8 ?C) Temporal 79 18 97 % 4' 10 (1.473 m) 167 lb (75.8 kg) Physical Exam GENERAL: Patient is awake and alert, nondistressed and nontoxic in appearance. Vital signs as documented. HEENT: Head is normocephalic and atraumatic. Posterior oropharynx is clear. Uvula is midline. No erythema or exudates. No unilateral swelling to indicate a retropharyngeal or peritonsillar abscess. Airway is patent. Speaking in full sentences, maintaining secretions, no drooling. There is no trismus. Tongue is midline, floor of mouth is soft. Mucous membranes moist. No enlarged lymphadenopathy. Neck is supple. No meningeal signs. LUNGS: Lungs are clear to auscultation bilaterally. No wheezing, stridor or respiratory distress. No increased work of breathing. CARDIAC: Rate and rhythm is regular. No dysrythmias or murmurs. ABDOMEN: Soft and non-distended. Mild suprapubic tenderness upon palpation. No rebound or guarding. Positive bowel sounds in all four quadrants. No CVA tenderness to percussion bilaterally. EXTREMITIES: Non edematous, with no obvious deformities. Extremities are warm well perfused. Moving all 4 extremities symmetrically and spontaneously. SKIN: Good color, with no si (more content not included)... Normal [facility] A Strep Screen By PCRo n 08-24-2021 Group A Strep Screen By PCR NOT Detected Expected Result: Not Detected Methodology - Real Time PCR (Cepheid) [facility] Group A Strep Screen by PCRo n 08-24-2021 Group A Strep Screen by PCR Group A Strep Screen by PCR --> Status: F NOT Detected Expected Result: Not Detected Methodology - Real Time PCR (Cepheid) Expected Result: Not Detected Methodology - Real Time PCR (Cepheid) Normal [facility] Comment on above: Performed By: #### G ASPC #### [address] [address] No Panel Informationon 08-24 [facility] Test Performed by [facility], [address] [place] [address] LAB POC UrineOrdered B y: Alia Salas on 08-24-2021 Beta HCG ( test) Ql (U) Negative Negative [facility] Beta HCG ( test) Ql (U) [id number] [facility] Interpretation and review of laboratory results Normal [facility] Negative QC Pass/Fail Pass [facility] Positive QC Pass/Fail Pass [facility] SARS-CoV-2, Flu A/B and RSVo n 08-24-2021 SARS-CoV-2 (COVID-19) RNA OSCAR+probe Ql (Unsp spec) SARS-CoV-2 --> Status: F Not Detected. Flu A PCR --> Status: F Not Detected. Flu B PCR --> Status: F Not Detected. RSV PCR --> Status: F Not Detected. Expected Result: Not Detected _ Method: Real-time, RT-PCR This assay was developed by [employer] and distributed under an Emergency Use Authorization (EUA) granted by the FDA for the qualitative detection of nucleic acids from SARS-CoV-2, Influenza A, Influenza B, and Respiratory Syncytial Virus. Provider and patient fact sheets can be found at https://www.fda.gov/media /235195/download and https://www.fda.gov/media /931484/download. Expected Result: Not Detected _ Method: Real-time, RT-PCR This assay was developed by [employer] and distributed under an Emergency Use Authorization (EUA) granted by the FDA for the qualitative detection of nucleic acids from SARS-CoV-2, Influenza A, Influenza B, and Respiratory Syncytial Virus. Provider and patient fact sheets can be found at https://www.fda.gov/media /652701/download and https://www.fda.gov/media /594495/download. Normal [facility] Comment on above: Performed By: #### C [facility] #### [facility] [address] [place] [id number] , [phone] Urinalysison 08-24-2021 Bacteria, UA Negative Negative /[HPF] [facility] Comment on above: . Bilirubin Urine Negative Negative mg/dL [facility] Comment on above: . Glucose, Ur Normal Normal (<70) mg/dL [facility] Comment on above: . Hyaline Casts, UA Negative Negative /[LPF] [facility] Comment on above: . Interpretation and review of laboratory results Abnormal [facility] Ketones Ql (U) Negative Negative mg/dL [facility] Comment on above: . LEUKOCYTES, UA 25 Abnormal Negative Jose/uL [facility] Comment on above: . Nitrite, Urine Negative Negative NA [facility] Comment on above: . pH (U) 6.5 [pH] [facility] Comment on above: . RBC, UA 3-5 Abnormal 0 - 2 /[HPF] [facility] Comment on above: . Specific [place], Urine 1.017 [facility] Comment on above: . Squam Epithel, UA 0-2 3 - 5 /[HPF] [facility] Comment on above: . WBC, UA 0-2 0 - 5 /[HPF] [facility] Comment on above: . CULTURE URINEon 07-27-2021 CULTURE URINE CULTURE URINE --> St atus: F Normal urogenital corine present. 1 Organism Streptococcus agalactiae (Group B) >100,000 CFU/ml Susceptibility testing not routinely performed. Group B streptococcus is universally susceptible to beta-lactam antibiotics and vancomycin. If patient is beta-lactam allergic, please call [facility] Microbiology lab ([phone]) within 2 days to request susceptibility testing. If isolated from urine, Group B strep may indicate colonization or infection. Normal [facility] Comment on above: Performed By: #### C /UR #### [address] [address] Add On Lab Teston 07-25-2021 Add On Accepted [facility] Comment on above: Specimen available & acceptable for analysis. Test Performed by [facility], [address] [place] [id number] [facility] LAB [facility] Add on test from HISon 07-25 Add on test from HIS Accepted Normal [facility] Comment on above: Result Comment: Spec imen available & acceptable for analysis. Performed By: #### A DDON #### [address] [address] Basic Metabolic Panelon 06-28 Calcium [Mass/Vol] 9.2 mg/dL Normal 8.4-10.4 [facility] Comment on above: Performed By: #### B MP3, HEMDF #### [address] [place] [address] Glucose [Mass/Vol] 134 mg/dL High 70-100 [facility] Comment on above: Performed By: #### B MP3, HEMDF #### [facility] [address] [place], [place] Urea nitrogen [Mass/Vol] 14 mg/dL Normal 9-20 [facility] Comment on above: Performed By: #### B MP3, HEMDF #### [facility] [address] [place], [place] Anion gap [Moles/Vol] 8 mmol/L Normal 3-13 [facility] Comment on above: Performed By: #### B MP3, HEMDF #### [facility] [address] [place], [place] CO2 [Moles/Vol] 25 mmol/L Normal 22-30 [facility] Comment on above: Performed By: #### B MP3, HEMDF #### [facility] [address] [place], [place] Creatinine [Mass/Vol] 0.85 mg/dL Normal 0.52-1.25 [facility] Comment on above: Performed By: #### B MP3, HEMDF #### [facility] [address] [place], [place] eGFR OTHER > 90.0 Normal >60 [facility] Comment on above: Result Comment: KDIG O guidelines provide the following GFR categories: Stage GFR(ml/min/1.73 m2) Terms G1 >=90 Normal or high G2 60-89 Mildly decreased* G3a 45-59 Mildly to moderately decreased G3b 30-44 Moderately to severely decreased G4 15-29 Severely decreased G5 <15 Kidney failure *Relative to young adult level. In the absence of evidence of kidney damage, neither GFR category G1 nor G2 fulfill the criteria for CKD. The CKD-EPI equation is validated in individuals 18 years of age and older. Currently the best equation for estimating glomerular filtration rate (GFR) from serum creatinine in children is the Bedside Hong equation. It is less accurate in patients with extremes of muscle mass, restriction of dietary protein, ingestion of creatine, extra-renal metabolism of creatinine, or treatment with medications that affect renal tubular creatinine secretion. Performed By: #### B MP3, HEMDF #### [facility] [address] [place], [place] GFR/1.73 sq M.predicted among blacks MDRD (S/P/Bld) [Vol rate/Area] mL/min/{1.73_m2} Normal >60 [facility] Comment on above: Performed By: #### B MP3, HEMDF #### [facility] [address] [place] [address] Potassium [Moles/Vol] 3.9 mmol/L Normal 3.5-5.1 [facility] Comment on above: Performed By: #### B MP3, HEMDF #### [facility] [address] [place] [address] Chloride [Moles/Vol] 105 mmol/L Normal 98-107 [facility] Comment on above: Performed By: #### B MP3, HEMDF #### [facility] [address] [place] [address] Sodium [Moles/Vol] 138 mmol/L Normal 135-145 [facility] Comment on above: Performed By: #### B MP3, HEMDF #### [facility] [address] [place] [address] Anion gap [Moles/Vol] 8 mmol/L 3 - 13 mmol/L [facility] Calcium [Mass/Vol] 9.2 mg/dL 8.4 - 10. 4 mg/dL [facility] Chloride [Moles/Vol] 105 mmol/L 98 - 10 7 mmol/L [facility] CO2 [Moles/Vol] 25 mmol/L 22 - 30 mmol/L [facility] Creatinine [Mass/Vol] 0.85 mg/dL 0.52 - 1.25 mg/dL [facility] EGFR IF NonAfrican Argentine >90.0 >60 mL/min [facility] Comment on above: KDIGO guidelines pro vide the following GFR categories: Stage GFR(ml/min/1.73 m2) Terms G1 >=90 Normal or high G2 60-89 Mildly decreased* G3a 45-59 Mildly to moderately decreased G3b 30-44 Moderately to severely decreased G4 15-29 Severely decreased G5 <15 Kidney failure *Relative to young adult level. In the absence of evidence of kidney damage, neither GFR category G1 nor G2 fulfill the criteria for CKD. The CKD-EPI equation is validated in individuals 18 years of age and older. Currently the best equation for estimating glomerular filtration rate (GFR) from serum creatinine in children is the Bedside Hong equation. It is less accurate in patients with extremes of muscle mass, restriction of dietary protein, ingestion of creatine, extra-renal metabolism of creatinine, or treatment with medications that affect renal tubular creatinine secretion. GFR/1.73 sq M.predicted among blacks MDRD (S/P/Bld) [Vol rate/Area] mL/min/{1.73_m2} >60 mL/min [facility] Glucose [Mass/Vol] 134 mg/dL High 70 - 100 mg/dL [facility] Interpretation and review of laboratory results Abnormal [facility] Potassium [Moles/Vol] 3.9 mmol/L 3.5 - 5.1 mmol/L [facility] Sodium [Moles/Vol] 138 mmol/L 135 - 145 mmol/L [facility] Urea nitrogen (BldV) [Mass/Vol] 14 mg/dL 9 - 20 mg/dL [facility] Test Performed by [facility], [address] [place] [id number] [place] [address] LAB [facility] CBC with Auto Differentialon 07-25-2021 Absolute Baso # 0.2 10*3/uL 0.0 - 0.2 10*3/uL [facility] Absolute Neut # 10.9 10*3/uL High 1.8 - 7.0 10*3/uL [facility] Basophils/100 WBC (Bld) 1.4 % 0.0 - 2.0 % [facility] Eosinophils (Bld) [#/Vol] 0.1 10*3/uL 0.0 - 0.5 10*3/uL [facility] Eosinophils/100 WBC (Bld) 0.4 % Low 1.0 - 6.0 % [facility] Granulocytes/100 WBC (Bld) 72.1 % 40.0 - 80.0 % [facility] Hematocrit (Bld) [Volume fraction] 40.5 % 35.0 - 47.0 % [facility] Hemoglobin.gastrointe stinal spec 1 Ql (Stl) 13.5 g/dL 11.7 - 16.0 g/dL [facility] Interpretation and review of laboratory results Abnormal [facility] Lymphocytes (Bld) [#/Vol] 3.3 10*3/uL 1.0 - 4.3 10*3/uL [facility] Lymphocytes/100 WBC (Bld) 21.9 % 20.0 - 40.0 % [facility] MCH (RBC) [Entitic mass] 27.5 pg 26.0 - 34.0 pg [facility] MCHC (RBC) [Mass/Vol] 33.5 % 32.0 - 36.0 % [facility] MCV (RBC) [Entitic vol] 82.3 fL 79.0 - 98.0 fL [facility] Monocytes (Bld) [#/Vol] 0.6 10*3/uL 0.0 - 0.8 10*3/uL [facility] Monocytes/100 WBC (Bld) 4.2 % 2.0 - 10.0 % [facility] Platelet distribution width (Bld) [Ratio] 14.4 % 11.5 - 14.5 % [facility] Platelet mean volume (Bld) [Entitic vol] 7.8 fL 7.4 - 12.4 fL [facility] Comment on above: MPV is a calculated measurement using platelet volume ratio. Platelets (Bld) [#/Vol] 364 10*3/uL 140 - 440 10*3/uL [facility] RBC (Bld) [#/Vol] 4.92 10*6/uL 3.80 - 5.2 0 10*6/uL [facility] WBC (Bld) [#/Vol] 15.1 10*3/uL High 3.6 - 10.7 10*3/uL [facility] Test Performed by [facility], [address] [place] [address] LAB [facility] Complete Urinalysison 2021 Appearance (U) Turbid Abnormal Clear [facility] Comment on above: Result Comment: . Performed By: #### C UA2 #### [address] [place] [address] Bacteria Few Abnormal Negative [facility] Comment on above: Result Comment: . Performed By: #### C UA2 #### [address] [address] Bilirubin,Urine Negative Normal Negative [facility] Comment on above: Result Comment: . Performed By: #### C UA2 #### [address] [address] [place], [place] Cast, Hyaline Negative Normal Negative [facility] Comment on above: Result Comment: . Performed By: #### C UA2 #### [facility] [address] [place], [place] Color (U) Yellow Normal Lt. Yellow [facility] Comment on above: Result Comment: . Performed By: #### C UA2 #### [facility] [address] [place], [place] Glucose Ql (U) Normal Normal Normal (<70) [facility] Comment on above: Result Comment: . Performed By: #### C UA2 #### [facility] [address] [place], [place] Ketone,Urine Trace Abnormal Negative [facility] Comment on above: Result Comment: . Performed By: #### C UA2 #### [address] [place], [place] Leukocytes,Urine 500 Jose/uL Abnormal Negative [facility] Comment on above: Result Comment: . Performed By: #### C UA2 #### [address] [place], [place] Mucous Threads Few Normal Negative [facility] Comment on above: Result Comment: . Performed By: #### C UA2 #### [address] [place], [place] Nitrites,Urine Negative Normal Negative [facility] Comment on above: Result Comment: . Performed By: #### C UA2 #### [address] [place], [place] Occult Blood,Urine 0.03 mg/dL Abnormal Negative [facility] Comment on above: Result Comment: . Performed By: #### C UA2 #### [address] [place], [place] pH,Urine 6.5 Normal 5.0-8.0 [facility] Comment on above: Result Comment: . Performed By: #### C UA2 #### [facility] [address] [place], [place] Protein (U) [Mass/Vol] 30 mg/dL Abnormal Negative [facility] Comment on above: Result Comment: . Performed By: #### C UA2 #### [facility] [address] [place], [place] RBC, Urine 11 - 25 Abnormal 0-2 [facility] Comment on above: Result Comment: . Performed By: #### C UA2 #### [facility] [address] [place], [place] Specific [place],Urine > 1.030 Abnormal 1.005 - 1.030 [facility] Comment on above: Result Comment: . Performed By: #### C UA2 #### [facility] [address] [place], [place] Squamous Epithelial 3 - 5 Normal 3-5 [facility] Comment on above: Result Comment: . Performed By: #### C UA2 #### [facility] [address] [place], [place] Urobilinogen,Urine Normal Normal Normal (0-1) [facility] Comment on above: Result Comment: . Performed By: #### C UA2 #### [facility] [address] [place], [place] WBC LM.HPF (Urine sed) [#/Area] /[HPF] Abnormal 0-5 [facility] Comment on above: Result Comment: . Performed By: #### C UA2 #### [facility] [address] [place], [place] ED Provider Noteon ED Provider Note [facility] EMERGENCY DEPT EMERGENCY DEPARTMENT ENCOUNTER Pt Name: Bryanna Meehan Birthdate 2000 Date of evaluation: 07/25/2021 Provider: MAG Qureshi CHIEF COMPLAINT Chief Complaint Patient presents with ? Vaginal Bleeding ? Dysuria urination more frequent HISTORY OF PRESENT ILLNESS (Location/Symptom, Timing/Onset, Context/Setting, Quality,Duration, Modifying Factors, Severity) Note limiting factors. HPI I have seen this patient With supervising physician Does this patient come from an ECF, SNF, Rehab, Long Term or other Congregate setting: no (If yes to above patient needs a Covid-19 test) Bryanna Meehan is a 20 y.o. female who presents to the emergency department for chief complaint of having dysuria urinary frequency this been going on for the past 2 days. 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 Patient mentions that she had mild discomfort within her lower back for the past 2 days also. No history of kidney stones and denies any history abdominal surgeries. She denies any fever, chills, nausea, vomiting, diarrhea, chest pain, shortness of breath. She rates her pain 7 out of 10 burning pain with urination. REVIEW OF SYSTEMS (2+ for level 4; 10+ for level 5) Review of Systems Constitutional: Negative for chills, fatigue and fever. HENT: Negative for congestion, sinus pain, sore throat and voice change. Eyes: Negative. Respiratory: Negative for cough, shortness of breath and wheezing. Cardiovascular: Negative for chest pain, palpitations and leg swelling. Gastrointestinal: Negative for abdominal distention, abdominal pain, blood in stool, constipation, diarrhea, nausea and vomiting. Endocrine: Negative. Genitourinary: Positive for dysuria and frequency. Negative for hematuria. Musculoskeletal: Negative for arthralgias and neck stiffness. Skin: Negative for color change, pallor, rash and wound. Neurological: Negative for dizziness, weakness, light-headedness, numbness and headaches. Psychiatric/Behavioral: Negative. PAST MEDICAL HISTORY No past medical history on file. SURGICAL HISTORY No past surgical history on file. CURRENT MEDICATIONS Discharge Medication List as of 07/25/2021 9:17 PM ALLERGIES Latex FAMILY HISTORY No family history on file. SOCIAL HISTORY Social History Socioeconomic History ? Marital status: Single Spouse name: Not on file ? Number of children: Not on file ? Years of education: Not on file ? Highest education level: Not on file Occupational History ? Not on file Tobacco Use ? Smoking status: Not on file ? Smokeless tobacco: Not on file Substance and Sexual Activity ? Alcohol use: Not on file ? Drug use: Not on file ? Sexual activity: Not on file Other Topics Concern ? Not on file Social History Narrative ? Not on file Social Determinants of Health Financial Resource Strain: ? Difficulty of Paying Living Expenses: Not on file Food Insecurity: ? Worried About Running Out of Food in the Last Year: Not on file ? Ran Out of Food in the Last Year: Not on file Transportation Needs: ? Lack of Transportation (Medical): Not on file ? Lack of Transportation (Non-Medical): Not on file Physical Activity: ? Days of Exercise per Week: Not on file ? Minutes of Exercise per Session: Not on file Stress: ? Feeling of Stress : Not on file Social Connections: ? Frequency of Communication with Friends and Family: Not on file ? Frequency of Social Gatherings with Friends and Family: Not on file ? Attends Yazidi Services: Not on file ? Active Member of Clubs or Organizations: Not on file ? Attends Club or Organization Meetings: Not on file ? Marital Status: Not on file Intimate Partner Violence: ? Fear of Current or Ex-Partner: Not on file ? Emotionally Abused: Not on file ? Physically Abused: Not on file ? Sexually Abused: Not on file Housing Stability: ? Unable to Pay for Housing in the Last Year: Not on file ? Number of Places Lived in the Last Year: Not on file ? Unstable Housing in the Last Year: Not on file SCREENINGS Patient symptoms are consistent with sepsis, severe sepsis or septic shock (if yes, use use sepsis core measure): no PHYSICAL EXAM (up to 7 forlevel 4, 8 or more for level 5) ED Triage Vitals [07/25/21 1722] BP Temp Temp Source Heart Rate Resp SpO2 Height Weight (!) 160/84 98.2 ?F (36.8 ?C) Temporal (!) 119 16 96 % 4' 11 (1.499 m) 182 lb (82.6 kg) Physical Exam Constitutional: General: She is not in acute distress. Appearance: She is well-developed. She is not diaphoretic. HENT: Head: Normocephalic. Eyes: General: No scleral icterus. Right eye: No discharge. Left e (more content not included)... Normal [facility] ED Provider Note Emergency Department Encounter [facility] EMERGENCY DEPT Patient: Bryanna Longo : 2000 Date of Evaluation: 07/25/2021 ED Provider: Ang Remy MD I saw the patient as the Clinician in Triage and performed a brief history and physical exam, established acuity, and ordered appropriate tests to develop basic plan of care. Patient will be seen by SEBASTIAN, resident and/or my physician partner who will evaluate the patient. If seen by the SEBASTIAN I will manage the patient in a supervisory role and will be available for co-management and this will serve as my SEBASTIAN Supervisory note and shared attestation. I did perform a substantive portion of the visit including all aspects of the Medical Decision Making. I wore appropriate PPE for the entirety of this encounter. Brief HPI: In brief, Bryanna Longo is a 20 y.o. female that presents for evaluation of bilateral flank pain, dysuria. States she has multiple bladder infections in the past and kidney infections. No fever, vomiting, diarrhea. States she has not had a period in several years but is currently having vaginal bleeding. Focused Physical exam: Awake and alert, no acute distress, hemodynamically stable. Normocephalic, atraumatic. Trachea midline. Breathing comfortably on room air. Breath sounds are clear to auscultation bilaterally. Regular rate and rhythm. Abdomen is soft, nondistended, nontender. No rebound or guarding. The patient moves all extremities equally. Distal pulses are intact and equal bilaterally. Plan/MDM: UA, labs will need a pelvic exam once in a private room Please see subsequent provider note for further details and disposition Comment: Please note this report has been produced using speech recognition software and may contain errors related to that system including errors in grammar, punctuation, and spelling as well as words and phrases that may be inappropriate. If there are any questions or concerns please feel free to contact the dictating provider for clarification Ang Remy MD [employer] Ang Remy MD 07/25/21 1744 Normal [facility] Hemogram w/ Autodiffon 07-25 Abs Baso Cnt 0.2 10*3/uL Normal 0.0-0.2 [facility] Comment on above: Performed By: #### B MP3, HEMDF #### [address] [place] [place] [address] Abs Neutrophile Cnt 10.9 10*3/uL High 1.8-7.0 [facility] Comment on above: Performed By: #### B MP3, HEMDF #### [facility] [address] [place] [address] Basophils/100 WBC (Bld) 1.4 % Normal 0.0-2.0 [facility] Comment on above: Performed By: #### B MP3, HEMDF #### [address] [place], [place] Eosinophils (Bld) [#/Vol] 0.1 10*3/uL Normal 0.0-0.5 [facility] Comment on above: Performed By: #### B MP3, HEMDF #### [address] [place], [place] Eosinophils/100 WBC (Bld) 0.4 % Low 1.0-6.0 [facility] Comment on above: Performed By: #### B MP3, HEMDF #### [address] [place], [place] Erythrocyte distribution width (RBC) [Ratio] 14.4 % Normal 11.5-14.5 [facility] Comment on above: Performed By: #### Rajan MP3, HEMDF #### [address] [place], [place] Granulocytes/100 WBC (Bld) 72.1 % Normal 40.0-80.0 [facility] Comment on above: Performed By: #### B MP3, HEMDF #### [address] [place], [place] Hematocrit (Bld) [Volume fraction] 40.5 % Normal 35.0-47.0 [facility] Comment on above: Performed By: #### B MP3, HEMDF #### [address] [place], [place] Hemoglobin (Bld) [Mass/Vol] 13.5 g/dL Normal 11.7-16.0 [facility] Comment on above: Performed By: #### B MP3, HEMDF #### [address] [place], [place] Lymphocytes (Bld) [#/Vol] 3.3 10*3/uL Normal 1.0-4.3 [facility] Comment on above: Performed By: #### B MP3, HEMDF #### [address] [place] [address] Lymphocytes/100 WBC (Bld) 21.9 % Normal 20.0-40.0 [facility] Comment on above: Performed By: #### B MP3, HEMDF #### [facility] [address] [place] [address] MCH (RBC) [Entitic mass] 27.5 pg Normal 26.0-34.0 [facility] Comment on above: Performed By: #### B MP3, HEMDF #### [facility] [address] [place] [address] MCHC 33.5 % Normal 32.0-36.0 [facility] Comment on above: Performed By: #### B MP3, HEMDF #### [address] [place], [place] MCV (RBC) [Entitic vol] 82.3 fL Normal 79.0-98.0 [facility] Comment on above: Performed By: #### B MP3, HEMDF #### [address] [place], [place] Monocytes (Bld) [#/Vol] 0.6 10*3/uL Normal 0.0-0.8 [facility] Comment on above: Performed By: #### B MP3, HEMDF #### [address] [place] [address] Monocytes/100 WBC (Bld) 4.2 % Normal 2.0-10.0 [facility] Comment on above: Performed By: #### B MP3, HEMDF #### [address] [place] [address] Platelet mean volume (Bld) [Entitic vol] 7.8 fL Normal 7.4-12.4 [facility] Comment on above: Result Comment: MPV is a calculated measurement using platelet volume ratio. Performed By: #### B MP3, HEMDF #### [address] [place] [address] Platelets (Bld) [#/Vol] 364 10*3/uL Normal 140-440 [facility] Comment on above: Performed By: #### B MP3, HEMDF #### [facility] [address] [place], [place] RBC (Bld) [#/Vol] 4.92 10*6/uL Normal 3.80-5.20 [facility] Comment on above: Performed By: #### B MP3, HEMDF #### [facility] [address] [place], [place] WBC (Bld) [#/Vol] 15.1 10*3/uL High 3.6-10.7 [facility] Comment on above: Performed By: #### B MP3, HEMDF #### [facility] [address] [place], [place] POC UrineOrdered B y: Alia Salas on 07-25-2021 Beta HCG ( test) Ql (U) Negative Negative [facility] Beta HCG ( test) Ql (U) [id number] [facility] Interpretation and review of laboratory results Normal [facility] Negative QC Pass/Fail Pass [facility] Positive QC Pass/Fail Pass [facility] Urinalysison 07-25-2021 Appearance (U) Turbid Abnormal Clear NA [facility] Comment on above: . Bacteria, UA Few Abnormal Negative /[HPF] [facility] Comment on above: . Bilirubin Urine Negative Negative mg/dL [facility] Comment on above: . Color (U) Yellow Lt. Yellow NA [facility] Comment on above: . Glucose, Ur Normal Normal (<70) mg/dL [facility] Comment on above: . Hyaline Casts, UA Negative Negative /[LPF] [facility] Comment on above: . Interpretation and review of laboratory results Abnormal [facility] Ketones Ql (U) Trace Abnormal Negative mg/dL [facility] Comment on above: . LEUKOCYTES, UA 500 Abnormal Negative Jose/uL [facility] Comment on above: . Mucous Threads Few Negative /[LPF] [facility] Comment on above: . Nitrite, Urine Negative Negative NA [facility] Comment on above: . Occult Blood,Urine 0.03 mg/dL Abnormal Negative [facility] Comment on above: . pH (U) 6.5 [pH] [facility] Comment on above: . Protein (U) [Mass/Vol] 30 mg/dL Abnormal Negative [facility] Comment on above: . RBC, UA 11-25 Abnormal 0 - 2 /[HPF] [facility] Comment on above: . Specific [place], Urine >1.030 Abnormal [facility] Comment on above: . Squam Epithel, UA 3-5 3 - 5 /[HPF] [facility] Comment on above: . Urobilinogen, Urine Normal Normal ( 0-1) mg/dL [facility] Comment on above: . WBC, UA >100 Abnormal 0 - 5 /[HPF] [facility] Comment on above: . Test Performed by [address] [address] [facility] Basophil percentageon 2021 WBC (Bld) [#/Vol] 11.3 10*3/uL 4.4-11.0 [facility] Work Phone: Blood erythrocytes count (nu mber/volume)on 06-07-2021 RBC (Bld) [#/Vol] 4.78 10*6/uL 4.2-5.4 [facility] Work Phone: [phone] Blood hemoglobin measurement (mass/volume)on 06-07-2021 Hemoglobin (Bld) [Mass/Vol] 13.1 g/dL 12.0-15.[address] [facility] Work Phone: [phone] Blood platelet mean volumeon 06-07-2021 Platelet mean volume (Bld) [Entitic vol] 10.1 fL 6.2-12.[address] [facility] Work Phone: [phone] Determination of erythrocyte mean corpuscular volume (MCV)on 06-07-2021 MCV (RBC) [Entitic vol] 84.9 fL 81-[address] [facility] Work Phone: [phone] Hematocrit Auto (Bld) [Volum e fraction]on 06-07-2021 Hematocrit (Bld) [Volume fraction] 40.6 % 37-[address] [facility] Work Phone: [phone] Laboratory - Chemistry and C hemistry - challengeon 06-07-2021 Free T4 [Mass/Vol] 1.02 ng/dL 0.76-1.46 [facility] Work Phone: Laboratory - Hematology and Cell countson 06-07-2021 Erythrocyte distribution width (RBC) [Entitic vol] 42.7 fL 35.1-43.[address] [facility] Work Phone: Erythrocyte distribution width (RBC) [Ratio] 13.6 % 11.6-14.[address] [facility] Work Phone: MCH (RBC) [Entitic mass] 27.4 pg 27.0-32.[address] [facility] Work Phone: MCHC Auto (RBC) [Mass/Vol]on 06-07-2021 MCHC (RBC) [Mass/Vol] 32.3 g/dL 32-36 [facility] Work Phone: No Panel Informationon 06-07 Follicle Stimulating Hormone 5.3 mIU/mL [facility] Work Phone: Comment on above: NORMAL REFERENCE RAN GES FEMALE FOLLICULAR 2.3 - 12.6 mIU/mL MID-CYCLE PEAK 5.2 - 17.5 mIU/mL LUTEAL 1.7 - 12.9 mIU/mL POST-MENOPAUSAL ON MHT 5.9 - 72.8 mIU/mL NOT ON MHT 12.7 - 132.2 mlU/mL MALE 0.7 - 10.8 mIU/mL Luteinizing Hormone 9.8 mIU/mL [facility] Work Phone: Comment on above: NORMAL REFERENCE RAN GES FEMALE FOLLICULAR 1.9 - 26.2 mIU/mL MID-CYCLE PEAK 22.8 - 76.1 mIU/mL LUTEAL 0.6 - 16.6 mIU/mL POST-MENOPAUSAL ON MHT 1.1 - 52.4 mIU/mL NOT ON MHT 8.6 - 61.8 mIU/mL MALE 1.2 - 10.6 mIU/mL Thyroid Stimulating Hormone (TSH) 1.41 uIU/mL 0.358-3.[address] [facility] Work Phone: Platelets bldon 06-07-2021 Platelets (Bld) [#/Vol] 388 10*3/uL 150-[address] [facility] Work Phone: Serum or plasma estradiol (E 2) measurement (mass/volume)on 06-07-2021 E2 [Mass/Vol] 48.9 pg/mL [facility] Work Phone: Comment on above: NORMAL REFERENCE RAN GES FEMALE FOLLICULAR 21.4 - 164.8 pg/mL MID-CYCLE PEAK 49.9 - 367.2 pg/mL LUTEAL 40.2 - 259.0 pg/mL POST-MENOPAUSAL ON MHT <11.0 - 462.1 pg/mL NOT ON MHT <11.0 - 58.3 pg/mL MALE <11.0 - 52.5 pg/mL NOTE:[employer] HAS CONFIRMED THE DRUG FULVETRANT (FASLODEX) MAY CAUSE FALSELY ELEVATED ESTRADIOL RESULTS WHEN USING THIS TEST METHOD. IF PATIENT IS TAKING FULVESTRANT AN ALTERNATIVE METHOD SHOULD BE USED TO DETERMINE ESTRADIOL CONCENTRATION. Serum or plasma testosterone free measurement (mass/volume)on 06-07-2021 Testosterone Free [Mass/Vol] 6.4 pg/mL [facility] Work Phone: Comment on above: Performed at: [address] [id number] Director: Jessica Espino MD, Phone: [phone] Serum or plasma choriogonado tropin detectionon 05-24-2021 HCG ( test) Ql < 1 mIU/mL <[address] [facility] Work Phone: Comment on above: hCG levels with Gest ational AgeGestational Age hCG mIU/mL (IU/L)0.2 - 1 week 5 - 501-2 weeks 50 - 5002-3 weeks 100 - 01721-2 weeks 500 - 344532-2 weeks 1000 - 882045-9 weeks 29187 - 100,0006-8 weeks 73759 - 200,0002-3 months 15247 - 100,000 Basophil percentageon 2021 Basophil percentage 5-10 SEEN /hpf [facility] Work Phone: Bilirubin [Mass/Vol] 0.10 mg/dL 0.20-1.00 [facility] Work Phone: Comment on above: For patients on eltr ombopag therapy, use of Dimension [place] TBIL is not recommended. Chloride [Moles/Vol] 102 mmol/L 98-107 [facility] Work Phone: Glucose [Mass/Vol] 88 mg/dL 74-106 [facility] Work Phone: Potassium [Moles/Vol] 4.0 mmol/L 3.5-5.1 [facility] Work Phone: Protein [Mass/Vol] 8.6 g/dL 6.4-8.2 [facility] Work Phone: Sodium [Moles/Vol] 136 mmol/L 136-145 [facility] Work Phone: Beta hCG serum qualon 2021 Beta HCG ( test) Ql Negative [facility] Work Phone: Bilirubin Test strip Ql (U)o n 05-03-2021 Bilirubin Ql (U) Negative Negative [facility] Work Phone: [phone] HIV 1 and HIV-2 antibody ass ay with HIV-1 p24 antigen detectionon 05-03-2021 HIV 1+2 Ab+HIV1 p24 Ag IA Ql Non-Reactive Nonreactive [facility] Work Phone: Ketones Test strip Ql (U)on 05-03-2021 Ketones Ql (U) Negative Negative [facility] Work Phone: Laboratory - Chemistry and C hemistry - challengeon 05-03-2021 ALP [Catalytic activity/Vol] 104 U/L 45-[address] [facility] Work Phone: ALT [Catalytic activity/Vol] 25 U/L 13-[address] [facility] Work Phone: CO2 [Moles/Vol] 27.0 mmol/L 21.0-32.[address] [facility] Work Phone: Free T4 [Mass/Vol] 1.00 ng/dL 0.76-1.46 [facility] Work Phone: Globulin (S) [Mass/Vol] 4.9 g/dL 2.2-4.[address] [facility] Work Phone: Urea nitrogen/Creatinine [Mass ratio] 20.4 mg/mg 10-[address] [facility] Work Phone: [phone] Mucus LM Ql (Urine sed)on Mucus Ql (Urine sed) 0 SEEN /hpf [facility] Work Phone: [phone] Nitrite Test strip Ql (U)on 05-03-2021 Nitrite Ql (U) Negative Negative [facility] Work Phone: [phone] Panel Informationon 05-03 Estimated GFR (MDRD) Amer 137 mL/min >[address] [facility] Work Phone: [phone] Comment on above: GFR Calc Estimated GFR (MDRD) Non-Af Amer 113 mL/min >[address] [facility] Work Phone: [phone] Comment on above: Non- GFR Calc Hepatitis C Antibody Non-Reactive Nonreactive [facility] Work Phone: [phone] Comment on above: Non Reactive: < 0.8 Equivocal: >/= 0.8 to < 1.0 Reactive: >/= 1.0The CDC recommends that a reactive/equivocal HCV antibody result be followed up by the HCV Nucleic Acid Amplificationtest (807704) Thyroid Stimulating Hormone (TSH) 2.70 uIU/mL 0.358-3.[address] [facility] Work Phone: [phone] Test strip Ql (U)on 05-03-2021 Protein Ql (U) Negative Negative [facility] Work Phone: [phone] Serum or plasma albumin jarrell urement (mass/volume)on 05-03-2021 Albumin [Mass/Vol] 3.7 g/dL 3.2-5.0 [facility] Work Phone: [phone] Serum or plasma albumin/glob ulin mass ratioon 05-03-2021 Albumin/Globulin [Mass ratio] 0.8 {ratio} 0.9-2.[address] [facility] Work Phone: [phone] Serum or plasma calcium jarrell urement (mass/volume)on 05-03-2021 Calcium [Mass/Vol] 9.0 mg/dL 8.5-10.1 [facility] Work Phone: Serum or plasma creatinine m easurement (mass/volume)on 05-03-2021 Creatinine [Mass/Vol] 0.69 mg/dL 0.55-1.02 [facility] Work Phone: Comment on above: The validity of the calculated GFR & GFRAA in patients over 70 years has not been determined. Clinical correlation is essential. Serum or plasma urea nitroge n measurement (mass/volume)on 05-03-2021 Urea nitrogen [Mass/Vol] 14 mg/dL 7-[address] [facility] Work Phone: Squamous epithelial cells de tection in urine sediment by light microscopyon 05-03-2021 Epithelial cells.squamous LM Ql (Urine sed) 0-5 SEEN /hpf [facility] Work Phone: Thin prep Papanicolaou smear with manual screeningon 05-03-2021 Thin prep Papanicolaou smear with manual screening 15 U/L 15-[address] [facility] Work Phone: Thin prep Papanicolaou smear with manual screening 7 5-[address] [facility] Work Phone: Urine blood detectionon RBC Ql (U) 10 /ul Negative [facility] Work Phone: RBC Ql (U) 0 SEEN /hpf [facility] Work Phone: Urine clarityon 05-03-2021 Clarity (U) Clear Clear [facility] Work Phone: Urine color determinationon 05-03-2021 Color (U) Yellow Yellow [facility] Work Phone: Urine glucose detectionon Glucose Ql (U) Normal mg/dl Normal [facility] Work Phone: [phone] Urine leukocyte esterase det ection by dipstickon 05-03-2021 Leukocyte esterase Test strip Ql (U) 500 /ul Negative [facility] Work Phone: Urine pHon 05-03-2021 pH (U) 7.0 [pH] [facility] Work Phone: Urine sediment bacteria coun t by microscopy (number/high power field)on 05-03-2021 Bacteria LM.HPF (Urine sed) [#/Area] 0 /[HPF] None Seen [facility] Work Phone: Urine specific gravity measu rementon 05-03-2021 Specific gravity (U) [Rel density] 1.[address] [facility] Work Phone: Urobilinogen Auto test strip Ql (U)on 05-03-2021 Urobilinogen Ql (U) Normal mg/dl Normal [facility] Work Phone: Basophil percentageon 2021 Basophil percentage 25-50 SEEN /hpf [facility] Work Phone: Bilirubin Test strip Ql (U)o n 04-29-2021 Bilirubin Ql (U) Negative Negative [facility] Work Phone: Culture, urineon 04-29-2021 Bacteria identified Cx Nom (U) Streptococcus group B [facility] Work Phone: Ketones Test strip Ql (U)on 04-29-2021 Ketones Ql (U) Negative Negative [facility] Work Phone: Mucus LM Ql (Urine sed)on Mucus Ql (Urine sed) 0 SEEN /hpf [facility] Work Phone: Nitrite Test strip Ql (U)on 04-29-2021 Nitrite Ql (U) Negative Negative [facility] Work Phone: Protein Test strip Ql (U)on 04-29-2021 Protein Ql (U) Negative Negative [facility] Work Phone: Squamous epithelial cells de tection in urine sediment by light microscopyon 04-29-2021 Epithelial cells.squamous LM Ql (Urine sed) 0-5 SEEN /hpf [facility] Work Phone: Urine blood detectionon RBC Ql (U) 10 /ul Negative [facility] Work Phone: RBC Ql (U) 0-5 SEEN /hpf [facility] Work Phone: Comment on above: Previous reported re sult: 0 SEEN /hpfEdited by: ERIKA on 04/29/21:1140 Urine clarityon 04-29-2021 Clarity (U) Clear Clear [facility] Work Phone: Urine color determinationon 04-29-2021 Color (U) Yellow Yellow [facility] Work Phone: Urine glucose detectionon Glucose Ql (U) Normal mg/dl Normal [facility] Work Phone: Urine leukocyte esterase det ection by dipstickon 04-29-2021 Leukocyte esterase Test strip Ql (U) 500 /ul Negative [facility] Work Phone: Urine pHon 04-29-2021 pH (U) 7.0 [pH] [facility] Work Phone: Urine sediment bacteria coun t by microscopy (number/high power field)on 04-29-2021 Bacteria LM.HPF (Urine sed) [#/Area] 1 /[HPF] None Seen [facility] Work Phone: Urine specific gravity measu rementon 04-29-2021 Specific gravity (U) [Rel density] 1.[address] [facility] Work Phone: Urobilinogen Auto test strip Ql (U)on 04-29-2021 Urobilinogen Ql (U) Normal mg/dl Normal [facility] Work Phone: Laboratory - Chemistry and C hemistry - challengeon 04-28-2021 HCG ( test) Ql (U) Negative [facility] Work Phone: Bilirubin Ql (U) Negative [facility] Work Phone: Glucose Ql (U) Negative [facility] Work Phone: Ketones Ql (U) Small (15+) [facility] Work Phone: pH (U) 6.0 [pH] [facility] Work Phone: Specific gravity (U) [Rel density] 1.[address] [facility] Work Phone: Urobilinogen (U) [Mass/Vol] Negative [facility] Work Phone: Laboratory - Hematology and Cell countson 04-28-2021 Hemoglobin Ql (U) Hemolyzed [facility] Work Phone: Laboratory - Specimen inform ationon 04-28-2021 Clarity (U) Clear [facility] Work Phone: Color (U) YELLOW [facility] Work Phone: [phone] Laboratory - Urinalysison Nitrite Ql (U) Negative [facility] Work Phone: [phone] Protein Ql (U) Negative [facility] Work Phone: No Panel Informationon 04-28 Urine Leukocytes Positive [facility] Work Phone: [phone] Urine Non-Hemolyzed Blood Trace [facility] Work Phone: SARS CoV 2 RNA(COVID 19), QU ALITATIVE NAATon 07-20-2020 SARS CoV 2 RNA Detected Abnormal NOT DETECTED [facility] Comment on above: Order Comment: 0 Result Comment: A Detected result is considered a positive test result for COVID-19. This indicates that RNA from SARS-CoV-2 (formerly 2019-nCoV) was detected, and the patient is infected with the virus and presumed to be contagious. If requested by public health authority, specimen will be sent for additional testing. Please review the Fact Sheets and FDA authorized labeling available for health care providers and patients using the following websites: [email or web address]/fact-she et2 [email or web address]/[email or web address]/[email or web address]/Patients/NAAT/ fact-sheet2 This test has been authorized by the FDA under an Emergency Use Authorization (EUA) for use by authorized laboratories. Due to the current public health emergency, [facility] is receiving a high volume of samples from a wide variety of swabs and media for COVID-19 testing. In order to serve patients during this public health crisis, samples from appropriate clinical sources are being tested. Negative test results derived from specimens received in non-commercially manufactured viral collection and transport media, or in media and sample collection kits not yet authorized by FDA for COVID-19 testing should be cautiously evaluated and the patient potentially subjected to extra precautions such as additional clinical monitoring, including collection of an additional specimen. Methodology: Nucleic Acid Amplification Test (NAAT) includes RT-PCR or TMA Additional information about COVID-19 can be found at the [facility] website: [email or web address]. Performed By: #### [id number] #### [employer] [facility] [address] [facility] [facility], [address] [place] [address] Shipyard Laborer: Jt Parks MD GC/CHLAM AMPLIFICATION URINE [CCL]on 11-26-2019 Chlamydia Amplif, Ur Negative Normal [facility] Comment on above: Result Comment: For screening asymptomatic women, a vaginal swab specimen (APTIMA vaginal swab 945194) is optimal. Urine specimens have reduced sensitivity for Chlamydia trachomatis or Neisseria gonorrhoeae infection in female patients without symptoms. This test was developed and its performance characteristics determined by [facility]'s [facility] Pathology and [facility] [place] ([facility]). It has not been cleared or approved by the FDA. [facility] is regulated under CLIA as qualified to perform high complexity testing. This test is used for clinical purposes. It should not be regarded as investigational or for research. [address] [place] [address] Timothy Gage III, M.D. [id number] Performed By: #### 2 84856 #### [address] [address] UGCAMP Negative Normal [facility] Comment on above: Performed By: #### 2 59437 #### [address] [address] GC/Chlamydia Amp, Uron 11-25 Chlamydia Amplif, Ur Normal [facility] Comment on above: Result Comment: Nega tive for For screening asymptomatic women, a vaginal swab specimen (APTIMA vaginal swab 793402) is optimal. Urine specimens have reduced sensitivity for Chlamydia trachomatis or Neisseria gonorrhoeae infection in female patients without symptoms. This test was developed and its performance characteristics determined by [facility] and [facility] [place] ([facility]). It has not been cleared or approved by the FDA. [facility] is regulated under CLIA as qualified to perform high complexity testing. This test is used for clinical purposes. It should not be regarded as investigational or for research. Chlamydia For screening asymptomatic women, a vaginal swab specimen (APTIMA vaginal swab 376136) is optimal. Urine specimens have reduced sensitivity for Chlamydia trachomatis or Neisseria gonorrhoeae infection in female patients without symptoms. This test was developed and its performance characteristics determined by [facility] [place] ([facility]). It has not been cleared or approved by the FDA. [facility] is regulated under CLIA as qualified to perform high complexity testing. This test is used for clinical purposes. It should not be regarded as investigational or for research. trachomatis by For screening asymptomatic women, a vaginal swab specimen (APTIMA vaginal swab 079615) is optimal. Urine specimens have reduced sensitivity for Chlamydia trachomatis or Neisseria gonorrhoeae infection in female patients without symptoms. This test was developed and its performance characteristics determined by [facility] and [facility] [place] ([facility]). It has not been cleared or approved by the FDA. [facility] is regulated under CLIA as qualified to perform high complexity testing. This test is used for clinical purposes. It should not be regarded as investigational or for research. amplification. For screening asymptomatic women, a vaginal swab specimen (APTIMA vaginal swab 043082) is optimal. Urine specimens have reduced sensitivity for Chlamydia trachomatis or Neisseria gonorrhoeae infection in female patients without symptoms. This test was developed and its performance characteristics determined by [facility] and [facility] [place] ([facility]). It has not been cleared or approved by the FDA. [facility] is regulated under CLIA as qualified to perform high complexity testing. This test is used for clinical purposes. It should not be regarded as investigational or for research. Performed By: #### U GCCT #### [facility] Routine Lab [address] [address] GC Amplification, Ur NGNEG Normal [facility] Comment on above: Performed By: #### U GCCT #### [facility] Routine Lab [address] [place], [place] [address] EMERGENCY REPORTon 0 EMERGENCY REPORT [facility] EMERGENCY ROOM REPORT NAME ACCOUNT SEX AGE ADMIT DISCHARGE PT MED. RECORD# NUMBER DATE DATE TYPE ZORAN [id number] F 11/23/19 11/24/19 3 BRYANNA Castro [id number] ROOM: ER DATE OF : 2000 DICTATING PHYSICIAN: Emily Reynolds ADDENDUM DIAGNOSTIC DATA: Bloodwork showed a white count of 10.1 with a hemoglobin of 12.2, hematocrit 35.4, and platelet count 297,000. Sodium was 138, potassium 3.4, chloride 105, CO2 of 25.4, BUN 9, creatinine 0.7, and glucose 150. AST was 15, ALT 16, alkaline phosphatase 59, and total bilirubin 0.4. Anion gap was normal at 11. Urinalysis showed negative nitrites with 100 of leukocyte esterase. There were 6-10 white cells. Red blood cells were too numerous to count. There was 1+ bacteria and occasional epithelial cells. Serum test came back negative. NARCISO prep on the pelvic examination was negative. Wet prep on the pelvic examination was negative as well. I do have a GC and Chlamydia culture pending. CT scan of the abdomen and pelvis was read as a negative CT of the abdomen and pelvis. Uterus and ovaries were unremarkable. There were no abnormal adnexal masses. Liver, spleen, gallbladder, pancreas, adrenal glands, and kidneys were within normal limits. No nephrolithiasis or ureterolithiasis. No abnormal dilatation of either renal collecting system. No abnormality of the visualized bowel. No findings of bowel obstruction. No findings of diverticulitis or colitis. The appendix is incompletely visualized; however, there are no findings of acute appendicitis. No free intraperitoneal fluid. No lymph node enlargement. Abdominal aorta is normal in caliber. EMERGENCY DEPARTMENT COURSE AND TREATMENT: The patient was advised to adhere to vaginal rest. No intercourse, douching or tampons. Follow up with [facility] [employer] [employer] [facility] in the next 3 to 5 days. She has been seen in their office here recently before, and she does follow with them. If she has any worsening symptoms, return here to the Emergency Department. The patient was discharged in a clinically stable condition. Nurse's notes reviewed. DIAGNOSIS: Dysfunctional uterine bleeding. Dictated By: Emily Reynolds DO 11/24/19 01:24 JOB #: [id number] Transcribed By: ignacia 11/24/19 11:08 Electronically signed by: E-Sign: Dr. Emily Reynolds D.O. 11/25/19 02:25 Page 1 of 1 MEEHANLESLIEAN [place] Emergency Room Report Normal [facility] EMERGENCY REPORT [facility] EMERGENCY ROOM REPORT NAME ACCOUNT SEX AGE ADMIT DISCHARGE PT MED. RECORD# NUMBER DATE DATE TYPE ZORAN [id number] F 11/23/19 11/24/19 3 BRYANNA Castro [id number] ROOM: ER DATE OF : 2000 DICTATING PHYSICIAN: Emily Reynolds ADDENDUM PHYSICAL EXAMINATION: Pelvic examination showed the cervical os to be closed. There was a small amount of blood noted in the vaginal vault but no active bleeding. No adnexal masses or tenderness. EMERGENCY DEPARTMENT COURSE AND TREATMENT: GC and Chlamydia cultures, wet prep, and NARCISO were all done. GC and Chlamydia cultures are pending. Dictated By: Emily Reynolds DO 11/24/19 01:26 JOB #: [id number] Transcribed By: ignacia 11/24/19 11:23 Electronically signed by: E-Sign: Dr. Emily Reynolds D.O. 11/25/19 02:25 Page 1 of 1 BRYANNA MEEHAN Emergency Room Report Normal [facility] EMERGENCY REPORT [facility] EMERGENCY ROOM REPORT NAME ACCOUNT SEX AGE ADMIT DISCHARGE PT MED. RECORD# NUMBER DATE DATE TYPE ZORAN [id number] F 11/23/19 11/24/19 3 BRYANNA Castro [id number] ROOM: ER DATE OF : 2000 DICTATING PHYSICIAN: Emily Reynolds TIME SEEN: 2305 hours. HISTORY OF PRESENT ILLNESS: This is a 19-year-old white female complaining of vaginal bleeding that started about 2 hours ago after sexual intercourse. She states she soaked through 3 pads. She denies any abdominal pain. She states that back in June she had her cervix stitched. This was done by an SHEEP FARM MANAGER in [place], [place]. She was told that the stitch would absorb on its own so she has not followed up since. She states she has not had a period since March. PAST MEDICAL HISTORY: Hypertension, although the patient is not presently on any medications. She states that she used to be on antidepressants, but she has not had those refilled. She does not have a primary care physician. PAST SURGICAL HISTORY: Denied. ALLERGIES: No known drug allergies. SOCIAL HISTORY: The patient is not a smoker. She denies any illicit drug use. She does admit to occasional alcohol use. The patient states she is presently homeless. REVIEW OF SYSTEMS: The patient denies any chest pain, shortness of breath, cough, sputum, wheezing, abdominal pain, nausea, vomiting, diarrhea, constipation, melena, or hematochezia. She does admit to some vaginal bleeding following sexual intercourse. She denies any urinary urgency, frequency, dysuria, headache, numbness, unsteady gait, weakness, neck or back pain, joint pain, skin rash or swelling, hives, hay fever, or swollen glands. Further review of systems is negative. PHYSICAL EXAMINATION: Vital signs: Blood pressure is 145/80, pulse 101, respirations 20, temperature 98.1, pulse oximetry 97%, and weight 179 pounds. The patient is alert and oriented x3. She presently appears in no acute distress. She is pleasant and cooperative. HEENT: Head appears atraumatic. Pupils are equal and reactive to light. Red reflexes are intact bilaterally. Extraocular muscles are intact. No conjunctival injection. No scleral icterus or lid edema. Nose exhibits no rhinorrhea or epistaxis. Mouth: Mucous membranes are moist. No pharyngeal erythema. Uvula is midline and elevates. Neck is supple. Trachea is midline. No JVD or lymphadenopathy. No posterior cervical tenderness. No nuchal rigidity. Lungs are clear to auscultation in Page 1 of 2 BRYANNA MEEHAN Emergency Room Report BRYANNA MEEHAN : 2000 all lung more. No adventitious sounds are noted. No accessory muscle use is noted. CV: Heart rate and rhythm are regular without murmur. Abdomen is soft and nontender with normoactive bowel sounds x4 quadrants. No guarding or rigidity. No rebound. No palpable abdominal masses. No hepatosplenomegaly. Back exhibits no midline or paraspinal region tenderness. No increased paraspinal muscle rigidity. Negative Nik's sign. Extremities: No edema or cyanosis. Peripheral pulses are intact. No motor or sensory deficits are noted. Hand progressive care unit registered nurse are strong and symmetric. Skin is warm and dry. No diaphoresis or rash. Neurologic examination shows the patient to be alert and oriented x4. No motor or sensory deficits are noted. Normal speech. DIAGNOSTIC DATA: CBC shows a white count of 10.1, hemoglobin 12.2, hematocrit 35.4, and platelet count 297,000. EMERGENCY DEPARTMENT COURSE AND TREATMENT: I do have some other bloodwork pending and will do a pelvic examination. I did order a GC, Chlamydia, and urine as well and then we will reevaluate. Dictated By: Emily Reynolds DO 11/24/19 00:00 JOB #: [id number] Transcribed By: ignacia 11/24/19 10:48 Electronically signed by: E-Sign: Dr. Emily Reynolds D.O. 11/25/19 02:25 Page 2 of 2 BRYANNA MEEHAN Emergency Room Report Normal [facility] GC/CHLAM AMPLIFICATION SWAB [CCL]on 11-25-2019 Chlamydia Amplif Negative Normal [facility] Comment on above: Result Comment: [facility] [address] [place] [address] Timothy Gage III, M.D. [id number] Performed By: #### 2 59726 #### [place] [address] GC Amplification Negative Normal [facility] Comment on above: Performed By: #### 2 71040 #### [place] [address] GC/Chlam Amp Source VAGINAL Normal [facility] Comment on above: Performed By: #### 2 44334 #### [place] [address] CBC + DIFFon 11-24-2019 Basophils (Bld) [#/Vol] 0.10 x10EE3/UL Normal 0.00 - 0.10 [facility] Comment on above: Performed By: #### 2 06860 #### [address],[place] [address] Basophils/100 WBC (Bld) 1.0 % Normal 0.0 - 2.0 [facility] Comment on above: Performed By: #### 2 77910 #### [facility],[address] [place], [place] [id number] CBC + DIFF Normal [facility] Comment on above: Result Comment: CBC- COMPLETE BLOOD COUNT Performed By: #### 2 45659 #### [facility],[address] [place], [place] [address] Eosinophils (Bld) [#/Vol] 0.30 x10EE3/UL Normal 0.00 - 0.50 [facility] Comment on above: Performed By: #### 2 93698 #### [facility],[address] [place], [place] [address] Eosinophils/100 WBC (Bld) 2.6 % Normal 0.0 - 7.0 [facility] Comment on above: Performed By: #### 2 80955 #### [facility],[address] [place], [place] [address] Erythrocyte distribution width (RBC) [Ratio] 14.8 % Normal 12.0 - 15.6 [facility] Comment on above: Performed By: #### 2 59256 #### [facility],[address] [place], [place] [address] Hematocrit (Bld) [Volume fraction] 35.4 % Normal 34.0 - 46.0 [facility] Comment on above: Performed By: #### 2 33721 #### [facility],[address] [place] [address] Hemoglobin (Bld) [Mass/Vol] 12.2 g/dL Normal 12.0 - 16.0 [facility] Comment on above: Performed By: #### 2 69139 #### [facility],[address] [place] [address] Lymphocytes (Bld) [#/Vol] 3.50 x10EE3/UL High 0.80 - 2.80 [facility] Comment on above: Performed By: #### 2 99754 #### [facility],[address] [place] [address] Lymphocytes/100 WBC (Bld) 35.0 % Normal 20.0 - 45.0 [facility] Comment on above: Performed By: #### 2 17464 #### [facility],[address] [place], [place] [address] MANUAL DIFF N/A Normal [facility] Comment on above: Performed By: #### 2 17481 #### [facility],[address] [place], [place] [address] MCH (RBC) [Entitic mass] 28 pg Normal 27 - 33 [facility] Comment on above: Performed By: #### 2 35879 #### [facility],[address] [place] [address] MCHC (RBC) [Mass/Vol] 34 X10 3 Normal 32 - 36 [facility] Comment on above: Performed By: #### 2 44433 #### [facility],[address] [place] [address]373 MCV (RBC) [Entitic vol] 81 fL Normal 80 - 99 [facility] Comment on above: Performed By: #### 2 08231 #### [facility],[address] [place] [address] Monocytes (Bld) [#/Vol] 0.70 x10EE3/UL Normal 0.20 - 1.00 [facility] Comment on above: Performed By: #### 2 67193 #### [facility],[address] [place] [address] MONOS % 6.9 % Normal 0.0 - 10.0 [facility] Comment on above: Performed By: #### 2 15103 #### [facility],[address] [place], [place] [address] Morphology Contreras (Bld) [Interp] N/A Normal [facility] Comment on above: Performed By: #### 2 41139 #### [facility],[address] [place] [address]99 Neutrophils (Bld) [#/Vol] 5.50 x10EE3/UL Normal 1.50 - 7.10 [facility] Comment on above: Performed By: #### 2 92741 #### [facility],[address] [place] [address]644 Neutrophils/100 WBC (Bld) 54.5 % Normal 46.0 - 76.0 [facility] Comment on above: Performed By: #### 2 19308 #### [facility],[address] [place] [address] 16214 Platelet mean volume (Bld) [Entitic vol] 7.6 fL Normal 6.6 - 10.5 [facility] Comment on above: Result Comment: AUTO MATED DIFFERENTIAL Performed By: #### 2 79945 #### [facility],[address] [place] [address] Platelets (Bld) [#/Vol] 297 x10EE3/UL Normal 150 - 450 [facility] Comment on above: Performed By: #### 2 68682 #### [facility],[address] [place] [address]55[address] RBC (Bld) [#/Vol] 4.36 x 10EE6/UL Normal 4.10 - 5.30 [facility] Comment on above: Performed By: #### 2 09104 #### [facility],[address] [place] [address] 38763 WBC (Bld) [#/Vol] 10.1 x 10EE3/UL Normal 4.5 - 10.8 [facility] Comment on above: Performed By: #### 2 49123 #### [facility],[address] [place] [address] CMP with eGFRon 11-24-2019 Age - Reported 19 years Normal [facility] Comment on above: Performed By: #### 2 81087 #### [facility],[address] [place] [address] 01895 Albumin [Mass/Vol] 4.1 g/dL Normal 3.4 - 4.8 [facility] Comment on above: Performed By: #### 2 35064 #### [facility],[address] [place] [address]167 Albumin/Globulin [Mass ratio] 1.3 {ratio} Normal 0.9 - 1.6 [facility] Comment on above: Performed By: #### 2 70728 #### [facility],[address] [place] [address]755 ALK PHOS 59 U/L Normal 38 - 126 [facility] Comment on above: Performed By: #### 2 99071 #### [facility],[address] [place] [address] 05107 ALT/SGPT 16 U/L Normal 8 - 35 [facility] Comment on above: Performed By: #### 2 34862 #### [facility],[address] [place] [address] 17297 Anion gap [Moles/Vol] 11 mmol/L Normal 10 - 20 [facility] Comment on above: Performed By: #### 2 31675 #### [facility],[address] [place] [address] 84574 AST/SGOT 15 U/L Normal 13 - 39 [facility] Comment on above: Performed By: #### 2 24948 #### [facility],[address] [place] [address]39[address] B/C RATIO 13 ratio Normal 0 - 30 [facility] Comment on above: Performed By: #### 2 38437 #### [facility],[address] [place] [address]644 Bilirubin [Mass/Vol] 0.4 mg/dL Normal 0.0 - 1.5 [facility] Comment on above: Performed By: #### 2 71579 #### [facility],[address] [place] [address] 25952 Calcium [Mass/Vol] 9.0 mg/dL Normal 8.6 - 10.2 [facility] Comment on above: Performed By: #### 2 25591 #### [facility],[address] [place] [address] 20051 Chloride [Moles/Vol] 105 mmol/L Normal 98 - 107 [facility] Comment on above: Performed By: #### 2 41245 #### [facility],[address] [place] [address] 37462 CO2 [Moles/Vol] 25.4 mmol/L Normal 21.0 - 31.0 [facility] Comment on above: Performed By: #### 2 32076 #### [facility],[address] [place] [address]109 Creatinine [Mass/Vol] 0.7 mg/dL Normal 0.6 - 1.2 [facility] Comment on above: Performed By: #### 2 30885 #### [facility],[address] [place] [address] 42821 GFR/1.73 sq M predicted among non-blacks MDRD (S/P/Bld) [Vol rate/Area] Normal [facility] Comment on above: Result Comment: COMP REHENSIVE METABOLIC PANEL Performed By: #### 2 55078 #### [facility],[address] [place] [address] 29391 GFR/1.73 sq M predicted among non-blacks MDRD (S/P/Bld) [Vol rate/Area] mL/min/{1.73_m2} Normal 60 - 999 [facility] Comment on above: Result Comment: ACCO RDING TO THE NATIONAL KIDNEY DISEASE EDUCATION PROGRAM(NKDE), A NORMAL eGFR IS A VALUE GREATER THAN OR EQUAL TO 60 ML/MIN/1.73 SQ METERS. CHRONIC KIDNEY DISEASE: <60mL/MIN/1.73 SQ METERS KIDNEY FAILURE: <15mL/MIN/1.73 SQ METERS THIS TEST SHOULD ONLY BE USED FOR PATIENTS 18 YEARS OF AGE AND OLDER. Performed By: #### 2 58670 #### [facility],[address] [place] [address]161 Globulin (S) [Mass/Vol] 3.2 g/dL Normal 1.5 - 3.8 [facility] Comment on above: Performed By: #### 2 50664 #### [facility],[address] [place] [address] 39785 Glucose [Mass/Vol] 150 mg/dL High 74 - 106 [facility] Comment on above: Performed By: #### 2 21228 #### [facility],[address] [place] [address]44[address] Potassium [Moles/Vol] 3.4 mmol/L Low 3.5 - 5.1 [facility] Comment on above: Performed By: #### 2 91481 #### [facility],[address] [place] [address] 51927 Protein [Mass/Vol] 7.3 g/dL Normal 6.4 - 8.3 [facility] Comment on above: Performed By: #### 2 79407 #### [facility],[address] [place] [address] 49926 Sodium [Moles/Vol] 138 mmol/L Normal 136 - 145 [facility] Comment on above: Performed By: #### 2 61487 #### [facility],[address] [place] [address] 62967 Urea nitrogen [Mass/Vol] 9 mg/dL Normal 6 - 20 [facility] Comment on above: Performed By: #### 2 13514 #### [facility],[address] [place] [address] ABDOMEN/PELVIS Won 2019 CT ABDOMEN/PELVIS [place] [address] Patient: BRYANNA MEEHAN Phone#: : 2000 Age: 19 Gender: F Pt. Type: ER Account: [id number] Location: 052 Ordering: EMILY GALLARDOCALLUM Exam Date: 11/24/2019/0:43 Family Phys: Charge Code: [id number] Physician: Stearns Order #: [id number] DLP Dose#: PROCEDURE: CT ABDOMEN/PELVIS WITH CONTRAST COMPARISON: None. INDICATIONS: Vaginal Bleeding TECHNIQUE: After obtaining the patient's consent, CT images were created with non-ionic intravenous contrast material. All CT scans at this facility use dose modulation, iterative reconstruction, and/or weight based dosing when appropriate to reduce radiation dose to as low as reasonably achievable. IV CONTRAST: Omnipaque 350,80ml TOTAL DOSE: 17.40 CTDIvol(mGy) FINDINGS: LIVER: Normal. No enlargement, atrophy, abnormal density, or significant focal lesion. BILIARY: The gallbladder is contracted. PANCREAS: Normal. No lesion, fluid collection, ductal dilatation, or atrophy. SPLEEN: Normal. No enlargement or focal lesion. KIDNEYS: Normal. No mass, obstruction, or calcification. ADRENALS: Normal. No mass or enlargement. AORTA/VASCULAR: Normal. No aneurysm or dissection. RETROPERITONEUM: Normal. No mass or adenopathy. BOWEL/MESENTERY: Normal. No visible mass, obstruction, or bowel wall thickening. ABDOMINAL WALL: Normal. No mass or hernia. URINARY BLADDER: Normal. No visible focal wall thickening, lesion, or calculus. PELVIC NODES: Normal. No adenopathy. PELVIC ORGANS: Bilateral follicular cysts are present. No visible mass. Pelvic organs appropriate for patient age. Continued Report - Page 2 of 2 Patient: BRYANNA MEEHAN Phone#: : 2000 Age: 19 Gender: F Pt. Type: ER Account: [id number] Location: 052 Ordering: EMILY GALLARDOCALLUM Exam Date: 11/24/2019/0:43 Family Phys: Charge Code: [id number] Physician: Stearns Order #: [id number] DLP Dose#: BONES: Normal. No bony lesion or fracture. LUNG BASES: Normal. No visible pulmonary or pleural disease. OTHER: Negative. CONCLUSION: 1. There is no evidence of acute abdominal or pelvic abnormality. Dictated by: Marquita Manley MD on 11/24/2019 at 8:47 Approved by: Marquita Manley MD on 11/24/2019 at 8:51 Normal [facility] CULTURE URINEon 11-24-2019 CULTURE URINE CULTURE URINE _URINE CULTURE_ M I C R O B I O L O G Y R E P O R T FINAL -------- Antimicrobial Susceptibility and Organism Identification Report --------- Specimen Number : [id number] Requested : 11/23/19 Specimen Source : URINE Collected : 11/23/19 23:50 [facility] : EMERGENCY ROOM Received : 11/23/19 23:50 Requesting Physician : GAIL ------- Patient/Specimen Tests and Comments Specimen Comments --------- --------- FINAL REPORT: URINE COLONY COUNT: > THAN 100,000 CFU/CC GROUP B STREPTOCOCCUS GRAM NEGATIVE RODS ------- Organisms Identified -------- * 01 Escherichia coli 11/26/19 Comments --------- --------- >100,000 cfu ------- Tech : _ Source : URINE ID # : [id number] FINAL Report Date : / / : Collected : 11/23/19 23:50 Continued on Next Page [place] R O B I O L O G Y R E P O R T FINAL -------- Antimicrobial Susceptibility and Organism Identification Report --------- ------- Isolate 01 Escherichia coli ------- Escherichia coli DRUG [facility] Sys. Urine UNITS ML/DL --- ----- ----- Ampicillin <=8 S S Aztreonam <=4 S S Ceftriaxone <=1 S S Ceftazidime <=1 S S Ciprofloxacin <=1 S S Ertapenem <=0.5 S S Nitrofurantoin <=32 S Gentamicin <=4 S S Levofloxacin <=2 S S Meropenem <=1 S S Pip/Tazo <=16 S S Trimeth/Sulfa <=2/38 S S Tetracycline <=4 S S Tobramycin <=4 S S +, ++, +++, or S = Susceptible N/R = Not Reported Aleksandra = Beta Lactamase Positive I = Intermediate CC = Cost Code TFG = Thymidine-dependent Strain R = Resistant MC = mcg/ml (mg/L) Blank = Data not available, or drug not advisable or tested For Blood and CSF Isolates, a Beta-Lactamase test is recommended for Enterococus species. IB appears in place of S, I (S), +, ++, or +++ with species known to possess inducible B-lactamases; potentially they may become resistant to all B-lactam drugs. Monitoring of patients during/after therapy is recommended. Avoid other/combined B-lactam drugs. (a) Use maximum doses of drug with an aminoglycoside for P. aeruginosa in patients with granulocytopenia or serious infections. (b) Breakpoints based on parenteral dose. For cefuroxime Axetil (PO) use <8=S, 8-16=I, >16=R. (c) For non-enterococcal streptococci, Micrococcus species, and Listeria species, refer to the Ampicillin interpretation. ------- * Interpretations based on approx. adult attainable systemic/urine levels, except drugs with <3 dilutions, which print NCCLS. Doses are guidelines; consider weight and renal/hepatic function. Urine interpretation for lower UTI only. Interpretations based on NCCLS M7-A2. Ticar/K Clav'ate for gram positives based on online merchandising coordinator's breakpoints. ------- Tech : _ Source : URINE ID # : [id number] FINAL Report Date : / / : Collected : 11/23/19 23:50 11/26/19.1632.KLS. 11/25/19.28.BKO. 11/26/19.1631.KLS.COMPLET E Normal [facility] Comment on above: Performed By: #### 2 94976 #### [facility],[address] [place] [address] NARCISO PREPon 11-24-2019 NARCISO PREP NARCISO PREP NARCISO PREP YEAST: No Yeast seen FUNGAL: No Fungal elements seen Normal [facility] Comment on above: Performed By: #### 2 56077 #### [facility],[address] [place] [address] SERUM QUALon 11-23 EXTERNAL QC DONE? YES Normal [facility] Comment on above: Performed By: #### 2 15702 #### [facility],[address] [place] [address] INTERNAL QC PASS Normal [facility] Comment on above: Performed By: #### 2 91914 #### [facility],[address] [place] [address] SER Negative Normal NEGATIVE [facility] Comment on above: Performed By: #### 2 52524 #### [facility],[address] [place] [address] URINALYSIS WITH MICROSCOPYon 11-24-2019 Amorphous NONE Normal [facility] Comment on above: Performed By: #### 2 65546 #### [facility],[address] [place] [address] Bacteria LM.HPF (Urine sed) [#/Area] 1+ Normal [facility] Comment on above: Performed By: #### 2 46666 #### [facility],[address] [place] [address] Bilirubin [Mass/Vol] Negative Normal NORMAL: NEGATIVE [facility] Comment on above: Performed By: #### 2 14976 #### [facility],[address] [place] [address] Blood 250 Abnormal NORMAL: NEGATIVE [facility] Comment on above: Performed By: #### 2 09648 #### [facility],[address] [place] [address] Casts LM.LPF (Urine sed) [#/Area] NONE Normal [facility] Comment on above: Performed By: #### 2 76089 #### [facility],[address] [place] [address] Clarity (U) clear Normal NORMAL: CLEAR [facility] Comment on above: Performed By: #### 2 12420 #### [facility],[address] [place] [address] Color (U) иван Normal NORMAL: YELLOW [facility] Comment on above: Performed By: #### 2 26740 #### [facility],[address] [place], [place] [id number] Crystals LM Nom (Urine sed) NONE Normal [facility] Comment on above: Performed By: #### 2 65370 #### [facility],[address] [place], [place] [id number] Epi Cells OCC Normal [facility] Comment on above: Performed By: #### 2 07573 #### [facility],[address] [place] [address] Glucose [Mass/Vol] NORM Normal NORMAL: NORMAL [facility] Comment on above: Performed By: #### 2 39135 #### [facility],[address] [place], [place] [id number] Ketone 5 Abnormal NORMAL: NEGATIVE [facility] Comment on above: Performed By: #### 2 46942 #### [facility],[address] [place] [address] Mucous NONE Normal [facility] Comment on above: Performed By: #### 2 60352 #### [facility],[address] [place] [address] Nitrite Ql (U) Negative Normal NORMAL: NEGATIVE [facility] Comment on above: Performed By: #### 2 73465 #### [facility],[address] [place] [address] pH (Bld) 6 Normal NORMAL: 5.0-8.0 [facility] Comment on above: Performed By: #### 2 52066 #### [facility],[address] [place] [address] Protein (U) [Mass/Vol] 30 mg/dL Abnormal NORMAL: NEGATIVE [facility] Comment on above: Performed By: #### 2 53834 #### [facility],[address] [place] [address] Rbc TNTC Normal 0-3 / hpf [facility] Comment on above: Performed By: #### 2 40984 #### [facility],[address] [place] [address] Sp [place] 1.020 Normal NORMAL: 1.010-1.030 [facility] Comment on above: Performed By: #### 2 06207 #### [facility],[address] [place] [address] Specimen type Nom (Spec) UNSPECIFIED Normal [facility] Comment on above: Performed By: #### 2 87481 #### [facility],[address] [place] [address] URINALYSIS WITH MICROSCOPY Normal [facility] Comment on above: Result Comment: URIN ALYSIS Performed By: #### 2 46460 #### [facility],[address] [place] [address] Urobilinog 1 Abnormal NORMAL: NORMAL [facility] Comment on above: Performed By: #### 2 87337 #### [facility],[address] [place] [address] Wbc 6-10 Normal 0-5 / hpf [facility] Comment on above: Performed By: #### 2 66379 #### [facility],[address] [place] [address]238 WBC (Bld) [#/Vol] 100 Abnormal NORMAL: NEGATIVE [facility] Comment on above: Result Comment: URIN E MICROSCOPIC Performed By: #### 2 89280 #### [facility],[address] [place] [address] Yeast LM Ql (Urine sed) NONE Normal [facility] Comment on above: Performed By: #### 2 32776 #### [facility],[address] [place] [address] WET PREP TRICHOMONASon 11-23 WET PREP TRICHOMONAS WET PREP TRICHOMONA S WET PREP TRICHOMONAS WET PREP: No Trich. seen Normal [facility] Comment on above: Performed By: #### 2 92276 #### [facility],[address] [place], [place] [id number] Coronavirus 2019on 0 COVID 19 Result COLLAR POINTER Negative Normal [facility] Comment on above: Result Comment: Nega tive for COVID19 (SARS CoV2) by PCR. This test was developed and its performance characteristics determined by [facility] [place]. This test has been authorized by FDA under an Emergency Use Authorization (EUA). This test has been validated in accordance with the FDA's Guidance Document Policy for Diagnostics Testing in Laboratories Certified to Perform High Complexity Testing under CLIA prior to Emergency use Authorization for Coronavirus Disease 2019 during the Public Health Emergency issued on April 26, 2019. Performing Laboratory: [facility] [address] [place] [address] Performed By: #### C D19X #### [place] [address] Basic Panelon 09-29-2019 Anion gap [Moles/Vol] 12 mmol/L Normal 9-18 [facility] Comment on above: Performed By: #### L LP8 #### [facility] [address], [place] [address] Calcium [Mass/Vol] 9.2 mg/dL Normal 8.5-10.2 [facility] Comment on above: Performed By: #### L LP8 #### [facility] [address] [place] [address] Chloride [Moles/Vol] 98 mmol/L Normal 97-105 [facility] Comment on above: Performed By: #### L LP8 #### [facility] [address] [place] [address] CO2 Blood 23 mmol/L Normal 22-30 [facility] Comment on above: Performed By: #### L LP8 #### [facility] [address] [place] [address] Creatinine [Mass/Vol] 0.85 mg/dL Normal 0.58-0.96 [facility] Comment on above: Performed By: #### L LP8 #### [facility] [address] [place] [address] Glucose [Mass/Vol] 89 mg/dL Normal 74-99 [facility] Comment on above: Result Comment: The [place] Diabetes Association (ADA) provides guidance for cutoff values for fasting glucose and random glucose. The ADA defines fasting as no caloric intake for at least 8 hours.Fasting plasma glucose results between 100 to 125 mg/dL indicate increased risk for diabetes (prediabetes). Fasting plasma glucose results greater than or equal to 126 mg/dL meet the criteria for diagnosis of diabetes. In the absence of unequivocal hyperglycemia, results should be confirmed by repeat testing. In a patient with classic symptoms of hyperglycemia or hyperglycemic crisis, random plasma glucose results greater than or equal to 200 mg/dL meet the criteria for diagnosis of diabetes. Reference: Standards of Medical Care in Diabetes 2016; [place] Diabetes Association. Diabetes Care. 2016;39(Suppl 1). Performed By: #### L LP8 #### [facility] [address] [place] [address] Potassium [Moles/Vol] 3.7 mmol/L Normal 3.7-5.1 [facility] Comment on above: Performed By: #### L LP8 #### [facility] [address] [place] [address] Sodium [Moles/Vol] 133 mmol/L Low 136-144 [facility] Comment on above: Performed By: #### L LP8 #### [facility] [address] [place] [address] Urea nitrogen [Mass/Vol] 11 mg/dL Normal 7-21 [facility] Comment on above: Performed By: #### L LP8 #### [facility] [address] [place] [address] Cult Bloodon 09-29-2019 Cult Blood Test performed at [facility] No growth Normal [facility] Comment on above: Performed By: #### C _BLO #### [place] [address] Hemogram/Manual Diffon 09-28 Abs. Baso 0.00 thou/cmm Normal 0.00-0.08 [facility] Comment on above: Performed By: #### L MCBD #### [facility] [address] [place] [address] Abs. Eosin 0.00 thou/cmm Normal 0.00-0.41 [facility] Comment on above: Performed By: #### L MCBD #### [place] [address] Abs. Lymph 0.87 thou/cmm Low 1.50-3.65 [facility] Comment on above: Performed By: #### L MCBD #### [facility] [address] [place] [address] Abs. [place] 0.58 thou/cmm Normal 0.20-1.00 [facility] Comment on above: Performed By: #### L MCBD #### [place] [address] Abs. Neut (ANC) 13.05 thou/cmm High 3.00-5.67 [facility] Comment on above: Performed By: #### L MCBD #### [facility] [address], [place] [address] Basophil 0.0 % Normal [facility] Comment on above: Performed By: #### L MCBD #### [facility] [address] [place] [address] Eosinophil 0.0 % Normal [facility] Comment on above: Performed By: #### L MCBD #### [facility] [address] [place] [address] Lymphocyte 6.0 % Normal [facility] Comment on above: Performed By: #### L MCBD #### [facility] [address] [place] [address] Monocyte 4.0 % Normal [facility] Comment on above: Performed By: #### L MCBD #### [facility] [address] [place] [address] Platelets (Bld) [#/Vol] Normal Normal [facility] Comment on above: Performed By: #### L MCBD #### [facility] [address] [place] [address] RBC morphology finding Nom (Bld) Normal Normal [facility] Comment on above: Performed By: #### L MCBD #### [facility] [address] [place] [address] Seg Neutrophil 90.0 % Normal [facility] Comment on above: Performed By: #### L MCBD #### [facility] [address] [place] [address] Diff Type Manual Diff Normal [facility] Comment on above: Performed By: #### L MCBD #### [facility] [address] [place] [address] Erythrocyte distribution width (RBC) [Ratio] 13.4 % Normal 11.5-15.9 [facility] Comment on above: Performed By: #### L MCBD #### [facility] [address] [place] [address] Hematocrit (Bld) [Volume fraction] 39.6 % Normal 37.0-47.0 [facility] Comment on above: Performed By: #### L MCBD #### [facility] [address], [place] [address] Hemoglobin (Bld) [Mass/Vol] 13.0 g/dL Normal 12.0-16.0 [facility] Comment on above: Performed By: #### L MCBD #### [facility] [address], [place] [address] MCH (RBC) [Entitic mass] 28.2 pg Normal 27.0-31.0 [facility] Comment on above: Performed By: #### L MCBD #### [facility] [address] [place] [address] MCHC (RBC) [Mass/Vol] 32.8 % Normal 32.0-36.0 [facility] Comment on above: Performed By: #### L MCBD #### [facility] [address] [place] [address] MCV (RBC) [Entitic vol] 85.9 fl Normal 81.0-99.0 [facility] Comment on above: Performed By: #### L MCBD #### [facility] [address] [place] [address] Platelet mean volume (Bld) [Entitic vol] 9.6 fl Normal 7.1-10.5 [facility] Comment on above: Performed By: #### L MCBD #### [facility] [address], [place] [address] Platelets (Bld) [#/Vol] 311 thou/cmm Normal 150-400 [facility] Comment on above: Performed By: #### L MCBD #### [facility] [address], [place] [address] RBC (Bld) [#/Vol] 4.61 mil/cmm Normal 4.20-5.40 [facility] Comment on above: Performed By: #### L MCBD #### [facility] [address], [place] [address] WBC (Bld) [#/Vol] 14.5 thou/cmm High 4.8-10.5 [facility] Comment on above: Performed By: #### L MCBD #### [place] [address] MDRD eGFRon 09-29-2019 GFR/1.73 sq M predicted among non-blacks MDRD (S/P/Bld) [Vol rate/Area] mL/min/{1.73_m2} Normal >60mL/min/1. 73m2 [facility] Comment on above: Result Comment: If t he patient is , multiply the result by 1.210. Performed By: #### L GFR #### [place] [address] Urinalysis Routineon 020 Appearance (U) CLEAR Normal [facility] Comment on above: Performed By: #### L URIN #### [place] [address] Bacteria LM.HPF (Urine sed) [#/Area] FEW Abnormal None [facility] Comment on above: Performed By: #### L URIN #### [place] [address] Bilirubin Urine Negative Normal Negative [facility] Comment on above: Performed By: #### L URIN #### [place] [address] Color (U) YELLOW Normal [facility] Comment on above: Performed By: #### L URIN #### [place] [address] Ep Cells Urine 0-2 Normal 0-5 [facility] Comment on above: Performed By: #### L URIN #### [place] [address] Glucose Ql (U) Negative Normal Negative [facility] Comment on above: Performed By: #### L URIN #### [place] [address] Hemoglobin,Urine 1+ Abnormal Negative [facility] Comment on above: Performed By: #### L URIN #### [place] [address] Ketone Urine Negative Normal Negative [facility] Comment on above: Performed By: #### L URIN #### [facility] [address] [place] [address] Leukocytes Esterase 3+ Abnormal Negative [facility] Comment on above: Performed By: #### L URIN #### [facility] [address] [place] [address] Nitrites Urine Negative Normal Negative [facility] Comment on above: Performed By: #### L URIN #### [place] [address] pH (U) 6.0 [pH] Normal 5.0-8.0 [facility] Comment on above: Performed By: #### L URIN #### [place] [address] Protein (U) [Mass/Vol] Negative Normal Negative [facility] Comment on above: Performed By: #### L URIN #### [place] [address] RBC LM.HPF (Urine sed) [#/Area] 0-3 Normal 0-3 [facility] Comment on above: Performed By: #### L URIN #### [place] [address] Specific [place], Ur 1.010 Normal 1.005-1.030 [facility] Comment on above: Performed By: #### L URIN #### [place] [address] Urobilinogen,Ur 0.2 EU/dL Normal 0.2-1.0 [facility] Comment on above: Performed By: #### L URIN #### [place] [address] WBC LM.HPF (Urine sed) [#/Area] 2-5 Normal 0-5 [facility] Comment on above: Performed By: #### L URIN #### [place] [address] Urine HCG, Qual.on 0 Beta HCG ( test) Ql (U) Negative Normal Negative [facility] Comment on above: Performed By: #### L HCG2 #### [address] [place] [address] XR CHEST 1V FRONTALon 2019 XR CHEST 1V FRONTAL Final Report DATE OF EXAM: Sep 29 2019 5:51PM LDX 5290 - XR CHEST 1V FRONTAL / PROCEDURE REASON: Chest pain or SOB, pleurisy or effusion suspected Physician Interpretation EXAMINATION: CHEST RADIOGRAPH (SINGLE VIEW AP OR PA) Clinical History: Chest pain or SOB, pleurisy or effusion suspected M: [id number] Comparison: 06/30/2018 RESULT: Lines, tubes, and devices: None. Lungs and pleura: No consolidation. No lung mass. No pleural effusion. Cardiomediastinal silhouette: Stable cardiomediastinal silhouette. IMPRESSION: No acute radiographic abnormality. Stable chest x-ray. Production Technologist: PSCB Transcribe Date/Time: Sep 29 2019 6:22P Dictated by : EMILY ROSARIO MD This examination was interpreted and the report reviewed and electronically signed by: EMILY ROSARIO MD on Sep 29 2019 6:23PM EST Normal [facility] HCG QUALITATIVE, URINEon HCG ( test) Ql (U) Negative NEGATIVE [employer] URINALYSIS, MACROon 08-14-19 20 Bilirubin Ql (U) Negative NEGATIVE [employer] [facility]TH Clarity (U) CLEAR CLEAR [place] [facility] Color (U) YELLOW YELLOW [employer] Glucose Test strip (U) [Mass/Vol] Negative NEGATIVE mg/dl [employer] Hemoglobin Ql (U) MODERATE Abnormal NEGATIVE [facility] Interpretation and review of laboratory results Abnormal [employer] [facility] Ketones (U) [Mass/Vol] Negative NEGATIVE mg/dl [employer] Leukocyte esterase Test strip Ql (U) SMALL Abnormal NEGATIVE [employer] Nitrite Ql (U) Negative NEGATIVE [facility] TH pH (U) 6.5 [pH] [employer] Protein Ql (U) Negative NEGATIVE mg/dl [employer] Specific gravity (U) [Rel density] 1.025 [employer] Urobilinogen (U) [Mass/Vol] 0.2 [employer] URINE HCG QUALon 08-14-2019 Beta HCG ( test) Ql (U) Negative Normal NEGATIVE [facility] Comment on above: Performed By: #### U HCGT #### Testing performed at [address] [address] URINE MICROSCOPICon 08-14-19 20 Bacteria LM.HPF (Urine sed) [#/Area] Negative Normal NEGATIVE [facility] Comment on above: Performed By: #### U MC #### Testing performed at [address] [address] Casts LM.LPF (Urine sed) [#/Area] NONE Normal NONE [facility] Comment on above: Performed By: #### U MC #### Testing performed at [place] [id number] CRYSTAL NONE Normal [facility] Comment on above: Performed By: #### U MC #### [place] [address] Epithelial cells LM.HPF (Urine sed) [#/Area] 10 TO 20 Normal [facility] Comment on above: Performed By: #### U MC #### [place] [address] Mucus Ql (Urine sed) Negative Normal NEGATIVE [facility] Comment on above: Performed By: #### U MC #### [place] [address] RBC (U) [#/Vol] 5 TO 10 Normal NEGATIVE [facility] Comment on above: Performed By: #### U MC #### [place] [address] URINE COMMENT POSSIBLY CONTAMINATE D SPECIMEN, CULTURE MUST BE ORDERED SEPARATELY IF DEEMED NECESSARY. [facility] Comment on above: Performed By: #### U MC #### Testing performed at [place] [id number] WBC (U) [#/Vol] 1 TO 5 Normal NEGATIVE [facility] Comment on above: Performed By: #### U MC #### Testing performed at [place] [id number] Bacteria LM.HPF (Urine sed) [#/Area] Negative NEGATIVE [facility] H Casts LM.LPF (Urine sed) [#/Area] NONE NONE /LPF [facility] Crystals LM Nom (Urine sed) NONE NONE [facility] Epithelial cells LM Ql (Urine sed) 10 TO 20 /HPF [facility] Mucus Ql (Urine sed) Negative NEGATIVE [facility] RBC LM.HPF (Urine sed) [#/Area] 5 TO 10 NEGATIVE /HPF [facility] Urine sediment comments LM Contreras (Urine sed) POSSIBLY CONTAMINATED SPECIMEN, CULTURE MUST BE ORDERED SEPARATELY IF DEEMED NECESSARY. [facility] WBC LM.HPF (Urine sed) [#/Area] 1 TO 5 NEGATIVE /HPF [facility] CHLAM/GC AMPLIFon 03-05-2019 CHLAMYDIA NUC. AMP Negative Normal Negative [facility] GONOCOCCUS NUC. AMP Negative Normal Negative [facility] Comment on above: Result Comment: [facility] HCG QUALITATIVE, URINEon HCG ( test) Ql (U) Negative NEGATIVE [facility] Otheron 03-03-2019 Interpretation and review of laboratory results Abnormal [facility] URINALYSIS, MACROon 03-03-19 20 Bilirubin Ql (U) Negative NEGATIVE [facility] Clarity (U) CLEAR CLEAR [facility] Color (U) YELLOW YELLOW [facility] Glucose Test strip (U) [Mass/Vol] Negative NEGATIVE mg/dl [facility] Hemoglobin Ql (U) Negative NEGATIVE [facility] Ketones (U) [Mass/Vol] Negative NEGATIVE mg/dl [facility] Leukocyte esterase Test strip Ql (U) TRACE Abnormal NEGATIVE [facility] Nitrite Ql (U) Negative NEGATIVE [facility] TH pH (U) 6.0 [pH] [facility] Protein Ql (U) >300 Abnormal NEGATIVE mg/dl [facility] Specific gravity (U) [Rel density] >1.030 High [facility] Urobilinogen (U) [Mass/Vol] 0.2 [facility] URINE HCG QUALon 03-03-2019 Beta HCG ( test) Ql (U) Negative Normal NEGATIVE [facility] Comment on above: Performed By: #### U HCGT, UMAC, UMIC #### Testing performed at [address] [place] [address] URINE MACROSCOPICon 03-03-19 20 Bilirubin Ql (U) Negative Normal NEGATIVE [facility] Comment on above: Performed By: #### U HCGT, UMAC, UMIC #### Testing performed at [address] [address] Clarity (U) CLEAR Normal CLEAR [facility] Comment on above: Performed By: #### U HCGT, UMAC, UMIC #### Testing performed at [address] [address] Color (U) YELLOW Normal YELLOW [facility] Comment on above: Performed By: #### U HCGT, UMAC, UMIC #### Testing performed at [address] [address] Glucose Ql (U) Negative Normal NEGATIVE [facility] Comment on above: Performed By: #### U HCGT, UMAC, UMIC #### Testing performed at [address] [address] pH (U) 6.0 [pH] Normal 5.0-7.0 [facility] Comment on above: Performed By: #### U HCGT, UMAC, UMIC #### Testing performed at [address] [address] Protein (U) [Mass/Vol] mg/dL Abnormal NEGATIVE [facility] [facility] Comment on above: Performed By: #### U HCGT, UMAC, UMIC #### Testing performed at [address] [address] URINE HEMOGLOBIN Negative Normal NEGATIVE [facility] Comment on above: Performed By: #### U HCGT, UMAC, UMIC #### Testing performed at [address] [address] URINE KETONE Negative Normal NEGATIVE [facility] Comment on above: Performed By: #### U HCGT, UMAC, UMIC #### Testing performed at [address] [address] URINE LEUKOTEST TRACE Abnormal NEGATIVE [facility] Comment on above: Performed By: #### U HCGT, UMAC, UMIC #### Testing performed at [address] [address] URINE NITRATES Negative Normal NEGATIVE [facility] Comment on above: Performed By: #### U HCGT, UMAC, UMIC #### Testing performed at [address] [address] URINE SPEC GRAVITY >1.030 High 1.010-1.025 [facility] Comment on above: Performed By: #### U HCGT, UMAC, UMIC #### Testing performed at [address] [address] Urobilinogen Qn (U) 0.2 {Mone'U}/dL Normal 0.2-1.0 [facility] Comment on above: Performed By: #### U HCGT, UMAC, UMIC #### Testing performed at [address] [address] URINE MICROSCOPICon 03-03-19 20 Bacteria LM.HPF (Urine sed) [#/Area] TOO NUMEROUS TO COUNT OIL DROPLETS, CANNOT DIFFERENTIATE BETWEEN BACTERIA AND DROPLETS. Normal NEGATIVE [facility] Comment on above: Performed By: #### U HCGT, UMAC, UMIC #### [place] [address] Casts LM.LPF (Urine sed) [#/Area] NONE Normal [facility] Comment on above: Performed By: #### U HCGT, UMAC, UMIC #### Testing performed at [place] [id number] CRYSTAL NONE Normal [facility] Comment on above: Performed By: #### U HCGT, UMAC, UMIC #### [place] [address] Epithelial cells LM.HPF (Urine sed) [#/Area] 1 TO 5 Normal [facility] Comment on above: Performed By: #### U HCGT, UMAC, UMIC #### Testing performed at [address] [address] Mucus Ql (Urine sed) TRACE Abnormal NEGATIVE [facility] Comment on above: Performed By: #### U HCGT, UMAC, UMIC #### Testing performed at [address] [address] RBC (U) [#/Vol] TOO NUMEROUS TO COUN T OIL DROPLETS, CANNOT DIFFERENTIATE BETWEEN CELLS AND DROPLETS. Normal NEGATIVE [facility] Comment on above: Performed By: #### U HCGT, UMAC, UMIC #### Testing performed at [address] [address] URINE COMMENT CULTURE CRITERIA NOT MET, NO CULTURE PERFORMED. Normal [facility] Comment on above: Performed By: #### U HCGT, UMAC, UMIC #### Testing performed at [address] [address] WBC (U) [#/Vol] TOO NUMEROUS TO COUN T OIL DROPLETS, CANNOT DIFFERENTIATE BETWEEN CELLS AND DROPLETS. Normal NEGATIVE [facility] Comment on above: Performed By: #### U HCGT, UMAC, UMIC #### Testing performed at [address] [address] Bacteria LM.HPF (Urine sed) [#/Area] TOO NUMEROUS TO COUNT OIL DROPLETS, CANNOT DIFFERENTIATE BETWEEN BACTERIA AND DROPLETS. NEGATIVE [facility] Casts LM.LPF (Urine sed) [#/Area] NONE NONE /LPF [facility] [employer] Crystals LM Nom (Urine sed) NONE NONE [facility] Epithelial cells LM Ql (Urine sed) 1 TO 5 /HPF [facility] Mucus Ql (Urine sed) TRACE Abnormal NEGATIVE [facility] RBC LM.HPF (Urine sed) [#/Area] TOO NUMEROUS TO COUNT OIL DROPLETS, CANNOT DIFFERENTIATE BETWEEN CELLS AND DROPLETS. NEGATIVE /HPF [facility] Urine sediment comments LM Contreras (Urine sed) CULTURE CRITERIA NOT MET, NO CULTURE PERFORMED. [facility] WBC LM.HPF (Urine sed) [#/Area] TOO NUMEROUS TO COUNT OIL DROPLETS, CANNOT DIFFERENTIATE BETWEEN CELLS AND DROPLETS. NEGATIVE /HPF [facility] WET PREPon 03-03-2019 WET PREP SPECIMEN DESCRIPTION VAGINAL SPECIMEN WET PREP NO CLUE CELLS SEEN * Result Note: NO TRICHOMONAS SEEN * * Result Note: DUPVER * REPORT STATUS 03/03/2019 * Result Note: FINAL * Normal [facility] Comment on above: Performed By: #### W ETP #### Testing performed at [address] [address] WET PREP GENITALon 0 REPORT STATUS 03/03/2019 [facility] Comment on above: FINAL SPECIMEN DESCRIPTION VAGINAL SPECIMEN [facility] WET PREP NO CLUE CELLS SEEN [facility] Comment on above: NO TRICHOMONAS SEEN DUPVER CT ABDOMEN PELVIS WITH IV CO NTRAST ONLYon 11-19-2018 CT ABDOMEN PELVIS WITH IV CONTRAST ONLY CLINICAL HISTORY: Abdominal pain. EXAMINATION: ENHANCED CT SCAN OF THE ABDOMEN AND PELVIS: 11/19/2018. COMPARISON: None. TECHNIQUE: 3 mm axial images from lung bases through ischial tuberosities following administration of intravenous contrast were obtained. Sagittal, coronal reconstructions were performed. 75 mL of Isovue-370 was utilized as intravenous contrast. Dose reduction techniques were achieved by using automated exposure control and/or adjustment of mA and/or kV according to patient size and/or use of iterative reconstruction technique. FINDINGS: There are no focal abnormalities of the visualized lung bases. The visualized cardiac, posterior mediastinal structures appear normal. CT ABDOMEN: There is hypodensity along the falciform ligament in the medial segment of left hepatic lobe compatible with focal fatty infiltration. The remaining liver demonstrates slightly low density without focal lesions. Spleen, gallbladder, pancreas, adrenal glands, kidneys appear normal. The abdominal aorta has normal caliber. There are no abnormally dilated loops of small or large bowel. The appendix seems normal and seems to be located slightly to the left of the midline in the upper pelvis due to rotated cecum. CT PELVIS: The bladder, uterus, ovaries appear normal. There is no ureterolithiasis. There is no definite pelvic or retroperitoneal adenopathy. There are no focal fluid collections. The visualized osseous structures demonstrate no gross abnormalities. IMPRESSION: 1. No acute process in the abdomen or pelvis to explain patient's symptoms. 2. No nephro- or ureterolithiasis. 3. Normal appendix. 4. Fatty liver. [employer] Workstation ID: [id number] Dictated by: ELY ROBERTSON on SunNov 19, 2018 1:42:47 AM EDT Transcribed by: HALEY SOLORIO on SunNov 19, 2018 2:20:10 AM EDT Finalized by: ELY ROBERTSON on SunNov 19, 2018 2:22:23 AM EDT [facility] Comment on above: Order Comment: Injur y/Trauma or Illness?:Illness/Other How long have you had these symptoms (acute/chronic)?:Acute Reason for exam?:generalized abdominal pain x4 years worse today Type of Exam?:Ongoing Additional signs and symptoms?:no CT Abdomen Pelvis With IV Co ntrast Onlyon 11-19-2018 Interface, Rad In Greyson Henaoq - 11/19/2018 2:24 AM EDT CLINICAL HISTORY: Abdominal pain. EXAMINATION: ENHANCED CT SCAN OF THE ABDOMEN AND PELVIS: 11/19/2018. COMPARISON: None. TECHNIQUE: 3 mm axial images from lung bases through ischial tuberosities following administration of intravenous contrast were obtained. Sagittal, coronal reconstructions were performed. 75 mL of Isovue-370 was utilized as intravenous contrast. Dose reduction techniques were achieved by using automated exposure control and/or adjustment of mA and/or kV according to patient size and/or use of iterative reconstruction technique. FINDINGS: There are no focal abnormalities of the visualized lung bases. The visualized cardiac, posterior mediastinal structures appear normal. CT ABDOMEN: There is hypodensity along the falciform ligament in the medial segment of left hepatic lobe compatible with focal fatty infiltration. The remaining liver demonstrates slightly low density without focal lesions. Spleen, gallbladder, pancreas, adrenal glands, kidneys appear normal. The abdominal aorta has normal caliber. There are no abnormally dilated loops of small or large bowel. The appendix seems normal and seems to be located slightly to the left of the midline in the upper pelvis due to rotated cecum. CT PELVIS: The bladder, uterus, ovaries appear normal. There is no ureterolithiasis. There is no definite pelvic or retroperitoneal adenopathy. There are no focal fluid collections. The visualized osseous structures demonstrate no gross abnormalities. IMPRESSION: 1. No acute process in the abdomen or pelvis to explain patient's symptoms. 2. No nephro- or ureterolithiasis. 3. Normal appendix. 4. Fatty liver. [employer] Workstation ID: [id number] [facility] CLINICAL HISTORY: Abdominal pain. EXAMINATION: ENHANCED CT SCAN OF THE ABDOMEN AND PELVIS: 11/19/2018. COMPARISON: None. TECHNIQUE: 3 mm axial images from lung bases through ischial tuberosities following administration of intravenous contrast were obtained. Sagittal, coronal reconstructions were performed. 75 mL of Isovue-370 was utilized as intravenous contrast. Dose reduction techniques were achieved by using automated exposure control and/or adjustment of mA and/or kV according to patient size and/or use of iterative reconstruction technique. FINDINGS: There are no focal abnormalities of the visualized lung bases. The visualized cardiac, posterior mediastinal structures appear normal. CT ABDOMEN: There is hypodensity along the falciform ligament in the medial segment of left hepatic lobe compatible with focal fatty infiltration. The remaining liver demonstrates slightly low density without focal lesions. Spleen, gallbladder, pancreas, adrenal glands, kidneys appear normal. The abdominal aorta has normal caliber. There are no abnormally dilated loops of small or large bowel. The appendix seems normal and seems to be located slightly to the left of the midline in the upper pelvis due to rotated cecum. CT PELVIS: The bladder, uterus, ovaries appear normal. There is no ureterolithiasis. There is no definite pelvic or retroperitoneal adenopathy. There are no focal fluid collections. The visualized osseous structures demonstrate no gross abnormalities. [facility] 1. No acute process in the abdomen or pelvis to explain patient's symptoms. 2. No nephro- or ureterolithiasis. 3. Normal appendix. 4. Fatty liver. [employer] Workstation ID: [id number] [facility] XR CHEST AP/PA AND LATon XR CHEST AP/PA AND LAT XR CHEST, 2 VIEWS ([id number]) CLINICAL HISTORY: ORDERING SYSTEM PROVIDED cough and CP, TECHNOLOGIST PROVIDED HISTORY: Illness/Other Reason for exam: cough/chest AND abdominal pain Cancer History: u Surgery, RadiationHistory: u Encounter Type: Initial Additional signs and symptoms: . ORDERING SYSTEM PROVIDED DIAGNOSIS CODES: N39.0 Acute UTI R07.9 Chest pain, unspecified type R10.10 Pain of upper abdomen COMPARISON: No relevant prior studies available. FINDINGS: LUNGS: Minimal perihilar peribronchial thickening. The lungs demonstrate no consolidations. PLEURAL SPACE: No pneumothorax. HEART: The heart is normal in size and position. MEDIASTINUM: NO evidence of acute findings. BONES/JOINTS: NO evidence of acute findings. IMPRESSION: - Minimal perihilar peribronchial thickening. Findings suggest bronchitis without pneumonia and/or significant atelectasis. Workstation ID: [id number] Dictated by: ALYSSA KASPER on SunNov 19, 2018 2:23:32 AM EDT Transcribed by: ALYSSA KASPER on SunNov 19, 2018 2:23:32 AM EDT Finalized by: ALYSSA KASPER on SunNov 19, 2018 2:23:32 AM EDT Normal [facility] Comment on above: Order Comment: Injur y/Trauma or Illness?:Illness/Other How long have you had these symptoms (acute/chronic)?:Acute Reason for exam?:cough/chest AND abdominal pain History of cancer?:u Surgeries, chemotherapy, or radiation?:u Type of Exam?:Initial Additional signs and symptoms?:. - Minimal perihilar peribronchial thickening. Findings suggest bronchitis without pneumonia and/or significant atelectasis. Workstation ID: [id number] [facility] Interface, Rad In Fu ji Speechq - 11/19/2018 2:25 AM EDT XR CHEST, 2 VIEWS ([id number]) CLINICAL HISTORY: ORDERING SYSTEM PROVIDED cough and CP, TECHNOLOGIST PROVIDED HISTORY: Illness/Other Reason for exam: cough/chest & abdominal pain Cancer History: u Surgery, RadiationHistory: u Encounter Type: Initial Additional signs and symptoms: . ORDERING SYSTEM PROVIDED DIAGNOSIS CODES: N39.0 Acute UTI R07.9 Chest pain, unspecified type R10.10 Pain of upper abdomen COMPARISON: No relevant prior studies available. FINDINGS: LUNGS: Minimal perihilar peribronchial thickening. The lungs demonstrate no consolidations. PLEURAL SPACE: No pneumothorax. HEART: The heart is normal in size and position. MEDIASTINUM: NO evidence of acute findings. BONES/JOINTS: NO evidence of acute findings. IMPRESSION: - Minimal perihilar peribronchial thickening. Findings suggest bronchitis without pneumonia and/or significant atelectasis. Workstation ID: [id number] [facility] XR CHEST, 2 VIEWS ([id number]) CLINICAL HISTORY: ORDERING SYSTEM PROVIDED cough and CP, TECHNOLOGIST PROVIDED HISTORY: Illness/Other Reason for exam: cough/chest & abdominal pain Cancer History: u Surgery, RadiationHistory: u Encounter Type: Initial Additional signs and symptoms: . ORDERING SYSTEM PROVIDED DIAGNOSIS CODES: N39.0 Acute UTI R07.9 Chest pain, unspecified type R10.10 Pain of upper abdomen COMPARISON: No relevant prior studies available. FINDINGS: LUNGS: Minimal perihilar peribronchial thickening. The lungs demonstrate no consolidations. PLEURAL SPACE: No pneumothorax. HEART: The heart is normal in size and position. MEDIASTINUM: NO evidence of acute findings. BONES/JOINTS: NO evidence of acute findings. [facility] CBC WITH AUTO DIFFERENTIALon 11-18-2018 Basophils (Bld) [#/Vol] 0.04 10*3/uL [facility] Basophils/100 WBC (Bld) 0.4 % [facility] Eosinophils (Bld) [#/Vol] 0.50 10*3/uL [facility] Eosinophils/100 WBC (Bld) 4.6 % [facility] Erythrocyte distribution width (RBC) [Entitic vol] 13.2 % 11.6 - 14.8 % [facility] Hematocrit (Bld) [Volume fraction] 36.1 % 36 - 46 % [facility] Hemoglobin (Bld) [Mass/Vol] 12.3 g/dL 12 - 16 g/dL [facility] Immature granulocytes (Bld) [#/Vol] 0.03 10*3/uL [facility] Immature granulocytes/100 WBC (Bld) 0.30 % [facility] Comment on above: The IG parameter is the percentage of metamyelocytes, myelocytes, and promyelocytes. Lymphocytes (Bld) [#/Vol] 3.13 10*3/uL [facility] Lymphocytes/100 WBC (Bld) 28.8 % [facility] MCH (RBC) [Entitic mass] 28.9 pg 26 - 34 pg [facility] MCHC (RBC) [Mass/Vol] 34.1 g/dL 31 - 37 g/dL [facility] MCV (RBC) [Entitic vol] 84.7 fL 80 - 100 fL [facility] Monocytes (Bld) [#/Vol] 0.66 10*3/uL [facility] Monocytes/100 WBC (Bld) 6.1 % [facility] Neutrophils (Bld) [#/Vol] 6.50 10*3/uL [facility] Neutrophils/100 WBC (Bld) 59.8 % [facility] Nucleated RBC (Bld) [#/Vol] 0.00 10*3/uL [facility] Nucleated RBC/100 WBC (Bld) [Ratio] 0.0 % [facility] Platelet mean volume (Bld) [Entitic vol] 9.7 fL 9 - 15.5 fL [facility] Platelets (Bld) [#/Vol] 311 10*3/uL [facility] RBC (Bld) [#/Vol] 4.26 10*6/uL [facility] ealth WBC (Bld) [#/Vol] 10.86 10*3/uL [facility] Chem 7on 11-18-2018 Anion gap [Moles/Vol] 11 mmol/L 10 - 2 0 mmol/L [facility] Chloride [Moles/Vol] 107 mmol/L 98 - 10 8 mmol/L [facility] Creatinine [Mass/Vol] 0.78 mg/dL 0.4 - 1.1 mg/dL [facility] GFR/1.73 sq M predicted among non-blacks MDRD (S/P/Bld) [Vol rate/Area] The eGFR should be used for monitoring renal function only and not for medication dosing. [facility] GFR/1.73 sq M.predicted CKD-EPI (S/P/Bld) [Vol rate/Area] 110 >=60 mL/min/1.73 m2 [facility] Glucose [Mass/Vol] 106 mg/dL High 65 - 99 mg/dL [facility] HCO3 [Moles/Vol] 28 mmol/L 21 - 32 mmol/L [facility] Interpretation and review of laboratory results Abnormal [facility] Potassium [Moles/Vol] 3.6 mmol/L 3.5 - 5.1 mmol/L [facility] Sodium [Moles/Vol] 142 mmol/L 135 - 145 mmol/L [facility] Urea nitrogen [Mass/Vol] 14 mg/dL 8 - 25 mg/dL [facility] Urea nitrogen/Creatinine [Mass ratio] 17.9 mg/mg [facility] ECG 12-LEADon 11-18-2018 [place] Welch 11/19/2018 2:35 AM EKG 12-lead Date/Time: 11/18/2018 11:43 PM Performed by: Hernando Borden MD Authorized by: Hernando Borden MD Interpreted by ED attending physician Rhythm: sinus rhythm BPM: 75 Conduction: conduction normal ST Segments: ST segments normal T Waves: T waves normal Clinical impression: normal ECG [facility] Hepatic Function Panel (LFT) on 11-18-2018 Albumin [Mass/Vol] 3.7 g/dL 3.2 - 5.2 g/dL [facility] ALP [Catalytic activity/Vol] 87 U/L 40 - 140 U/L [facility] ALT [Catalytic activity/Vol] 18 U/L 14 - 65 U/L [facility] AST [Catalytic activity/Vol] 14 U/L 0 - 45 U/L [facility] Bilirubin [Mass/Vol] 0.3 mg/dL 0 - 1.3 mg/dL [facility] Bilirubin.conjugated [Mass/Vol] 0.2 mg/dL 0 - 0.4 mg/dL [facility] Protein [Mass/Vol] 7.5 g/dL 6 - 8 g/dL [facility] alth Lipaseon 11-18-2018 Lipase [Catalytic activity/Vol] 78 U/L 73 - 393 U/L [facility] Otheron 11-18-2018 Interpretation and review of laboratory results Normal [facility] URINALYSISon 11-18-2018 Bacteria Auto Ql (U) Rare Abnormal None Se en /hpf [facility] Bilirubin Ql (U) Negative Negative [facility] th Clarity Refractometry automated (U) Hazy Abnormal Clear [facility] Color (U) Yellow Colorless, Yellow [facility] Epithelial cells.squamous Auto (Urine sed) [#/Area] 3 [facility] Glucose Auto test strip (U) [Mass/Vol] Negative Negative mg/dL [facility] Hemoglobin Auto test strip Ql (U) Negative Negative [facility] Interpretation and review of laboratory results Abnormal [facility] Ketones (U) [Mass/Vol] Negative Negative mg/dL [facility] Leukocyte esterase Auto test strip Ql (U) Moderate Abnormal Negative [facility] Mucus Auto (Urine sed) [#/Area] Rare None Seen, Rare /lpf [facility] Nitrite Auto test strip Ql (U) Negative Negative [facility] pH (U) 6.0 [pH] [facility] Protein (U) [Mass/Vol] Negative Negative mg/dL [facility] RBC Auto (Urine sed) [#/Area] 2 [facility] Specific gravity (U) [Rel density] 1.025 [facility] Urobilinogen (U) [Mass/Vol] <2.0 <2.0 mg/dL [facility] WBC Auto (Urine sed) [#/Area] 53 High [facility] Microscopic examinat ion is performed on all urinalysis samples and only positive findings are reported. The test for blood on the chemical analytic portion of urinalysis may also be positive due to hemoglobinuria and myoglobinuria and if red blood cells are present they are quantified by microscopic examination. [facility] Urine Pregnancyon 11-18-2018 HCG ( test) Ql (U) Negative Negative [facility] Interpretation and review of laboratory results Normal [facility] Beta HCG Quant, EDon 019 Beta HCG Quant, ED <0.1 Normal <5.0 [facility] Comment on above: Result Comment: NEGA TIVE Performed By: #### C BCDIF, CMP, LIPA, HCGED ####[facility] [id number] [place], [place] [address] CBC and Differentialon 07-08 Abs Baso 0.03 k/uL Normal <0.11 [facility] Comment on above: Performed By: #### C BCDIF, CMP, LIPA, HCGED ####[facility] [id number] [place], [place] [address] Abs [place] 0.57 k/uL Normal <0.87 [facility] Comment on above: Performed By: #### C BCDIF, CMP, LIPA, HCGED ####[facility] [address] [place], [place] [address] Abs Neut 4.84 k/uL Normal 1.45-7.50 [facility] Comment on above: Performed By: #### C BCDIF, CMP, LIPA, HCGED ####[place] [address] Basophils/100 WBC (Bld) 0.4 % Normal [facility] Comment on above: Performed By: #### C BCDIF, CMP, LIPA, HCGED ####[place] [address] Eosinophils #/vol (Bld) 0.65 10*3/uL High <0.46 [facility] Comment on above: Performed By: #### C BCDIF, CMP, LIPA, HCGED ####[place] [address] Eosinophils/100 WBC (Bld) 7.9 % Normal [facility] Comment on above: Performed By: #### C BCDIF, CMP, LIPA, HCGED ####[place] [address] Erythrocyte distribution width Ratio (RBC) 14.0 % Normal 11.5-15.0 [facility] Comment on above: Performed By: #### C BCDIF, CMP, LIPA, HCGED ####[place] [address] Hematocrit Volume Fraction (Bld) 41.7 % Normal 36.0-46.0 [facility] Comment on above: Performed By: #### C BCDIF, CMP, LIPA, HCGED ####[place] [address] Hemoglobin mass conc (Bld) 13.5 g/dL Normal 11.5-15.5 [facility] Comment on above: Performed By: #### C BCDIF, CMP, LIPA, HCGED ####[place] [address] Lymphocytes #/vol (Bld) 2.15 10*3/uL Normal 1.00-4.00 [facility] Comment on above: Performed By: #### C BCDIF, CMP, LIPA, HCGED ####[place] [address] Lymphocytes/100 WBC (Bld) 26.1 % Normal [facility] Comment on above: Performed By: #### C BCDIF, CMP, LIPA, HCGED ####[facility] [address] [place] [address] MCH Entitic mass (RBC) 28.0 pG Normal 26.0-34.0 [facility] Comment on above: Performed By: #### C BCDIF, CMP, LIPA, HCGED ####[facility] [address] [place] [address] MCHC mass conc (RBC) 32.4 g/dL Normal 30.5-36.0 [facility] Comment on above: Performed By: #### C BCDIF, CMP, LIPA, HCGED ####[place] [address] MCV Entitic volume (RBC) 86.3 fL Normal 80.0-100.0 [facility] Comment on above: Performed By: #### C BCDIF, CMP, LIPA, HCGED ####[place] [address] Monocytes/100 WBC (Bld) 6.9 % Normal [facility] Comment on above: Performed By: #### C BCDIF, CMP, LIPA, HCGED ####[place] [address] Neutrophils/100 WBC (Bld) 58.7 % Normal [facility] Comment on above: Performed By: #### C BCDIF, CMP, LIPA, HCGED ####[place] [address] Platelet mean volume Entitic volume (Bld) 9.8 fL Normal 9.0-12.7 [facility] Comment on above: Performed By: #### C BCDIF, CMP, LIPA, HCGED ####[place] [address] Platelets #/vol (Bld) 327 10*3/uL Normal 150-400 [facility] Comment on above: Performed By: #### C BCDIF, CMP, LIPA, HCGED ####[facility] [id number] [place] [address] RBC #/vol (Bld) 4.83 10*6/uL Normal 3.90-5.20 [facility] Comment on above: Performed By: #### C BCDIF, CMP, LIPA, HCGED ####[facility] [id number] [place] [address] WBC #/vol (Bld) 8.24 10*3/uL Normal 3.70-11.00 [facility] Comment on above: Performed By: #### C BCDIF, CMP, LIPA, HCGED ####[facility] [id number] [place] [address] Comp Metabolic Panelon 07-08 Albumin mass conc 4.5 g/dL Normal 3.9-4.9 [facility] Comment on above: Performed By: #### C BCDIF, CMP, LIPA, HCGED ####[facility] [address] [place] [address] ALP enzyme act/vol 91 U/L Normal 34-123 [facility] Comment on above: Performed By: #### C BCDIF, CMP, LIPA, HCGED ####[facility] [address] [place] [address] ALT enzyme act/vol 18 U/L Normal 7-38 [facility] Comment on above: Performed By: #### C BCDIF, CMP, LIPA, HCGED ####[facility] [address] [place] [address] Anion gap molar conc 10 mmol/L Normal 9-18 [facility] Comment on above: Performed By: #### C BCDIF, CMP, LIPA, HCGED ####[facility] [address] [place] [address] AST enzyme act/vol 17 U/L Normal 13-35 [facility] Comment on above: Performed By: #### C BCDIF, CMP, LIPA, HCGED ####[facility] [address] [place] [address] Bilirubin mass conc 0.2 mg/dL Normal 0.2-1.3 [facility] Comment on above: Performed By: #### C BCDIF, CMP, LIPA, HCGED ####[facility] [address] [place] [address] Calcium mass conc 9.3 mg/dL Normal 8.5-10.2 [facility] Comment on above: Performed By: #### C BCDIF, CMP, LIPA, HCGED ####[facility] [address] [place] [address] Chloride molar conc 100 mmol/L Normal 97-105 [facility] Comment on above: Performed By: #### C BCDIF, CMP, LIPA, HCGED ####[facility] [address] [place] [address] CO2 molar conc 29 mmol/L Normal 22-30 [facility] Comment on above: Performed By: #### C BCDIF, CMP, LIPA, HCGED ####[facility] [address] [place] [address] Creatinine mass conc 0.69 mg/dL Normal 0.58-0.96 [facility] Comment on above: Performed By: #### C BCDIF, CMP, LIPA, HCGED ####[facility] [address] [place] [address] eGFR- Amer. >60 Normal [facility] Comment on above: Performed By: #### C BCDIF, CMP, LIPA, HCGED ####[facility] [address] [place] [id number] GFR/1.73 sq M predicted among non-blacks MDRD vol rate/area (S/P/Bld) mL/min/{1.73_m2} Normal [facility] Comment on above: Result Comment: eGFR (Estimated GFR) Units of measure: mL/min/1.73 meters squared eGFR is derived from the reexpressed MDRD Study equation using the following parameters: serum creatinine, age, gender and race. The creatinine assay has been calibrated to be traceable to IDMS. An eGFR <60 mL/min/1.73m2 for >3 months is consistent with chronic kidney disease. Refer to KDOQI guidelines for clinical interpretation. In patients with unstable renal function, e.g. those with acute kidney injury, the eGFR may not accurately reflect actual GFR. Performed By: #### C BCDIF, CMP, LIPA, HCGED ####[facility] [address] [place] [address] Glucose mass conc 108 mg/dL High 74-99 [facility] Comment on above: Result Comment: The [place] Diabetes Association (ADA) provides guidance for cutoff values for fasting glucose and random glucose. The ADA defines fasting as no caloric intake for at least 8 hours. Fasting plasma glucose results between 100 to 125 mg/dL indicate increased risk for diabetes (prediabetes). Fasting plasma glucose results greater than or equal to 126 mg/dL meet the criteria for diagnosis of diabetes. In the absence of unequivocal hyperglycemia, results should be confirmed by repeat testing. In a patient with classic symptoms of hyperglycemia or hyperglycemic crisis, random plasma glucose results greater than or equal to 200 mg/dL meet the criteria for diagnosis of diabetes. Reference: Standards of Medical Care in Diabetes 2016, [place] Diabetes Association. Diabetes Care. 2016.39(Suppl 1). Performed By: #### C BCDIF, CMP, LIPA, HCGED ####[facility] [address] [place] [address] Potassium molar conc 4.1 mmol/L Normal 3.7-5.1 [facility] Comment on above: Performed By: #### C BCDIF, CMP, LIPA, HCGED ####[place] [address] Protein mass conc 7.8 g/dL Normal 6.3-8.0 [facility] Comment on above: Performed By: #### C BCDIF, CMP, LIPA, HCGED ####[facility] [address] [place] [address] Sodium molar conc 139 mmol/L Normal 136-144 [facility] Comment on above: Performed By: #### C BCDIF, CMP, LIPA, HCGED ####[place] [address] Urea nitrogen mass conc 15 mg/dL Normal 7-21 [facility] Comment on above: Performed By: #### C BCDIF, CMP, LIPA, HCGED ####[facility] [address] [place] [address] ED NOTEon 07-08-2018 ED NOTE HNO ID: [id number] Author: Jazmyn Winter RN Service: ? Author Type: Registered Nurse Type: ED Notes Filed: 07/08/2018 6:42 PM Note Text: Pt was instructed to follow up with her medical dr and To return to the er for any changes Po fluids were encouraged [facility] ED NOTE HNO ID: [id number] Author: Jazmyn MuroRn) HENNY Winter Service: ? Author Type: Registered Nurse Type: ED Notes Filed: 07/08/2018 6:42 PM Note Text: Per the pt her boyfriend exposed her to chlamidia [facility] ED NOTE HNO ID: [id number] Author: Jazmyn (Rn) HENNY Winter Service: ? Author Type: Registered Nurse Type: ED Notes Filed: 07/08/2018 5:40 PM Note Text: Tong hathaway has rounded [facility] ED NOTE HNO ID: [id number] Author: Jazmyn MuroRn) HENNY Winter Service: ? Author Type: Registered Nurse Type: ED Notes Filed: 07/08/2018 5:28 PM Note Text: Midstream voided urine sample was sent to the lab per RN [facility] ED NOTE HNO ID: [id number] Author: Leigh Ann MuroRn) HENNY Larson Service: ? Author Type: Registered Nurse Type: ED Notes Filed: 07/08/2018 4:27 PM Note Text: Bed: ED-19 Expected date: 07/08/18 Expected time: Means of arrival: Comments: LST 1 [facility] ED PROV NOTEon 07-08-2018 Protein mass conc HNO ID: [id number] Author: Tong Cano ([place]) Service: ? Author Type: Physician [place] Type: ED Provider Notes Filed: 07/09/2018 10:11 AM Note Text: ED Provider Note Patient Name: Bryanna Meehan SERVICE DATE: 07/08/18 History Patient presents with: Vomiting: times 1 bright red blood Std Exposure 17-year-old female presents emergency Department with complaints of one episode of vomiting that may have had blood in it. States was not a gross amount of blood but there was redness. Denies having anything related to eat prior to the vomiting. Denies any abdominal pain. Denies any vomiting since then. Denies any fever or chills. Denies any lightheadedness or dizziness. Denies being on blood thinners. Denies any complaints at this time. Also would like to be tested and treated for chlamydia since her ex-boyfriend recently tested positive. She is denying any vaginal discharge or bleeding. Denies any pelvic pain. 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 PAST MEDICAL HISTORY Diagnosis Date - ADD (attention deficit disorder) - Anxiety - Depression - Depression - PTSD (post-traumatic stress disorder) PAST SURGICAL HISTORY Procedure Laterality Date - TONSILLECTOMY AND ADENOIDECTOMY HX 2009 FAMILY HISTORY Problem Relation Age of Onset - Cancer Maternal Grandmother - Heart Maternal Grandfather Social History Tobacco Use - Smoking status: Former Smoker - Smokeless tobacco: Never Used - Tobacco comment: quit 3 years ago Substance and Sexual Activity - Alcohol use: No - Drug use: No - Sexual activity: Yes Partners: Male ALLERGIES Allergen Reactions - Latex Unknown Review of Systems Constitutional: Negative. HENT: Negative. Respiratory: Negative. Cardiovascular: Negative. Gastrointestinal: Positive for vomiting. Negative for abdominal pain, blood in stool and nausea. Genitourinary: Negative. Negative for dysuria, flank pain, pelvic pain, vaginal bleeding and vaginal discharge. Musculoskeletal: Negative. Negative for back pain and neck pain. Skin: Negative. Negative for rash and wound. Neurological: Negative. Negative for dizziness, syncope, weakness, light-headedness and headaches. Psychiatric/Behavioral: Negative. Physical Exam BP 134/80 Pulse 74 Temp (Src) 98.5 (Oral) Resp 18 Ht 4' 10 (1.47m) Wt 160 lb (72.6kg) SpO2 99% LMP 10/23/2017 BMI 33.45 kg/(m2). O2 Therapy: Room Air Physical Exam Constitutional: She is oriented to person, place, and time. She appears well-developed and well-nourished. Non-toxic appearance. She does not appear ill. HENT: Head: Normocephalic and atraumatic. Eyes: Pupils are equal, round, and reactive to light. EOM are normal. Cardiovascular: Normal rate, regular rhythm and normal heart sounds. Pulmonary/Chest: Effort normal and breath sounds normal. No respiratory distress. Abdominal: Normal appearance and bowel sounds are normal. She exhibits no distension. There is no tenderness. There is no rigidity, no rebound and no guarding. Neurological: She is alert and oriented to person, place, and time. Skin: Skin is warm. Capillary refill takes less than 2 seconds. Psychiatric: She has a normal mood and affect. Her behavior is normal. Nursing note and vitals reviewed. Diagnostic Testing ED Labs Ordered and Reviewed COMP METABOLIC PANEL - Abnormal; Notable for the following components: Result Value Ref Range Glucose 108 (*) 74 - 99 mg/dL All other components within normal limits CBC + DIFF - Abnormal; Notable for the following components: Abs Eosin 0.65 (*) <0.46 k/uL All other components within normal limits LIPASE BLD BETA HCG, QUANTITATIVE FOR ED GC/CHLAMYDIA AMPLIF, URINE Procedures ED Course / Clinical Impression Clinical Impressions as of Jul 08 2121 STD exposure Vomiting, intractability of vomiting not specified, presence of nausea not specified, unspecified vomiting type MDM / Disposition / Plan MDM Clinically and hemodynamically stable at time of discharge. At this time patient will be treated for possible STD exposure with her significant other testing positive for chlamydia. Low suspicion of an upper GI bleed and suspect patient may have vomited red food. Denies any abdominal pain. Denies any vomiting here in the ER. Was unable to collect a sample to Narciso called. Advised return here immediately if symptoms change or worsen. Patient is not anemic. Advised to follow-up with primary care doctor. The patient was DISCHARGED: Counseled patient regarding lab results AND suspected diagnosis AND need for follow-up. Discharged home with verbal and written instructions. They were instructed to return as needed for persistent or worsening symptoms or any new concerns. Condition at time of disposition: stable SIGNATURE: MELINDA FariaC Tong Cano ([place]) 07/09/18 1011 Normal [facility] GC/Chlamydia Amp, Uron 07-08 Chlamydia Amplif, Ur Positive Critically abnormal [facility] Comment on above: Result Comment: In l ow prevalence populations, the likelihood of a false positive may be higher than a true positive. Retesting by another method may be appropriate for patients who lack risk factors or clinical signs and symptoms consistent with infection. For screening asymptomatic women, a vaginal swab specimen (APTIMA vaginal swab 449142) is optimal. Urine specimens have reduced sensitivity for Chlamydia trachomatis or Neisseria gonorrhoeae infection in female patients without symptoms. This test was developed and its performance characteristics determined by [facility] [place] ([facility]). It has not been cleared or approved by the FDA. [facility] is regulated under CLIA as qualified to perform high complexity testing. This test is used for clinical purposes. It should not be regarded as investigational or for research. Performed By: #### U GCCT ####[facility] [place], [place] [id number] GC Amplification, Ur Negative Normal [facility] Comment on above: Performed By: #### U GCCT ####[address] [phone] Lipaseon 07-08-2018 Lipase enzyme act/vol 23 U/L Normal 16-61 [facility] Comment on above: Performed By: #### C BCDIF, CMP, LIPA, HCGED ####[facility] [address] [place] [phone] PROGRESSon 07-08-2018 Protein mass conc HNO ID: [id number] Author: Chiki Ortega (Pharmacist) Service: Pharmacy Author Type: Pharmacist Type: Progress Notes Filed: 07/09/2018 11:53 PM Note Text: PHARMACY EMERGENCY DEPARTMENT CULTURE CALLBACK Patient Name:Allison Meehan Admission Date: 07/08/2018 Date of Callback: 07/09/2018 ALLERGIES Allergen Reactions - Latex Unknown Source of Result: Results List Time/Date of Result: 07/09/18 ?3:23 PM Type of Culture(s): STI or BV Culture Results: Positive: Chlamydia Home Medication List: Prior to Admission medications as of 07/08/18 1623 Medication Sig Last Dose Taking ondansetron orally disintegrating (ZOFRAN ODT) 4 mg disintegrating tablet Take 1 tablet by mouth every 6 hours. omeprazole (PRILOSEC) 20 mg capsule Take 1 capsule by mouth once daily for 14 days. Change in treatment needed: No Action Taken: Patient educated on diagnosis and counseled on treatment plan. Notified patient of the positive result. Patient instructed to follow up with PCP and provided the following instructions: 1) You should inform all sexual partners that you have tested positive and advise them to have an examination and possible treatment. 2) You should abstain from sexual intercourse until your symptoms have resolved, your partners have been tested and treated and you have followed-up with your PCP. 3) You should consult with your follow up doctor within 7 to 10 days to discuss your risk for sami other infections such as HIV and Hepatitis. Please page/call with any issues or questions. Electronic signature: BEV RUBIN July 09, 2018 11:52 PM Pager/Extension: [phone] Normal [facility] CBC and Differentialon 06-30 Abs Lym 3.32 K/uL Normal 0.90-4.00 [facility] Comment on above: Performed By: #### C MP, LIPA, BETAMM, CBCDIF ####[facility] [address] [place] [address] Abs Kingfisher 0.74 k/uL Normal <0.87 [facility] Comment on above: Performed By: #### C MP, LIPA, BETAMM, CBCDIF ####[facility] [address] [place] [address] Abs Neut 7.02 k/uL High 1.70-7.00 [facility] Comment on above: Performed By: #### C MP, LIPA, BETAMM, CBCDIF ####[facility] [address] [place] [address] Eosinophils #/vol (Bld) 1.23 10*3/uL High <0.46 [facility] Comment on above: Performed By: #### C MP, LIPA, BETAMM, CBCDIF ####[facility] [address] [place] [address] Eosinophils/100 WBC (Bld) 10 % Normal [facility] Comment on above: Performed By: #### C MP, LIPA, BETAMM, CBCDIF ####[facility] [address] [place] [address] Erythrocyte distribution width Ratio (RBC) 13.8 % Normal 11.5-15.0 [facility] Comment on above: Performed By: #### C MP, LIPA, BETAMM, CBCDIF ####[facility] [address] [place] [address] Hematocrit Volume Fraction (Bld) 39.7 % Normal 36.0-46.0 [facility] Comment on above: Performed By: #### C MP, LIPA, BETAMM, CBCDIF ####[facility] [address] [place] [address] Hemoglobin mass conc (Bld) 13.3 g/dL Normal 11.5-15.5 [facility] Comment on above: Performed By: #### C MP, LIPA, BETAMM, CBCDIF ####[facility] [address] [place] [address] Lymphocytes/100 WBC (Bld) 27 % Normal [facility] Comment on above: Performed By: #### C MP, LIPA, BETAMM, CBCDIF ####[facility] [address] [place] [address] MCH Entitic mass (RBC) 28.4 pG Normal 26.0-34.0 [facility] Comment on above: Performed By: #### C MP, LIPA, BETAMM, CBCDIF ####[place] [address] MCHC mass conc (RBC) 33.5 g/dL Normal 30.5-36.0 [facility] Comment on above: Performed By: #### C MP, LIPA, BETAMM, CBCDIF ####[facility] [address] [place] [address] MCV Entitic volume (RBC) 84.8 fL Normal 80.0-100.0 [facility] Comment on above: Performed By: #### C MP, LIPA, BETAMM, CBCDIF ####[facility] [address] [place] [address] Monocytes/100 WBC (Bld) 6 % Normal [facility] Comment on above: Performed By: #### C MP, LIPA, BETAMM, CBCDIF ####[facility] [address] [place] [address] Neutrophils/100 WBC (Bld) 57 % Normal [facility] Comment on above: Performed By: #### C MP, LIPA, BETAMM, CBCDIF ####[facility] [address] [place] [address] Platelet mean volume Entitic volume (Bld) 10.1 fL Normal 9.0-12.7 [facility] Comment on above: Performed By: #### C MP, LIPA, BETAMM, CBCDIF ####[facility] [address] [place] [address] Platelets #/vol (Bld) Platelet estimate adequate Normal [facility] Comment on above: Performed By: #### C MP, LIPA, BETAMM, CBCDIF ####[facility] [address] [place] [address] Platelets #/vol (Bld) 316 10*3/uL Normal 150-400 [facility] Comment on above: Performed By: #### C MP, LIPA, BETAMM, CBCDIF ####[facility] [address] [place] [address] RBC #/vol (Bld) 4.68 10*6/uL Normal 3.90-5.20 [facility] Comment on above: Performed By: #### C MP, LIPA, BETAMM, CBCDIF ####[facility] [address] [place] [address] Red Cell Morph SEE COMMENT Normal [facility] Comment on above: Result Comment: Norm al Performed By: #### C MP, LIPA, BETAMM, CBCDIF ####[facility] [address] [place] [address] WBC #/vol (Bld) 12.31 10*3/uL High 3.70-11.00 [facility] Comment on above: Performed By: #### C MP, LIPA, BETAMM, CBCDIF ####[facility] [address] [place] [address] Comp Metabolic Panelon 06-30 Albumin mass conc 4.2 g/dL Normal 3.9-4.9 [facility] Comment on above: Performed By: #### C MP, LIPA, BETAMM, CBCDIF ####[facility] [address] [place] [address] ALP enzyme act/vol 100 U/L Normal 34-123 [facility] Comment on above: Performed By: #### C MP, LIPA, BETAMM, CBCDIF ####[facility] [address] [place] [address] ALT enzyme act/vol 25 U/L Normal 7-38 [facility] Comment on above: Performed By: #### C MP, LIPA, BETAMM, CBCDIF ####[facility] [address] [place] [address] Anion gap molar conc 12 mmol/L Normal 9-18 [facility] Comment on above: Performed By: #### C MP, LIPA, BETAMM, CBCDIF ####[facility] [address] [place] [address] AST enzyme act/vol 24 U/L Normal 13-35 [facility] Comment on above: Performed By: #### C MP, LIPA, BETAMM, CBCDIF ####[facility] [address] [place] [address] Bilirubin mass conc mg/dL Low 0.2-1.3 [facility] Comment on above: Performed By: #### C MP, LIPA, BETAMM, CBCDIF ####[facility] [address] [place] [address] Calcium mass conc 8.8 mg/dL Normal 8.5-10.2 [facility] Comment on above: Performed By: #### C MP, LIPA, BETAMM, CBCDIF ####[facility] [address] [place] [address] Chloride molar conc 101 mmol/L Normal 97-105 [facility] Comment on above: Performed By: #### C MP, LIPA, BETAMM, CBCDIF ####[facility] [address] [place] [address] CO2 molar conc 25 mmol/L Normal 22-30 [facility] Comment on above: Performed By: #### C MP, LIPA, BETAMM, CBCDIF ####[facility] [address] [place] [address] Creatinine mass conc 0.77 mg/dL Normal 0.58-0.96 [facility] Comment on above: Performed By: #### C MP, LIPA, BETAMM, CBCDIF ####[facility] [address] [place] [address] eGFR- Amer. >60 Normal [facility] Comment on above: Performed By: #### C MP, LIPA, BETAMM, CBCDIF ####[facility] [phone] GFR/1.73 sq M predicted among non-blacks MDRD vol rate/area (S/P/Bld) mL/min/{1.73_m2} Normal [facility] Comment on above: Result Comment: eGFR (Estimated GFR) Units of measure: mL/min/1.73 meters squared eGFR is derived from the reexpressed MDRD Study equation using the following parameters: serum creatinine, age, gender and race. The creatinine assay has been calibrated to be traceable to IDMS. An eGFR <60 mL/min/1.73m2 for >3 months is consistent with chronic kidney disease. Refer to KDOQI guidelines for clinical interpretation. In patients with unstable renal function, e.g. those with acute kidney injury, the eGFR may not accurately reflect actual GFR. Performed By: #### C MP, LIPA, BETAMM, CBCDIF ####[facility] [phone] Glucose mass conc 102 mg/dL High 74-99 [facility] Comment on above: Result Comment: The [place] Diabetes Association (ADA) provides guidance for cutoff values for fasting glucose and random glucose. The ADA defines fasting as no caloric intake for at least 8 hours. Fasting plasma glucose results between 100 to 125 mg/dL indicate increased risk for diabetes (prediabetes). Fasting plasma glucose results greater than or equal to 126 mg/dL meet the criteria for diagnosis of diabetes. In the absence of unequivocal hyperglycemia, results should be confirmed by repeat testing. In a patient with classic symptoms of hyperglycemia or hyperglycemic crisis, random plasma glucose results greater than or equal to 200 mg/dL meet the criteria for diagnosis of diabetes. Reference: Standards of Medical Care in Diabetes 2016, [place] [employer]. Diabetes Care. 2016.39(Suppl 1). Performed By: #### C MP, LIPA, BETAMM, CBCDIF ####[facility] [address] [place] [phone] Potassium molar conc 3.9 mmol/L Normal 3.7-5.1 [facility] Comment on above: Performed By: #### C MP, LIPA, BETAMM, CBCDIF ####[facility] [phone] Protein mass conc 7.5 g/dL Normal 6.3-8.0 [facility] Comment on above: Performed By: #### C MP, LIPA, BETAMM, CBCDIF ####[facility] [address] [place] [address] Sodium molar conc 138 mmol/L Normal 136-144 [facility] Comment on above: Performed By: #### C MP, LIPA, BETAMM, CBCDIF ####[facility] [address] [place] [address] Urea nitrogen mass conc 17 mg/dL Normal 7-21 [facility] Comment on above: Performed By: #### C MP, LIPA, BETAMM, CBCDIF ####[facility] [address] [place] [address] ED PROV NOTEon 06-30-2018 Protein mass conc HNO ID: [id number] Author: Carmen Blake MD Service: ? Author Type: Physician Type: ED Provider Notes Filed: 06/30/2018 9:10 AM Note Text: ED Provider Note Patient Name: Bryanna Meehan SERVICE DATE: 06/30/18 History Patient presents with: Abdominal Pain: pain in chest when breathing. Chest Pain Shortness of Breath Patient is a 17-year-old female coming in with abdominal pain. Patient has had abdominal pain going on for 2 weeks. She describes it mainly in the epigastric region. She states also she feels short of breath which. She denies chest pain to me. Given that was noted in the triage notes. She denies any recent travel any leg swelling. The patient denies any fevers or chills. Patient's last menstrual period was one year ago however she has had several negative test even though she thought she was earlier on. Patient denies any dysuria she denies any vaginal discharge. Patient is nonsmoker and denies drug use. Patient has a history of ADD anxiety depression and PTSD. Patient denies any previous abdominal surgeries. PAST MEDICAL HISTORY Diagnosis Date - ADD (attention deficit disorder) - Anxiety - Depression - Depression - PTSD (post-traumatic stress disorder) PAST SURGICAL HISTORY Procedure Laterality Date - TONSILLECTOMY AND ADENOIDECTOMY 2008 FAMILY HISTORY Problem Relation Age of Onset - Cancer Maternal Grandmother - Heart Maternal Grandfather Social History Tobacco Use - Smoking status: Former Smoker - Smokeless tobacco: Never Used - Tobacco comment: quit 3 years ago Substance and Sexual Activity - Alcohol use: No - Drug use: No - Sexual activity: Yes Partners: Male ALLERGIES Allergen Reactions - Latex Unknown Review of Systems Constitutional: Negative for fever. Respiratory: Positive for shortness of breath. Negative for cough. Cardiovascular: Negative for chest pain. Gastrointestinal: Positive for abdominal pain. Negative for diarrhea and vomiting. Genitourinary: Negative for dysuria. All other systems reviewed and are negative. Physical Exam BP 148/77 Pulse 84 Resp 16 Wt 179 lb 3.7 oz (81.3kg) SpO2 97% LMP 10/23/2017 O2 Therapy: Room Air Physical Exam Constitutional: She appears well-developed and well-nourished. HENT: Head: Normocephalic. Neck: Neck supple. Cardiovascular: Normal rate and regular rhythm. Pulmonary/Chest: Effort normal and breath sounds normal. Abdominal: Soft. She exhibits no mass. There is tenderness (minimal epigastric). There is no guarding. Musculoskeletal: She exhibits no edema or tenderness. Neurological: She is alert. Skin: Skin is warm and dry. Psychiatric: She has a normal mood and affect. Nursing note and vitals reviewed. Diagnostic Testing ED Labs Ordered and Reviewed COMP METABOLIC PANEL - Abnormal; Notable for the following components: Result Value Ref Range Bilirubin, Total <0.1 (*) 0.2 - 1.3 mg/dL Glucose 102 (*) 74 - 99 mg/dL All other components within normal limits CBC + DIFF - Abnormal; Notable for the following components: WBC 12.31 (*) 3.70 - 11.00 k/uL Abs Neut (ANC) 7.02 (*) 1.70 - 7.00 k/uL Abs Eosin 1.23 (*) <0.46 K/uL All other components within normal limits LIPASE BLD HCG QUAL BLD URINALYSIS Procedures ED Course / Clinical Impression Clinical Impressions as of Jul 01 907 Urinary tract infection without hematuria, site unspecified Epigastric abdominal pain SOB (shortness of breath) MDM / Disposition / Plan Patient's vitals are stable. Chest x-ray shows no acute abnormality. I think she is low risk for pulmonary embolism due to no risk factors. Patient basic labs white count is 13. I did a reexamination of the abdomen still only mild epigastric tenderness and do not feel a CAT scan at this time will be helpful. Patient was given a GI cocktail. Patient is requesting a work note. Urinalysis is positive for UTI. A culture is obtained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 urogenital corine Critically abnormal [facility] Comment on above: Performed By: #### U HCG #### [facility] [address] [place] [address] Urine Microscopic (FOR LAB U SE ONLY)on 01-08-2018 Bacteria LM.HPF #/area (Urine sed) Occasional Critically abnormal [address] [place] [address] Comment on above: Performed By: #### U HCG #### [facility] [address] [place] [address] Cast SEE COMMENT Normal 0 [facility] Comment on above: Result Comment: 0 Performed By: #### U HCG #### [facility] [address] [place] [address] Epithelial cells LM.HPF #/area (Urine sed) SEE COMMENT Normal [facility] Comment on above: Result Comment: 0-5 Squamous Epithelial Cells Performed By: #### U HCG #### [facility] [address] [address] RBC #/vol (U) 0-3 Normal 0-3 [facility] Comment on above: Performed By: #### U HCG #### [facility] [address] [place] [address] WBC #/vol (Bld) 0-5 Normal 0-5 [facility] Comment on above: Performed By: #### U HCG #### [facility] [address] [place] [address] CBC and Differentialon 12-15 Abs Baso 0.05 k/uL Normal <0.11 [facility] Comment on above: Performed By: #### C BCDIF, ALCO, CMP ####[facility] [address] [place] [address] Abs Kingfisher 0.55 k/uL Normal <0.87 [facility] Comment on above: Performed By: #### C BCDIF, ALCO, CMP ####[facility] [address] [place] [address] Abs Neut 4.12 k/uL Normal 1.45-7.50 [facility] Comment on above: Performed By: #### C BCDIF ALCO, CMP ####[facility] [address] [place] [address] Basophils/100 WBC (Bld) 0.7 % Normal [facility] Comment on above: Performed By: #### C BCDIF, ALCO, CMP ####[facility] [address] [place] [address] Eosinophils #/vol (Bld) 0.25 10*3/uL Normal <0.46 [facility] Comment on above: Performed By: #### C BCDIF, ALCO, CMP ####[facility] [address] [place] [address] Eosinophils/100 WBC (Bld) 3.4 % Normal [facility] Comment on above: Performed By: #### C BCDIF, ALCO, CMP ####[facility] [address] [place] [address] Erythrocyte distribution width Ratio (RBC) 13.1 % Normal 11.5-15.0 [facility] Comment on above: Performed By: #### C BCDIF, ALCO, CMP ####[facility] [address] [place] [address] Hematocrit Volume Fraction (Bld) 41.0 % Normal 36.0-46.0 [facility] Comment on above: Performed By: #### C BCDIF, ALCO, CMP ####[facility] [address] [place] [address] Hemoglobin mass conc (Bld) 13.6 g/dL Normal 11.5-15.5 [facility] Comment on above: Performed By: #### C BCDIF, ALCO, CMP ####[facility] [address] [place] [address] Lymphocytes #/vol (Bld) 2.40 10*3/uL Normal 1.00-4.00 [facility] Comment on above: Performed By: #### C BCDIF, ALCO, CMP ####[facility] [address] [place] [address] Lymphocytes/100 WBC (Bld) 32.6 % Normal [facility] Comment on above: Performed By: #### C BCDIF, ALCO, CMP ####[address] [address] MCH Entitic mass (RBC) 28.6 pG Normal 26.0-34.0 [facility] Comment on above: Performed By: #### C BCDIF, ALCO, CMP ####[facility] [address] [place] [address] MCHC mass conc (RBC) 33.2 g/dL Normal 30.5-36.0 [facility] Comment on above: Performed By: #### C BCDIF, ALCO, CMP ####[address] [address] MCV Entitic volume (RBC) 86.3 fL Normal 80.0-100.0 [facility] Comment on above: Performed By: #### C BCDIF, ALCO, CMP ####[facility] [address] [place] [address] Monocytes/100 WBC (Bld) 7.5 % Normal [facility] Comment on above: Performed By: #### C BCDIF, ALCO, CMP ####[facility] [address] [place] [address] Neutrophils/100 WBC (Bld) 55.8 % Normal [facility] Comment on above: Performed By: #### C BCDIF, ALCO, CMP ####[facility] [address] [place] [address] Platelet mean volume Entitic volume (Bld) 9.7 fL Normal 9.0-12.7 [facility] Comment on above: Performed By: #### C BCDIF, ALCO, CMP ####[facility] [address] [place] [address] Platelets #/vol (Bld) 348 10*3/uL Normal 150-400 [facility] Comment on above: Performed By: #### C BCDIF, ALCO, CMP ####[facility] [address] [place] [address] RBC #/vol (Bld) 4.75 10*6/uL Normal 3.90-5.20 [facility] Comment on above: Performed By: #### C BCDIF, ALCO, CMP ####[facility] [address] [place] [address] WBC #/vol (Bld) 7.37 10*3/uL Normal 3.70-11.00 [facility] Comment on above: Performed By: #### C BCDIF, ALCO, CMP ####[facility] [address] [place] [address] Comp Metabolic Panelon 12-15 Albumin mass conc 4.6 g/dL Normal 3.9-4.9 [facility] Comment on above: Performed By: #### C BCDIF, ALCO, CMP ####[facility] [address] [place] [address] ALP enzyme act/vol 87 U/L Normal 34-123 [facility] Comment on above: Performed By: #### C BCDIF, ALCO, CMP ####[facility] [address] [place] [address] ALT enzyme act/vol 13 U/L Normal 7-38 [facility] Comment on above: Performed By: #### C BCDIF, ALCO, CMP ####[facility] [address] [address] Anion gap molar conc 11 mmol/L Normal 9-18 [facility] Comment on above: Performed By: #### C BCDIF, ALCO, CMP ####[facility] [address] [place] [address] AST enzyme act/vol 16 U/L Normal 13-35 [facility] Comment on above: Performed By: #### C BCDIF, ALCO, CMP ####[facility] [address] [place] [address] Bilirubin mass conc 0.2 mg/dL Normal 0.2-1.3 [facility] Comment on above: Performed By: #### C BCDIF, ALCO, CMP ####[facility] [address] [place] [address] Calcium mass conc 9.8 mg/dL Normal 8.5-10.2 [facility] Comment on above: Performed By: #### C BCDIF, ALCO, CMP ####[facility] [address] [place] [address] Chloride molar conc 100 mmol/L Normal 97-105 [facility] Comment on above: Performed By: #### C BCDIF, ALCO, CMP ####[facility] [address] [place] [address] CO2 molar conc 26 mmol/L Normal 22-30 [facility] Comment on above: Performed By: #### C BCDIF, ALCO, CMP ####[facility] [address] [place] [address] Creatinine mass conc 0.66 mg/dL Normal 0.58-0.96 [facility] Comment on above: Performed By: #### C BCDIF, ALCO, CMP ####[facility] [address] [place] [address] eGFR- Amer. >60 Normal [facility] Comment on above: Performed By: #### C BCDIF, ALCO, CMP ####[facility] [address] [place] [address] GFR/1.73 sq M predicted among non-blacks MDRD vol rate/area (S/P/Bld) mL/min/{1.73_m2} Normal [facility] Comment on above: Result Comment: eGFR (Estimated GFR) Units of measure: mL/min/1.73 meters squared eGFR is derived from the reexpressed MDRD Study equation using the following parameters: serum creatinine, age, gender and race. The creatinine assay has been calibrated to be traceable to IDMS. An eGFR <60 mL/min/1.73m2 for >3 months is consistent with chronic kidney disease. Refer to KDOQI guidelines for clinical interpretation. In patients with unstable renal function, e.g. those with acute kidney injury, the eGFR may not accurately reflect actual GFR. Performed By: #### C KATTY MARROQUIN CMP ####[facility] [address] [phone] Glucose mass conc 102 mg/dL High 74-99 [facility] Comment on above: Result Comment: The [place] Diabetes Association (ADA) provides guidance for cutoff values for fasting glucose and random glucose. The ADA defines fasting as no caloric intake for at least 8 hours. Fasting plasma glucose results between 100 to 125 mg/dL indicate increased risk for diabetes (prediabetes). Fasting plasma glucose results greater than or equal to 126 mg/dL meet the criteria for diagnosis of diabetes. In the absence of unequivocal hyperglycemia, results should be confirmed by repeat testing. In a patient with classic symptoms of hyperglycemia or hyperglycemic crisis, random plasma glucose results greater than or equal to 200 mg/dL meet the criteria for diagnosis of diabetes. Reference: Standards of Medical Care in Diabetes 2016, [place] [employer] Association. Diabetes Care. 2016.39(Suppl 1). Performed By: #### C KATTY MARROQUIN, CMP ####[facility] Mpfcmoegcb3622 [phone] Potassium molar conc 3.9 mmol/L Normal 3.7-5.1 [facility] Comment on above: Performed By: #### C KATTY MARROQUIN CMP ####[facility] [address] [phone] Protein mass conc 8.0 g/dL Normal 6.3-8.0 [facility] Comment on above: Performed By: #### C KATTY MARROQUIN CMP ####[facility] [address] [phone] Sodium molar conc 137 mmol/L Normal 136-144 [facility] Comment on above: Performed By: #### C KATTY MARROQUIN CMP ####[facility] [address] [phone] Urea nitrogen mass conc 11 mg/dL Normal 7-21 [facility] Comment on above: Performed By: #### C BCDIKATTY Mora, CMP ####[facility] [address] [phone] ED NOTEon 12-15-2017 ED NOTE HNO ID: [id number] Author: Salome MuroRn) HENNY Ashby Service: Nursing Author Type: Registered Nurse Type: ED Notes Filed: 12/15/2017 8:39 PM Note Text: Pt's belongings removed and secured in a labeled bag in a locker. Pt informed that the belongings will be returned to her prior to discharge or transfer. Pt verbalized understanding. Pt placed in a safe/secured environment. [facility] ED NOTE HNO ID: [id number] Author: Salome Millan) HENNY Ashby Service: Nursing Author Type: Registered Nurse Type: ED Notes Filed: 12/15/2017 8:39 PM Note Text: Pt brought in by Jennifer GALINDO after she send a text to one of her friends, mentioning suicidal ideation. On arrival, pt alert and oriented, reports stomach pain, states it's because I am . Pt cooperative, answering questions appropriately, admits SI. Pt denies having a plan in place but mentioned that she still has the SI thoughts. Per pt, she had 2 suicidal attempts in the past , 4 years ago, one by cutting her wrists and another one by jumping off a window. [facility] ED PROV NOTEon 12-15-2017 Protein mass conc HNO ID: [id number] Author: Radha Helton Service: (none) Author Type: Physician Solderer Type: ED Provider Notes Filed: 12/15/2017 11:54 PM Note Text: ED Provider Note Patient Name: Bryanna Meehan SERVICE DATE: 12/15/17 History Patient presents with: Suicidal Ideation: This is a 17 y/o currently 10 week gestational female here escorted by police from local snf for evaluation of suicidal ideation. Patient is currently staying at a local snf for the past month. She is originally from [place]. She states that she as speaking with a friend of her boyfriends earlier today and mentioned that she was feeling down and thought about suicide at times. She allegedly had no intent and denies plan. She states that she had similar thoughts 4 years ago and was hospitalized at that time. She is not currently under the care of counselor/psychiatrist. She does allegedly have established appointment specialist and has had US to confirm IUP. Not currently taking vitamin. Upon arrival to ED patient states that she is feeling better and is not longer having suicidal thoughts. Denies dizziness, chest pain, dyspnea, n/v, abdominal pain, urinary symptoms, diarrhea, pain/swelling in legs, hallucinations or homicidal ideation. Denies recreational drug or alcohol use. PAST MEDICAL HISTORY Diagnosis Date - ADD (attention deficit disorder) - Anxiety - Depression - PTSD (post-traumatic stress disorder) PAST SURGICAL HISTORY Procedure Laterality Date - TONSILLECTOMY AND ADENOIDECTOMY HX 2008 FAMILY HISTORY Problem Relation Age of Onset - Cancer Maternal Grandmother - Heart Maternal Grandfather Social History Social History Main Topics - Smoking status: Former Smoker - Smokeless tobacco: Never Used Comment: quit 3 years ago - Alcohol use No - Drug use: No - Sexual activity: Yes Partners: Male ALLERGIES No Known Allergies Review of Systems Constitutional: Negative for chills and fever. Respiratory: Negative for shortness of breath. Cardiovascular: Negative for chest pain. Gastrointestinal: Negative for abdominal pain, nausea and vomiting. Genitourinary: Negative for difficulty urinating, dysuria, frequency, hematuria, urgency and vaginal bleeding. Musculoskeletal: Negative for back pain. Skin: Negative for rash. Neurological: Negative for dizziness, light-headedness and headaches. Hematological: Does not bruise/bleed easily. Psychiatric/Behavioral: Positive for dysphoric mood and suicidal ideas. Negative for confusion, hallucinations and self-injury. The patient is not nervous/anxious. Physical Exam BP 140/77 Pulse 82 Resp 18 Ht 4' 10 (1.47m) Wt 146 lb (66.2kg) SpO2 98% LMP 10/15/2017 BMI 30.52 kg/(m2). Physical Exam Constitutional: She appears well-developed and well-nourished. No distress. HENT: Head: Normocephalic and atraumatic. Mouth/Throat: Oropharynx is clear and moist. Eyes: Conjunctivae are normal. Neck: Neck supple. Cardiovascular: Normal rate and regular rhythm. Pulmonary/Chest: Effort normal and breath sounds normal. Abdominal: Soft. Bowel sounds are normal. She exhibits no distension. There is no tenderness. There is no guarding. Musculoskeletal: CLAUDIO x 4 Neurological: She is alert. Awake and alert. Normal speech. Motor grossly intact. Steady gait. Skin: Skin is warm and dry. Psychiatric: She has a normal mood and affect. Her behavior is normal. Nursing note and vitals reviewed. Diagnostic Testing Results for orders placed or performed during the hospital encounter of 12/15/17 CBC + DIFF Result Value Ref Range WBC 7.37 3.70 - 11.00 k/uL RBC 4.75 3.90 - 5.20 m/uL Hemoglobin 13.6 11.5 - 15.5 g/dL Hematocrit 41.0 36.0 - 46.0 % MCV 86.3 80.0 - 100.0 fL MCH 28.6 26.0 - 34.0 pG MCHC 33.2 30.5 - 36.0 g/dL RDW-CV 13.1 11.5 - 15.0 % Platelet Count 348 150 - 400 k/uL MPV 9.7 9.0 - 12.7 fL Neut% 55.8 % Abs Neut (ANC) 4.12 1.45 - 7.50 k/uL Lymph% 32.6 % Abs Lymph 2.40 1.00 - 4.00 k/uL Kingfisher% 7.5 % Abs [place] 0.55 <0.87 k/uL Eosin% 3.4 % Abs Eosin 0.25 <0.46 k/uL Baso% 0.7 % Abs Baso 0.05 <0.11 k/uL COMP METABOLIC PANEL Result Value Ref Range Protein, Total 8.0 6.3 - 8.0 g/dL Albumin 4.6 3.9 - 4.9 g/dL Calcium 9.8 8.5 - 10.2 mg/dL Bilirubin, Total 0.2 0.2 - 1.3 mg/dL Alkaline Phosphatase 87 34 - 123 U/L AST 16 13 - 35 U/L Glucose 102 (H) 74 - 99 mg/dL BUN 11 7 - 21 mg/dL Creatinine 0.66 0.58 - 0.96 mg/dL Sodium 137 136 - 144 mmol/L Potassium 3.9 3.7 - 5.1 mmol/L Chloride 100 97 - 105 mmol/L CO2 26 22 - 30 mmol/L Anion Gap 11 9 - 18 mmol/L ALT 13 7 - 38 U/L eGFR- >60 eGFR-All Other Races >60 . URINALYSIS Result Value Ref Range Color Yellow Yellow Appearance (U) Clear Clear Glucose, Urine Negative Negative mg/dL Bilirubin, Urine Negative Negative Ketones, Urine Negative Negative Specific [place], Ur 1.020 1.001 - 1.029 Hemoglobin/Blood,Ur Negative Negative pH, Urine 7.5 5.0 - 8.0 Protein, Urine Negative Negative mg/dL Urobilinogen 0.2 0.2 - 1.0 Nitrites Negative Negative Leukest Trace (A) Negative TOX SCREEN ROUT UR Result Value Ref Range Phencyclidine Negative Negative Benzodiazepines Urine Negative Negative Cocaine Urine Negative Negative Amphetamines Negative Negative THC Negative Negative Opiates Negative Negative Barbiturates Negative Negative Oxycodone, Urine Negative Negative ALCOHOL/ETHANOL BLD Result Value Ref Range Ethanol <11 <11 mg/dL URINE MICROSCOPIC Result Value Ref Range WBC, Urine 5-10 (A) 0 - 5 /HPF RBC, Urine 0-3 0 - 3 /HPF Cast SEE COMMENT 0 /LPF Bacteria Few (A) 0 /HPF Epithelial Cells SEE COMMENT /HPF -EKG: NSR with ventricular rate of 80 bpm with SA. -routine labs obtained and interpreted: UA with trace leuks, 5-10 wbc's, few bacteria. Procedures ED Course / Clinical Impression -given Keflex for possible acute cystitis. -patient medically cleared. -AP evaluated patient at bedside. Patient is no longer reporting SI. [facility]. Has family in [place]. She is exhibiting the mental capacity to make medical decisions. AP recommends outpatient follow up and patient is amendable to this. She will be placed on course of Keflex due to early and concern for possible acute cystitis. Clinical Impressions as of Dec 15 2213 Suicidal ideation 10 weeks gestation of Acute cystitis without hematuria MDM / Disposition / Plan MDM The patient was DISCHARGED: Counseled patient regarding lab results AND suspected diagnosis AND need for follow-up. Discharged home with verbal and written instructions. They were instructed to return as needed for persistent or worsening symptoms or any new concerns. Condition at time of disposition: stable SIGNATURE: MIRANDA Owusu (Miranda) Danie 12/15/17 2354 Normal [facility] Ethanolon 12-15-2017 Ethanol mass conc mg/dL Normal <11 [facility] Comment on above: Performed By: #### C BCDIF, ALCO, CMP ####[facility] [address] [place] [address] Toxicology Screen,Uron 12-15 Amphetamines, Urine Negative Normal Negative [facility] Comment on above: Result Comment: Cuto ff threshold at 1000 ng/mL. Performed By: #### U AMIC, UA, UTOX2 ####[facility] [address] [place] [address] Barbiturates, Urine Negative Normal Negative [facility] Comment on above: Result Comment: Cuto ff threshold at 200 ng/mL. Performed By: #### U AMIC, UA, UTOX2 ####[facility] [address] [place] [address] Benzodiazepines, Ur Negative Normal Negative [facility] Comment on above: Result Comment: Cuto ff threshold at 200 ng/mL. Performed By: #### U AMIC, UA, UTOX2 ####[facility] [id number] [place] [address] Cannabinoids, Urine Negative Normal Negative [facility] Comment on above: Result Comment: Cuto ff threshold at 50 ng/mL. Performed By: #### U AMIC, UA, UTOX2 ####[facility] [address] [place] [address] Cocaine, Urine Negative Normal Negative [facility] Comment on above: Result Comment: Cuto ff threshold at 300 ng/mL. Performed By: #### U AMIC, UA, UTOX2 ####[facility] [address] [place] [address] Opiates, Urine Negative Normal Negative [facility] Comment on above: Result Comment: Cuto ff threshold at 300 ng/mL. Performed By: #### U AMIC, UA, UTOX2 ####[facility] [address] [place] [address] Oxycodone, Urine Negative Normal Negative [facility] Comment on above: Result Comment: Cuto ff threshold at 100 ng/mL. Comment: Immunoassay screen only. Cross reactivity with other substances can occur with immunoassay screening. Detection of any drug(s) in this urine toxicology panel is presumptive only. These tests are for medical purposes only and should not be used for compliance monitoring, legal, or forensic use. Samples should be within normal physiological conditions (e.g. pH). This assay does not include adulteration/specimen validity testing. In clinical settings, confirmatory testing is at the practitioner's discretion [1]. If clinically indicated, confirmation by high specificity, quantitative methodology, which includes adulteration/specimen validity testing, may be requested on the same specimen through Client Services ([phone]) if contacted within 48 hours of initial testing. [1]Substance Abuse and Mental Health Services Administration (2012). Clinical Drug Testing in Primary Care Technical Assistance Publication Series 32. Department of Health and Human Services, [place], p.10. Performed By: #### U AMIC, UA, UTOX2 ####[place] [address] Phencyclidine, Urine Negative Normal Negative [facility] Comment on above: Result Comment: Cuto ff threshold at 25 ng/mL. Performed By: #### U AMIC, UA, UTOX2 ####[place] [address] Urinalysison 12-15-2017 Bilirubin, Urine Negative Normal Negative [facility] Comment on above: Performed By: #### U AMIC, UA, UTOX2 ####[place] [address] Clarity Nom (U) Clear Normal Clear [facility] Comment on above: Performed By: #### U AMIC, UA, UTOX2 ####[place] [address] Color Nom (U) Yellow Normal Yellow [facility] Comment on above: Performed By: #### U AMIC, UA, UTOX2 ####[place] [address] Glucose Ql (U) Negative Normal Negative [facility] Comment on above: Performed By: #### U AMIC, UA, UTOX2 ####[facility] [address] [place] [address] Hemoglobin/Blood,Ur Negative Normal Negative [facility] Comment on above: Performed By: #### U AMIC, UA, UTOX2 ####[facility] [address] [place] [address] Ketones Ql (U) Negative Normal Negative [facility] Comment on above: Performed By: #### U AMIC, UA, UTOX2 ####[facility] [address] [place] [address] Leukest Trace Critically abnormal Negative [facility] Comment on above: Performed By: #### U AMIC, UA, UTOX2 ####[facility] [address] [place] [address] Nitrite Ql (U) Negative Normal Negative [facility] Comment on above: Performed By: #### U AMIC, UA, UTOX2 ####[facility] [address] [place] [address] pH (Bld) 7.5 Normal 5.0-8.0 [facility] Comment on above: Performed By: #### U AMIC, UA, UTOX2 ####[facility] [address] [place] [address] Protein mass conc (U) Negative Normal Negative [facility] Comment on above: Performed By: #### U AMIC, UA, UTOX2 ####[facility] [address] [place] [address] Specific [place], Ur 1.020 Normal 1.001-1.029 [facility] Comment on above: Performed By: #### U AMIC, UA, UTOX2 ####[facility] [address] [place] [address] Urobilinogen Qn (U) 0.2 Normal 0.2-1.0 [facility] Comment on above: Performed By: #### U AMIC, UA, UTOX2 ####[facility] [address] [place] [address] Urine Microscopic (FOR LAB U SE ONLY)on 12-15-2017 Bacteria LM.HPF #/area (Urine sed) Few Critically abnormal 0 [facility] Comment on above: Performed By: #### U AMIC, UA, UTOX2 ####[facility] [address] [place] [address] Cast SEE COMMENT Normal 0 [facility] Comment on above: Result Comment: 0 Performed By: #### U AMIC, UA, UTOX2 ####[facility] [address] [place] [address] Epithelial cells LM.HPF #/area (Urine sed) SEE COMMENT Normal [facility] Comment on above: Result Comment: 0-5 Squamous Epithelial Cells Performed By: #### U AMIC, UA, UTOX2 ####[facility] [address] [place] [address] RBC #/vol (U) 0-3 Normal 0-3 [facility] Comment on above: Performed By: #### U AMIC, UA, UTOX2 ####[facility] [address] [place] [address] WBC #/vol (Bld) 5-10 Critically abnormal 0-5 [facility] Comment on above: Performed By: #### U AMIC, UA, UTOX2 ####[facility] [address] [place] [address] CBC and Differentialon 12-14 Abs Baso 0.03 k/uL Normal <0.11 [facility] Comment on above: Performed By: #### C BCDIF, CMP #### [facility] [address] [place] [address] Abs Kingfisher 0.51 k/uL Normal <0.87 [facility] Comment on above: Performed By: #### C BCDIF, CMP #### [facility] [address] [place] [address] Abs Neut 3.46 k/uL Normal 1.45-7.50 [facility] Comment on above: Performed By: #### C BCDIF, CMP #### [facility] [address] [place] [address] Basophils/100 WBC (Bld) 0.5 % Normal [facility] Comment on above: Performed By: #### C BCDIF, CMP #### [facility] [address] [place] [address] Eosinophils #/vol (Bld) 0.20 10*3/uL Normal <0.46 [facility] Comment on above: Performed By: #### C BCDIF, CMP #### [facility] [address] [place] [address] Eosinophils/100 WBC (Bld) 3.1 % Normal [facility] Comment on above: Performed By: #### C BCDIF, CMP #### [facility] [address] [place] [address] Erythrocyte distribution width Ratio (RBC) 13.5 % Normal 11.5-15.0 [facility] Comment on above: Performed By: #### C BCDIF, CMP #### [facility] [address] [place] [address] Hematocrit Volume Fraction (Bld) 40.9 % Normal 36.0-46.0 [facility] Comment on above: Performed By: #### C BCDIF, CMP #### [facility] [address] [place] [address] Hemoglobin mass conc (Bld) 13.5 g/dL Normal 11.5-15.5 [facility] Comment on above: Performed By: #### C BCDIF, CMP #### [facility] [address] [place] [address] Lymphocytes #/vol (Bld) 2.16 10*3/uL Normal 1.00-4.00 [facility] Comment on above: Performed By: #### C BCDIF, CMP #### [facility] [address] [place] [address] Lymphocytes/100 WBC (Bld) 34.0 % Normal [facility] Comment on above: Performed By: #### C BCDIF, CMP #### [facility] [address] [place] [address] MCH Entitic mass (RBC) 28.5 pG Normal 26.0-34.0 [facility] Comment on above: Performed By: #### C BCDIF, CMP #### [facility] [address] [place] [address] MCHC mass conc (RBC) 33.0 g/dL Normal 30.5-36.0 [facility] Comment on above: Performed By: #### C BCDIF, CMP #### [facility] [address] [place] [address] MCV Entitic volume (RBC) 86.3 fL Normal 80.0-100.0 [facility] Comment on above: Performed By: #### C BCDIF, CMP #### [facility] [address] [place] [address] Monocytes/100 WBC (Bld) 8.0 % Normal [facility] Comment on above: Performed By: #### C BCDIF, CMP #### [facility] [address] [place] [address] Neutrophils/100 WBC (Bld) 54.4 % Normal [facility] Comment on above: Performed By: #### C BCDIF, CMP #### [facility] [address] [place] [address] Platelet mean volume Entitic volume (Bld) 9.3 fL Normal 9.0-12.7 [facility] Comment on above: Performed By: #### C BCDIF, CMP #### [facility] [address] [place] [address] Platelets #/vol (Bld) 344 10*3/uL Normal 150-400 [facility] Comment on above: Performed By: #### C BCDIF, CMP #### [facility] [address] [place] [address] RBC #/vol (Bld) 4.74 10*6/uL Normal 3.90-5.20 [facility] Comment on above: Performed By: #### C BCDIF, CMP #### [facility] [address] [place] [address] WBC #/vol (Bld) 6.36 10*3/uL Normal 3.70-11.00 [facility] Comment on above: Performed By: #### C BCDIF, CMP #### [facility] [address] [place] [address] Comp Metabolic Panelon 12-14 Albumin mass conc 4.7 g/dL Normal 3.9-4.9 [facility] Comment on above: Performed By: #### C BCDIF, CMP #### [facility] [address] [place] [address] ALP enzyme act/vol 94 U/L Normal 34-123 [facility] Comment on above: Performed By: #### C BCDIF, CMP #### [facility] [address] [place] [address] ALT enzyme act/vol 13 U/L Normal 7-38 [facility] Comment on above: Performed By: #### C BCDIF, CMP #### [facility] [address] [place] [address] Anion gap molar conc 11 mmol/L Normal 9-18 [facility] Comment on above: Performed By: #### C BCDIF, CMP #### [facility] [address] [place] [address] AST enzyme act/vol 18 U/L Normal 13-35 [facility] Comment on above: Performed By: #### C BCDIF, CMP #### [facility] [address] [place] [address] Bilirubin mass conc 0.3 mg/dL Normal 0.2-1.3 [facility] Comment on above: Performed By: #### C BCDIF, CMP #### [facility] [address] [place] [address] Calcium mass conc 9.6 mg/dL Normal 8.5-10.2 [facility] Comment on above: Performed By: #### C BCDIF, CMP #### [facility] [address] [place] [address] Chloride molar conc 102 mmol/L Normal 97-105 [facility] Comment on above: Performed By: #### C BCDIF, CMP #### [facility] [address] [place] [address] CO2 molar conc 27 mmol/L Normal 22-30 [facility] Comment on above: Performed By: #### C BCDIF, CMP #### [facility] [address] [place] [address] Creatinine mass conc 0.68 mg/dL Normal 0.58-0.96 [facility] Comment on above: Performed By: #### C BCDIF, CMP #### [facility] [address] [place] [address] eGFR- Amer. >60 Normal [facility] Comment on above: Performed By: #### C BCDIF, CMP #### [facility] [address] [facility] [phone] GFR/1.73 sq M predicted among non-blacks MDRD vol rate/area (S/P/Bld) mL/min/{1.73_m2} Normal [facility] Comment on above: Result Comment: eGFR (Estimated GFR) Units of measure: mL/min/1.73 meters squared eGFR is derived from the reexpressed MDRD Study equation using the following parameters: serum creatinine, age, gender and race. The creatinine assay has been calibrated to be traceable to IDMS. An eGFR <60 mL/min/1.73m2 for >3 months is consistent with chronic kidney disease. Refer to KDOQI guidelines for clinical interpretation. In patients with unstable renal function, e.g. those with acute kidney injury, the eGFR may not accurately reflect actual GFR. Performed By: #### C CARA CMP #### [facility] [address] [facility] [phone] Glucose mass conc 102 mg/dL High 74-99 [facility] Comment on above: Result Comment: The [place] Diabetes Association (ADA) provides guidance for cutoff values for fasting glucose and random glucose. The ADA defines fasting as no caloric intake for at least 8 hours. Fasting plasma glucose results between 100 to 125 mg/dL indicate increased risk for diabetes (prediabetes). Fasting plasma glucose results greater than or equal to 126 mg/dL meet the criteria for diagnosis of diabetes. In the absence of unequivocal hyperglycemia, results should be confirmed by repeat testing. In a patient with classic symptoms of hyperglycemia or hyperglycemic crisis, random plasma glucose results greater than or equal to 200 mg/dL meet the criteria for diagnosis of diabetes. Reference: Standards of Medical Care in Diabetes 2016, [place] [employer] Association. Diabetes Care. 2016.39(Suppl 1). Performed By: #### C YESENIAF, CMP #### [facility] [address] [facility] [phone] Potassium molar conc 3.7 mmol/L Normal 3.7-5.1 [facility] Comment on above: Performed By: #### C YESENIAF, CMP #### [facility] [address] [facility] [phone] Protein mass conc 8.2 g/dL High 6.3-8.0 [facility] Comment on above: Performed By: #### C BCDIF, CMP #### [facility] [address] [facility] [phone] Sodium molar conc 140 mmol/L Normal 136-144 [facility] Comment on above: Performed By: #### C BCDIF, CMP #### [facility] [address] [place] [phone] Urea nitrogen mass conc 13 mg/dL Normal 7-21 [facility] Comment on above: Performed By: #### C BCDIF, CMP #### [facility] [address] [facility] [phone] ED NOTEon 12-14-2017 ED NOTE HNO ID: [id number] Author: Demario (Rn) HENNY Contreras Service: (none) Author Type: Registered Nurse Type: ED Notes Filed: 12/14/2017 8:26 PM Note Text: The patient verbalizes understanding of discharge instructions. No additional questions or concerns at this time. Patient Vital signs stable, no acute distress noted. Patient ambulatory out of ED. Patient discharged with [facility] staff, escorted to car by engineering technical writer and discharged without incident. Prescription(S) x 1 given. [facility] ED NOTE HNO ID: [id number] Author: Mery MuroRn) HENNY Jon Service: Nursing Author Type: Registered Nurse Type: ED Notes Filed: 12/14/2017 6:07 PM Note Text: Patient is 10 weeks . Has been throwing up from morning sickness about twice a day. Last night stated she saw chunks of bright red blood in her emesis. [facility] ED PROV NOTEon 12-14-2017 Protein mass conc HNO ID: [id number] Author: Noemi Fernando MD Service: (none) Author Type: Physician Type: ED Provider Notes Filed: 12/14/2017 7:52 PM Note Text: ED Provider Note Patient Name: Bryanna Meehan SERVICE DATE: 12/14/17 History Patient presents with: Abdominal Pain Hematemesis Patient who is a ~ 10 weeks gestation (confirmed IUP on u/s) here for hematemesis last evening while at work. 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 It was one episode and she has not had any further episodes. She has had intermittent nausea with her but no worse in the past 24 hours. Her employer wanted her to come to ED to get a return to work form incase it was contagious. She denies black/bloody stools, belly pain, chest pain, fever/chills, or cough. PAST MEDICAL HISTORY Diagnosis Date - ADD (attention deficit disorder) - Anxiety - Depression - PTSD (post-traumatic stress disorder) PAST SURGICAL HISTORY Procedure Laterality Date - TONSILLECTOMY AND ADENOIDECTOMY HX 2009 FAMILY HISTORY Problem Relation Age of Onset - Cancer Maternal Grandmother - Heart Maternal Grandfather Social History Social History Main Topics - Smoking status: Former Smoker - Smokeless tobacco: Never Used Comment: quit 3 years ago - Alcohol use No - Drug use: No - Sexual activity: Yes Partners: Male ALLERGIES No Known Allergies Review of Systems Constitutional: Negative. Negative for chills and fever. HENT: Negative. Negative for congestion, postnasal drip, rhinorrhea, sinus pain and sinus pressure. Eyes: Negative. Respiratory: Negative. Negative for cough and shortness of breath. Cardiovascular: Negative. Negative for chest pain. Gastrointestinal: Negative. Negative for abdominal pain, diarrhea, nausea and vomiting. Genitourinary: Negative. Negative for difficulty urinating, dysuria and enuresis. Musculoskeletal: Negative. Negative for back pain. Skin: Negative. Neurological: Negative. Negative for dizziness and light-headedness. Psychiatric/Behavioral: Negative. Negative for confusion. Physical Exam BP 132/74 Pulse 80 Temp (Src) 98.3 (Oral) Resp 14 Wt 146 lb (66.2kg) SpO2 98% Physical Exam Constitutional: She is oriented to person, place, and time. She appears well-developed and well-nourished. No distress. HENT: Head: Normocephalic and atraumatic. Right Ear: External ear normal. Left Ear: External ear normal. Nose: Nose normal. Mouth/Throat: Oropharynx is clear and moist. Eyes: Pupils are equal, round, and reactive to light. Conjunctivae and EOM are normal. Neck: Normal range of motion. Neck supple. Cardiovascular: Normal rate, regular rhythm, normal heart sounds and intact distal pulses. No murmur heard. Pulmonary/Chest: Effort normal and breath sounds normal. No stridor. No respiratory distress. She has no wheezes. She has no rales. She exhibits no tenderness. Abdominal: Soft. Bowel sounds are normal. She exhibits no distension. There is no tenderness. There is no rebound. Musculoskeletal: Normal range of motion. She exhibits no edema or tenderness. Lymphadenopathy: She has no cervical adenopathy. Neurological: She is alert and oriented to person, place, and time. She has normal reflexes. Skin: Skin is warm and dry. No rash noted. No erythema. Psychiatric: She has a normal mood and affect. Her behavior is normal. Judgment and thought content normal. Nursing note and vitals reviewed. Diagnostic Testing ED Labs Ordered and Reviewed - No data to display Results for orders placed or performed during the hospital encounter of 12/14/17 COMP METABOLIC PANEL Result Value Ref Range Protein, Total 8.2 (H) 6.3 - 8.0 g/dL Albumin 4.7 3.9 - 4.9 g/dL Calcium 9.6 8.5 - 10.2 mg/dL Bilirubin, Total 0.3 0.2 - 1.3 mg/dL Alkaline Phosphatase 94 34 - 123 U/L AST 18 13 - 35 U/L Glucose 102 (H) 74 - 99 mg/dL BUN 13 7 - 21 mg/dL Creatinine 0.68 0.58 - 0.96 mg/dL Sodium 140 136 - 144 mmol/L Potassium 3.7 3.7 - 5.1 mmol/L Chloride 102 97 - 105 mmol/L CO2 27 22 - 30 mmol/L Anion Gap 11 9 - 18 mmol/L ALT 13 7 - 38 U/L eGFR- >60 eGFR-All Other Races >60 . CBC + DIFF Result Value Ref Range WBC 6.36 3.70 - 11.00 k/uL RBC 4.74 3.90 - 5.20 m/uL Hemoglobin 13.5 11.5 - 15.5 g/dL Hematocrit 40.9 36.0 - 46.0 % MCV 86.3 80.0 - 100.0 fL MCH 28.5 26.0 - 34.0 pG MCHC 33.0 30.5 - 36.0 g/dL RDW-CV 13.5 11.5 - 15.0 % Platelet Count 344 150 - 400 k/uL MPV 9.3 9.0 - 12.7 fL Neut% 54.4 % Abs Neut (ANC) 3.46 1.45 - 7.50 k/uL Lymph% 34.0 % Abs Lymph 2.16 1.00 - 4.00 k/uL Kingfisher% 8.0 % Abs [place]isher 0.51 <0.87 k/uL Eosin% 3.1 % Abs Eosin 0.20 <0.46 k/uL Baso% 0.5 % Abs Baso 0.03 <0.11 k/uL GASTRIC OCC BLD Result Value Ref Range Gastric Occult Bld Negative Negative Procedures ED Course / Clinical Impression Clinical Impressions as of Dec 14 1948 Hematemesis, presence of nausea not specified MDM / Disposition / Plan Nurses notes and old chart reviewed Patient here for one episode of hematemesis yesterday. ~ 10 weeks Ddx PUD, gastritis, gastroenteritis, epistaxis Work up in ED, reveals gastro occult and NG negative, HGB 13.5, BUN 13, WBC 6.36, While in ED, she had NG placed which was negative for gross blood, IV pepcid given in ED Rx prilosec (per pharmD most safe in , patient requesting off work slip for tonight. The patient was DISCHARGED: Counseled patient regarding lab results AND suspected diagnosis AND need for follow-up. Discharged home with verbal and written instructions. They were instructed to return as needed for persistent or worsening symptoms or any new concerns. Condition at time of disposition: stable SIGNATURE: MD Noemi Oliveira MD 12/14/171951 [facility] Gastric Occult Blood For FH/ MED/FLA ONLYon 12-14-2017 Gastric Occult Blood For FH/MED/FLA ONLY Negative Normal Negative [facility] Comment on above: Performed By: #### G OB #### [facility] [address] [facility] [phone] ED NOTEon 11-24-2017 ED NOTE HNO ID: [id number] Author: Nicki (Rn) HENNY Paiz Service: Nursing Author Type: Registered Nurse Type: ED Notes Filed: 11/24/2017 6:55 PM Note Text: Police escort has arrived. Pt left building with police sergeant precinct. [facility] ED NOTE HNO ID: [id number] Author: Nicki (Rn) HENNY Paiz Service: Nursing Author Type: Registered Nurse Type: ED Notes Filed: 11/24/2017 6:48 PM Note Text: Discharge instructions reviewed with pt and aunt. All questions answered. Pt leaving ambulatory with police escort to [facility]. Awaiting police to arrive [facility] ED NOTE HNO ID: [id number] Author: Nicki MuroRn) HENNY Paiz Service: Nursing Author Type: Registered Nurse Type: ED Notes Filed: 11/24/2017 5:58 PM Note Text: Urine obtained and sent [facility] ED NOTE HNO ID: [id number] Author: Shahla MuroRn) HENNY Tavarez Service: Nursing Author Type: Registered Nurse Type: ED Notes Filed: 11/24/2017 5:40 PM Note Text: Pt states she had consensual intercourse with her boyfriend 1.5months ago and is experiencing nausea, vomiting and her period is late. Pt also looking to be accepted into [facility]. She has already called and has the address of where to go. [facility] ED PROV NOTEon 11-24-2017 Protein mass conc HNO ID: [id number] Author: Tong Curry) Jerome Service: (none) Author Type: Physician Solderer Type: ED Provider Notes Filed: 11/24/2017 6:54 PM Note Text: ED Provider Note Patient Name: Bryanna Meehan SERVICE DATE: 11/24/17 History 17-year-old female presents emergency department requesting a prickly tests. Patient is planning on moving into a [facility] seeming but had missed her period after having consensual sex with her boyfriend one half months ago. Is concerned she may be as diagnosed before she enters the snf. Denies any abdominal pain. States that she had some pelvic cramping earlier today but denies any symptoms now. Denies any urinary symptoms. 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 PAST MEDICAL HISTORY Diagnosis Date - ADD (attention deficit disorder) - Anxiety - Depression - PTSD (post-traumatic stress disorder) PAST SURGICAL HISTORY Procedure Laterality Date - TONSILLECTOMY AND ADENOIDECTOMY HX 2008 FAMILY HISTORY Problem Relation Age of Onset - Cancer Maternal Grandmother - Heart Maternal Grandfather Social History Social History Main Topics - Smoking status: Former Smoker - Smokeless tobacco: Never Used Comment: quit 3 years ago - Alcohol use No - Drug use: No - Sexual activity: Yes Partners: Male ALLERGIES No Known Allergies Review of Systems Constitutional: Negative. Negative for chills, fatigue and fever. HENT: Negative. Respiratory: Negative. Negative for cough, shortness of breath and wheezing. Cardiovascular: Negative. Negative for chest pain. Gastrointestinal: Positive for nausea. Negative for abdominal distention, abdominal pain, constipation, diarrhea and vomiting. Genitourinary: Positive for menstrual problem. Negative for dysuria, flank pain, pelvic pain, urgency, vaginal bleeding, vaginal discharge and vaginal pain. Musculoskeletal: Negative. Skin: Negative. Negative for rash and wound. Neurological: Negative. Negative for dizziness, syncope, weakness, light-headedness and headaches. Psychiatric/Behavioral: Negative. Physical Exam BP 144/78 Pulse 80 Temp (Src) 98.4 (Oral) Resp 12 Ht 4' 10 (1.47m) SpO2 99% LMP 10/23/2017 Physical Exam Constitutional: She is oriented to person, place, and time. She appears well-developed and well-nourished. No distress. HENT: Head: Atraumatic. Nose: Nose normal. Eyes: Pupils are equal, round, and reactive to light. EOM are normal. Neck: Normal range of motion. Cardiovascular: Normal rate, regular rhythm and normal heart sounds. Pulmonary/Chest: Effort normal and breath sounds normal. No respiratory distress. She has no wheezes. Abdominal: Soft. Bowel sounds are normal. She exhibits no distension. There is no tenderness. Musculoskeletal: Normal range of motion. Neurological: She is alert and oriented to person, place, and time. Coordination normal. Skin: Skin is warm. Capillary refill takes less than 2 seconds. No erythema. Psychiatric: Her behavior is normal. Judgment and thought content normal. Nursing note and vitals reviewed. Diagnostic Testing ED Labs Ordered and Reviewed HCG QUAL UR Procedures ED Course / Clinical Impression Clinical Impressions as of Nov 24 1846 Negative test MDM / Disposition / Plan MDM Clinically and hemodynamically stable at time of discharge. Patient will be transported to the women snf via the police. Patient feels safe and comfortable with going to the snf. Understands return here if she develops any symptoms or would like to be reevaluated. The patient was DISCHARGED: Counseled patient regarding lab results AND suspected diagnosis AND need for follow-up. Discharged home with verbal and written instructions. They were instructed to return as needed for persistent or worsening symptoms or any new concerns. Condition at time of disposition: stable SIGNATURE: MIRANDA Faria (Mag) Jerome 11/24/17 1854 Normal [facility] HCG Qual, Urineon 11-24-2017 HCG.beta subunit ( test) Ql (U) Negative Normal Negative [facility] Comment on above: Result Comment: Fals e positives and false negatives are rare but have been described. Clinical correlation of the findings is recommended. Performed By: #### U HCG #### [facility] [address] [facility] [phone] Progress Noteon 11-27-2016 Facilities Maintenance Technician Authentication Interface Message Text Patient ID: Bryanna Meehan is a 16 y.o. female. Her chief complaint(s)include: 16 YEAR WELL CHILD.Assessment:1. Routine general medical examination at a health care facility2. Routine screening for STI (sexually transmitted infection)3. Screening examination for pulmonary tuberculosis4. Need for vaccination5. Overweight6. Abnormal weight gain7. Mild depressionPlan:Bryanna was seen today for 16 year well child.Diagnoses and all orders for this visit:Routine general medical examination at a health care facility- Behavioral/Emotional Assessment w Score - PHQ-9- Lipid Panel (Lab Collect); Future- Glucose (Lab Collect); Future- TSH (Lab Collect); Future- T4, free (Lab Collect); FutureRoutine screening for STI (sexually transmitted infection)- C. trachomatis, amplified probe (Clinic Collect)- GC Amplified Probe (Clinic Collect)Screening examination for pulmonary tuberculosis- PPD - place MantouxNeed for vaccination- Hepatitis A vaccine (PED/ADOL <= 18y)- HPV 9 valent vaccine IM susp- Meningococcal conjugate ACWY vaccine (MENACTRA)- Influenza Vaccine 0.5 mL >= 3 yr Quadrivalent (PF)Overweight- Lipid Panel (Lab Collect); Future- Glucose (Lab Collect); Future- TSH (Lab Collect); Future- T4, free (Lab Collect); FutureAbnormal weight gain- Lipid Panel (Lab Collect); Future- Glucose (Lab Collect); Future- TSH (Lab Collect); Future- T4, free (Lab Collect); FutureMild depressionDiscussed diet and exercise. Patient is not currently suicidal and has no plansto hurt herself. Discussed counseling. Patient has been on antidepressants inthe past but did not feel they helped. Discussed with mother and patient thatwe may want to reassess and try a different antidepressant --especially ifsymptoms not improving/worsening.Retur n in about 1 year (around 11/27/2017) for well check.Subjective:The patient's reason for visit is Well Check 16 Year. She is unaccompanied.16 YEAR WELL CHILDHome:Bryanna has an adult to turn to for help and is permitted and able to makeindependent decisions. Bryanna does not eat meals with family and has no homerisk identified.Education:She Is in 12th grade and is doing well, is meeting expectations, is gettingalong with peers and earns A's & B's.Eating:Bryanna eats regular meals including fruits and vegetables, eats breakfast(sometimes), limits fast food, has a calcium source (milk, cheese, yogurt) andhas dieted in the last year. Bryanna does not drink non-sweetened liquids (drinksjuice daily).Activities & Sports:She has a job, plays team sports (cheerleading) and participates in musicQuoVadis (choir). She performs less than 1 hour of physical activity daily andengages in screen time more than 2 hours daily.Drugs:She does not use tobacco, does not use drugs and does not use alcohol.Safety:She has a violence free home, has peer relationships free from violence, useshelmet and uses seat belt.Sex:Bryanna is sexually active. STD screening offered and completed.Bryanna was 12 when she had her first sexual encounter.She has had >5 partners. Her sexual partners are males. She identifies asheterosexual. Bryanna always uses condoms. Typically, she uses Depo-Proverainjections and condoms as her current contraceptive method. She has previouslybeen : Jewell has not had an STD.Suicidality:She has ways to cope with stress, displays self-confidence, has depression, hasanxiety and has a mental health risk identified. She has no problems withsleep, does not have mood swings, has no suicidal ideation and has no homicidalideation.Menstru ationLast Menstrual period: cannot remember(Menarche: Age 10)Menstruation: no menses due to depo injections.OutputUrine and Stool Pattern:Urine and Stool Pattern: Normal stool pattern, no constipation, normal urinepattern, no nocturnal enuresis.Stool Consistency: softSleepSleeping Difficulty: no difficulty sleepingHours of sleep at a time: 7Teen Anticipatory GuidanceThe following anticipatory guidance was reviewed during the visit:Nutrition: limit junk food/fast food and soft drinks.Safety: home safety and use safety helmet/gear with activities.Social: avoid or limit screen time and parental limits and consequences forunacceptable behavior.Health: age appropriate dental care, age appropriate sleep habits, elevatednoise and hearing, avoid situations where drugs and alcohol are present, how toresist peer pressure to smoke, drink, use drugs, contraception/practice safesex/ use condoms, practice abstinence- the safest way to prevent andSTDs, talk with trusted adult if feeling sad or nervous, learn to manage timeand activities and be responsible for attendance/ homework/ course selection.CRAFFT AssessmentHas not used alcohol or other drugs.Has not ridden in a CAR driven by someone (including self) who was high orhad been using alcohol or drugs.ScreeningsPrevious Vaccine Reactions: No.Tuberculosis Concerns:Negative Tuberculosis Screen Concerns: no exposure to Tb or person with positiveppdHearing Vision Concerns:Patient wears glasses or contact lenses.The caregiver has no concerns about the patient's hearing.The caregiver has no concerns about the patient's vision.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 She is active. No distress.overweightHENT:H ead: Atraumatic.Right Ear: Tympanic membrane and external ear normal.Left Ear: Tympanic membrane and external ear normal.Nose: Nose normal.Mouth/Throat: Mucous membranes are moist. Dentition is normal. Oropharynx isclear.Eyes: Conjunctivae and EOM are normal. No strabismus. Pupils are equal, round,and reactive to light.Neck: Normal range of motion. Neck supple. Thyroid normal. No adenopathy.Cardiovascular : Normal rate, regular rhythm, S1 normal and S2 normal. Pulsesare palpable.No murmur heard.Pulmonary/Chest: Breath sounds normal. No respiratory distress. Exhibits nodeformity.Abdominal: Soft. Bowel sounds are normal. She exhibits no distension and nomass. There is no hepatosplenomegaly. There is no tenderness.Musculoskeleta l: Normal range of motion. Back: She exhibits no scoliosis.Neurological: She is alert. She has normal strength. She exhibits normal muscletone. Gait normal.Skin: No rash noted. No pallor. Skin is warm.Vitals reviewed: Blood pressure 100/62, pulse 96, height (!) 149.4 cm, cllrfy71.6 kg. Normal [facility] Vital Signs Date Time Vital Sign Value Performing Clinician Facility 07-24-2024 11:52-0400 Body temperature 97.6 [degF] Dr. Rg Winchester MD Work Phone: [facility] 07-24-2024 11:52-0400 Diastolic blood pressure 67 mm[Hg] Dr. Rg Winchester MD Work Phone: [facility] 07-24-2024 11:52-0400 Heart rate 78 /min Dr. Rg Winchester MD Work Phone: [facility] 07-24-2024 11:52-0400 Respiratory rate 18 /min Dr. Rg Winchester MD Work Phone: [facility] 07-24-2024 11:52-0400 SaO2% (BldA) [Mass fraction] 96 % Dr. Rg Winchester MD Work Phone: [facility] 07-24-2024 11:52-0400 Systolic blood pressure 137 mm[Hg] Dr. Rg Winchester MD Work Phone: [facility] 07-24-2024 07:40-0400 Body height 149.[address] Rg Winchester MD Work Phone: [facility] 07-24-2024 07:40-0400 Body mass index (BMI) [Ratio] 42.2 kg/m2 Dr. Rg Winchester MD Work Phone: 6(251)662-074342 [place] [address] 07-24-2024 07:40-0400 Body weight 94.[address] Rg Winchester MD Work Phone: 8(762)016-909254 [place] [address] 06-24-2024 13:19-0400 Body mass index (BMI) [Ratio] 44.3 kg/m2 Dr. Rg Winchester MD Work Phone: 1(697)017-264954 [place] [address] 06-24-2024 13:19-0400 Body weight 96.[address] Rg Winchester MD Work Phone: 5(879)537-356254 [place] [address] 06-24-2024 13:19-0400 Diastolic blood pressure 86 mm[Hg] Dr. Rg Winchester MD Work Phone: 1(558)033-164254 [place] [address] 06-24-2024 13:19-0400 Systolic blood pressure 151 mm[Hg] Dr. Rg Winchester MD Work Phone: 2(054)193-452254 [place] [address] 04-25-2024 13:06-0500 Body height 147.[address] Rg Winchester MD Work Phone: 6(937)705-370454 [place] [address] 04-25-2024 13:06-0500 Body mass index (BMI) [Ratio] 43.9 kg/m2 Dr. Rg Winchester MD Work Phone: 1(189)931-808154 [place] [address] 04-25-2024 13:06-0500 Body weight 95.[address] Rg Winchester MD Work Phone: 3(329)435-651654 [place] [address] 04-25-2024 13:06-0500 Diastolic blood pressure 84 mm[Hg] Dr. Rg Winchester MD Work Phone: 7(419)729-245054 [place] [address] 04-25-2024 13:06-0500 Systolic blood pressure 138 mm[Hg] Dr. Rg Winchester MD Work Phone: 8(702)200-855754 [place] [address] 04-04-2024 14:12-0500 Body mass index (BMI) [Ratio] 42.7 kg/m2 Dr. Rg Winchester MD Work Phone: 3(277)437-629654 [place] [address] 04-04-2024 14:12-0500 Body weight 92.[address] Rg Winchester MD Work Phone: [facility] 04-04-2024 14:12-0500 Diastolic blood pressure 89 mm[Hg] Dr. Rg Winchester MD Work Phone: [facility] 04-04-2024 14:12-0500 Systolic blood pressure 150 mm[Hg] Dr. Rg Winchester MD Work Phone: 1(937)104-445242 [place] [address] 02-02-2024 15:59-0500 Body mass index (BMI) [Ratio] 43 kg/m2 Dr. Rg Winchester MD Work Phone: [facility] 02-02-2024 15:59-0500 Body temperature 96.8 [degF] Dr. Rg Winchester MD Work Phone: [facility] 02-02-2024 15:59-0500 Body weight 93.[address] Rg Winchester MD Work Phone: [facility] 02-02-2024 15:59-0500 Diastolic blood pressure 100 mm[Hg] Dr. Rg Winchester MD Work Phone: [facility] 02-02-2024 15:59-0500 Heart rate 79 /min Dr. Rg Winchester MD Work Phone: [facility] 02-02-2024 15:59-0500 Respiratory rate 18 /min Dr. Rg Winchester MD Work Phone: [facility] 02-02-2024 15:59-0500 SaO2% (BldA) [Mass fraction] 99 % Dr. Rg Winchester MD Work Phone: [facility] 02-02-2024 15:59-0500 Systolic blood pressure 144 mm[Hg] Dr. Rg Winchester MD Work Phone: [facility] 04-24-2023 18:14-0500 Body height 147.32 cm [facility] 04-24-2023 18:14-0500 Body mass index (BMI) [Ratio] 46.1 kg/m2 [facility] 04-24-2023 18:14-0500 Body temperature 97.4 [degF] [facility] 04-24-2023 18:14-0500 Body weight 100.24 kg [facility] 04-24-2023 18:14-0500 Diastolic blood pressure 97 mm[Hg] [facility] 04-24-2023 18:14-0500 Heart rate 102 /min [facility] 04-24-2023 18:14-0500 Respiratory rate 16 /min [facility] 04-24-2023 18:14-0500 SaO2% (BldA) [Mass fraction] 97 % [facility] 04-24-2023 18:14-0500 Systolic blood pressure 167 mm[Hg] [facility] 05-03-2022 09:03-0500 Body height 147.3 cm Harpreet Elif DO Work Phone: [facility] 05-03-2022 09:03-0500 Body mass index (BMI) [Ratio] 37.41 kg/m2 Harpreet Elif DO Work Phone: [facility] 05-03-2022 09:03-0500 Body temperature 97.11 [degF] Harpreet Elif DO Work Phone: [facility] 05-03-2022 09:03-0500 Body weight 81.19 kg Harpreet Elif DO Work Phone: [facility] 05-03-2022 09:03-0500 Diastolic blood pressure 81 mm[Hg] Harpreet Elif DO Work Phone: [facility] [employer] 05-03-2022 09:03-0500 Heart rate 83 /min Harpreet Elif DO Work Phone: [facility] [employer] 05-03-2022 09:03-0500 Systolic blood pressure 137 mm[Hg] Harpreet Elif DO Work Phone: [facility] [employer] 08-24-2021 19:00-0400 Diastolic blood pressure 107 mm[Hg] Emily Barnhart MD Work Phone: [facility] 08-24-2021 19:00-0400 Heart rate 72 /min Emily Barnhart MD Work Phone: [facility] 08-24-2021 19:00-0400 Respiratory rate 17 /min Emily Barnhart MD Work Phone: [facility] 08-24-2021 19:00-0400 SaO2% (BldA) [Mass fraction] 100 % Emily Barnhart MD Work Phone: [facility] 08-24-2021 19:00-0400 Systolic blood pressure 145 mm[Hg] Emily Barnhart MD Work Phone: [facility] 08-24-2021 15:02-0400 Body height 147.3 cm Emily Barnhart MD Work Phone: [facility] 08-24-2021 15:02-0400 Body mass index (BMI) [Ratio] 34.9 kg/m2 Emily Barnhart MD Work Phone: [facility] 08-24-2021 15:02-0400 Body weight 75.75 kg Emily Barnhart MD Work Phone: [facility] 08-24-2021 15:01-0400 Body temperature 98.29 [degF] Emily Barnhart MD Work Phone: [facility] 07-25-2021 21:27-0400 Diastolic blood pressure 82 mm[Hg] Ang Remy MD Work Phone: [facility] 07-25-2021 21:27-0400 Heart rate 87 /min Ang Remy MD Work Phone: [facility] 07-25-2021 21:27-0400 Respiratory rate 17 /min Ang Remy MD Work Phone: [facility] 07-25-2021 21:27-0400 SaO2% (BldA) [Mass fraction] 98 % Ang Remy MD Work Phone: [facility] 07-25-2021 21:27-0400 Systolic blood pressure 137 mm[Hg] Ang Remy MD Work Phone: [facility] 07-25-2021 17:22-0400 Body height 149.9 cm Ang Remy MD Work Phone: [facility] 07-25-2021 17:22-0400 Body mass index (BMI) [Ratio] 36.76 kg/m2 Ang Remy MD Work Phone: [facility] 07-25-2021 17:22-0400 Body temperature 98.2 [degF] Ang Remy MD Work Phone: [facility] 07-25-2021 17:22-0400 Body weight 82.56 kg Ang Remy MD Work Phone: [facility] 04-28-2021 13:53-0500 Body temperature 99.6 [degF] No Primary Care Physician [facility] Work Phone: 04-28-2021 13:53-0500 Diastolic blood pressure 74 mm[Hg] No Primary Care Physician [facility] Work Phone: 04-28-2021 13:53-0500 Heart rate 84 /min No Primary Care Physician [facility] Work Phone: 04-28-2021 13:53-0500 Respiratory rate 16 /min No Primary Care Physician [facility] Work Phone: 04-28-2021 13:53-0500 SaO2% (BldA) [Mass fraction] 99 % No Primary Care Physician [facility] Work Phone: 04-28-2021 13:53-0500 Systolic blood pressure 118 mm[Hg] No Primary Care Physician [facility] Work Phone: 08-14-2019 16:19-0400 Body Temperature 97.9 [degF] [facility] 08-14-2019 16:19-0400 BP Diastolic 79 mm[Hg] [facility] 08-14-2019 16:19-0400 BP Systolic 132 mm[Hg] [facility] 08-14-2019 16:19-0400 Pulse (Heart Rate) 84 /min [facility] 08-14-2019 16:19-0400 Pulse Oximetry 98 % [facility] 03-03-2019 21:01-0500 BP Diastolic 63 mm[Hg] [facility] 03-03-2019 21:01-0500 BP Systolic 139 mm[Hg] [facility] 03-03-2019 21:01-0500 Pulse (Heart Rate) 80 /min [facility] 03-03-2019 21:01-0500 Pulse Oximetry 99 % [facility] 03-03-2019 21:01-0500 Respiratory Rate 16 /min [facility] 03-03-2019 18:38-0500 BMI (Body Mass Index) 24.35 kg/m2 [facility] 03-03-2019 18:38-0500 Body Temperature 99.81 [degF] [facility] 03-03-2019 18:38-0500 Body weight 76.97 kg [facility] 03-03-2019 18:38-0500 Height 177.8 cm [facility] 11-19-2018 02:48-0400 BP Diastolic 71 mm[Hg] [facility] 11-19-2018 02:48-0400 BP Systolic 123 mm[Hg] [facility] 11-19-2018 02:48-0400 Pulse (Heart Rate) 72 /min [facility] 11-19-2018 02:48-0400 Pulse Oximetry 98 % [facility] 11-19-2018 02:48-0400 Respiratory Rate 16 /min [facility] 11-18-2018 22:55-0400 BMI (Body Mass Index) 35.53 kg/m2 [facility] 11-18-2018 22:55-0400 Body Temperature 97.5 [degF] [facility] 11-18-2018 22:55-0400 Body weight 77.11 kg [facility] 11-18-2018 22:55-0400 Height 147.3 cm [facility] Encounters Encounter Date Encounter Type Care Provider Facility Start: 07-24-2024 End: 07-24-2024 Emergency department patient visit Dr. Rg Winchester MD Work Phone: -Emergency Department Work Phone: Start: 06-24-2024 End: 06-24-2024 Patient encounter procedure Mary Madrid NP-Vanessa -[facility] Work Phone: Start: 06-24-2024 End: 06-24-2024 ambulatory Mary Madrid NP Facility:[facility] Start: 05-20-2024 End: 05-20-[address] Rg Winchester MD Work Phone: [facility] Work Phone: Start: 05-20-2024 End: 05-20-[address] Hernando Palomares MD -Laboratory, Specimen Work Phone: Start: 05-20-2024 End: 05-20-2024 ambulatory Hernando Palomares Facility:[facility] Start: 05-15-2024 End: 05-15-[address] Rg Winchester MD Work Phone: [facility] Work Phone: Start: 05-15-2024 End: 05-15-[address] Rg Winchester MD -[facility] Start: 05-15-2024 End: 05-15-2024 ambulatory Rglizzy Winchester Facility:[facility] Start: 04-25-2024 End: 04-25-2024 Patient encounter procedure Debbie Warren CNM -[facility] Work Phone: Start: 04-25-2024 End: 04-25-2024 ambulatory [facility] Facility:[facility] Start: 04-17-2024 Registered Referred Prince HATHAWAY - [facility] Work Phone: Start: 04-17-2024 End: 04-17-2024 Patient encounter procedure Prince HATHAWAY -[facility] Work Phone: Start: 04-17-2024 End: 04-17-2024 ambulatory [facility] Facility:[facility] Start: 04-11-2024 End: 04-11-2024 Patient encounter procedure Debbie Warren CNM -Ultrasound, [facility] Work Phone: Start: 04-11-2024 End: 04-11-2024 ambulatory Rglizzy Winchester Facility:[facility] Start: 04-04-2024 End: 04-04-2024 Patient encounter procedure Debbie Warren CNM -Laboratory, Specimen Work Phone: Start: 04-04-2024 End: 04-04-2024 Patient encounter procedure Debbie Warren CNM -[facility] Work Phone: Start: 04-04-2024 End: 04-04-2024 ambulatory Rg Winchester Facility:[facility] Start: 04-04-2024 End: 04-04-2024 ambulatory Rg Winchester Facility:[facility] Start: 02-11-2024 End: 02-11-[address] Rg Winchester MD -Laboratory, [place] Work Phone: Start: 02-11-2024 End: 02-11-2024 ambulatory Rg Winchester Facility:[facility] Start: 02-07-2024 End: 02-07-[address] Rg Winchester MD -Cat Scan, [facility] Work Phone: Start: 02-07-2024 End: 02-07-2024 ambulatory Rglizzy Winchester Facility:[facility] Start: 02-02-2024 End: 02-02-2024 Emergency department patient visit Dr. Shorty Zhu DO -Emergency Department Work Phone: Start: 10-01-2023 ambulatory Rglizzy Winchester Facility:[facility] Start: 09-27-2023 ambulatory Rg Winchester Facility:[facility] Start: 08-15-2023 End: 08-15-2023 ambulatory Rg Winchester Facility:[facility] Start: 08-15-2023 End: 08-15-2023 ambulatory Rg Winchester Facility:[facility] Start: 04-24-2023 End: 04-24-2023 Emergency department patient visit [facility]-Emergency Department Work Phone: Start: 05-03-2022 End: 05-03-2022 ambulatory HARPREET ASENCIO [facility] Start: 05-03-2022 End: 05-03-2022 Office outpatient new 20 minutes Harpreet Berumen Elif DO Work Phone: [facility] Comment on above: PCOS (polycystic ova siddhartha syndrome) (Primary Dx); Infertility associated with anovulation Start: 03-03-2022 Telephone encounter Addis watkins DO Work Phone: [facility] Comment on above: Received Outside Med ical Records Start: 02-11-2022 End: 02-12-2022 Emergency department patient visit ANIKET WALLACE Facility:[facility] Start: 02-02-2022 End: 02-02-2022 ambulatory THOMAS SOLANO Facility:[facility] Start: 02-01-2022 End: 02-01-2022 Emergency department patient visit AMBERJETT DE LEON CHARY Facility:[facility] Start: 01-27-2022 End: 01-27-2022 Emergency department patient visit HERNANDO SCHAEFER Facility:[facility] Start: 01-05-2022 End: 01-05-2022 Emergency department patient visit FRANSICO OTOOLE Facility:[facility] Start: 09-24-2021 End: 09-24-2021 Emergency department patient visit HALEY ANDERSEN Facility:[facility] Start: 08-24-2021 End: 08-24-2021 Emergency department patient visit Emily Barnhart MD Work Phone: [facility] Emergency Dept Comment on above: Acute pharyngitis, u nspecified etiology (Primary Dx); Dysuria Start: 07-25-2021 End: 07-25-2021 Emergency department patient visit Ang Remy MD Work Phone: [facility] Emergency Dept Comment on above: UTI (urinary tract i nfection), bacterial (Primary Dx); Dysfunctional uterine bleeding Start: 06-07-2021 End: 06-07-2021 Patient encounter procedure No Primary Care Physician 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, [place] quality assurance group leader Off Start: 05-03-2021 End: 05-03-2021 Patient encounter procedure No Primary Care Physician [facility], [place] Start: 04-29-2021 End: 04-29-2021 Patient encounter procedure No Primary Care Physician [facility], Specimen Start: 04-28-2021 End: 04-28-2021 Patient encounter procedure No Primary Care Physician [facility] Start: 11-24-2019 End: 11-24-2019 Emergency department patient visit EMILY SARAVIA [facility] Start: 08-14-2019 End: 08-14-2019 Emergency department patient visit Arabella Golden [facility] Emergency Department Start: 04-17-2019 End: 04-21-2019 Patient encounter procedure PHYSICIAN [facility] Start: 03-03-2019 End: 03-03-2019 Emergency department patient visit [facility] Emergency Department Start: 11-19-2018 End: 11-19-2018 Emergency department patient visit HERNANDO BORDEN [facility] Start: 11-18-2018 End: 11-19-2018 Emergency department patient visit Hernando Borden Work Phone: [facility] Emergency Department Comment on above: Acute UTI (Primary D x); Chest pain, unspecified type; Pain of upper abdomen; Bronchitis Start: 01-16-2017 End: 01-16-2017 [facility] Start: 01-15-2017 End: 01-15-2017 [facility] Start: 11-27-2016 End: 11-27-2016 [facility] Start: 10-03-2016 End: 10-03-2016 [facility] Procedures Date Procedure Procedure Detail Performing Clinician Start: 07-24-2024 Urnls dip stick/tablet reagent auto microscopy Dr. Rg Winchester MD Work Phone: Start: 07-24-[address] Rg Winchester MD Work Phone: Start: 07-24-2024 Computed tomography of abdomen and pelvis with contrast Dr. Rg Winchester MD Work Phone: Start: 05-20-[address] Rg Winchester MD Work Phone: Start: 05-15-[address] Gloria Winchester MD Work Phone: Comment on above: Thyroglobulin Antibody measured by Julio Cesar membreno CoulterMethodologyIt should be noted that the presence of thyroglobulinantibodies may not be pathogenic nor diagnostic, especiallyat very low levels. The assay online merchandising coordinator has found thatfour percent of individuals without evidence of thyroiddisease or autoimmunity will have positive TgAb levels upto 4 IU/mL. Start: 04-17-2024 In-vitro immunologic test Dr. Rg Winchester MD Work Phone: Comment on above: QuantiFERON-TB Gold Plus is a qualitativ e indirect test forM tuberculosis infection (including disease) and isintended for use in conjunction with risk assessment,radiography, and other medical and diagnostic evaluations.The QuantiFERON-TB Gold Plus result is determined bysubtracting the Nil value from either TB antigen (Ag)value. The Mitogen tube serves as a control for the test. No response to M tub erculosis antigens detected.Infection with M tuberculosis is unlikely, but high riskindividuals should be considered for additional testing(ATS/IDSA/CDC Clinical Practice Guidelines, 2017). Thereference range is an Antigen minus Nil result of <0.35IU/mL.The specimen received for QuantiFERON testing was incubatedby the ordering institution. Specific procedures outlinedin our Directory of Services and in the package insert forthe QuantiFERON Gold (In Tube) test must be followed toenable for proper stimulation of cells for the productionof interferon gamma. Chemiluminescence immunoassaymethodologyPerformed at: [facility] [place] [id number] Director: Robby Orellana PhD, Phone: [phone] Start: 04-11-[address] Rg Sadler Work Phone: Start: 02-07-2024 CT angiography of chest with contrast Dr Vasquez Winchester MD Work Phone: Start: 02-02-2024 Plain chest X-ray Dr. Rg Winchester MD Work Phone: Start: 02-02-2024 CT of head without contrast Dr. Rg pedersen MD Work Phone: Start: 02-02-2024 SARS-CoV-2, Influenza & RSV (PCR) Dr. Moustapha Winchester MD Work Phone: Start: 04-24-2023 Bacterial nucleic acid assay Start: 04-24-2023 Chlamydia trachomatis (PCR) Start: 02-11-2022 Thyrotropin [Units/volume] in Serum or Plasma Harpreet Asencio DO Work Phone: Start: 09-06-2021 Lipid 1996 panel - Serum or Plasma Harpreet Asencio DO Work Phone: Start: 08-24-2021 End: 08-24-2021 Urnls dip stick/tablet rgnt auto w/o microscopy Emily Barnhart MD Work Phone: Start: 08-24-2021 Iaadiadoo streptococcus group a Emily Barnhart MD Work Phone: Start: 07-25-2021 ADD ON LAB TEST Hernando HATHAWAY Work Phone: Start: 07-25-2021 Urine test visual color cmprsn meths Ang Remy MD Work Phone: Start: 07-25-2021 Basic metabolic panel calcium total Paresh Remy MD Work Phone: Start: 07-25-2021 Urnls dip stick/tablet rgnt auto w/o microscopy Ang Remy MD Work Phone: Start: 04-29-2021 Urine culture No Primary Care Physician Start: 08-14-2019 Choriogonadotropin ( test) [Presence] in Urine Dale Adams Work Phone: Start: 08-14-2019 Urinalysis microscopic only Ashlyn levi Work Phone: Start: 08-14-2019 Urinalysis, reagent strip without microscopy Ashlyn Aguiar Work Phone: Start: 03-04-2019 Smr prim src wet mount nfct agt Hollijuanita Degroot Work Phone: Start: 03-04-2019 Choriogonadotropin ( test) [Presence] in Urine Holli Degroot Work Phone: Start: 03-04-2019 Urinalysis microscopic only Hollijuanita russo Work Phone: Start: 03-04-2019 URINALYSIS, MACRO Hollijuanita Degroot Work Phone: Start: 11-19-2018 Standard chest X-ray Hernando Borden Work Phone: Start: 11-19-2018 Ct abdomen & pelvis w/contrast material Hernando Borden Work Phone: Start: 11-19-2018 Basic metabolic 1998 panel - Serum or Plasma Hernando Borden Work Phone: Start: 11-19-2018 Choriogonadotropin ( test) [Presence] in Urine Hernando Borden Work Phone: Start: 11-19-2018 Complete blood count with white cell differential, automated Hernando Borden Work Phone: Start: 11-19-2018 Complete blood count with white cell differential, manual Hernando Borden Work Phone: Start: 11-19-2018 Hepatic function 2000 panel - Serum or Plasma Hernando Borden Work Phone: Start: 11-19-2018 Lipase [Enzymatic activity/volume] in Serum or Plasma Hernando Borden Work Phone: Start: 11-19-2018 Urinalysis Hernando Borden Work Phone: Start: 11-19-2018 12 lead ECG Hernando Borden Work Phone: Start: 12-15-2017 Electrocardiogram Plan of Treatment Date Care Activity Detail Author Start: 2048 Zoster Vaccines (1 of 2) Zoste r Vaccines (1 of 2) [facility] Start: 09-02-2031 DTaP/Tdap/Td Vaccine s (8 - Td or Tdap) DTaP/Tdap/Td Vaccines (8 - Td or Tdap) [facility] Start: 09-02-2031 Urine microalbumin profile DTAP,TDAP,TD (8 - Td or Tdap) [facility] Start: 09-06-2026 Lipid panel Lipid Panel [facility] Start: 07-24-2024 [facility] Start: 07-24-2024 Referral to service [facility] Start: 04-24-2023 [facility] Start: 02-11-2023 Thyroid stimulating hormone measurement TSH Level [facility] Start: 09-01-2022 Screening for Chlamy michelle trachomatis Chlamydia and Gonorrhea Screening [facility] Start: 10-27-2021 Influenza vaccination S [facility] Start: 09-14-2021 End: 09-14-2021 Patient encounter procedure [facility] [place] 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 Start: 09-01-2021 End: 09-01-2021 Patient encounter procedure 09/01/2021 Office Visit Internal Medicine Aaron Reed MD [address] [place] [address] [facility] [place] Start: 12-16-2020 COVID-19 VACCINE (3 - Booster for Moderna series) COVID-19 VACCINE (3 - Booster for Moderna series) [facility] Start: 03-03-2020 GONORRHEA SCREEN GONORRHEA SCREEN [facility] Start: 03-03-2020 Screening for Chlamy michelle trachomatis CHLAMYDIA SCREEN [facility] Start: 11-12-2019 PAP TESTING PAP TESTING [facility] Start: 11-12-2019 Screening for malign ant neoplasm of cervix Pap smear [facility] Start: 10-28-2019 Influenza vaccination INFLUENZ A VACCINE (Season Ended) [facility] Start: 07-09-2019 CHLAMYDIA SCREENING (18-24) CHLAMYDIA SCREENING (18-24) [facility] Start: 07-09-2019 GC (GONORRHEA) SCREE SANTOS (18-24) GC (GONORRHEA) SCREENING (18-24) [facility] Start: 10-27-2018 Influenza vaccination INFLUENZA VACC INE (#1) [facility] Start: 10-27-2018 Influenza vaccinatio n given SEQUENTIAL INFLUENZA VACCINE (#1) [facility] Start: 2017 DTaP/Tdap/Td vaccine (1 - Tdap) DTaP/Tdap/Td vaccine (1 - Tdap) [facility] Start: 2017 Third diphtheria, te tanus and acellular pertussis (DTaP) vaccination TDAP (ADULT) [facility] Start: 12-25-2016 HPV VACCINE (2 - 3-d ose series) HPV VACCINE (2 - 3-dose series) [facility] Start: 12-25-2016 HPV Vaccines (2 - 3- dose series) HPV Vaccines (2 - 3-dose series) [facility] Start: 2016 Hepatitis C screening Hepatitis C sc reen [facility] Start: 2016 Tetanus vaccination [facility] Start: 2014 Screening for Chlamy michelle trachomatis CHLAMYDIA SCREEN [facility] Start: 2013 HIV screening HIV screen [facility] Start: 2013 Vaccination for jennifer n papillomavirus HPV VACCINES (1 - Female 3-dose series) [facility] Start: 2012 PEDS TO ADULT TRANSI TION ANNUAL ASSESSMENT PEDS TO ADULT TRANSITION ANNUAL ASSESSMENT [facility] Start: 11-12-2011 HIV screening HIV SCREENING DISCUSSION [facility] Start: 2010 Depression Screen Depression Screen [facility] Start: 2010 PEDS TO ADULT TRANSI TION INITIAL DISCUSSION PEDS TO ADULT TRANSITION INITIAL DISCUSSION [facility] Start: 2009 HPV vaccine (1 - 2-d ose series) HPV vaccine (1 - 2-dose series) [facility] Start: 2009 Vaccination for jennifer n papillomavirus [facility] Start: 2008 MENINGOCOCCAL B: 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 classroom 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 based on risk (1 of 2 - Risk Bexsero 2-dose series) MENINGOCOCCAL B: Consider based on risk (1 of 2 - Risk Bexsero 2-dose series) [facility] Start: 11-12-2003 COVID-19 Vaccine (1) COVID-19 Vaccin e (1) [facility] Start: 2002 Varicella vaccine (2 of 2 - 2-dose childhood series) Varicella vaccine (2 of 2 - 2-dose childhood series) [facility] Start: 2001 History and physical examination, annual for health maintenance Wellness Visit [facility] Start: 1998 GONORRHEA SCREEN GONORRHEA SCREEN [facility] Start: 1998 Screening for Chlamy michelle trachomatis Chlamydia Screening [facility] Start: 1998 Tetanus vaccination TETANUS EVERY 10 YR [facility] End: 11-18-2018 Bacteria identified Aer cx Nom (Unsp spec) Urine Aerobic Culture Microbiology Routine Once for 1 Occurrences starting 11/18/2018 until 11/18/2018 [facility] Comment on above: Once for 1 Occurrenc es starting 11/18/2018 until 11/18/2018 Bacteria identified Aer cx Nom (Unsp spec) Urine Aerobic Culture Microbiology Routine 11/18/2018 11:18 PM EDT [facility] CHLAMYDIA/GONOCOCCUS, OSCAR CHLAMY MICHELLE/GONOCOCCUS, OSCAR Microbiology STAT 03/03/2019 8:00 PM EST [facility] End: 08-24-2021 COVID-19, Flu A/B, and RSV Combo [facility] Work Phone: Comment on above: One Time for 1 Occur rences starting 08/24/2021 until 08/24/2021 End: 07-25-2021 Culture, Urine Culture, Urine Microbiology Routine Once for 1 Occurrences starting 07/25/2021 until 07/25/2021 [facility] Work Phone: Comment on above: Once for 1 Occurrenc es starting 07/25/2021 until 07/25/2021 Culture, Urine Culture, Urine Microbiology Routine 07/25/2021 6:46 PM EDT [facility] Work Phone: Patient Education ED Fainting, V agal Reaction ED Gastroenteritis, Viral (Adult) [facility] Work Phone: Patient referral [facility] Work Phone: Thyroglobulin antibo dy measurement [facility] Thyroperoxidase Ab [Units/volume] in Serum or Plasma [facility] Immunizations Immunization Date Immunization Notes Care Provider Fa [facility] 09-01-2021 tetanus toxoid, redu rama diphtheria toxoid, and acellular pertussis vaccine, adsorbed Addis ZIMPERIUM DO Work Phone: [facility] 10-21-2020 Moderna SARS-CoV-2 Vaccination Harpreet Elif DO Work Phone: [facility] 09-01-2020 Moderna SARS-CoV-2 Vaccination Harpreet Elif DO Work Phone: [facility] 11-27-2016 hepatitis A vaccine, pediatric/adolescent dosage, 2 dose schedule [employer] Work Phone: [facility] 11-27-2016 Human Papillomavirus 9-valent vaccine [employer] DO Work Phone: [facility] 11-27-2016 influenza, injectabl e, quadrivalent, preservative free [employer] DO Work Phone: [facility] 11-27-2016 meningococcal polysaccharide (groups A, C, Y and W-135) diphtheria toxoid conjugate vaccine (MCV4P) [facility] Work Phone: [facility] 11-27-2016 HPV, unspecified formulation Harpreet Asencio DO Work Phone: [facility] 11-27-2016 influenza virus vacc ine, unspecified formulation Harpreet Asencio DO Work Phone: [facility] 11-16-2015 hepatitis A vaccine, pediatric/adolescent dosage, 2 dose schedule Addis [facility] Work Phone: [facility] 11-16-2015 influenza, injectabl e, quadrivalent, preservative free [facility] Work Phone: [facility] 10-07-2011 diphtheria, tetanus toxoids and acellular pertussis vaccine [facility] DO Work Phone: [facility] 10-07-2011 meningococcal polysaccharide (groups A, C, Y and W-135) diphtheria toxoid conjugate vaccine (MCV4P) [facility] DO Work Phone: [facility] 10-07-2011 tetanus toxoid, redu rama diphtheria toxoid, and acellular pertussis vaccine, [facility]: [facility] 10-07-2011 varicella virus vaccine [facility] DO Work Phone: [facility] 10-07-2011 zoster vaccine, live [facility] DO Work Phone: [facility] 02-12-2008 influenza virus vacc ine, whole virus [facility] DO Work Phone: [facility] 02-12-2008 varicella virus vaccine [facility] DO Work Phone: [facility] 09-28-2004 diphtheria, tetanus toxoids and acellular pertussis vaccine [facility] DO Work Phone: [facility] Work Phone: 09-28-2004 measles, mumps and rubella virus vaccine [facility] Work Phone: [facility] Work Phone: 09-28-2004 poliovirus vaccine, inactivated Addis Mihalik DO Work Phone: [facility] Work Phone: 09-12-2001 varicella virus vaccine Harpreet Elif DO Work Phone: [facility] 11-04-2000 pneumococcal conjuga te vaccine, 7 valent Harpreet Elif DO Work Phone: [facility] 07-05-2000 varicella virus vaccine Heat her Mihalik DO Work Phone: [facility] 03-28-2000 pneumococcal conjuga te vaccine, 7 valent Addis Mihalik DO Work Phone: [facility] 03-28-2000 poliovirus vaccine, inactivated Harpreet Elif DO Work Phone: [facility] 11-14-1999 diphtheria, tetanus toxoids and acellular pertussis vaccine Harpreet Elif DO Work Phone: [facility] 11-14-1999 DTaP-Haemophilus influenzae type b conjugate vaccine Addis Mihalik DO Work Phone: [facility] 11-14-1999 haemophilus influenz ae type b vaccine, HbOC conjugate Harpreet Elif DO Work Phone: [facility] 11-14-1999 measles, mumps and rubella virus vaccine Harpreet Elif DO Work Phone: [facility] 05-27-1999 diphtheria, tetanus toxoids and acellular pertussis vaccine, unspecified formulation Harpreet Elif DO Work Phone: [facility] 05-27-1999 haemophilus influenz ae type b vaccine, PRP-T conjugate Harpreet Elif DO Work Phone: [facility] 05-27-1999 hepatitis B vaccine, pediatric or pediatric/adolescent dosage Harpreet Elif DO Work Phone: [facility] 03-16-1999 diphtheria, tetanus toxoids and acellular pertussis vaccine, unspecified formulation Harpreet Elif DO Work Phone: [facility] 03-16-1999 haemophilus influenz ae type b vaccine, PRP-T conjugate Harpreet Elif DO Work Phone: [facility] 03-16-1999 hepatitis B vaccine, pediatric or pediatric/adolescent dosage Harpreet Elif DO Work Phone: [facility] 03-16-1999 poliovirus vaccine, inactivated Harpreet Elif DO Work Phone: [facility] 01-17-1999 diphtheria, tetanus toxoids and acellular pertussis vaccine Harpreet Elif DO Work Phone: [facility] 01-17-1999 haemophilus influenz ae type b vaccine, HbOC conjugate Harpreet Elif DO Work Phone: [facility] 01-17-1999 hepatitis B vaccine, pediatric or pediatric/adolescent dosage Harpreet Elif DO Work Phone: [facility] 01-17-1999 poliovirus vaccine, inactivated Harpreet Elif DO Work Phone: [facility] Payers Date Payer Category Payer Self-pay [id number] 2023 Unknown [id number] 2022 Unknown [id number] 2022 Unknown [facility] [id number] 2022-Present [phone] [address] [place] [address] [id number] 2019 Medicaid [id number] 2019 Medicaid MEDICAID MEDICAI D xxxxxxxxxxxx 2019-Present xxxxxxxxxxxx [id number] 2019 Unknown [employer] [id number] 2019-Present [phone] [id number] 2018 Medicaid [facility] MANAGED [facility] CAID [facility] MEDICAID COMMUNITY PLAN xxxxxxxxx 2018-Present xxxxxxxxx [id number] 2014 Medicaid [facility] MEDICAID [facility] COMMUNITY PLAN [place] [id number] 2014-Present [phone] [address] [place] [address] Medicaid [id number] 2014 Private Health Insurance [id number] 1998 Unknown [id number] 1998 Unknown [id number] .900 1998 Unknown [id number] .651 Unknown [id number] .462 Unknown [id number] [id number] .462 Unknown [id number] 2.16.840.1.680714.3.579.2 .462 Unknown [id number] 2.16.840.1.100444.3.579.2 .462 Unknown [id number] 2.16.840.1.820130.3.579.2 .462 Unknown [id number] 2.16.840.1.795096.3.579.2 .462 Unknown [id number] 2.16.840.1.362838.3.579.2 .462 Unknown [id number] 2.16.840.1.995244.3.579.2 .462 Unknown [id number] 2.16.840.1.904138.3.579.2 .462 Unknown [id number] 2.16.840.1.043805.3.579.2 .462 Unknown [id number] 2.16.840.1.875869.3.579.2 .462 Unknown [id number] 2.16.840.1.551779.3.579.2 .462 Unknown [id number] 2.16.840.1.109829.3.579.2 .462 Unknown [id number] 2.16.840.1.944483.3.579.2 .462 Unknown [id number] 2.16.840.1.086674.3.579.2 .462 Unknown [id number] [id number] .462 Unknown [id number] [id number] .462 Unknown [id number] .462 Social History Date Type Detail Facility Start: 08-14-2019 End: 03-27-2024 Tobacco smoking status MNIS Never smoker [facility] Start: 08-14-2019 End: 01-05-2022 Tobacco use and exposure Never used [facility] Start: 08-14-2019 End: 05-03-2022 Alcohol intake Ex-drinker (finding) [facility] Start: 2000 Sex Assigned At Not on file [facility] Start: 07-15-2021 End: 05-03-2022 Exposure to SARS-CoV-2 (event) Not sure [facility] Start: 04-28-2021 End: 04-24-2023 Tobacco smoking status MNIS Unknown if ever smoked [facility] Start: 03-22-2020 None [facility] Start: 03-22-2020 Alone [facility] Start: 06-23-2020 Non-smoker [facility] Start: 2000 Sex Assigned At Female W [facility] Start: 01-05-2022 Tobacco smoking status MNIS Ex-smoker [facility] History of tobacco use Current smoker [facility] History of tobacco use Cigarette Smoker [facility] Start: 02-01-2022 Alcohol intake Current drinke r of alcohol (finding) [facility] Start: 09-29-2019 History SDOH Alcohol Frequency 1 [facility] Start: 01-05-2022 Tobacco Comment quit 3 years ago [facility] Start: 01-05-2022 Alcohol Comment socially [facility] Start: 05-22-2024 End: 05-24-2024 Sex Female (finding) [facility] Start: 07-24-2024 Tobacco smoking status NHIS Smokes tobacco daily (finding) [facility] NEGATED: Highlighted row [facility] Clinical Notes 07-25-2021 to 07-24-2024 Note Date & Type Note Facility 07-24-2024 Radiology Diagnostic study note [facility] Imaging Services [address] [place], [place] [address] Abdomen/Pelvis WITH Contrast MR#: [id number] Acct: [id number] Name: BRYANNA MEEHAN Rep #: [id number] : 2000 F 23 From: Ted Hunt MD PCP: Dr. Rg Winchester MD Status: REG ER Study:Abdomen/Pelvis WITH Contrast Date of Ex am: 07/24/24 Exam# [id number] Ordering Dr: Felecia Manjarrez DO PROCEDURE: ABDOMEN/PELVIS WITH CONTRAST 07/24/2024 REASON FOR EXAM: ABDOMINAL PAIN TECHNIQUE: Abdomen and pelvis CT with intravenous contrast. Coronal and Sagittal reconstruction series were provided. PATIENT PREPARATION: Per protocol ORAL CONTRAST TYPE: None. CONTRAST: Isovue-300 VOLUME: 100 mL One or more dose reduction techniques were used (e.g., Automated exposure control, adjustment of the mA and/or kV according to patient size, use of iterative reconstruction technique. RADIATION DOSE SUMMARY: CTDlvol: 15 mGy DLP: 1252.8 mGycm COMPARISON: Prior study dated June 23, 2020. FINDINGS: Lung bases: Unremarkable Liver: Diffuse fatty infiltration. Gallbladder: Unremarkable Spleen: Normal size. Pancreas: Normal size without evidence of mass surrounding inflammation or ductal dilation. Adrenals: Unremarkable Kidneys: Normal renal sizes. No hydronephrosis. Bladder: Unremarkable. Reproductive Organs: There is a 2.9 cm cyst in the left ovary. Small follicles are seen in the right ovary. Bowel: Colonic diverticulosis without diverticulitis. Appendix: Unremarkable Lymph nodes: Unremarkable. Vasculature: The abdominal aorta and IVC are normal. Peritoneum / Retroperitoneum: Unremarkable Bones: Unremarkable CT/Abdomen/Pelvis WITH Contrast IMPRESSION: Fatty infiltration of the liver. Left ovarian cyst. Small follicles in the right ovary. Reading Location: [id number] CC: Dr. Rg Winchester MD; Dr. Geno Manjarrez DO ~ Production Technologist: Signed [facility] 04-04-2024 Evaluation note Diagnosis Onset Date Resolution Amenorrhea acute April 04, 2024 2:03pm Encounter for pre-employment health screening examination acute March 302024 2:21pm Amenorrhea acute April 25, 2024 1:02pm [facility] Work Phone: 1(711) 562-915502-07-2025 Evaluation note* Diagnosis Onset Date Resolution Status Admit Date Amenorrhea resolved April 04, 2024 2:03pm Encounter for pre-employment health screening examination deleted Fe ruary 2024 2:21pm Amenorrhea resolved April 25, 2024 1:02pm Abnormal uterine bleeding (AUB) acute June 24, 2024 1:48pm Obesity acute June 24 1:48pm PCOS (polycystic ovarian syndrome) acute June 24, 2024 1:48pm [facility] Work Phone: 1(724) 193-579101-06-2023 Miscellaneous Notes* Telephone Encounter - Crispin Grant - 03/03/2022 12:02 PM EST I received medical records from [facility]. I placed them in Dr. Heath mailbox. [facility] Discharge instructions* Instructions* Sangita Jenkins PA-C - 08/24/2021 If your symptoms get worse begin taking antibiotic for your dysuria. Monitor your MyChart for COVID19 combo swabs. Follow-up as scheduled with [facility] 09/01. Return to the ED for new or worsened symptoms. * Attachments The following attachments cannot be sent through Care Everywhere. * Dysuria (Singaporean) * Sore Throat (Singaporean) documented in this [facility] Work Phone: [phone] Hospital Discharge instructions* Instructions* Hernando Monique PA - 07/25/2021 Please take medication as prescribed Please follow up with your Physicians as instructed in this discharge paperwork Thank you for choosing [facility] I appreciate your patience Please return to the emergency department if your symptoms worsen, or new symptoms develop as discussed documented in this [facility] Work Phone: Evaluation note* Diagnosis Onset Date Resolution Status Urinary tract infection with hematuria acute [facility] Work Phone: Evaluation note* Diagnosis UTI (urinary tract infection), bacterial- Primary Urinary tract infection, site not specified Dysfunctional uterine bleeding Other disorder of menstruation and other abnormal bleeding from female genital tract documented in this encounter [facility] Work Phone: Evaluation note* Diagnosis Acute pharyngitis, unspecified etiology- Primary Dysuria documented in this encounter [facility] Work Phone: Evaluation noteNo assessment information available 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 Work Phone: Reason for referral (narrative)No reason for referral information [facility] Work Phone: Summary Purpose Family History No Family History Records Found Relationship Condition Age at Onset Recorded Date/T ebony grandmother Malignant neoplasm of colon Unknown grandmother Malignant neoplasm of brain Unknown grandfather Diabetes mellitus Unknown father Hypertension Unknown Advance Directives No Advanced Directives Records FoundDocuments on File Type Date Recorded Patient Strap Stitcher Expl anation Advance Directives and Livin g Will 11/18/2018 11:24 PM Advance Directive Response Recorded Date/ Time Living Will No June 23, 2020 6:18pm Power of Molding Machine Tender No June 23 6:18pm Advance Directive Response Recorded Date/ Time Living Will No April 24 6:43pm Power of Molding Machine Tender No April 24, 2023 6:43pm Advance Directive Response Recorded Date/ Time Living Will No February 01 5:50pm Do you have a Healthcare Power of Molding Machine Tender? No February 02, 2024 5:50pm Advance Directive Response Recorded Date/ Time Do you have a Healthcare Power of Molding Machine Tender? No July 24, 2024 8:09am Discharge Instructions * Attachments The following attachments cannot be sent through Care Everywhere. * Safer Sex (Singaporean) documented in this encounter* Attachments The following attachments cannot be sent through Care Everywhere. * Abdominal Pain (Singaporean) * Chest Pain (Singaporean) * UTI (Urinary Tract Infection): Female (Singaporean) documented in this encounter* Instructions* Holli Degroot APRN-CNP - 03/03/2019 You will be notified of any abnormal test results in approximately 3 days; if positive, it would benecessary to notify any sexual partners of need for evaluation and treatment. No sex until symptoms resolve AND testing confirmed as negative. Please follow-up with gynecology for recheck and to confirm resolution of symptoms, call for appointment. Return for new or worsening symptoms. * Attachments The following attachments cannot be sent through Care Everywhere. * Cervicitis ([place]aporean) documented in this encounter Assessments Diagnosis Urinary tract infection with hematuria, site unspecified Diagnosis Acute UTI- Primary Urinary tract infection, site not specified Chest pain, unspecified type Pain of upper abdomen Bronchitis Bronchitis, not specified as acute or chronic Diagnosis Acute cervicitis- Primary Cervicitis and endocervicitis Reason for Referral Status Reason Specialty Diagnoses / Procedures Referred By Contact Referred To Contact New Request SHEEP FARM MANAGER Diagnoses Acute cervicitis Holli Degroot, HAY[employer] FAB TECHNICIAN [address] [place] [address] Idris Morales MD [address] [place] [id number] Chief Complaint and Reason for Visit Chief Complaint THROWING UP/BODY ACH ES EORDER Reason for Visit Urinary tract infect ion with hematuria Chief Complaint FEMALE COMPLAINT Chief Complaint Admit Date cough February 02, 2024 3 :58pm CHEST CONGESTION, ELEVATED D DIMER Decem hany 2023 4:02pm EORDER February 11, 2024 2:38pm PCOS/bleeding during intercourse 2024 2:03pm AMENORRHEA April 11, 2024 1:49pm PE NON DOT PHYSICAL/ [place] April 17, 2024 2:21pm PRE-EMPLOYMENT/[place] April 17, 2024 2:22pm US FU April 25, 2024 1:02pm Reason for Visit Admit Date Amenorrhea April 04, 2024 2 :03pm Encounter for pre-employment health scre ening examination April 17, 2024 2:21pm Amenorrhea April 25, 2024 1:02pm Chief Complaint Admit Date PCOS/bleeding during intercourse 2024 2:03pm AMENORRHEA April 11, 2024 1:49pm PE NON DOT PHYSICAL/ [place] April 17, 2024 2:21pm PRE-EMPLOYMENT/[place] April 17, 2024 2:22pm US FU April 25, 2024 1:02pm heavy menses June 24, 2024 1:4 8pm N/V July 24, 2024 7:39a m Reason for Visit Admit Date Amenorrhea April 04, 2024 2 :03pm Encounter for pre-employment health scre ening examination April 17, 2024 2:21pm Amenorrhea April 25, 2024 1:02pm Abnormal uterine bleeding (AUB) June 242024 1:48pm Obesity June 24, 2024 1:4 8pm PCOS (polycystic ovarian syndrome) June 24, 2024 1:48pm Additional Source Comments INFORMATION SOURCE (unrecogn ized section and content) DATE CREATED AUTHOR 08/21/2017 [facility] DATE CREATED AUTHOR AUTHOR'S ORGANIZ ATION 07/18/2018 [facility] DATE CREATED AUTHOR AUTHOR'S ORGANIZ ATION 12/16/2018 [facility] DATE CREATED AUTHOR AUTHOR'S ORGANIZ ATION 04/20/2019 [facility] DATE CREATED AUTHOR AUTHOR'S ORGANIZ ATION [facility]/19/[facility] DATE CREATED AUTHOR AUTHOR'S ORGANIZ ATION 10/05/2019 [facility] DATE CREATED AUTHOR AUTHOR'S ORGANIZ ATION 11/26/2019 [facility] DATE CREATED AUTHOR AUTHOR'S ORGANIZ ATION 11/26/2019 [facility] DATE CREATED AUTHOR AUTHOR'S ORGANIZ ATION 07/24/2020 [facility] DATE CREATED AUTHOR AUTHOR'S ORGANIZ ATION 09/16/2021 [facility] DATE CREATED AUTHOR AUTHOR'S ORGANIZ ATION 02/03/2022 [facility] DATE CREATED AUTHOR AUTHOR'S ORGANIZ ATION 03/03/2022 [facility] DATE CREATED AUTHOR AUTHOR'S ORGANIZ ATION 05/06/2022 [facility] DATE CREATED AUTHOR AUTHOR'S ORGANIZ ATION 08/01/2024 [facility] Reason for Visit (unrecogniz ed section and content) Reason Comments Urinary Pain dysuria, hematuria a nd associated abdominal pain x 1 week. Denies flank pain, fevers, N/V/D. Reason Comments Chest Pain Abdominal Pain Reason Comments Vaginal Discharge pt states she found out she was while in [place] [facility]. no ob care. States yellowish discharge lmp. 10/29/18 Reason Comments Vaginal Bleeding Dysuria urination more frequ ent Reason Comments Pharyngitis Concern for strep th roat. Sore throat and fever for 2 days Reason Comments Received Outside Medical Records Reason Comments New Patient Would like to discus s getting . Pt states she was previously on depo stopped 6 years ago and has only had 2 menses since then. Pt states her last pap was 2020 [place] Candis Mays RN - 11/19/2018 2:59 AM Candis Larry RN - 11/19/2018 1:36 AM Candis Larry RN - 11/19/2018 1:20 AM Devante Dinh - 11/19/2018 12:56 AM EDT ED Notes (unrecognized secti on and content) IV discontinued with cath intact. Bleeding controlled. Pressure dressing applied. Patient returns from CT scan. Patient to CT scan via w/c. CT READY FOR PT Associated Order(s): EKG 12-lead [place] ED Physician Note: NAME: Bryanna Meehan 18 y.o. CSN: [id number] PCP: Arabella Golden MD ED Course / Medical Decision Making: Patient comes in with chronic abdominal pain and chest discomfort. She was worried about the possibility of she is not . She does have a urinary tract infection was placed on Keflex. CT of the abdomen is negative for any acute pathology there is no signs of appendicitis or bowel obstruction or diverticulitis. Patient has no pelvic pain or vaginal discharge I do not feel pelvic work-up is indicated. EKG was negative for any signs of ischemia or arrhythmia or pericarditis. Patient's chest x-ray shows findings of bronchitis. Her oxygen saturations. She has no wheezing I did not feel she needed inhaler any steroids. Patient discharged with close follow- up with her primary doctor if worsening symptoms come back to the ER. MDM Number of Diagnoses or Management Options Acute UTI: new, no workup Bronchitis: new, needed workup Chest pain, unspecified type: new, no workup Pain of upper abdomen: new, no workup Amount and/or Complexity of Data Reviewed Clinical lab tests: ordered Review and summarize past medical records: yes Independent visualization of images, tracings, or specimens: yes Risk of Complications, Morbidity, and/or Mortality Presenting problems: moderate Diagnostic procedures: moderate Management options: moderate Patient Progress Patient progress: improved Clinical Impression: 1. Acute UTI 2. Chest pain, unspecified type 3. Pain of upper abdomen 4. Bronchitis Disposition: Patient is being discharged to home History: Chief Complaint: Chest Pain and Abdominal Pain HPI: The history was obtained from the patient. She is a 18 y.o. female who presents with a chief complaint of Chest Pain and Abdominal Pain. HPI patient comes in with chest discomfort and mid abdominal pain on and off for 4 years. She said she is never got it evaluated. It got worse tonight so she came into the ER. She has had 2 episodes of nausea vomiting. She denies any diarrhea. She states the pain in her chest and abdomen is sharp. She admits to some dysuria but no vaginal discharge or bleeding. She has no pelvic pain. Last menstrual period was a month ago but she said she still might be . PMHx: Past Medical History: Diagnosis Date Anxiety PMSx: History reviewed. No pertinent surgical history. FAM. Hx: History reviewed. No pertinent family history. SOC. Hx: Social History Socioeconomic History Marital status: Single Spouse name: Not on file Number of children: Not on file Years of education: Not on file Highest education level: Not on file Occupational History Not on file Social Needs Financial resource strain: Not on file Food insecurity: Worry: Not on file Inability: Not on file Transportation needs: Medical: Not on file Non-medical: Not on file Tobacco Use Smoking status: Never Smoker Smokeless tobacco: Never Used Substance and Sexual Activity Alcohol use: Not Currently Drug use: Never Sexual activity: Not on file Lifestyle Physical activity: Days per week: Not on file Minutes per session: Not on file Stress: Not on file Relationships Social connections: Talks on phone: Not on file Gets together: Not on file Attends zoroastrianism service: Not on file Active member of club or organization: Not on file Attends meetings of clubs or organizations: Not on file Relationship status: Not on file Other Topics Concern Not on file Social History Narrative Not on file MEDs: No current outpatient medications on file prior to encounter. ALL: Allergies Allergen Reactions Latex Swelling ROS: Review of Systems Constitutional: Negative. HENT: Negative. Eyes: Negative. Respiratory: Positive for cough and shortness of breath. Negative for apnea, choking, chest tightness, wheezing and stridor. Cardiovascular: Positive for chest pain. Negative for palpitations and leg swelling. Gastrointestinal: Positive for abdominal pain, nausea and vomiting. Negative for abdominal distention, anal bleeding, blood in stool, constipation, diarrhea and rectal pain. Endocrine: Negative. Genitourinary: Negative. Musculoskeletal: Negative. Skin: Negative. Allergic/Immunologic: Negative. Neurological: Negative. Hematological: Negative. All other systems reviewed and are negative. Positives and pertinent negatives as per HPI. All other systems were reviewed and are negative. Physical Exam: Patient Vitals for the past 24 hrs: BP Temp Temp src Pulse Resp SpO2 Height Weight 11/19/18 0100 (!) 104/58 70 98 % 11/18/18 2255 97.5 F (36.4 C) Oral 16 4' 10 77.1 kg (170 lb) 11/18/18 2245 135/83 76 100 % Physical Exam Vitals signs and nursing note reviewed. Constitutional: General: She is not in acute distress. Appearance: She is not ill-appearing, toxic-appearing or diaphoretic. HENT: Head: Normocephalic. Right Ear: External ear normal. Left Ear: External ear normal. Nose: Nose normal. Neck: Musculoskeletal: Normal range of motion. Cardiovascular: Rate and Rhythm: Normal rate. Pulses: Normal pulses. Heart sounds: Normal heart sounds. No murmur. No friction rub. No gallop. Pulmonary: Effort: Pulmonary effort is normal. No respiratory distress. Breath sounds: Normal breath sounds. No stridor. No wheezing, rhonchi or rales. Chest: Chest wall: Tenderness present. Abdominal: General: Abdomen is flat. There is no distension. Palpations: There is no mass. Tenderness: There is tenderness. There is no right CVA tenderness, left CVA tenderness, guarding or rebound. Hernia: No hernia is present. Musculoskeletal: Normal range of motion. General: No swelling or tenderness. Skin: Coloration: Skin is not jaundiced. Neurological: General: No focal deficit present. Mental Status: She is alert. Cranial Nerves: No cranial nerve deficit. Sensory: No sensory deficit. Laboratory & Radiological Imaging (if done): Labs Reviewed CHEM 7 - Abnormal; Notable for the following components: Result Value Glucose 106 (*) All other components within normal limits Narrative: The eGFR should be used for monitoring renal function only and not for medication dosing. URINALYSIS - Abnormal; Notable for the following components: Clarity, Urine Hazy (*) Leukocyte Esterase, Urine Moderate (*) WBCs, Urine 53 (*) Bacteria, Urine Rare (*) All other components within normal limits Narrative: Microscopic examination is performed on all urinalysis samples and only positive findings are reported. The test for blood on the chemical analytic portion of urinalysis may also be positive due to hemoglobinuria and myoglobinuria and if red blood cells are present they are quantified by microscopic examination. HEPATIC FUNCTION PANEL - Normal LIPASE - Normal HCG URINE, QUALITATIVE - Normal URINE AEROBIC CULTURE CBC AND DIFFERENTIAL Narrative: The following orders were created for panel order CBC w/ Diff. Procedure Abnormality Status --------- ------ CBC Auto Differential[[id number]] Final result Please view results for these tests on the individual orders. CBC WITH AUTO DIFFERENTIAL XR Chest AP/PA and LAT Final Result - Minimal perihilar peribronchial thickening. Findings suggest bronchitis without pneumonia and/or significant atelectasis. Workstation ID: [id number] CT Abdomen Pelvis With IV Contrast Only Final Result 1. No acute process in the abdomen or pelvis to explain patient's symptoms. 2. No nephro- or ureterolithiasis. 3. Normal appendix. 4. Fatty liver. [employer] Workstation ID: [id number] Procedures: EKG 12-lead Date/Time: 11/18/2018 11:43 PM Performed by: Hernando Borden MD Authorized by: Hernando Borden MD Interpreted by ED attending physician Rhythm: sinus rhythm BPM: 75 Conduction: conduction normal ST Segments: ST segments normal T Waves: T waves normal Clinical impression: normal ECG . . Hernando Borden MD ED Physician [facility] (Please note that portions of this note have been completed with a voice recognition software. Efforts were made to correct any errors, but occasionally words are mis-transcribed.) Hernando Borden MD 11/19/18 0235 Patient c/o chest pain and abdominal pain has been occurring on and off since age 14 documented in this encounter Goals (unrecognized section and content) Goals may be documented in a n alternate sectionGoals may be documented in an alternate sectionGoals may be documented in an alternate sectionGoals may be documented in an alternate sectionGoals may be documented in an alternate sectionGoals may be documented in an alternate section Ordered Prescriptions (unrec ognized section and content) Prescription Sig Dispensed Refills Start Date End Da te acetaminophen (TYLENOL) 500 MG tablet Take 2 tablets by mouth 3 times daily as needed for Pain 42 tablet 0 07/25/2021 08/01/2021 cephALEXin (KEFLEX) 500 MG capsule Take 1 capsule by mouth 2 times daily for 7 days 14 capsule 0 07/25/2021 08/01/2021 Prescription Sig Dispensed Refills Start Date End Da te nitrofurantoin, macrocrystal-monohydrate , (MACROBID) 100 MG capsule Take 1 capsule by mouth 2 times daily for 10 days 20 capsule 0 08/24/2021 09/03/2021 Scheduled Active and Recently Administ ered Medications (unrecognized section and content) Medication Order 07/23/2021 07/24/2021 07/25/2021 cephALEXin (KEFLEX) capsule 500 mg (COMPLETED) 500 mg, Oral, ONCE, 1 dose, On Sun07/25/21 at 2115, Antimicrobial Indications: Urinary Tract Infection 2125 (Given - Provid er: Alia Salas RN) Scheduled Medication Order 08/22/2021 08/23/2021 08/24/2021 acetaminophen (TYLENOL) tablet 650 mg (COMPLETED) 650 mg, Oral, ONCE, 1 dose, On Sun08/24/21 at 1800, Maximum dose of acetaminophen is 4000 mg from all sources in 24 hours. 175 (Given - Provid er: Alia Salas RN) dexamethasone (DECADRON) injection 8 mg (COMPLETED) 8 mg, IntraMUSCular, ONCE, On Sun08/24/21 at 1500, For 1 dose 175 (Given - Provid er: Alia Salas RN) Source Comments (unrecognize d section and content) In the event this informatio n is protected by the Federal Confidentiality of Alcohol and Drug Abuse Patient Records regulations: The Federal rules restrict any use of the information to criminally investigate or prosecute any alcohol or drug abuse patient.[facility] Care Teams (unrecognized sec tion and content) Team Status: Active Member Role Status Dates Dr. Arabella Golden MD Family Provider Active Dr. Rg Winchester MD Primary Care Provider Active Team Status: Inactive Member Role Status Dates Dr. Rg Winchester MD Primary Care Provider Active Dr. Hemant Toribio MD Emergency Provider Active Engineering Project Designer Relationship Specialty Start Date End Date Aaron Reed MD [address] [place] [id number] PCP - General 09/01/21 Team Status: Active Member Role Status Dates Dr. Rg Winchester MD Primary Care Provider Active Team Status: Inactive Member Role Status Dates Dr. Rg Winchester MD Primary Care Provider Active Start: February 02, 2024 End: February 02, 2024 Dr. Shorty Zhu DO Attending Provider Active Start: February 02, 2024 End: February 02, 2024 Dr. Shorty Zhu DO Emergency Provider Active Start: February 02, 2024 End: February 02, 2024 Team Status: Inactive Member Role Status Dates Dr. Rg Winchester MD Primary Care Provider Active Start: February 07, 2024 End: February 07, 2024 Dr. Rg Winchester MD Attending Provider Active St art: February 07, 2024 End: February 07, 2024 Dr. Rg Winchester MD Referring Provider Active St art: February 07, 2024 End: February 07, 2024 Team Status: Inactive Member Role Status Dates Dr. Rg Winchester MD Primary Care Provider Active Start: February 11, 2024 End: February 11, 2024 Dr. Rg Winchester MD Attending Provider Active St art: February 11, 2024 End: February 11, 2024 Dr. Rg Winchester MD Referring Provider Active St art: February 11, 2024 End: February 11, 2024 Team Status: Inactive Member Role Status Dates Dr. Rg Winchester MD Primary Care Provider Active Start: April 04, 2024 End: April 04, 2024 Dr. Rg Winchester MD Referring Provider Active St art: April 04, 2024 End: April 04, 2024 Debbie Warren CNM Attending Provider Active S tart: April 04, 2024 End: April 04, 2024 Team Status: Inactive Member Role Status Dates Dr. Rg Winchester MD Primary Care Provider Active Start: April 04, 2024 End: April 04, 2024 Debbie Warren CNM Attending Provider Active S tart: April 04, 2024 End: April 04, 2024 Debbie Warren CNM Referring Provider Active S tart: April 04, 2024 End: April 04, 2024 Team Status: Inactive Member Role Status Dates Dr. Rg Winchester MD Primary Care Provider Active Start: April 11, 2024 End: April 11, 2024 Debbie Warren CNM Attending Provider Active S tart: April 11, 2024 End: April 11, 2024 Debbie Warren CNM Referring Provider Active S tart: April 11, 2024 End: April 11, 2024 Team Status: Inactive Member Role Status Dates Dr. Rg Winchester MD Primary Care Provider Active Start: April 17, 2024 End: April 17, 2024 Dr. Rg Winchester MD Referring Provider Active St art: April 17, 2024 End: April 17, 2024 MGA Fitch Attending Provider Active Sta rt: April 17, 2024 End: April 17, 2024 Team Status: Active Member Role Status Dates Dr. Rg Winchester MD Primary Care Provider Active Start: April 17, 2024 MAG Fitch Attending Provider Active Sta rt: April 17, 2024 MAG Fitch Referring Provider Active Sta rt: April 17, 2024 Team Status: Inactive Member Role Status Dates Dr. Rg Winchester MD Primary Care Provider Active Start: April 25, 2024 End: April 25, 2024 Dr. Rg Winchester MD Referring Provider Active St art: April 25, 2024 End: April 25, 2024 Debbie Warren CNM Attending Provider Active S tart: April 25, 2024 End: April 25, 2024 Team Status: Inactive Member Role Status Dates Dr. Rg Winchester MD Primary Care Provider Active Start: May 15, 2024 End: May 15, 2024 Dr. Rg Winchester MD Attending Provider Active St art: May 15, 2024 End: May 15, 2024 Dr. Rg Winchester MD Referring Provider Active St art: May 15, 2024 End: May 15, 2024 Team Status: Active Member Role Status Dates Dr. Rg Winchester MD Primary Care Provider Active Start: May 20, 2024 Dr. Hernando Palomares MD Attending Provider Active Start: May 20, 2024 Team Status: Inactive Member Role Status Dates Dr. Rg Winchester MD Primary Care Provider Active Start: May 20, 2024 End: May 20, 2024 Dr. Hernando Palomares MD Attending Provider Active Start: May 20, 2024 End: May 20, 2024 Team Status: Inactive Member Role Status Dates Dr. Rg Winchester MD Primary Care Provider Active Start: June 24, 2024 End: June 24, 2024 Dr. Rg Winchester MD Referring Provider Active St art: June 24, 2024 End: June 24, 2024 Mary Madrid COLLAR POINTER, COLLAR POINTER-C Attending Provider Active Start: June 24, 2024 End: June 24, 2024 Team Status: Inactive Member Role Status Dates Dr. Rg Winchester MD Primary Care Provider Active Start: July 24, 2024 End: July 24, 2024 Dr. Geno Manjarrez , Emergency Provider Active S tart: July 24, 2024 End: July 24, 2024 FOR RECORDS PERTAINING TO PATIENTS WHO ARE OR HAVE BEEN ENROLLED IN A CHEMICAL DEPENDENCY/SUBSTANCEABUSE PROGRAM, SOME INFORMATION MAY BE OMITTED. This clinical summary was aggregated from multiple sources. Caution should be exercised in using it in the provision of clinical care. This summary normalizes information from multiple sources, and as a consequence, information in this document may materially change the coding, format and clinical context of patient data. In addition, data may be omitted in some cases. CLINICAL DECISIONS SHOULD BE BASED ON THE PRIMARY CLINICAL RECORDS. [facility] [employer] provides no warranty or guarantee of the accuracy or completeness of information in this document.
[2024-08-24 13:34] VITALS: BP 124/74; PULSE 81; RESP 16; TEMP 36.7; O2SAT 100
== END 2024-08-24 13:35 | disposition home or self-care (01) ==
PROVIDERS: Emergency Provider Emergency Medicine; PCP Family Medicine; Referring Provider Emergency Medicine; Visit Provider Emergency Medicine
DX: J06.9 Acute upper respiratory infection, unspecified (principal); R04.2 Hemoptysis; Z59.00 Homelessness unspecified; E03.9 Hypothyroidism, unspecified; E28.2 Polycystic ovarian syndrome; D64.9 Anemia, unspecified; F17.290 Nicotine dependence, other tobacco product, uncomplicated; Z79.84 Long term (current) use of oral hypoglycemic drugs; Z79.890 Hormone replacement therapy
CPT/HCPCS: 71046; 99282

== ENCOUNTER → 2024-08-26 | Outpatient (CLI) | payer MEDICAID, SELFPAY ==
[2024-08-26 18:30] LABS: Hematocrit 38.5 % (37-47); Hemoglobin 12.4 g/dL (12.0-15.0); Immature Granulocytes Count 0.100 X10^3/uL (0.0-0.0); Mean Corp Hgb Conc 32.2 g/dL (32-36); Mean Corpuscular Volume 84.2 fL (81-99); Mean Platelet Vol. 10.2 fl (6.2-12.0); NRBC Flagged by Analyzer 0 % (0-5); Platelet Count 397 K/mm3 (150-450); RBC Distribution Width CV 14.3 % (11.6-14.6); RBC Distribution Width SD 43.8 fl (35.1-43.9); Red Blood Count 4.57 M/mm3 (4.2-5.4); White Blood Count 14.8 K/mm3 (4.4-11.0)
[2024-08-26 18:31] LABS: AST(SGOT) 21 U/L (<=31); Alanine Aminotransfer ALT/SGPT 22 U/L (<=34); Albumin, Serum 4.2 g/dL (3.5-5.0); Alkaline Phosphatase 87 U/L (35-104); Anion Gap 14 (5-15); BUN 10 mg/dL (4-19); BUN/Creat Ratio 11.2 RATIO (10-20); Calcium,Total 9.5 mg/dL (7.6-11.0); Carbon Dioxide 23.1 mmol/L (21.0-32.0); Chloride 101 mmol/L (98-108); Free T3 2.7 pg/mL (2.18-3.98); Globulin 3.7 g/dL (2.2-4.2); Glucose 94 mg/dL (70-99); Potassium 3.9 mmol/L (3.3-5.1)
== END | disposition home or self-care (01) ==
LOC: MTLAB 16:36
PROVIDERS: PCP Family Medicine; Referring Provider Family Medicine; Visit Provider Family Medicine
DX: E03.9 Hypothyroidism, unspecified (principal); R05.8 Other specified cough
CPT/HCPCS: 36415; 80053; 84439; 84443; 84481; 85025

== ENCOUNTER → 2024-12-08 | Outpatient (CLI) | payer MEDICAID, SELFPAY ==
[2024-12-08 15:53] LABS: Follicle Stimulating Hormone 4.2 mIU/mL
[2024-12-11 15:07] LABS: PROLACTIN 13.6 ng/mL (4.8-33.4)
== END | disposition home or self-care (01) ==
LOC: LAB 14:17
PROVIDERS: PCP Family Medicine; Referring Provider Nurse Practitioner Women's Health; Visit Provider Nurse Practitioner Women's Health
DX: N93.9 Abnormal uterine and vaginal bleeding, unspecified (principal)
CPT/HCPCS: 36415; 82627; 83001; 83036; 84146; 84402; 82626

== ENCOUNTER 2024-12-11 00:43 | Emergency (ER) | payer MEDICAID, SELFPAY ==
[2024-12-11 00:43] VITALS: BP 152/94; PULSE 84; RESP 20; TEMP 36.3; O2SAT 100
--- NOTE | 2024-12-11 00:48 | EKG12_ITS ---
Test Reason : CP Blood Pressure : */* mmHG Vent. Rate : 77 BPM Atrial Rate : 77 BPM P-R Int : 150 ms QRS Dur : 80 ms QT Int : 390 ms P-R-T Axes : 30 6 -6 degrees QTcB Int : 441 ms Normal sinus rhythm Normal ECG Confirmed by IRA ANTHONY, BYRON ([id number]), purchasing expeditor FLAKITO MELENDEZ ([id number]) on 12/11/2024 9:57:30 AM Referred By: YOSI Confirmed By: BYRON ROTH MD
--- NOTE | 2024-12-11 00:50 | RAD_ITS ---
PROCEDURE: CHEST PA AND LATERAL 12/11/2024 REASON FOR EXAM: SOB TECHNIQUE: Procedure Code: RADCXR Modality: DX Procedure: CHEST PA AND LATERAL COMPARISON: 08/24/2024. FINDINGS: Mild bilateral basilar atelectatic pulmonary changes. There is no demonstrated pleural abnormality. Normal heart and pericardium. Normal mediastinum and milagros. Normal visualized pulmonary arteries. Normal visualized aortic arch and descending thoracic aorta. Normal visualized thoracic spine. Normal visualized ribs, clavicles, and shoulders. There is no demonstrated abnormality of the visualized soft tissue structures of the upper abdomen. RAD/Chest PA and Lateral IMPRESSION: Interval appearance of mild bilateral basilar atelectatic pulmonary changes. Reading Location: [facility]
--- NOTE | 2024-12-11 01:07 | ED.VIS.CHEST ---
HPI History of Present Illness Chief Complaint: Chest Pain Narrative Narrative: Patient is a 24-year-old female with a past medical history of PCOS, hypothyroidism who presents to the emergency department the chief complaint chest pain, shortness of breath and bilateral arm numbness. Patient states that she is homeless and has been walking around all night and suddenly developed the symptoms prompting her to come here to the emergency department to be evaluated. Patient denies any trauma or travel history. States that her bilateral arm numbness has resolved here in the emergency department. When questioned where she lives normally she states that she hangs around a few friends houses however she states that she is currently on probation and notes that she cannot be at these homes therefore she left and has been walking around ever since. Patient denies any trauma or injuries. [facility] Medical History Chlamydia Hypothyroid Chronic UTI Home Medications ?Medication ?Instructions ?Recorded ?Last Taken ?Type levothyroxine 25 mcg tablet 25 mcg PO DAILY 04/24/23 Unknown History metformin 500 mg tablet 500 mg PO QDAY 06/24/24 Unknown History ondansetron 4 mg disintegrating 4 mg PO Q8H PRN PRN Nausea #10 tabs 07/24/24 Unknown Rx tablet acetaminophen 500 mg tablet 1,000 mg (2 x 500 mg) PO Q6H PRN 08/24/24 Unknown Rx (Tylenol Extra Strength) pain 5 days #40 tabs dextromethorphan polistirex 30 10 ml PO Q12H PRN cough #89 mL 08/24/24 Unknown Rx mg/5 mL oral susp ext.release 12hr (Delsym 12 hour) medroxyprogesterone 10 mg tablet 10 mg PO .COMPLEX 10 days #10 tabs 09/24/24 Unknown Rx spironolactone 50 mg tablet 50 mg PO QAM 09/24/24 Unknown History Allergy/AdvReac Type Severity Reaction Status Date / Time latex AdvReac Rash Verified 12/11/24 00:43 Family History Grandmother Colon cancer Grandmother Brain cancer Grandfather Diabetes Father Hypertension Surgical History History of tonsillectomy Social History Smoking Status: Current every day smoker tobacco type: e-cigarettes Electronic Cigarette Use: with nicotine alcohol intake: current details: occasionally substance use type: does not use caffeine: Yes what type of physical activity do you participate in: walking frequency: daily do you feel safe at home: Yes additional social history: Boyfriend-Jose C DWYER ROS ED ROS Narrative Constitutional: Denies any fevers or chills, headaches Eyes: Denies double vision blurry vision changes vision Cardiovascular: Complaint of chest pain but states that does not radiate denies palpitations Respiratory: Complaint of shortness of breath as noted above denies any wheezing Abdomen: Denies nausea vomit diarrhea : Denies urinary symptoms Neurological: Denies any numbness, weakness, tingling currently Musculoskeletal: Denies back pain Skin: Denies any rashes or lesions EXAM Physical Exam Narrative Exam Narrative: General: Patient is lying in bed rest comfortably does not appear to be in acute distress Head: Atraumatic, normocephalic Eyes: PERRL bilaterally, EOMI bilaterally, no conjunctival injection noted Neck: Soft, supple, trachea midline Cardiovascular: Regular rate and rhythm Respiratory: Clear to auscultation bilaterally Abdomen: Soft, nondistended, no tenderness to palpation Extremities: +5/5 strength into the bilateral lower extremities, radial pulses +2/4 in the bilateral extremities Neurological: Patient following commands and that she was at [facility] of the year is 2024 sensation grossly intact NIH of 0 GCS 15 Skin: Warm, dry, intact no rashes or lesions noted Const Vital Signs: 12/11/24 00:43 12/11/24 00:48 Temperature 97.4 F L Temperature Source Temporal Pulse Rate 84 Respiratory Rate 20 H Respiratory Effort Short of Breath Blood Pressure 152/94 H Blood Pressure Mean 113 Pulse Ox 100 Oxygen Delivery Method Room Air MDM MDM MDM Narrative Medical decision making narrative: Patient is a 24-year-old female who presents to the emergency department the chief complaint chest pain. On the differential diagnose includes Melamin to ACS, pneumonia, pneumothorax, anxiety. Once workup is obtained reviewed she will be reevaluated. Will plan on giving the patient resources for shelters however based on her current charges she states that she cannot go to a fci. Patient's EKG was reviewed which showed normal sinus rhythm rate of 77 bpm with a ND interval of 150. Patient chest x-ray reviewed by myself by radiology which showed interval appearance of mild basilar atelectatic pulmonary changes noted. Discussed results with patient and she would like to leave at this point time. She is encouraged to follow-up with a doctor return with worsening symptoms or concerns. All question concerns answered she was discharged home in stable condition Radiography Diagnostic Testing: Clinical Impression(s) from Imaging Studies Chest X-Ray 12/11/24 00:50 IMPRESSION: Interval appearance of mild bilateral basilar atelectatic pulmonary changes. Reading Location: [place] [id number] Discharge Plan Triage Chief Complaint: Chest Pain ED Provider: Idris Steel Dx/Rx/DC Orders Clinical Impression: PCOS (polycystic ovarian syndrome), Chest pain Prescriptions: No Action metformin 500 mg tablet 500 mg PO QDAY spironolactone 50 mg tablet 50 mg PO QAM medroxyprogesterone 10 mg tablet 10 mg PO .COMPLEX 10 Days Qty: 10 7RF Rx Instructions: 10 mg orally take 1 tablet daily first 10 days each month; levothyroxine 25 mcg tablet 25 mcg PO DAILY ondansetron 4 mg tablet,disintegrating 4 mg PO Q8H PRN PRN (Reason: Nausea) Qty: 10 0RF dextromethorphan polistirex [Delsym 12 hour] 30 mg/5 mL suspension,extended rel 12 hr 10 ml PO Q12H PRN (Reason: cough) Qty: 89 0RF acetaminophen [Tylenol Extra Strength] 500 mg tablet 1,000 mg PO Q6H PRN (Reason: pain) 5 Days Qty: 40 0RF Primary Care Provider: Rg Winchester Referrals: Rg Winchester MD [Primary Care Provider, Family Practice] Activity Restrictions/Additional Instructions: Follow-up with your doctors in outpatient setting. Return with worsening symptoms or any other concerns Print Language: Cambodian Disposition Disposition: Home, Self Care
[2024-12-11 01:43] VITALS: BP 144/87; PULSE 81; RESP 18; O2SAT 99
[2024-12-11 01:46] VITALS: BP 144/87; PULSE 81; RESP 18; TEMP 36.6; O2SAT 99
== END 2024-12-11 01:47 | disposition home or self-care (01) ==
PROVIDERS: Emergency Provider Emergency Medicine; PCP Family Medicine; Visit Provider Emergency Medicine
DX: R07.89 Other chest pain (principal); E28.2 Polycystic ovarian syndrome; R20.0 Anesthesia of skin; R06.02 Shortness of breath; E03.9 Hypothyroidism, unspecified; F17.290 Nicotine dependence, other tobacco product, uncomplicated; Z59.02 Unsheltered homelessness; Z79.84 Long term (current) use of oral hypoglycemic drugs; Z79.890 Hormone replacement therapy; Z79.899 Other long term (current) drug therapy
CPT/HCPCS: 71046; 93005; 99282

== ENCOUNTER 2025-01-20 15:50 | Emergency (ER) | payer MEDICAID, SELFPAY ==
[2025-01-20 15:51] VITALS: BP 138/90; PULSE 77; RESP 18; TEMP 36.1; O2SAT 100; BMI 36.1
[2025-01-20 15:52] VITALS: BP 143/74; PULSE 79; O2SAT 98
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
[2025-01-20] MEDS: Ketorolac 30 MG/ML Syringe IM (16:22)
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
[2025-01-20 16:58] LABS: Internal QC Validated? YES +Cl - CLEAR BKGD; Pregnancy, Urine Negative Negative; Record Kit Lot#,Urine Preg 980607
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
== END 2025-01-20 17:20 | disposition home or self-care (01) ==
PROVIDERS: Emergency Provider Student in an Organized Health Care Education/Training Program; PCP Family Medicine; Visit Provider Student in an Organized Health Care Education/Training Program
DX: S80.811A Abrasion, right lower leg, initial encounter (principal); S80.812A Abrasion, left lower leg, initial encounter; S80.211A Abrasion, right knee, initial encounter; S80.212A Abrasion, left knee, initial encounter; V03.90XA Pedestrian on foot injured in collision with car, pick-up truck or van, unspecified whether traffic or nontraffic accident, initial encounter; E66.9 Obesity, unspecified; E28.2 Polycystic ovarian syndrome; N93.9 Abnormal uterine and vaginal bleeding, unspecified; E03.9 Hypothyroidism, unspecified; F17.290 Nicotine dependence, other tobacco product, uncomplicated; Z79.84 Long term (current) use of oral hypoglycemic drugs; Z79.890 Hormone replacement therapy; Z23 Encounter for immunization
CPT/HCPCS: 73560; 73590; 73600; 81025; 90471; 96372; 99282

== ENCOUNTER → 2025-02-12 | Outpatient (CLI) | payer MEDICAID, SELFPAY ==
[2025-02-13 07:38] LABS: Free T3 3.0 pg/mL (2.18-3.98)
== END | disposition home or self-care (01) ==
LOC: LAB 14:17
PROVIDERS: PCP Family Medicine; Referring Provider Family Medicine; Visit Provider Family Medicine
DX: E03.9 Hypothyroidism, unspecified (principal)
CPT/HCPCS: 36415; 84439; 84443; 84481